=== PATIENT | male | born 1945 | race Caucasian/White ===

== ENCOUNTER → 2020-03-29 14:45 | Outpatient (BNVA) | payer OTHER, SELFPAY | PROVIDERS: PCP Internal Medicine; Visit Provider Nurse Practitioner Family | DX: Z13.89 Encounter for screening for other disorder (principal) | CPT/HCPCS: Q3014 ==

== ENCOUNTER → 2020-04-12 14:33 | Outpatient (BNVA) | payer OTHER, SELFPAY | PROVIDERS: PCP Internal Medicine; Visit Provider Nurse Practitioner Family | DX: Z12.11 Encounter for screening for malignant neoplasm of colon (principal) | CPT/HCPCS: 99212 ==

== ENCOUNTER 2020-07-31 18:14 | Emergency (ER) | payer OTHER, SELFPAY ==
--- NOTE | ~2020-07-31 | XR_ITS ---
EXAMINATION: XR CERVICAL SPINE CLINICAL INFORMATION: Pain with paresthesias. COMPARISON: None TECHNIQUE: 3 views of the cervical spine were obtained. FINDINGS: There is straightening of the normal cervical lordosis which may be positional. No acute fracture appreciated. Multilevel spondylosis throughout the cervical spine greatest at C5-C6 and C6-C7. Prevertebral soft tissues are unremarkable. The dens appears intact. XR/XR cervical spine 3V IMPRESSION: Moderate spondylosis in the lower cervical spine at C5-C6 and C6-C7.
[2020-07-31 18:28] VITALS: BP 141/67; PULSE 90; RESP 18; TEMP 36.7; O2SAT 99; BMI 81.3
--- NOTE | 2020-07-31 19:18 | ED.NECK ---
HPI - Neck Pain/Injury General Chief Complaint: Neck Pain/Injury Stated Complaint: ARM AND HAND PAIN Time Seen by Provider: 07/31/20 19:18 Source: patient Mode of arrival: ambulatory Limitations: no limitations History of Present Illness HPI Narrative: Patient woke up with pain in the right side of the neck radiating to the right arm no history of injury no weakness no motor weakness no headache no sore throat no fever no nausea or vomiting Related Data Home Medications Medication Instructions Recorded Confirmed atorvastatin 40 mg tablet 40 mg PO BEDTIME 03/29/20 04/12/20 clonidine HCl 0.2 mg tablet 0.2 mg PO BID 03/29/20 04/12/20 clopidogrel 75 mg tablet 75 mg PO DAILY 03/29/20 04/12/20 cholecalciferol (vitamin D3) 50 50 mcg PO DAILY 04/12/20 04/12/20 mcg (2,000 unit) capsule divalproex 250 mg tablet,extended 250 mg PO QAM 04/12/20 04/12/20 release 24 hr docusate sodium 100 mg capsule 100 mg PO DAILY 04/12/20 04/12/20 ferrous sulfate 325 mg (65 mg mg PO 04/12/20 04/12/20 iron) tablet lisinopril 5 mg tablet 5 mg PO QAM 04/12/20 04/12/20 metoprolol tartrate 25 mg tablet 25 mg PO BID 04/12/20 04/12/20 quetiapine 25 mg tablet mg PO 04/12/20 04/12/20 Previous Rx's Medication Instructions Recorded tramadol 50 mg PO Q6H PRN #20 tab 07/31/20 Allergies Allergy/AdvReac Type Severity Reaction Status Date / Time No Known Allergies Allergy Unknown NONE Verified 03/29/20 14:46 Review of Systems Review of Systems: Yes all other systems are reviewed and are negative [facility] Past Medical History Surgical History History of colonoscopy Family History Family History Father Hx of type 1 diabetes mellitus Mother History of heart attack Social History Social History Alcohol intake: never Cigarette Packs Per Day: 1 Physical Exam Vital Signs: Vital Signs: Last Vital Signs Temp 98.0 F 05/10/21 18:28 Pulse 90 07/31/20 18:28 Resp 18 07/31/20 18:28 BP 141/67 H 07/31/20 18:28 Pulse Ox 99 07/31/20 18:28 Body Mass Index 81.3 Const: General: comfortable and no acute distress Orientation/consciousness: patient oriented x3 HENMT: Head: Yes normocephalic Ears: hearing grossly normal bilaterally General nose exam: Normal external nose present Eyes: General: appearance normal, both eyes and all related structures Neck: Neck: Yes full ROM, Yes no lymphadenopathy and Yes no meningeal signs Neck images: 1. Tender right trapezius and sternocleidomastoid muscles Chest: Chest palpation & inspection: normal palpation of entire chest wall Resp: Effort & Inspection: normal respiratory effort Auscultation: clear to auscultation bilaterally Cardio: Palpation: normal PMI Rate: regular rate Rhythm: regular rhythm Heart sounds: S1 normal heart sound present and S2 normal heart sound present Neuro: General: patient oriented x3, no meningeal signs and no focal motor deficits Discharge Plan Discharge Clinical Impression: Strain of neck muscle Patient Disposition: Home, Self-Care Instructions: Cervical Strain (ED) Additional Instructions: apply ice rest pain meds as adv report to ed if pain gets worse aplicar hielo descansar analg?sicos wendy adv informar a ed si el dolor empeora Prescriptions: New tramadol 50 mg tablet 50 mg PO Q6H PRN (Reason: pain) Qty: 20 RF: 0 No Action divalproex 250 mg tablet extended release 24 hr 250 mg PO QAM RF: 0 ferrous sulfate 325 mg (65 mg iron) tablet PO RF: 0 lisinopril 5 mg tablet 5 mg PO QAM RF: 0 metoprolol tartrate 25 mg tablet 25 mg PO BID RF: 0 quetiapine 25 mg tablet PO RF: 0 cholecalciferol (vitamin D3) 50 mcg (2,000 unit) capsule 50 mcg PO DAILY RF: 0 docusate sodium 100 mg capsule 100 mg PO DAILY RF: 0 atorvastatin 40 mg tablet 40 mg PO BEDTIME RF: 0 clonidine HCl 0.2 mg tablet 0.2 mg PO BID RF: 0 clopidogrel [Plavix] 75 mg tablet 75 mg PO DAILY RF: 0 Interventions: ED Discharge Assessment Last Done: 07/31/20 21:57 Discharge Date/Time: 07/31/20 22:18 Print Language: German
[2020-07-31] MEDS: traMADoL HCL 50 MG TABLET PO (20:11)
== END 2020-07-31 22:18 | disposition home or self-care (01) ==
PROVIDERS: Emergency Provider Internal Medicine; PCP Internal Medicine
DX: M54.2 Cervicalgia (principal); M79.602 Pain in left arm; M79.601 Pain in right arm; M79.642 Pain in left hand; M79.641 Pain in right hand
CPT/HCPCS: 72040; 99283; 99284

== ENCOUNTER 2020-08-03 16:25 | Inpatient (IN) | payer MEDICARE, SELFPAY ==
--- NOTE | ~2020-08-03 | XR_ITS ---
EXAMINATION: XR CHEST CLINICAL INFORMATION: Weakness. Concern for pneumonia. COMPARISON: None TECHNIQUE: Frontal portable view of the chest was obtained. 5:17 PM FINDINGS: No significant abnormality is noted involving the heart, lungs, mediastinum, bony thorax or soft tissues. XR/XR chest 1V IMPRESSION: Unremarkable examination.
--- NOTE | ~2020-08-03 | CT_ITS ---
EXAMINATION: CTA OF THE HEAD/NECK CLINICAL INFORMATION: CVA. Gaze palsy. Rule out carotid pathology. COMPARISON: Head CT from today. TECHNIQUE: A routine non contrast head CT was performed earlier in the day. This was followed by a 70 mL bolus of Omnipaque 350. Subsequent multidetector helical imaging was performed of the head and neck. Delayed post contrast imaging was also performed through the head. Multiplanar reformats and MIP were also obtained. Internal carotid artery stenoses are assessed in accordance with NASCET criteria unless otherwise indicated. This CT examination was performed using dose optimization techniques as appropriate, variously including the following: *Automated exposure control *Adjustment of mA and/or kV according to patient size (this includes techniques or standardized protocols for targeted exams where dose is matched to indication/reason for exam; i.e. extremities or head) *Use of iterative reconstruction technique DLP: 1666 mGy-cm. FINDINGS: CT HEAD: There is no evidence of acute intracranial hemorrhage or territorial infarction. No abnormal mass effect or midline shift is seen. Salazar to white matter differentiation is well preserved. No extra-axial fluid collections are identified. No suspicious leptomeningeal or parenchymal enhancement on the post-contrast images. No hydrocephalus. Proportional prominence of the ventricles and sulcal spaces is consistent with mild volume loss. Patchy periventricular and deep white matter hypoattenuation is consistent with mild small vessel ischemic changes. Bilateral basal ganglia chronic lacunar infarcts. The osseous structures and soft tissues are normal. The mastoid air cells are well aerated. Moderate mucosal thickening of the right maxillary sinus. CTA NECK: The aortic arch is of normal caliber and the origins of the great vessels are patent without evidence of significant stenosis. The cervical portion of the vertebral arteries are patent bilaterally. No luminal irregularities in the common carotid arteries and the carotid bifurcations are patent bilaterally. The cervical portion of the internal carotid arteries are of normal caliber. The laryngeal structures and pharyngeal mucosal spaces are unremarkable. The oral cavity appears normal. The parotid and submandibular glands are normal. No pathologically enlarged lymph nodes. The thyroid gland is unremarkable. The lung apices are clear without evidence of pneumothorax. Secretions are seen in the trachea extending into the right mainstem bronchus. Mild emphysema. Spinal alignment is maintained. Mild cervical spondylosis is noted. CTA HEAD: The intradural portion of the vertebral arteries are of normal caliber. The basilar, superior cerebellar, and posterior communicating arteries are patent. The posterior, middle, and anterior cerebral arteries are of normal caliber without evidence of significant luminal irregularity. No definite intracranial aneurysms. CT/CT angio head neck IMPRESSION: 1. No acute intracranial finding. Volume loss with small vessel ischemic change. 2. No acute vascular abnormality. No large vessel occlusion.
--- NOTE | ~2020-08-03 | CT_ITS ---
EXAMINATION: CT HEAD WITHOUT CONTRAST (STROKE PROTOCOL) CLINICAL INFORMATION: Stroke protocol. Left-sided weakness COMPARISON: None TECHNIQUE: Contiguous axial imaging was performed from the skull base to vertex without intravenous administration of contrast. This CT examination was performed using dose optimization techniques as appropriate, variously including the following: *Automated exposure control *Adjustment of mA and/or kV according to patient size (this includes techniques or standardized protocols for targeted exams where dose is matched to indication/reason for exam; i.e. extremities or head) *Use of iterative reconstruction technique DLP: 731 mGy-cm FINDINGS: There is no acute intra-axial, extra-axial hemorrhage, masses or midline shift. There are small bibasilar and internal capsule hypodensities, lacunar infarct. These could be acute or old however there is no mass effect. There are no previous exam available for comparison.. The ventricles are normal in size. There is no hydrocephalus, edema, or mass effect. The lee-white matter differentiation appears symmetric. The calvarium appears intact. There is no pneumocephalus or orbital emphysema. The visualized sinuses and middle ears and mastoid air cells show no significant mucosal thickening. There are no air-fluid levels. CT/CT head for stroke IMPRESSION: Bibasilar and internal capsule lacunar infarcts. The right basilar infarcts are slightly larger. These could be acute versus old. There is no mass effect. There is no previous CT available for comparison. Age-related cerebral volume loss. This critical result was discussed by phone with Jef Borrego at 4:47 PM. It was ascertained that the content and urgency of the report was understood at the time of direct communication.
[2020-08-03 16:29] VITALS: RESP 18; BMI 31.2
--- NOTE | 2020-08-03 16:29 | ECG_ITS ---
Test Reason : STROKE Blood Pressure : / mmHG Vent. Rate : 084 BPM Atrial Rate : 084 BPM P-R Int : 196 ms QRS Dur : 120 ms QT Int : 382 ms P-R-T Axes : 069 060 063 degrees QTc Int : 451 ms Normal sinus rhythm Right bundle branch block Abnormal ECG No previous ECGs available Referred By: Enrique Borrego Electronically Signed By:ALEXEY RODAS MD
--- NOTE | 2020-08-03 16:43 | PC.NURSE ---
Last known well to CVA baseline per daughter was two weeks ago. Noticed slurred speech/confusion/facial droop 2 days ago. Now reports vision changes describe as blurry 2 began 2hrs ago.
[2020-08-03 16:53] LABS: MANUAL DIFF FLAG NO
[2020-08-03 16:56] LABS: Basophils Percent Auto 0.4 % (0-2); Eosinophils Absolute Auto 0.2 X10*3/uL (0.0-0.4); Eosinophils Percent Auto 2.3 % (0-4); Hematocrit 37.5 % (42-52); Hemoglobin 12.2 g/dl (14.0-18.0); Imm Gran Abs Auto 0.01 X10*3/uL (0.00-0.03); Imm Gran Pct Auto 0.1 % (0.0-0.4); Lymphocytes Absolute Auto 1.7 X10*3/uL (1.2-4.9); Lymphocytes Percent Auto 24.3 % (20-40); Mean Corpuscular HGB Conc 32.5 g/dl (31.0-36.0); Mean Corpuscular Hemoglobin 27.5 pg (27.0-33.0); Mean Corpuscular Volume 84.7 fL (80-98); Mean Platelet Volume 9.3 fL (9.4-12.4); Monocytes Absolute Auto 0.5 X10*3/uL (0.1-1.2); Monocytes Percent Auto 7.5 % (2-11); Neutrophils Absolute Auto 4.5 X10*3/uL (2.0-8.3); Neutrophils Percent Auto 65.4 % (45-73); Platelet Count 214 X10*3/uL (160-400); Red Blood Count 4.43 X10*6/uL (4.60-5.80); Red Cell Distribution Width 15.9 % (11.0-16.0); White Blood Count 6.9 X10*3/uL (4.8-10.8)
[2020-08-03 16:57] LABS: Prothrombin Time Whole Bld POC 10.4 sec (11.1-13.5); ~PT, ~INR - Anti Coag Clinic 0.9 (0.9-1.1)
[2020-08-03 16:57] LABS: Glucose, Whole Blood 136 mg/dL (60-115)
[2020-08-03 16:58] VITALS: PULSE 84; RESP 20; TEMP 37; O2SAT 94
[2020-08-03 17:00] LABS: INTERNATIONAL NORM RATIO 1.1 (0.9-1.1); Prothrombin Time 12.9 SEC (10.8-13.0)
[2020-08-03 17:01] VITALS: BMI 28.7
[2020-08-03 17:06] LABS: Partial Thromboplastin Time 63.1 SEC (24.1-38.0); Stroke Lab Use COMPLETE
[2020-08-03 17:22] LABS: COVID-19 Test Negative (Negative)
[2020-08-03 17:25] LABS: Alanine Aminotransferase 28 U/L (0-40); Albumin Level 3.8 g/dL (3.5-5.0); Alkaline Phosphatase 88 U/L (39-117); Anion Gap 14 (12-20); Aspartate Amino Transferase 22 U/L (5-37); Bilirubin Direct < 0.2 mg/dL (0.0-0.5); Bilirubin Total 0.3 mg/dL (0.0-1.0); Blood Urea Nitrogen 23 mg/dL (9-16); Calcium 9.1 mg/dL (8.4-10.2); Carbon Dioxide 28 mmol/L (22-29); Chloride 103 mmol/L (96-108); Creatinine Clr Calc Pharmacy 54.1; Estimated Glomerular Filt Rate > 60; Glucose Random 139 mg/dL (60-115); Magnesium 1.7 mg/dL (1.6-2.6); Potassium 3.4 mmol/L (3.3-5.1); Sodium 142 mmol/L (135-145); Total Protein 6.5 g/dL (6.5-8.0)
[2020-08-03 17:31] LABS: Troponin-I High Sensitivity 8.3 ng/L (<3.5-35.0)
--- NOTE | 2020-08-03 18:00 | ED_ITS ---
HPI - General Adult General Chief complaint: General Medical Stated complaint: stroke Time Seen by Provider: 08/03/20 16:29 Source: patient, family (Daughter, Belinda Win, ) and EMS Mode of arrival: EMS Limitations: language barrier (Patient is [place]-speaking, daughter speaks Micronesian and [place], liquor gallery operator was used to obtain information) History of Present Illness HPI narrative: 84-year-old male brought to the emergency department for evaluation of possible stroke. Information was obtained from EMS, the patient's daughter Antoinette and the patient. According to the patient's daughter, the patient was seen yesterday at this hospital for right arm and right neck pain (I do not see this record). The patient had a laboratory evaluation and was sent home with a prescription for tramadol for his pain. According to the daughter, they did not give him any tramadol since they were concerned that this medication would have bad side effects. The daughter states that the patient bennett s not been feeling well for 3 days and told the daughter that he felt like he was going to . Last night at around 9:00 p.m., the patient called his daughter and the daughter's and children went to check on the patient. He was stepped between the wheelchair next bed and they had field administrative assistant into bed. Apparently he was confused and not acting himself. Today, at noon, the patient's MOLD MOVER went to check on him in the patient appeared to be confused and disoriented. 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 He was unable to hold a spoon and was having difficulty moving his arm. The patient's symptoms and di sorientation got worse therefore the family called an ambulance and had the patient transported to the emergency department. In the emergency department, the patient apparently has dysarthric speech but the speech is comprehensible. He does answer questions appropriately but does appear to be confused at times. He does follow commands appropriately. Related Data Home Medications Medication Instructions Recorded Confirmed atorvastatin 1 tab PO BEDTIME 08/03/20 08/03/20 blood sugar diagnostic [OneTouch 08/03/20 08/03/20 Ultra Blue Test Strip] chlorhexidine gluconate 15 ml PO BID 08/03/20 08/03/20 cholecalciferol (vitamin D3) 1 cap PO QAM 08/03/20 08/03/20 clonidine HCl 1 tab PO BID 08/03/20 08/03/20 clopidogrel 1 tab PO QAM 08/03/20 08/03/20 divalproex 1 tab PO QAM 08/03/20 08/03/20 docusate sodium 1 cap PO BID 08/03/20 08/03/20 ferrous sulfate [FeroSul] 1 tab PO TID 08/03/20 08/03/20 fluticasone furoate-vilanterol 1 puff INHALATION DAILY 08/03/20 08/03/20 [Breo Ellipta] insulin glargine [Lantus Solostar 55 unit SUBCUT DAILY 08/03/20 08/03/20 U-100 Insulin] lancets [OneTouch Delica Plus 08/03/20 08/03/20 Lancet] lisinopril 1 tab PO QAM 08/03/20 08/03/20 metformin 0.5 tab PO BID 08/03/20 08/03/20 metoprolol tartrate 1 tab PO BID 08/03/20 08/03/20 multivitamin [One Daily 1 tab PO DAILY 08/03/20 08/03/20 Multivitamin] pen needle, diabetic [UltiCare Pen 08/03/20 08/03/20 Needle] quetiapine 1 tab PO TID 08/03/20 08/03/20 tramadol 1 tab PO Q6H PRN 08/03/20 08/03/20 Allergies Allergy/AdvReac Type Severity Reaction Status Date / Time No Known Allergies Allergy Verified 08/03/20 17:06 Review of Systems Review of Systems: Yes Unobtainable due to mental status (Disorientation and confusion) Neurologic: Reports Abnormal speech present (Dysarthric) [facility] Past Medical History [facility] Narrative: The patient lives at home with MOLD MOVER assistance and family assistance. He does smoke cigarettes. He denies tobacco and alcohol use. Medical History CVA (cerebral vascular accident) Diabetes HTN (hypertension) Social History Social History Alcohol intake: current Smoking Status: Current every day smoker Use of substances other than those prescribed or required for medical reasons: No Advance Directives: No Advance Directives Information Provided: No Physical Exam Vital Signs: Vital Signs: Last Vital Signs Temp 98.8 F 08/03/20 19:09 Pulse 71 08/03/20 19:09 Resp 21 H 08/03/20 19:09 BP 106/56 L 08/03/20 19:09 Pulse Ox 93 08/03/20 19:09 Body Mass Index 28.7 Const: General: cooperative Orientation/consciousness: oriented to person and oriented to place HENMT: Head: Yes normal to inspection, Yes normocephalic and Yes atraumatic Ears: external ears normal General nose exam: Normal external nose present Face and sinus: Yes normal facial exam Mouth: Normal oral and palatal mucosa present Throat: Yes posterior oropharynx normal Eyes: Periorbital: periorbital findings normal Eyelids: Yes eyelids normal Conjunctivae: conjunctivae normal Sclerae: sclerae normal Corneas: corneas normal Pupils: Equal, round and reactive pupils present EOM: EOM abnormal (Right gaze paralysis) Direct Ophthalmoscopy: normal light reflex Neck: Neck: Yes full ROM, Yes no lymphadenopathy, Yes no meningeal signs, Yes trachea midline and Yes supple Chest: Chest palpation & inspection: normal inspection of the chest and normal palpation of entire chest wall Resp: Effort & Inspection: normal respiratory effort and able to speak in complete sentences Auscultation: clear to auscultation bilaterally Cardio: Rate: regular rate Rhythm: regular rhythm Heart sounds: S1 brandi l heart sound present, S2 normal heart sound present and no murmurs GI: Inspection: Yes normal to inspection Palpation (GI): Soft to palpation, nontender, no guarding, not rigid and No hepatosplenomegaly present : General: Yes no CVA tenderness Back/Spine/Pelvis: Back: no CVA tenderness Cervical Spine: normal cervical lordosis Thoracic/Lumbar Spine: thoracic and lumbar spine normal to inspection Skin: Lesions: no lesions Rashes: no rashes Wounds: no wounds Neuro: Other: Bilateral above the knee amputations. The patient has left sided upper extremity weakness compared to the right, he is able to hold the right up against gravity but the daughter states that his right arm appears incoordinated compared to his baseline. He has minimal stopboard assembler strength in the left arm is able to hold the left arm minimally against gravity General: oriented to person, oriented to place and no meningeal signs Cranial nerves: Yes CN's II-XII intact bilaterally and Yes Equal, round and reactive pupils present Cognition (Neuro): normal cognition Speech: Abnormal speech present (Dysarthric) Extrem: Other: Bilateral above the knee amputations. General: Yes full ROM Psych: Appearance: well kempt Mental Status: mental status grossly normal Affect: normal affect Attitude: cooperative NIH Stroke Scale Internal: Initial- Upon Arrival Level of Consciousness: Alert Level of Consciousness Questions: Answers both questions correctly Level of Consciousness Commands: Performs both tasks correctly Best Gaze: Forced deviation (Right gaze paralysis) Visual: No visual loss Facial Palsy: Normal Motor Arm (Right): Drift Motor Arm (Left): Some effort against gravity Motor Leg (Right): Amputation or joint fusion Motor Leg (Left): Amputation or joint fusion Limb Ataxia: Present in one limb Sensory: Normal Best Language: No aphasia Dysarthia: Mild to moderate dysarthria Extinction and Inattention: No abnormality Score: 7 Course Course Course Narrative: 84-year-old male who presents emergency department for evaluation of disorientation, dysarthric speech, weakness his right upper extremity which may be new and weakness of his left upper extremity which may be chronic. The patient's last well-known time was last night at 9:00 p.m.. Physical examination is concerning for an acute stroke with dysarthric speech and right gaze paralysis and slight weakness and discoordination of the right upper extremity compared to his baseline. The patient's NIH stroke scale was 7. Given the delay in the patient's presentation, he does not qualify for tPA thrombolytics therapy. I will discuss the patient's presentation with the covering neurologist. 1813: In the patient's PT INR were normal. PTT was elevated at 63.1. Point of care glucose 136. Patient's CK was elevated at 591. initial troponin was detectable at a 0.3 but not elevated. Labs are otherwise unremarkable. CT scan of the brain was reported to me by the radiologist at 4:47 p.m. as bibasilar and internal capsule lacunar infarcts, the right basilar infarcts are slightly larger. This could be acute versus old. The for there is no mass effect. There is no previous CT for comparison. Given the patient's right gaze paralysis, I am concerned that he may now have a new right bibasilar/internal capsular infarct. 2020: I did discuss the patient's presentation with the covering neurologist who recommended that the patient be admitted for further workup of possible stroke. I did discuss the patient's presentation with the covering hospitalist, Dr. Antony. The patient will be admitted to the hospital service for further treatment. We discussed giving rectal aspirin since the patient was having difficulty swallowing. He was ordered to get aspirin 300 mg per rectum. Medical Decision Making Lab Data Result diagrams: 08/03/20 16:44 08/03/20 16:44 Labs: Lab Results 08/03/20 08/03/20 08/03/20 Range/Units 16:44 16:44 16:44 WBC 6.9 (4.8-10.8) X10*3/uL RBC 4.43 L (4.60-5.80) X10*6/uL Hgb 12.2 L (14.0-18.0) g/dl Hct 37.5 L (42-52) % MCV 84.7 (80-98) fL MCH 27.5 (27.0-33.0) pg MCHC 32.5 (31.0-36.0) g/dl RDW 15.9 (11.0-16.0) % Plt Count 214 (160-400) X10*3/uL MPV 9.3 L (9.4-12.4) fL Immature Gran % (Auto) 0.1 (0.0-0.4) % Neut % (Auto) 65.4 (45-73) % Lymph % (Auto) 24.3 (20-40) % [place] % (Auto) 7.5 (2-11) % Eos % (Auto) 2.3 (0-4) % Baso % (Auto) 0.4 (0-2) % Lymph # (Auto) 1.7 (1.2-4.9) X10*3/uL [place] # (Auto) 0.5 (0.1-1.2) X10*3/uL Eos # (Auto) 0.2 (0.0-0.4) X10*3/uL Baso # (Auto) 0.0 (0.0-0.2) X10*3/uL Abs Immat Gran (auto) 0.01 (0.00-0.03) X10*3/uL Absolute Neuts (auto) 4.5 (2.0-8.3) X10*3/uL Absolute Nucleated RBC 0.000 (0.0-0.012) X10*3/uL Nucleated RBC % (auto) 0.0 (0.0-0.2) /100WBC PT 12.9 (10.8-13.0) SEC Whole Blood PT (11.1-13.5) sec INR 1.1 (0.9-1.1) Whole Blood INR (0.9-1.1) APTT 63.1 H* (24.1-38.0) SEC Sodium 142 (135-145) mmol/L Potassium 3.4 (3.3-5.1) mmol/L Chloride 103 (96-108) mmol/L Carbon Dioxide 28 (22-29) mmol/L Anion Gap 14 (12-20) BUN 23 H (9-16) mg/dL Creatinine 0.80 (0.5-1.4) mg/dL Estim Creat Clear Calc 54.1 Estimated GFR > 60 POC Glucose (60-115) mg/dL Random Glucose 139 H (60-115) mg/dL Calcium 9.1 (8.4-10.2) mg/dL Magnesium 1.7 (1.6-2.6) mg/dL Total Bilirubin 0.3 (0.0-1.0) mg/dL Direct Bilirubin < 0.2 (0.0-0.5) mg/dL AST 22 (5-37) U/L ALT 28 (0-40) U/L Alkaline Phosphatase 88 (39-117) U/L Total Creatine Kinase 591 H (38-174) U/L Troponin I High Sens (<3.5-35.0) ng/L Total Protein 6.5 (6.5-8.0) g/dL Albumin 3.8 (3.5-5.0) g/dL COVID-19 (LIDIA) (Negative) COVID-19 Clin Com 08/03/20 08/03/20 08/03/20 Range/Units 16:44 16:46 16:48 WBC (4.8-10.8) X10*3/uL RBC (4.60-5.80) X10*6/uL Hgb (14.0-18.0) g/dl Hct (42-52) % MCV (80-98) fL MCH (27.0-33.0) pg MCHC (31.0-36.0) g/dl RDW (11.0-16.0) % Plt Count (160-400) X10*3/uL MPV (9.4-12.4) fL Immature Gran % (Auto) (0.0-0.4) % Neut % (Auto) (45-73) % Lymph % (Auto) (20-40) % [place] % (Auto) (2-11) % Eos % (Auto) (0-4) % Baso % (Auto) (0-2) % Lymph # (Auto) (1.2-4.9) X10*3/uL [place] # (Auto) (0.1-1.2) X10*3/uL Eos # (Auto) (0.0-0.4) X10*3/uL Baso # (Auto) (0.0-0.2) X10*3/uL Abs Immat Gran (auto) (0.00-0.03) X10*3/uL Absolute Neuts (auto) (2.0-8.3) X10*3/uL Absolute Nucleated RBC (0.0-0.012) X10*3/uL Nucleated RBC % (auto) (0.0-0.2) /100WBC PT (10.8-13.0) SEC Whole Blood PT 10.4 L (11.1-13.5) sec INR (0.9-1.1) Whole Blood INR 0.9 (0.9-1.1) APTT (24.1-38.0) SEC Sodium (135-145) mmol/L Potassium (3.3-5.1) mmol/L Chloride (96-108) mmol/L Carbon Dioxide (22-29) mmol/L Anion Gap (12-20) BUN (9-16) mg/dL Creatinine (0.5-1.4) mg/dL Estim Creat Clear Calc Estimated GFR POC Glucose 136 H (60-115) mg/dL Random Glucose (60-115) mg/dL Calcium (8.4-10.2) mg/dL Magnesium (1.6-2.6) mg/dL Total Bilirubin (0.0-1.0) mg/dL Direct Bilirubin (0.0-0.5) mg/dL AST (5-37) U/L ALT (0-40) U/L Alkaline Phosphatase (39-117) U/L Total Creatine Kinase (38-174) U/L Troponin I High Sens 8.3 (<3.5-35.0) ng/L Total Protein (6.5-8.0) g/dL Albumin (3.5-5.0) g/dL COVID-19 (LIDIA) (Negative) COVID-19 Clin Com 08/03/20 Range/Units 16:56 WBC (4.8-10.8) X10*3/uL RBC (4.60-5.80) X10*6/uL Hgb (14.0-18.0) g/dl Hct (42-52) % MCV (80-98) fL MCH (27.0-33.0) pg MCHC (31.0-36.0) g/dl RDW (11.0-16.0) % Plt Count (160-400) X10*3/uL MPV (9.4-12.4) fL Immature Gran % (Auto) (0.0-0.4) % Neut % (Auto) (45-73) % Lymph % (Auto) (20-40) % [place] % (Auto) (2-11) % Eos % (Auto) (0-4) % Baso % (Auto) (0-2) % Lymph # (Auto) (1.2-4.9) X10*3/uL [place] # (Auto) (0.1-1.2) X10*3/uL Eos # (Auto) (0.0-0.4) X10*3/uL Baso # (Auto) (0.0-0.2) X10*3/uL Abs Immat Gran (auto) (0.00-0.03) X10*3/uL Absolute Neuts (auto) (2.0-8.3) X10*3/uL Absolute Nucleated RBC (0.0-0.012) X10*3/uL Nucleated RBC % (auto) (0.0-0.2) /100WBC PT (10.8-13.0) SEC Whole Blood PT (11.1-13.5) sec INR (0.9-1.1) Whole Blood INR (0.9-1.1) APTT (24.1-38.0) SEC Sodium (135-145) mmol/L Potassium (3.3-5.1) mmol/L Chloride (96-108) mmol/L Carbon Dioxide (22-29) mmol/L Anion Gap (12-20) BUN (9-16) mg/dL Creatinine (0.5-1.4) mg/dL Estim Creat Clear Calc Estimated GFR POC Glucose (60-115) mg/dL Random Glucose (60-115) mg/dL Calcium (8.4-10.2) mg/dL Magnesium (1.6-2.6) mg/dL Total Bilirubin (0.0-1.0) mg/dL Direct Bilirubin (0.0-0.5) mg/dL AST (5-37) U/L ALT (0-40) U/L Alkaline Phosphatase (39-117) U/L Total Creatine Kinase (38-174) U/L Troponin I High Sens (<3.5-35.0) ng/L Total Protein (6.5-8.0) g/dL Albumin (3.5-5.0) g/dL COVID-19 (LIDIA) Negative (Negative) COVID-19 Clin Com See Note ECG Data Attestation: I personally reviewed and interpreted this ECG as follows: Interpretation: 1701: Normal sinus rhythm with a rate of 84, normal CO, prolonged QRS of 120 milliseconds, Brandi QTC. No ST segment elevation or depression. Critical Care Time Critical Care Time Total Critical Care Time: 35 Attestation: Critical Care: The patient was critically ill with a high probability of imminent or life threatening deterioration. I spent greater than 30 minutes of discontinuous time evaluating the patient,delivering critical care at the bedside, discussing and evaluating pertinent data with consultants. Critical care time does not include time spent performing separately billable procedures or teaching. Total time spent performing critical care was 35 minutes. Discharge Plan Discharge Clinical Impression: Stroke Qualifiers: CVA mechanism: unspecified Qualified Code(s): I63.9 - Cerebral infarction, unspecified Patient Disposition: Admitted As Inpatient
[2020-08-03 19:09] VITALS: BP 106/56; PULSE 71; RESP 21; TEMP 37.1; O2SAT 93
[2020-08-03 20:48] VITALS: BP 114/48; PULSE 85
--- NOTE | 2020-08-03 20:54 | PM.IMHP ---
History of Present Illness Date of Service: 08/03/20 Chief Complaint: Right-sided weakness 84-year-old male with a past medical history of hypertension, hyperlipidemia, diabetes, history of CVA with residual left arm weakness, bilateral lower extremity amputation, wheelchair-bound; presented to the hospital today with a chief complaint of right-sided weakness/confusion. Most of the history obtained from the ER staff, patient's family. Reportedly over the past few days patient has been not doing well; brought to the ER on Friday for complaints of neck pain and arm pain; subsequently given tramadol and sent home. At home patient noted to be more confused; and noted right upper extremity weakness as well as slurring his words. Also mentioned the patient was on not able to swallow food. Patient's daughter mentioned that on Friday the noticed that his eyes are not moving appropriately and patient was complaining of blurry vision. Patient denies any chest pain palpitations lightheadedness or dizziness. Denies any fever chills cough. Review of all other systems is negative except mentioned above ER course: Per ER team patient noted to have left arm weakness which is old, noted right arm slightly weaker; patient last well known was 9:00 p.m. the day before mentioned that on exam patient noted to have dysarthric speech and a right gaze paralysis and slight discoordination of the right upper extremity with NIH stroke scale of 7. Patient does not qualify for tPA. Spoke to Dr. Smith from Neurology who recommended admission for further stroke workup. EKG was nonischemic. Troponin negative. Urinalysis pending. [facility] Medical History (Updated 08/15/20 @ 00:01 by Christine Walton) CVA (cerebral vascular accident) Diabetes Dysphagia as late effect of cerebrovascular accident (CVA) HTN (hypertension) Stroke Social History Household Members: None Housing: Apartment Do you presently have visiting nurse or other home services: No Alcohol intake: current Smoking Status: Current every day smoker Packs Per Day: 1 Cigarettes Per Day: 20.0 Smoked in Last 30 Days: Yes Patient Interested in Nicotine Replacement: No Patient Given Instructions on How to Stop Smoking: No Second Hand Smoke Exposure: Yes Use of substances other than those prescribed or required for medical reasons: No Currently Displaying Signs/Symptoms of Drug Intoxication Withdrawal: No Have you been hit, kicked, punched, or otherwise hurt by someone within the past year? If so, by whom?: No Do you feel safe in your current relationship?: No Current Relationship Is there a partner from a previous relationship who is making you feel unsafe now?: No Are you made to feel afraid or neglected: No Advance Directives: No Advance Directives Information Provided: No Do you have thoughts of harming others: None Do you have a plan to hurt others: No Plan Recently lost weight without trying: No How much weight loss: Not applicable Eating poorly because of decreased appetite: No Nutrition screen score: 0 Nutrition Risks: No Nutritional Risk Poor oral hygiene: No service: No Current occupational status: unemployed and disabled Meds Allergies Allergy/AdvReac Type Severity Reaction Status Date / Time No Known Allergies Allergy Verified 08/03/20 17:06 Active Medications: Current Medications Generic Name Dose Route Start Last Admin Trade Name Freq PRN Reason Stop Dose Admin Atorvastatin Calcium 40 mg 08/03/20 21:00 Atorvastatin Calcium 40 Mg Tablet PO BEDTIME [facility] Chlorhexidine Gluconate 15 ml 08/03/20 21:00 Chlorhexidine Gluc Oral Rinse 15 Ml Mouthwash BUCCAL BID [facility] Clonidine HCl 0.2 mg 08/03/20 21:00 Clonidine Hcl 0.2 Mg Tablet PO BID [facility] Protocol Clopidogrel Bisulfate 75 mg 08/03/20 21:00 Clopidogrel Bisulfate 75 Mg Tablet PO QAM [facility] Divalproex Sodium 250 mg 08/03/20 21:00 Divalproex Sodium Er 250 Mg Tab.Er.24h PO QAM [facility] Docusate Sodium 100 mg 08/03/20 21:00 Docusate Sodium 100 Mg Capsule PO BID [facility] Fluticasone/Vilanterol 1 puff 08/04/20 09:00 Fluticasone/Vilanterol 100/25 Blst.W.Dev INHALE DAILY [facility] Heparin Sodium (Porcine) 5,000 unit 08/03/20 21:00 Heparin Sodium,Porcine 5,000 Unit/Ml Vial SUBCUT Q8H [facility] Dextrose/Sodium Chloride 1,000 mls @ 50 mls/hr 08/03/20 21:00 D51/2ns IVCONT .Q20H [facility] Insulin Human Lispro 0 unit 08/03/20 21:00 Insulin Lispro 100 Unit/Ml 3 Ml Vial SUBCUT QIDACHS [facility] Protocol Lisinopril 5 mg 08/03/20 21:00 Lisinopril 5 Mg Tablet PO QAM [facility] Protocol Metoprolol Tartrate 25 mg 08/03/20 21:00 Metoprolol Tartrate 25 Mg Tablet PO BID [facility] Protocol Quetiapine Fumarate 25 mg 08/03/20 21:00 Quetiapine Fumarate 25 Mg Tablet PO TID [facility] Sodium Chloride 3 ml 08/04/20 00:00 0.9 % Sodium Chloride Flush 3 Ml [facility] Vitamin D 50 mcg 08/03/20 21:00 Cholecalciferol (Vitamin D3) 25 Mcg [facility] Medication Instructions Recorded Confirmed Last Taken Type Breo Ellipta 1 puff INHALATION DAILY 08/03/20 08/03/20 Unknown History Lantus Solostar U-100 Insulin 55 unit SUBCUT DAILY 08/03/20 08/03/20 Unknown History OneTouch Ultra Blue Test Strip 08/03/20 08/03/20 Unknown History atorvastatin 1 tab PO BEDTIME 08/03/20 08/03/20 Unknown History chlorhexidine gluconate 15 ml PO BID 08/03/20 08/03/20 Unknown History cholecalciferol (vitamin D3) 1 cap PO QAM 08/03/20 08/03/20 Unknown History clonidine HCl 1 tab PO BID 08/03/20 08/03/20 Unknown History clopidogrel 1 tab PO QAM 08/03/20 08/03/20 Unknown History divalproex 1 tab PO QAM 08/03/20 08/03/20 Unknown History docusate sodium 1 cap PO BID 08/03/20 08/03/20 Unknown History ferrous sulfate [FeroSul] 1 tab PO TID 08/03/20 08/03/20 Unknown History lancets [OneTouch Delica Plus 08/03/20 08/03/20 Unknown History Lancet] lisinopril 1 tab PO QAM 08/03/20 08/03/20 Unknown History metformin 0.5 tab PO BID 08/03/20 08/03/20 Unknown History metoprolol tartrate 1 tab PO BID 08/03/20 08/03/20 Unknown History multivitamin [One Daily 1 tab PO DAILY 08/03/20 08/03/20 Unknown History Multivitamin] pen needle, diabetic [UltiCare Pen 08/03/20 08/03/20 Unknown History Needle] quetiapine 1 tab PO TID 08/03/20 08/03/20 Unknown History Physical Exam Vital Signs and Narrative: Vital Signs: Last Vital Signs Temp 98.8 F 08/03/20 19:09 Pulse 71 08/03/20 19:09 Resp 21 H 08/03/20 19:09 BP 106/56 L 08/03/20 19:09 Pulse Ox 93 08/03/20 19:09 Body Mass Index 28.7 Gen: Appears be in no acute distress HEENT: NCAT, Moist mucosa. Pulmonary: Vesicular breath sounds, fair air entry CVS: Normal S1-S2 Abdomen: BS+, Soft, Nontender Extremities: Warm well perfused; bilateral a bony amputation Neuro: Alert and awake. Results Labs CBC and Chem 7: 08/04/20 05:48 08/04/20 05:48 Labs: Laboratory Results - last 24 hr 08/03/20 08/03/20 08/03/20 16:44 16:44 16:44 MCV 84.7 MCH 27.5 MCHC 32.5 RDW 15.9 Plt Count 214 MPV 9.3 L Immature Gran % (Auto) 0.1 Neut % (Auto) 65.4 Lymph % (Auto) 24.3 [place] % (Auto) 7.5 Eos % (Auto) 2.3 Baso % (Auto) 0.4 Lymph # (Auto) 1.7 [place] # (Auto) 0.5 Eos # (Auto) 0.2 Baso # (Auto) 0.0 Abs Immat Gran (auto) 0.01 Absolute Neuts (auto) 4.5 Absolute Nucleated RBC 0.000 Nucleated RBC % (auto) 0.0 PT 12.9 Whole Blood PT INR 1.1 Whole Blood INR APTT 63.1 H* Anion Gap 14 Estim Creat Clear Calc 54.1 Estimated GFR > 60 POC Glucose Random Glucose 139 H Calcium 9.1 Magnesium 1.7 Total Bilirubin 0.3 Direct Bilirubin < 0.2 AST 22 ALT 28 Alkaline Phosphatase 88 Total Creatine Kinase 591 H Troponin I High Sens Total Protein 6.5 Albumin 3.8 COVID-19 ([facility]) COVID-19 Clin Com 08/03/20 08/03/20 08/03/20 16:44 16:46 16:48 MCV MCH MCHC RDW Plt Count MPV Immature Gran % (Auto) Neut % (Auto) Lymph % (Auto) [place] % (Auto) Eos % (Auto) Baso % (Auto) Lymph # (Auto) [place] # (Auto) Eos # (Auto) Baso # (Auto) Abs Immat Gran (auto) Absolute Neuts (auto) Absolute Nucleated RBC Nucleated RBC % (auto) PT Whole Blood PT 10.4 L INR Whole Blood INR 0.9 APTT Anion Gap Estim Creat Clear Calc Estimated GFR POC Glucose 136 H Random Glucose Calcium Magnesium Total Bilirubin Direct Bilirubin AST ALT Alkaline Phosphatase Total Creatine Kinase Troponin I High Sens 8.3 Total Protein Albumin COVID-19 ([facility]) COVID-19 Clin Com 08/03/20 16:56 MCV MCH MCHC RDW Plt Count MPV Immature Gran % (Auto) Neut % (Auto) Lymph % (Auto) [place] % (Auto) Eos % (Auto) Baso % (Auto) Lymph # (Auto) [place] # (Auto) Eos # (Auto) Baso # (Auto) Abs Immat Gran (auto) Absolute Neuts (auto) Absolute Nucleated RBC Nucleated RBC % (auto) PT Whole Blood PT INR Whole Blood INR APTT Anion Gap Estim Creat Clear Calc Estimated GFR POC Glucose Random Glucose Calcium Magnesium Total Bilirubin Direct Bilirubin AST ALT Alkaline Phosphatase Total Creatine Kinase Troponin I High Sens Total Protein Albumin COVID-19 ([facility]IA) Negative COVID-19 Clin Com See Note Imaging Radiologist's Impressions: Impressions Chest X-Ray 08/03/20 16:29 IMPRESSION: Unremarkable examination. Head CT 08/03/20 16:29 IMPRESSION: Bibasilar and internal capsule lacunar infarcts. The right basilar infarcts are slightly larger. These could be acute versus old. There is no mass effect. There is no previous CT available for comparison. Age-related cerebral volume loss. This critical result was discussed by phone with Jef Borrego at 4:47 PM. It was ascertained that the content and urgency of the report was understood at the time of direct communication. Assessment and Plan (1) Stroke: Qualifiers: CVA mechanism: unspecified Qualified Code(s): I63.9 - Cerebral infarction, unspecified 84-year-old male with a past medical history of hypertension, hyperlipidemia, diabetes, bilateral above knee amputation, CVA with left upper extremity weakness residual,; presented to the hospital with a chief complaint of right upper extremity weakness, dysarthria, blurry vision; CVA: CT scan showed bibasilar and internal capsule lacunar infarcts; the right basilar infarcts are slightly larger. Could be acute versus old. No mass effect. Neuro checks Neurology consult notified Given rectal aspirin in the ER. Will obtain a stat CT angio head and neck to rule out any carotid pathology. Strict NPO until cleared by Speech and swallow consult; PT/OT eventually Echocardiogram with bubble study Patient failed bedside swallow screen. Will hold home oral medications for now. Hypertension: Patient's blood pressure currently on the soft side. Will hold home medications for now Diabetes: Insulin sliding scale DVT prophylaxis: SCD boots Code status: Full code Spoke to the patient's healthcare proxy, discussed the plan of care, and treatment options, agreed for hospital stay at [facility]. And
[2020-08-03] MEDS: Aspirin 300 MG SUPP.RECT PR (21:03)
--- NOTE | 2020-08-03 21:08 | PC.NURSE ---
confirmed with md: pt is strict NPO pending swallow eval by speech.
--- NOTE | 2020-08-03 21:24 | PC.NURSE ---
ATTEMPTED TO GIVE REPORT TO JONATHAN MCGREGOR. PER LIZABETH MCGREGOR UNAVAILABLE. WILL CALL BACK IN 10 MINUTES.
[2020-08-03 21:55] LABS: Glucose, Whole Blood 119 mg/dL (60-115)
[2020-08-03] MEDS: iohexoL 350 MG/ML 100 ML INFUS..BTL IV (22:00)
[2020-08-03 22:10] VITALS: BP 141/65; PULSE 86; RESP 16; TEMP 36.4; O2SAT 94
[2020-08-03] MEDS: Dextrose 5 % and 0.45 % NaCl 1,000 ML 50 ML IVCONT (22:12)
[2020-08-03] MEDS: 0.9 % Sodium Chloride Flush 3 ML SYRINGE IVFLUSH (22:12)
[2020-08-03 22:38] LABS: Amphetamine Screen Urine Not Detected (Not Detect); Barbiturates, Urine Not Detected (Not Detect); Benzodiazepines Screen Urine Not Detected (Not Detect); Cannabinoid Screen Urine Not Detected (Not Detect); Cocaine Screen Urine Not Detected (Not Detect); Opiate Screen Urine Not Detected (Not Detect); Phencyclidine Screen Urine Not Detected (Not Detect)
[2020-08-03 23:53] LABS: Glucose Urine UA NEG (NEG); Leukocyte Esterase Urine NEG (NEG); Nitrite Urine NEG (NEG); PH 6.5 (5.0-8.0); Urine Blood NEG (NEG); Urine Ketones 15 MG/DL (NEG); Urine Protein NEG (NEG-TRACE)
[2020-08-03 23:54] LABS: Appearance Urine HAZY; Color Urine DARK YELLOW
[2020-08-04] VITALS (8 sets, daily range): BP systolic 117–164; BP diastolic 54–81; PULSE 74–97; RESP 14–19; TEMP 36.1–36.5; O2SAT 91–97
[2020-08-04 00:40] LABS: Troponin-I High Sensitivity 8.4 ng/L (<3.5-35.0)
[2020-08-04 06:25] LABS: MANUAL DIFF FLAG NO
[2020-08-04 06:40] LABS: Basophils Percent Auto 0.3 % (0-2); Eosinophils Absolute Auto 0.1 X10*3/uL (0.0-0.4); Eosinophils Percent Auto 1.5 % (0-4); Hematocrit 37.4 % (42-52); Hemoglobin 12.2 g/dl (14.0-18.0); Imm Gran Abs Auto 0.02 X10*3/uL (0.00-0.03); Imm Gran Pct Auto 0.3 % (0.0-0.4); Lymphocytes Absolute Auto 1.3 X10*3/uL (1.2-4.9); Lymphocytes Percent Auto 18.2 % (20-40); Mean Corpuscular HGB Conc 32.6 g/dl (31.0-36.0); Mean Corpuscular Hemoglobin 27.4 pg (27.0-33.0); Monocytes Absolute Auto 0.5 X10*3/uL (0.1-1.2); Monocytes Percent Auto 6.8 % (2-11); Neutrophils Absolute Auto 5.4 X10*3/uL (2.0-8.3); Neutrophils Percent Auto 72.9 % (45-73); Platelet Count 208 X10*3/uL (160-400); Red Blood Count 4.45 X10*6/uL (4.60-5.80); Red Cell Distribution Width 15.9 % (11.0-16.0); White Blood Count 7.4 X10*3/uL (4.8-10.8)
[2020-08-04 07:12] LABS: Cholesterol 156 mg/dL; HDL Cholesterol 25 mg/dL; LDL Cholesterol Calculated 108 mg/dl; Triglycerides 116 mg/dL
[2020-08-04 07:31] LABS: Anion Gap 12 (12-20); Blood Urea Nitrogen 23 mg/dL (9-16); Calcium 8.6 mg/dL (8.4-10.2); Carbon Dioxide 28 mmol/L (22-29); Chloride 101 mmol/L (96-108); Creatinine Clr Calc Pharmacy 64.6; Estimated Glomerular Filt Rate > 60; Glucose Random 230 mg/dL (60-115); Potassium 3.7 mmol/L (3.3-5.1); Sodium 137 mmol/L (135-145)
[2020-08-04 07:36] LABS: Glucose, Whole Blood 206 mg/dL (60-115)
[2020-08-04] MEDS: Fluticasone/Vilanterol 100/25 BLST.W.DEV 1 PUFF INHALE (08:36)
--- NOTE | 2020-08-04 10:53 | MHC.SL.SWA ---
Speech Pathologist Impression: Oralpharyngeal Dysphagia Dysphasia Diet Status: Upgrade Liquid Consistency and Strategies for Safe Swallow: Liquid Intake Recommendation: Honey Thick Liquid Intake Strategies: Small Sips Double Swallow Liquids by Teaspoon Only Solid Food Consistency: Dietary Recommendations: Pureed (NDD1) Additional Modifications to Solid Foods: Liquids by teaspoon or SMALL CONTROLLED cup sip Oral Medication Intake: Crushed with Puree Compensatory Strategies and Precautions to be Taken for Safe Swallow: Sitting Upright (90 deg) No Straw Liquids from Spoon Small Bites and Sips Rate of Ingestion Change Oral Check Supervision While Eating and Drinking for Safe Swallow: Total Supervision (1:1) Swallowing Recommended Treatments: Compens. Strategy Educat. Recommendation for Speech: Inpatient Speech Therapy Comment: Will continue to follow patient to monitor tolerance and re-assess potential for upgrade. Professional Benefits Sales Consultant Clinican/Clinical Fellow: No Supervisory Statement: I have reviewed and agree with the student/clinical fellow's documentation: N/A Speech Language Pathologist: Mary Mendez M.A., CCC-MEDICAL COLLECTOR
--- NOTE | 2020-08-04 12:02 | P.CNNE_ITS ---
History of Present Illness Data of Consult Service Date: 08/04/20 Primary Care Provider: [facility] 74 years old man with underlying history of diabetes bilateral lower extremity amputation resident of a shelter who came to hospital with new onset of left-sided weakness and confusion. He was unable to provide any meaningful history and apparently symptoms normal resolved. Review of Systems Review of Systems: No recent cold or flu-like illness PMFSH Past Medical History Medical History CVA (cerebral vascular accident) Diabetes HTN (hypertension) Social History Social History Household Members: None Housing: Apartment Do you presently have visiting nurse or other home services: No Alcohol intake: current Smoking Status: Current every day smoker Packs Per Day: 1 Cigarettes Per Day: 20.0 Smoked in Last 30 Days: Yes Patient Interested in Nicotine Replacement: No Patient Given Instructions on How to Stop Smoking: No Second Hand Smoke Exposure: Yes Use of substances other than those prescribed or required for medical reasons: No Currently Displaying Signs/Symptoms of Drug Intoxication Withdrawal: No Have you been hit, kicked, punched, or otherwise hurt by someone within the past year? If so, by whom?: No Do you feel safe in your current relationship?: No Current Relationship Is there a partner from a previous relationship who is making you feel unsafe now?: No Are you made to feel afraid or neglected: No Advance Directives: No Advance Directives Information Provided: No Do you have thoughts of harming others: None Do you have a plan to hurt others: No Plan Recently lost weight without trying: No How much weight loss: Not applicable Eating poorly because of decreased appetite: No Nutrition screen score: 0 Nutrition Risks: No Nutritional Risk Poor oral hygiene: No Meds Allergies Allergy/AdvReac Type Severity Reaction Status Date / Time No Known Allergies Allergy Verified 08/03/20 17:06 Active Medications: Current Medications Generic Name Dose Route Start Last Admin Trade Name Freq PRN Reason Stop Dose Admin Atorvastatin Calcium 40 mg 08/03/20 21:00 08/03/20 22:00 Atorvastatin Calcium 40 Mg Tablet PO Not Given BEDTIME [facility] Chlorhexidine Gluconate 15 ml 08/03/20 21:00 08/03/20 22:00 Chlorhexidine Gluc Oral Rinse 15 Ml Mouthwash BUCCAL Not Given BID [facility] Clonidine HCl 0.2 mg 08/03/20 21:00 08/03/20 22:00 Clonidine Hcl 0.2 Mg Tablet PO Not Given BID [facility] Protocol Clopidogrel Bisulfate 75 mg 08/03/20 21:00 08/03/20 22:00 Clopidogrel Bisulfate 75 Mg Tablet PO Not Given DAILY [facility] Divalproex Sodium 250 mg 08/03/20 21:00 08/03/20 22:01 Divalproex Sodium Er 250 Mg Tab.Er.24h PO Not Given DAILY [facility] Docusate Sodium 100 mg 08/03/20 21:00 08/03/20 22:01 Docusate Sodium 100 Mg Capsule PO Not Given BID [facility] Fluticasone/Vilanterol 1 puff 08/04/20 08:00 08/04/20 08:36 Fluticasone/Vilanterol 100/25 Blst.W.Dev INHALE 1 puff RDAILY [facility] Administration Dextrose/Sodium Chloride 1,000 mls @ 50 mls/hr 08/03/20 21:00 08/03/20 22:12 D51/2ns IVCONT 50 mls/hr .Q20H [facility] Administration Insulin Human Lispro 0 unit 08/03/20 21:00 08/04/20 07:45 Insulin Lispro 100 Unit/Ml 3 Ml Vial SUBCUT Not Given QIDACHS [facility] Protocol Lisinopril 5 mg 08/03/20 21:00 08/03/20 22:01 Lisinopril 5 Mg Tablet PO Not Given DAILY [facility] Protocol Metoprolol Tartrate 25 mg 08/03/20 21:00 08/03/20 22:03 Metoprolol Tartrate 25 Mg Tablet PO Not Given BID [facility] Protocol Quetiapine Fumarate 25 mg 08/03/20 21:00 08/03/20 22:03 Quetiapine Fumarate 25 Mg Tablet PO Not Given TID [facility] Sodium Chloride 3 ml 08/04/20 00:00 08/04/20 07:45 0.9 % Sodium Chloride Flush 3 Ml Syringe IVFLUSH Not Given QSHIFT [facility] Vitamin D 50 mcg 08/03/20 21:00 08/03/20 22:00 Cholecalciferol (Vitamin D3) 25 Mcg Tablet PO Not Given DAILY [facility] Home Medications Medication Instructions Recorded Confirmed Last Taken Type atorvastatin 1 tab PO BEDTIME 08/03/20 08/03/20 Unknown History blood sugar diagnostic [OneTouch 08/03/20 08/03/20 Unknown History Ultra Blue Test Strip] chlorhexidine gluconate 15 ml PO BID 08/03/20 08/03/20 Unknown History cholecalciferol (vitamin D3) 1 cap PO QAM 08/03/20 08/03/20 Unknown History clonidine HCl 1 tab PO BID 08/03/20 08/03/20 Unknown History clopidogrel 1 tab PO QAM 08/03/20 08/03/20 Unknown History divalproex 1 tab PO QAM 08/03/20 08/03/20 Unknown History docusate sodium 1 cap PO BID 08/03/20 08/03/20 Unknown History ferrous sulfate [FeroSul] 1 tab PO TID 08/03/20 08/03/20 Unknown History fluticasone furoate-vilanterol 1 puff INHALATION DAILY 08/03/20 08/03/20 Unknown History [Bregt Ellipta] insulin glargine [Lantus Solostar 55 unit SUBCUT DAILY 08/03/20 08/03/20 Unknown History U-100 Insulin] lancets [OneTouch Delica Plus 08/03/20 08/03/20 Unknown History Lancet] lisinopril 1 tab PO QAM 08/03/20 08/03/20 Unknown History metformin 0.5 tab PO BID 08/03/20 08/03/20 Unknown History metoprolol tartrate 1 tab PO BID 08/03/20 08/03/20 Unknown History multivitamin [One Daily 1 tab PO DAILY 08/03/20 08/03/20 Unknown History Multivitamin] pen needle, diabetic [UltiCare Pen 08/03/20 08/03/20 Unknown History Needle] quetiapine 1 tab PO TID 08/03/20 08/03/20 Unknown History tramadol 1 tab PO Q6H PRN 08/03/20 08/03/20 Unknown History Physical Exam Vital Signs: Vital Signs: Last Vital Signs Temp 97.7 F 08/04/20 11:25 Pulse 97 08/04/20 11:25 Resp 19 08/04/20 11:25 BP 164/76 H 08/04/20 11:25 Pulse Ox 93 08/04/20 11:25 Body Mass Index 28.7 Alert and awake with normal spontaneity of speech fluency comprehension and affect. He was following commands. Face was symmetrical. Pupils were equal and reactive to light. There was mild left arm weakness. There was bilateral lower extremity amputation around knee level. Exam was limited. Results Labs CBC & Chem 7: 08/04/20 05:48 08/04/20 05:48 Labs: Short CBC 08/03/20 08/04/20 Range/Units 16:44 05:48 WBC 6.9 7.4 (4.8-10.8) X10*3/uL Hgb 12.2 L 12.2 L (14.0-18.0) g/dl Hct 37.5 L 37.4 L (42-52) % Plt Count 214 208 (160-400) X10*3/uL BMP 08/03/20 08/04/20 16:44 05:48 Sodium 142 137 Potassium 3.4 3.7 Chloride 103 101 Carbon Dioxide 28 28 BUN 23 H 23 H Creatinine 0.80 0.67 Calcium 9.1 8.6 Cardiac Enzymes 08/03/20 Range/Units 16:44 Total Creatine Kinase 591 H (38-174) U/L Liver Function 08/03/20 Range/Units 16:44 Total Bilirubin 0.3 (0.0-1.0) mg/dL Direct Bilirubin < 0.2 (0.0-0.5) mg/dL AST 22 (5-37) U/L ALT 28 (0-40) U/L Alkaline Phosphatase 88 (39-117) U/L Albumin 3.8 (3.5-5.0) g/dL Urine 08/03/20 Range/Units 21:52 Urine Color DARK YELLOW Urine Appearance HAZY Urine pH 6.5 (5.0-8.0) Ur Specific [place] 1.020 (1.005-1.025) Urine Protein NEG (NEG-TRACE) MG/DL Urine Glucose (UA) NEG (NEG) MG/DL His noncontrast head CT revealed chronic right basal ganglia area multiple infarctions. No obvious acute lesion was noted. CTA did not reveal any large vessel disease. Assessment and Plan (1) Stroke: Qualifiers: CVA mechanism: unspecified Qualified Code(s): I63.9 - Cerebral infar ction, unspecified Status: Acute 74 years old man with underlying history of diabetes and its complications including bilateral lower extremity around knee amputation and probably left hemiparesis related to right basal ganglia infarct. He came to hospital with complaint of new left-sided weakness and slurred speech. He was unable to provide any meaningful history. At this time it was difficult to say if he had any new event. He was at risk for both seizures and strokes. As far as stroke is concerned, my recommendation is to continue anti-platelet agent statin and blood pressure control. An outpatient EEG can be arranged to rule out any possibility of seizure disorder.
[2020-08-04] MEDS: Insulin Lispro 100 UNIT/ML 3 ML VIAL SUBCUT ×3 (12:30→21:45)
[2020-08-04 12:41] LABS: Glucose, Whole Blood 231 mg/dL (60-115)
--- NOTE | 2020-08-04 13:07 | MHC.CM.PN ---
CM MET WITH PT AND SON WHO WAS AT BEDSIDE. PTS SON REPORTS THE PT HAS A SUPERVISOR SMALL APPLIANCE [employer]SEMBLY THAT COMES IN DAILY BUT NO ONE THAT IS THERE 14/10. HE DOES NOT KNOW WHAT AGENCY MANAGES THE PTS SUPERVISOR SMALL AP[employer]IANCE [employer]SEM[employer] HOURS OR IF PT IS CONNECTED WITH A CM AT [facility]. HE REPORTS THE PTS SUPERVISOR [employer] APPLIANCE [employer]SEM[employer] USUALLY TAKES HIM TO DOCTORS APPOINTMENTS BUT IF SAYS IF THE PT IS DISCHARGED HE FEELS THE PT WILL NEED A DOCTOR TO GO TO HIS HOME TO SEE HIM. HE ALSO REPORTS HE FEELS THE PT WILL NEED STR. ERNESTO EXPLAINED THE PTS INSURANCE COMPANY WOULD HAVE TO AUTHORIZE THAT PRIOR TO PT GOING TO DC AND BASED ON PTS TEST RESULTS, PT EVAL AND PRIOR LEVEL OF FUNCTIONING, THEY LIKELY WOULD NOT. PTS SON REPORTS HE DOES NOT THINK THE PT CAN GO HOME AND REPORTS HE IS NOT HIMSELF . HE REPORTS THE PT IS COMPLAINING OF PAIN BEHIND HIS EYE, AND MOVING HIS EYES DIFFERENT HE ALSO REPORTS THE PT IS USUALLY CONTINENT OF URINE. ERNESTO MESSAGED MD TO SPEAK TO PTS SON. IMM WAS DELIVERED DC PLAN STILL TBD HOME WITH RESUMPTION OF SUPERVISOR [employer]PLIANCE [employer]SEMBLY VS STR? TRANSPORT VIA SUPERVISOR SMALL APPLIANCE ASSEMBLY IF PT GOES HOME
--- NOTE | 2020-08-04 14:32 | MHC.CM.PN ---
CM MET WITH PT AND SON WHO WAS AT BEDSIDE. PTS SON REPORTS THE PT HAS A CLAY MILLER THAT COMES IN DAILY BUT NO ONE THAT IS THERE 14/10. HE DOES NOT KNOW WHAT AGENCY MANAGES THE PTS CLAY MILLER HOURS OR IF PT IS CONNECTED WITH A CM AT [facility]. HE REPORTS THE PTS CLAY MILLER USUALLY TAKES HIM TO DOCTORS APPOINTMENTS BUT IF SAYS IF THE PT IS DISCHARGED HE FEELS THE PT WILL NEED A DOCTOR TO GO TO HIS HOME TO SEE HIM. HE ALSO REPORTS HE FEELS THE PT WILL NEED STR. ERNESTO EXPLAINED THE PTS INSURANCE COMPANY WOULD HAVE TO AUTHORIZE THAT PRIOR TO PT GOING TO STR. PTS SON REPORTS HE DOES NOT THINK THE PT CAN GO HOME AND REPORTS HE IS NOT HIMSELF . HE REPORTS THE PT IS COMPLAINING OF PAIN BEHIND HIS EYE, AND MOVING HIS EYES DIFFERENT HE ALSO REPORTS THE PT IS USUALLY CONTINENT OF URINE. ERNESTO MESSAGED MD TO SPEAK TO PTS SON. OF NOTE, PT HAD DECLINED REFERRAL TO REHAB EARLIER IN THE DAY. ERNESTO MET WIOTH PT WITH THE ASSISTANCE OF [facility]. PT N OW REPORTS HE IS WILLING TO GO TO STR. HE WANTS TO STAY IN THE [place] AREA. PER DISCUSSION, REFERRALS MADE TO STR'S IN [place] CONTRACTED WITH PTS INSURANCE. IMM WAS DELIVERED DC PLAN STILL TBD HOME WITH RESUMPTION OF CLAY MILLER VS STR? TRANSPORT VIA CLAY MILLER IF PT GOES HOME
--- NOTE | 2020-08-04 14:52 | P.PNIM_ITS ---
Subjective Subjective Date of Service: 08/04/20 Interval History: History obtained via band saw filer, patient awake alert answering questions appropriately speech is clear patient complaining of right- sided neck pain left-sided back pain has intermittent blurred vision otherwise denies any upper extremity weakness other than his chronic left-sided upper extremity weakness from prior stroke. ROS General no headache, no dizziness, no fever CVS no chest pain, no palpitation. Respiratory no cough no sob he chronically spit saliva. Gastrointestinal no nausea,no vomiting, no abdominal pain Physical Exam Vital Signs: Vital Signs: Last Vital Signs Temp 97.7 F 08/04/20 11:25 Pulse 97 08/04/20 11:25 Resp 19 08/04/20 11:25 BP 164/76 H 08/04/20 11:25 Pulse Ox 93 08/04/20 11:25 Body Mass Index 28.7 General no acute distress. Neck no JVD,tenderness rt trapezius,muscle tightness. CVS regular rate rhythm, Respiratory lungs clear to auscultation, no respiratory distress, no wheeze, no rhonchi. Gastrointestinal abdomen soft, nontender, bowel sounds audible, no guarding , no rigidity. Extremities b/l AKA. Neuro speech clear,ch left upper extremity weakness residual from prior CVA, normal strength right upper extremity. Skin no rash Objective Data Current Medications Generic Name Dose Route Start Last Admin Trade Name Freq PRN Reason Stop Dose Admin Atorvastatin Calcium 40 mg 08/03/20 21:00 08/03/20 22:00 Atorvastatin Calcium 40 Mg Tablet PO Not Given BEDTIME [facility] Chlorhexidine Gluconate 15 ml 08/03/20 21:00 08/03/20 22:00 Chlorhexidine Gluc Oral Rinse 15 Ml Mouthwash BUCCAL Not Given BID [facility] Clonidine HCl 0.2 mg 08/03/20 21:00 08/03/20 22:00 Clonidine Hcl 0.2 Mg Tablet PO Not Given BID [facility] Protocol Clopidogrel Bisulfate 75 mg 08/03/20 21:00 08/03/20 22:00 Clopidogrel Bisulfate 75 Mg Tablet PO Not Given DAILY [facility] Divalproex Sodium 250 mg 08/03/20 21:00 08/03/20 22:01 Divalproex Sodium Er 250 Mg Tab.Er.24h PO Not Given DAILY [facility] Docusate Sodium 100 mg 08/03/20 21:00 08/03/20 22:01 Docusate Sodium 100 Mg Capsule PO Not Given BID [facility] Fluticasone/Vilanterol 1 puff 08/04/20 08:00 08/04/20 08:36 Fluticasone/Vilanterol 100/25 Blst.W.Dev INHALE 1 puff RDAILY [facility] Administration Dextrose/Sodium Chloride 1,000 mls @ 50 mls/hr 08/03/20 21:00 08/03/20 22:12 D51/2ns IVCONT 50 mls/hr .Q20H [facility] Administration Insulin Human Lispro 0 unit 08/03/20 21:00 08/04/20 12:30 Insulin Lispro 100 Unit/Ml 3 Ml Vial SUBCUT 4 unit QIDACHS [facility] Administration Protocol Lisinopril 5 mg 08/03/20 21:00 08/03/20 22:01 Lisinopril 5 Mg Tablet PO Not Given DAILY [facility] Protocol Metoprolol Tartrate 25 mg 08/03/20 21:00 08/03/20 22:03 Metoprolol Tartrate 25 Mg Tablet PO Not Given BID [facility] Protocol Quetiapine Fumarate 25 mg 08/03/20 21:00 08/03/20 22:03 Quetiapine Fumarate 25 Mg Tablet PO Not Given TID [facility] Sodium Chloride 3 ml 08/04/20 00:00 08/04/20 07:45 0.9 % Sodium Chloride Flush 3 Ml Syringe IVFLUSH Not Given QSHIFT [facility] Vitamin D 50 mcg 08/03/20 21:00 08/03/20 22:00 Cholecalciferol (Vitamin D3) 25 Mcg Tablet PO Not Given DAILY [facility] Labs CBC & Chem 7: 08/04/20 05:48 08/04/20 05:48 Assessment and Plan (1) Transient neurologic deficit: Status: Acute Assessment and Plan: 84-year-old male with a past medical history of hypertension, hyperlipidemia, diabetes, bilateral above knee amputation, CVA with left upper extremity weakness residual,; presented to the hospital with a chief complaint of right upper extremity weakness, dysarthria, blurry vision; Transient neurological deficit Patient was brought into [facility] due to symptoms of right upper extremity weakness slurring of speech, and visual symptoms Patient has prior history of CVA with residual left upper extremity weakness and dysphagia, intermittent blurred vision is likely related to hyperglycemia, no evidence of UTI CT head and CT angiogram head and neck showed no acute abnormality Patient seen by Dr. Booth he recommend outpatient EEG to rule out seizure Likely symptoms related to use of Ultram with other sedatives including seroquel Spoke with daughter Belinda iWn/son and informed them about normal workup and recommended them to avoid narcotic medication Patient has CAMPUS SECURITY OFFICER services at home son feels he is not safe at home and requesting for rehab Spoke with rn social services the arranging for rehab bed Patient seen by speech therapy and recommending pureed diet and honey thick liquid with spoon and medicines crushed in applesauce, outpatient speech therapy and occupational therapy Patient chronically takes pureed diet at home Will continue Plavix, outpatient EEG Cancel echocardiogram Bilateral AKA is wheelchair-bound at home with CAMPUS SECURITY OFFICER services Hypertension: Continue home meds Diabetes: Elevated blood sugar continue Insulin sliding scale and home medication DVT prophylaxis: SCD boots Code status: Full code
--- NOTE | 2020-08-04 15:27 | MHC.STROKE ---
SPOKE WITH DR PARIKH THIS MORNING AND SHE SAID THAT THIS IS NOT A NEW STROKE, TRANSIENT SYMPTOMS. SEE DR ARREAGA'S NOTE. I DISCUSSED VTE PROPHYLAXIS WITH MD AND HE IS LOW RISK, COMPRESSION BOOTS WERE MENTIONED IN H&P AND PROGRESS NOTE BUT NOT ORDERED. EXCLUDED FROM THIS MEASURE. CASE MANAGEMENT IS FOLLOWING FOR POSSIBLE SNF PLACEMENT.
[2020-08-04] MEDS: 0.9 % Sodium Chloride Flush 3 ML SYRINGE IVFLUSH (15:48)
[2020-08-04 16:55] LABS: Glucose, Whole Blood 234 mg/dL (60-115)
[2020-08-04 20:36] LABS: Glucose, Whole Blood 193 mg/dL (60-115)
[2020-08-05] VITALS (8 sets, daily range): BP systolic 142–178; BP diastolic 68–95; PULSE 82–109; RESP 16–20; TEMP 35.9–36.7; O2SAT 93–98
[2020-08-05] MEDS: 0.9 % Sodium Chloride Flush 3 ML SYRINGE IVFLUSH ×4 (00:08→21:14)
[2020-08-05 05:20] LABS: Glucose, Whole Blood 223 mg/dL (60-115)
--- NOTE | 2020-08-05 07:05 | PC.NURSE ---
jaclyn goldman rn watching monitors
[2020-08-05 07:41] LABS: Glucose, Whole Blood 222 mg/dL (60-115)
[2020-08-05] MEDS: Insulin Lispro 100 UNIT/ML 3 ML VIAL SUBCUT ×4 (07:55→21:13)
[2020-08-05] MEDS: Fluticasone/Vilanterol 100/25 BLST.W.DEV 1 PUFF INHALE (08:08)
--- NOTE | 2020-08-05 10:17 | P.PNIM_ITS ---
Subjective Subjective Date of Service: 08/05/20 Interval History: no complaints Cardiovascular Cardiovascular: Reports no additional cardiovascular complaints Gastrointestinal Gastrointestinal: Reports no additional gastrointestinal complaints Physical Exam Vital Signs: Vital Signs: Last Vital Signs Temp 97.7 F 08/05/20 08:00 Pulse 82 08/05/20 08:09 Resp 18 08/05/20 08:00 BP 178/83 H 08/05/20 08:00 Pulse Ox 93 08/05/20 08:00 Body Mass Index 28.7 General no acute distress. Neck no JVD,tenderness rt trapezius,muscle tightness. CVS regular rate rhythm, Respiratory lungs clear to auscultation, no respiratory distress, no wheeze, no rhonchi. Gastrointestinal abdomen soft, nontender, bowel sounds audible, no guarding , no rigidity. Extremities b/l AKA. Neuro speech clear,ch left upper extremity weakness residual from prior CVA, normal strength right upper extremity. Skin no rash Objective Data Current Medications Generic Name Dose Route Start Last Admin Trade Name Freq PRN Reason Stop Dose Admin Atorvastatin Calcium 40 mg 08/03/20 21:00 08/03/20 22:00 Atorvastatin Calcium 40 Mg Tablet PO Not Given BEDTIME [facility] Chlorhexidine Gluconate 15 ml 08/03/20 21:00 08/03/20 22:00 Chlorhexidine Gluc Oral Rinse 15 Ml Mouthwash BUCCAL Not Given BID [facility] Clonidine HCl 0.2 mg 08/03/20 21:00 08/03/20 22:00 Clonidine Hcl 0.2 Mg Tablet PO Not Given BID [facility] Protocol Clopidogrel Bisulfate 75 mg 08/03/20 21:00 08/03/20 22:00 Clopidogrel Bisulfate 75 Mg Tablet PO Not Given DAILY [facility] Divalproex Sodium 250 mg 08/03/20 21:00 08/03/20 22:01 Divalproex Sodium Er 250 Mg Tab.Er.24h PO Not Given DAILY [facility] Docusate Sodium 100 mg 08/03/20 21:00 08/03/20 22:01 Docusate Sodium 100 Mg Capsule PO Not Given BID [facility] Fluticasone/Vilanterol 1 puff 08/04/20 08:00 08/05/20 08:08 Fluticasone/Vilanterol 100/25 Blst.W.Dev INHALE 1 puff RDAILY [facility] Administration Insulin Human Lispro 0 unit 08/03/20 21:00 08/05/20 07:55 Insulin Lispro 100 Unit/Ml 3 Ml Vial SUBCUT 4 unit QIDACHS [facility] Administration Protocol Lisinopril 5 mg 08/03/20 21:00 08/03/20 22:01 Lisinopril 5 Mg Tablet PO Not Given DAILY [facility] Protocol Metoprolol Tartrate 25 mg 08/03/20 21:00 08/03/20 22:03 Metoprolol Tartrate 25 Mg Tablet PO Not Given BID [facility] Protocol Quetiapine Fumarate 25 mg 08/03/20 21:00 08/03/20 22:03 Quetiapine Fumarate 25 Mg Tablet PO Not Given TID [facility] Sodium Chloride 3 ml 08/04/20 00:00 08/05/20 07:55 0.9 % Sodium Chloride Flush 3 Ml Syringe IVFLUSH 3 ml QSHIFT [facility] Administration Vitamin D 50 mcg 08/03/20 21:00 08/03/20 22:00 Cholecalciferol (Vitamin D3) 25 Mcg Tablet PO Not Given DAILY [facility] Labs CBC & Chem 7: 08/04/20 05:48 08/04/20 05:48 Assessment and Plan (1) Transient neurologic deficit: Status: Acute Assessment and Plan: 84-year-old male with a past medical history of hypertension, hyperlipidemia, diabetes, bilateral above knee amputation, CVA with left upper extremity weakness residual,; presented to the hospital with a chief complaint of right upper extremity weakness, dysarthria, blurry vision; Transient neurological deficit Patient was brought into [facility] due to symptoms of right upper extremity weakness slurring of speech, and visual symptoms Patient has prior history of CVA with residual left upper extremity weakness and dysphagia, intermittent blurred vision is likely related to hyperglycemia, no evidence of UTI CT head and CT angiogram head and neck showed no acute abnormality Patient seen by Dr. Booth he recommend outpatient EEG to rule out seizure Likely symptoms related to use of Ultram with other sedatives including seroquel avoid narcotic medication Patient has CHEST PAINTING LEADER services at home son feels he is not safe at home and requesting for rehab awaiting auth Patient seen by speech therapy and recommending pureed diet and honey thick liquid with spoon and medicines crushed in applesauce, outpatient speech therapy and occupational therapy Patient chronically takes pureed diet at home continue Plavix, outpatient EEG no need for echocardiogram Bilateral AKA is wheelchair-bound at home with CHEST PAINTING LEADER services Hypertension: Continue home meds Diabetes: Elevated blood sugar continue Insulin sliding scale and home medication DVT prophylaxis: SCD boots Code status: Full code
[2020-08-05 11:23] LABS: Glucose, Whole Blood 228 mg/dL (60-115)
[2020-08-05] MEDS: Nicotine 21 MG PATCH.TD24 TRANSDERMA (13:04)
[2020-08-05 16:13] LABS: Glucose, Whole Blood 271 mg/dL (60-115)
[2020-08-05 21:03] LABS: Glucose, Whole Blood 263 mg/dL (60-115)
[2020-08-06] VITALS (8 sets, daily range): BP systolic 133–166; BP diastolic 69–87; PULSE 96–111; RESP 18–20; TEMP 36–36.4; O2SAT 91–98
[2020-08-06 07:38] LABS: Glucose, Whole Blood 294 mg/dL (60-115)
[2020-08-06] MEDS: Fluticasone/Vilanterol 100/25 BLST.W.DEV 1 PUFF INHALE (08:14)
[2020-08-06] MEDS: Insulin Lispro 100 UNIT/ML 3 ML VIAL SUBCUT ×4 (08:49→21:47)
[2020-08-06] MEDS: Nicotine 21 MG PATCH.TD24 TRANSDERMA (08:59)
[2020-08-06] MEDS: 0.9 % Sodium Chloride Flush 3 ML SYRINGE IVFLUSH ×3 (09:02→23:44)
--- NOTE | 2020-08-06 09:27 | P.PNIM_ITS ---
Subjective Subjective Date of Service: 08/06/20 Interval History: no complaints Cardiovascular Cardiovascular: Reports no additional cardiovascular complaints Respiratory Respiratory: Reports no additional respiratory complaints Physical Exam Vital Signs: Vital Signs: Last Vital Signs Temp 96.8 F 08/06/20 07:34 Pulse 111 H 08/06/20 08:15 Resp 18 08/06/20 07:34 BP 158/82 H 08/06/20 07:34 Pulse Ox 92 08/06/20 07:34 Body Mass Index 28.7 General no acute distress. Neck no JVD,tenderness rt trapezius,muscle tightness. CVS regular rate rhythm, Respiratory lungs clear to auscultation, no respiratory distress, no wheeze, no rhonchi. Gastrointestinal abdomen soft, nontender, bowel sounds audible, no guarding , no rigidity. Extremities b/l AKA. Neuro speech clear,ch left upper extremity weakness residual from prior CVA, normal strength right upper extremity. Skin no rash Objective Data Current Medications Generic Name Dose Route Start Last Admin Trade Name Freq PRN Reason Stop Dose Admin Atorvastatin Calcium 40 mg 08/03/20 21:00 08/03/20 22:00 Atorvastatin Calcium 40 Mg Tablet PO Not Given BEDTIME [facility] Chlorhexidine Gluconate 15 ml 08/03/20 21:00 08/03/20 22:00 Chlorhexidine Gluc Oral Rinse 15 Ml Mouthwash BUCCAL Not Given BID [facility] Clonidine HCl 0.2 mg 08/03/20 21:00 08/03/20 22:00 Clonidine Hcl 0.2 Mg Tablet PO Not Given BID [facility] Protocol Clopidogrel Bisulfate 75 mg 08/03/20 21:00 08/03/20 22:00 Clopidogrel Bisulfate 75 Mg Tablet PO Not Given DAILY [facility] Divalproex Sodium 250 mg 08/03/20 21:00 08/03/20 22:01 Divalproex Sodium Er 250 Mg Tab.Er.24h PO Not Given DAILY [facility] Docusate Sodium 100 mg 08/03/20 21:00 08/03/20 22:01 Docusate Sodium 100 Mg Capsule PO Not Given BID [facility] Fluticasone/Vilanterol 1 puff 08/04/20 08:00 08/06/20 08:14 Fluticasone/Vilanterol 100/25 Blst.W.Dev INHALE 1 puff RDAILY [facility] Administration Insulin Human Lispro 0 unit 08/03/20 21:00 08/06/20 08:49 Insulin Lispro 100 Unit/Ml 3 Ml Vial SUBCUT 6 unit QIDACHS [facility] Administration Protocol Lisinopril 5 mg 08/03/20 21:00 08/03/20 22:01 Lisinopril 5 Mg Tablet PO Not Given DAILY [facility] Protocol Metoprolol Tartrate 25 mg 08/03/20 21:00 08/03/20 22:03 Metoprolol Tartrate 25 Mg Tablet PO Not Given BID [facility] Protocol Nicotine 21 mg 08/05/20 13:00 08/06/20 08:59 Nicotine 21 Mg Patch.Td24 TRANSDERMA 21 mg DAILY [facility] Administration Quetiapine Fumarate 25 mg 08/03/20 21:00 08/03/20 22:03 Quetiapine Fumarate 25 Mg Tablet PO Not Given TID [facility] Sodium Chloride 3 ml 08/04/20 00:00 08/06/20 09:02 0.9 % Sodium Chloride Flush 3 Ml Syringe IVFLUSH 3 ml QSHIFT [facility] Administration Vitamin D 50 mcg 08/03/20 21:00 08/03/20 22:00 Cholecalciferol (Vitamin D3) 25 Mcg Tablet PO Not Given DAILY [facility] Labs CBC & Chem 7: 08/04/20 05:48 08/04/20 05:48 Assessment and Plan (1) Transient neurologic deficit: Status: Acute Assessment and Plan: 84-year-old male with a past medical history of hypertension, hyperlipidemia, diabetes, bilateral above knee amputation, 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 Booth he recommend outpatient EEG to rule out seizure Likely symptoms related to use of Ultram with other sedatives including seroquel avoid narcotic medication Patient has [employer] services at home son feels he is not safe at home and requesting for rehab awaiting auth Patient seen by speech therapy and recommending pureed diet and honey thick liquid with spoon and medicines crushed in applesauce, outpatient speech therapy and occupational therapy Patient chronically takes pureed diet at home continue Plavix, outpatient EEG no need for echocardiogram nicotine dependence nicoderm Bilateral AKA is wheelchair-bound at home with [employer] services Hypertension: Continue home meds Diabetes: Elevated blood sugar continue Insulin sliding scale and home medication DVT prophylaxis: SCD boots Code status: Full code
[2020-08-06 11:53] LABS: Glucose, Whole Blood 251 mg/dL (60-115)
[2020-08-06 16:02] LABS: Glucose, Whole Blood 284 mg/dL (60-115)
[2020-08-06 21:32] LABS: Glucose, Whole Blood 293 mg/dL (60-115)
[2020-08-07 03:06] VITALS: BP 158/68; PULSE 107; RESP 18; TEMP 36.4; O2SAT 92
[2020-08-07] MEDS: 0.9 % Sodium Chloride Flush 3 ML SYRINGE IVFLUSH (07:17)
[2020-08-07] MEDS: Insulin Lispro 100 UNIT/ML 3 ML VIAL SUBCUT ×2 (07:17→11:14)
[2020-08-07] MEDS: Nicotine 21 MG PATCH.TD24 TRANSDERMA (07:17)
[2020-08-07 07:21] LABS: Glucose, Whole Blood 339 mg/dL (60-115)
[2020-08-07 07:42] VITALS: BP 166/78; PULSE 108; RESP 20; TEMP 36.3; O2SAT 92
[2020-08-07] MEDS: Fluticasone/Vilanterol 100/25 BLST.W.DEV 1 PUFF INHALE (09:20)
[2020-08-07 09:22] VITALS: PULSE 117; O2SAT 91
--- NOTE | 2020-08-07 10:38 | MHC.SL.SWA ---
Speech Pathologist Impression: Oralpharyngeal Dysphagia Dysphasia Diet Status: Upgrade Liquid Consistency and Strategies for Safe Swallow: Liquid Intake Recommendation: [place] Thick Liquid Intake Strategies: Small Sips No Straws Solid Food Consistency: Dietary Recommendations: Pureed (NDD1) Additional Modifications to Solid Foods: Water or ice chips ok by teaspoon only when requested- Patient to be supervised Oral Medication Intake: Crushed with Puree Compensatory Strategies and Precautions to be Taken for Safe Swallow: Sitting Upright (90 deg) No Straw Small Bites and Sips Rate of Ingestion Change Supervision While Eating and Drinking for Safe Swallow: Total Supervision (1:1) Swallowing Recommended Treatments: Compens. Strategy Educat. Recommendation for Speech: Speech Therapy through [facility] Comment: Patient is able to feed himself. Water or ice chips ok by teaspoon only- Patient to be supervised. Will continue to follow patient to monitor tolerance and re-assess potential for upgrade. Building Admin Clinican/Clinical Fellow: No Supervisory Statement: I have reviewed and agree with the student/clinical fellow's documentation: N/A Speech Language Pathologist: Mary Mendez M.A., CCC-PROCUREMENT FORESTER
[2020-08-07 11:10] LABS: Glucose, Whole Blood 388 mg/dL (60-115)
[2020-08-07] MEDS: Insulin Glargine,Hum.rec.anlog 100 UNIT/ML 10 ML VIAL 20 UNIT SUBCUT (11:13)
[2020-08-07 11:35] VITALS: BP 162/83; PULSE 112; RESP 20; TEMP 36.3; O2SAT 93
--- NOTE | 2020-08-07 12:45 | PM.DS ---
DS: Providers Provider Date of Service: 08/07/20 Date of admission: 08/03/20 20:47 Primary care physician: Corina Wyman Consults: 08/03/20 16:29 Consult to Neurology Stat Consulting Provider: [facility] Reason for consultation: New left-sided weakness, previous stroke evaluate for new stroke 08/03/20 20:48 Consult to Neurology Routine Consulting Provider: Gerri Booth Reason for consultation: CVA DS: Diagnosis Discharge Diagnosis (1) Transient neurologic deficit: Status: Acute (2) Dysphagia as late effect of cerebrovascular accident (CVA): Status: Acute DS: Medications Discharge Medications Home Medications: Home Medications Medication Instructions Recorded Confirmed Breo Ellipta 1 puff INHALATION DAILY 08/03/20 08/03/20 Lantus Solostar U-100 Insulin 55 unit SUBCUT DAILY 08/03/20 08/03/20 OneTouch Ultra Blue Test Strip 08/03/20 08/03/20 atorvastatin 1 tab PO BEDTIME 08/03/20 08/03/20 chlorhexidine gluconate 15 ml PO BID 08/03/20 08/03/20 cholecalciferol (vitamin D3) 1 cap PO QAM 08/03/20 08/03/20 clonidine HCl 1 tab PO BID 08/03/20 08/03/20 clopidogrel 1 tab PO QAM 08/03/20 08/03/20 divalproex 1 tab PO QAM 08/03/20 08/03/20 docusate sodium 1 cap PO BID 08/03/20 08/03/20 ferrous sulfate [FeroSul] 1 tab PO TID 08/03/20 08/03/20 lancets [OneTouch Delica Plus 08/03/20 08/03/20 Lancet] lisinopril 1 tab PO QAM 08/03/20 08/03/20 metformin 0.5 tab PO BID 08/03/20 08/03/20 metoprolol tartrate 1 tab PO BID 08/03/20 08/03/20 multivitamin [One Daily 1 tab PO DAILY 08/03/20 08/03/20 Multivitamin] pen needle, diabetic [UltiCare Pen 08/03/20 08/03/20 Needle] quetiapine 1 tab PO TID 08/03/20 08/03/20 DS: Summary Hospital Course Hospital Course: from admission History and Physical by hospitalist Denny Antony, 08/03/20: 84-year-old male with a past medical history of hypertension, hyperlipidemia, diabetes, history of CVA with residual left arm weakness, bilateral lower extremity amputation, wheelchair-bound; presented to the hospital today with a chief complaint of right-sided weakness/confusion. Most of the history obtained from the ER staff, patient's family. Reportedly over the past few days patient has been not doing well; brought to the ER on Friday for complaints of neck pain and arm pain; subsequently given tramadol and sent home. At home patient noted to be more confused; and noted right upper extremity weakness as well as slurring his words. Also mentioned the patient was on not able to swallow food. Patient's daughter mentioned that on Friday the noticed that his eyes are not moving appropriately and patient was complaining of blurry vision. Patient denies any chest pain palpitations lightheadedness or dizziness. Denies any fever chills cough... ... Per ER team patient noted to have left arm weakness which is old, noted right arm slightly weaker; patient last well known was 9:00 p.m. the day before mentioned that on exam patient noted to have dysarthric speech and a right gaze paralysis and slight discoordination of the right upper extremity with NIH stroke scale of 7. Patient does not qualify for tPA. Spoke to Dr. Smith from Neurology who recommended admission for further stroke workup. EKG was nonischemic. Troponin negative. Urinalysis pending. The patient was admitted to the [facility] for concern of CVA with symptoms of right upper extremity weakness slurring of speech, and visual symptoms. He has a history of prior CVA with residual left upper extremity weakness and dysphagia. Neurology was consulted. CT head and CT angiogram of the head and neck showed no acute abnormality. Intermittent blurred vision was likely related to hyperglycemia. Ultimately, his RUE weakness and confusion, which resolved during hospitalization, were attributed to adverse effect of tramadol in combination with other sedating medications including quetiapine; tramadol was discontinued. Statin and clopidogrel were continued. Outpatient EEG to rule out seizure was recommended by Neurology. He was seen by speech therapy and pureed diet and nectar-thick with medicines crushed in applesauce are recommended. Tobacco cessation was counseled and he was prescribed NRT. He was discharged to short-term rehabilitation at [facility]. Time Spent with Patient Time attestation: Total time spent providing and/or coordinating discharge services: 35 Discharge coordination time: Greater than 30 minutes Quality: Stroke Does the patient have a stroke diagnosis?: No Physical Exam Vital Signs: Vital Signs: Last Vital Signs Temp 97.4 F 08/07/20 11:35 Pulse 112 H 08/07/20 11:35 Resp 20 08/07/20 11:35 BP 162/83 H 08/07/20 11:35 Pulse Ox 93 08/07/20 11:35 Body Mass Index 28.7 Gen: in no acute distress HEENT: sclera anicteric, moist mucus membranes Neck: supple Lungs: clear to auscultation bilaterally Heart: regular rate and rhythm, no murmurs Abd: soft, non-tender, non-distended Ext: bilateral AKA Skin: warm/well-perfused Neuro: LUE weakness [chronic] Psych: appropriate affect DS: Data Data Completed and Pending Completed studies during hospitalization [Text1]: Laboratory Results WBC 7.4 X10*3/uL (4.8-10.8) 08/04/20 05:48 RBC 4.45 X10*6/uL (4.60-5.80) L 08/04/20 05:48 Hgb 12.2 g/dl (14.0-18.0) L 08/04/20 05:48 Hct 37.4 % (42-52) L 08/04/20 05:48 MCV 84.0 fL (80-98) 08/04/20 05:48 MCH 27.4 pg (27.0-33.0) 08/04/20 05:48 MCHC 32.6 g/dl (31.0-36.0) 08/04/20 05:48 RDW 15.9 % (11.0-16.0) 08/04/20 05:48 Plt Count 208 X10*3/uL (160-400) 08/04/20 05:48 MPV 10.0 fL (9.4-12.4) 08/04/20 05:48 Immature Gran % (Auto) 0.3 % (0.0-0.4) 08/04/20 05:48 Neut % (Auto) 72.9 % (45-73) 08/04/20 05:48 Lymph % (Auto) 18.2 % (20-40) L 08/04/20 05:48 [place] % (Auto) 6.8 % (2-11) 08/04/20 05:48 Eos % (Auto) 1.5 % (0-4) 08/04/20 05:48 Baso % (Auto) 0.3 % (0-2) 08/04/20 05:48 Lymph # (Auto) 1.3 X10*3/uL (1.2-4.9) 08/04/20 05:48 [place] # (Auto) 0.5 X10*3/uL (0.1-1.2) 08/04/20 05:48 Eos # (Auto) 0.1 X10*3/uL (0.0-0.4) 08/04/20 05:48 Baso # (Auto) 0.0 X10*3/uL (0.0-0.2) 08/04/20 05:48 Abs Immat Gran (auto) 0.02 X10*3/uL (0.00-0.03) 08/04/20 05:48 Absolute Neuts (auto) 5.4 X10*3/uL (2.0-8.3) 08/04/20 05:48 Absolute Nucleated RBC 0.000 X10*3/uL (0.0-0.012) 08/04/20 05:48 Nucleated RBC % (auto) 0.0 /100WBC (0.0-0.2) 08/04/20 05:48 PT 12.9 SEC (10.8-13.0) 08/03/20 16:44 Whole Blood PT 10.4 sec (11.1-13.5) L 08/03/20 16:48 INR 1.1 (0.9-1.1) 08/03/20 16:44 Whole Blood INR 0.9 (0.9-1.1) 08/03/20 16:48 APTT 63.1 SEC (24.1-38.0) H* 08/03/20 16:44 Sodium 137 mmol/L (135-145) 08/04/20 05:48 Potassium 3.7 mmol/L (3.3-5.1) 08/04/20 05:48 Chloride 101 mmol/L (96-108) 08/04/20 05:48 Carbon Dioxide 28 mmol/L (22-29) 08/04/20 05:48 Anion Gap 12 (12-20) 08/04/20 05:48 BUN 23 mg/dL (9-16) H 08/04/20 05:48 Creatinine 0.67 mg/dL (0.5-1.4) 08/04/20 05:48 Estim Creat Clear Calc 64.6 08/04/20 05:48 Estimated GFR > 60 08/04/20 05:48 POC Glucose 388 mg/dL (60-115) H* 08/07/20 11:06 Random Glucose 230 mg/dL (60-115) H D 08/04/20 05:48 Calcium 8.6 mg/dL (8.4-10.2) 08/04/20 05:48 Magnesium 1.7 mg/dL (1.6-2.6) 08/03/20 16:44 Total Bilirubin 0.3 mg/dL (0.0-1.0) 08/03/20 16:44 Direct Bilirubin < 0.2 mg/dL (0.0-0.5) 08/03/20 16:44 AST 22 U/L (5-37) 08/03/20 16:44 ALT 28 U/L (0-40) 08/03/20 16:44 Alkaline Phosphatase 88 U/L (39-117) 08/03/20 16:44 Total Creatine Kinase 591 U/L (38-174) H 08/03/20 16:44 Troponin I High Sens 8.4 ng/L (<3.5-35.0) 08/03/20 23:59 Total Protein 6.5 g/dL (6.5-8.0) 08/03/20 16:44 Albumin 3.8 g/dL (3.5-5.0) 08/03/20 16:44 Triglycerides 116 mg/dL 08/04/20 05:48 Triglycerides Cancelled 08/04/20 05:48 Cholesterol 156 mg/dL 08/04/20 05:48 Cholesterol Cancelled 08/04/20 05:48 LDL Cholesterol, Calc 108 mg/dl 08/04/20 05:48 LDL Cholesterol, Calc Cancelled 08/04/20 05:48 HDL Cholesterol 25 mg/dL 08/04/20 05:48 HDL Cholesterol Cancelled 08/04/20 05:48 Urine Color DARK YELLOW 08/03/20 21:52 Urine Appearance HAZY 08/03/20 21:52 Urine pH 6.5 (5.0-8.0) 08/03/20 21:52 Ur Specific [place] 1.020 (1.005-1.025) 08/03/20 21:52 Urine Protein NEG MG/DL (NEG-TRACE) 08/03/20 21:52 Urine Glucose (UA) NEG MG/DL (NEG) 08/03/20 21:52 Urine Ketones 15 MG/DL (NEG) 08/03/20 21:52 Urine Blood NEG (NEG) 08/03/20 21:52 Urine Nitrite NEG (NEG) 08/03/20 21:52 Ur Leukocyte Esterase NEG (NEG) 08/03/20 21:52 Urine Opiates Screen Not Detected (Not Detect) 08/03/20 21:52 Ur Barbiturates Screen Not Detected (Not Detect) 08/03/20 21:52 Ur Phencyclidine Scrn Not Detected (Not Detect) 08/03/20 21:52 Ur Amphetamines Screen Not Detected (Not Detect) 08/03/20 21:52 U Benzodiazepines Scrn Not Detected (Not Detect) 08/03/20 21:52 Urine Cocaine Screen Not Detected (Not Detect) 08/03/20 21:52 U Marijuana (THC) Screen Not Detected (Not Detect) 08/03/20 21:52 COVID-19 (LIDIA) Negative (Negative) 08/03/20 16:56 COVID-19 Clin Com See Note 08/03/20 16:56 Impressions Chest X-Ray 08/03/20 16:29 IMPRESSION: Unremarkable examination. Head CT 08/03/20 16:29 IMPRESSION: Bibasilar and internal capsule lacunar infarcts. The right basilar infarcts are slightly larger. These could be acute versus old. There is no mass effect. There is no previous CT available for comparison. Age-related cerebral volume loss. This critical result was discussed by phone with Jef Borrego at 4:47 PM. It was ascertained that the content and urgency of the report was understood at the time of direct communication. Head/Neck CTA 08/03/20 22:00 IMPRESSION: 1. No acute intracranial finding. Volume loss with small vessel ischemic change. 2. No acute vascular abnormality. No large vessel occlusion. Discharge Plan Discharge Patient Disposition: [facility] Discharge Diagnosis: transient neurologic deficit, likely due to hyperglycemia and medication effect [tramadol], dysphagia due to prior stroke, tobacco abuse [facility] [Primary Care Provider] - 1 Week Gerri Booth MD [Physician] - 1 Week Discharge Medications: New nicotine 21 mg/24 hr Patch 24 Hour 21 mg transdermal DAILY Qty: 30 RF: 0 Continued multivitamin [One Daily Multivitamin] Tablet 1 tab PO DAILY RF: 0 quetiapine 25 mg tablet 1 tab PO TID RF: 0 atorvastatin 40 mg tablet 1 tab PO BEDTIME RF: 0 metformin 500 mg tablet 0.5 tab PO BID RF: 0 clopidogrel 75 mg tablet 1 tab PO QAM RF: 0 (DME) OneTouch Ultra Blue Test Strip Strip MISCELLANEOUS TID RF: 0 clonidine HCl 0.2 mg tablet 1 tab PO BID RF: 0 ferrous sulfate [FeroSul] 325 mg (65 mg iron) tablet 1 tab PO TID RF: 0 docusate sodium 100 mg capsule 1 cap PO BID RF: 0 lisinopril 5 mg tablet 1 tab PO QAM RF: 0 divalproex 250 mg tablet extended release 24 hr 1 tab PO QAM RF: 0 metoprolol tartrate 25 mg tablet 1 tab PO BID RF: 0 chlorhexidine gluconate 0.12 % mouthwash 15 ml PO BID RF: 0 Lantus Solostar U-100 Insulin 100 unit/mL (3 mL) insulin pen 55 unit subcut DAILY RF: 0 cholecalciferol (vitamin D3) 50 mcg (2,000 unit) capsule 1 cap PO QAM RF: 0 (DME) pen needle, diabetic [UltiCare Pen Needle] 32 gauge x 5/32 needle MISCELLANEOUS TID RF: 0 (DME) lancets [OneTouch Delica Plus Lancet] 33 gauge misc MISCELLANEOUS TID RF: 0 Breo Ellipta 100-25 mcg/dose blister with device 1 puff inhalation DAILY RF: 0 Discontinued tramadol 50 mg tablet 1 tab PO Q6H PRN (Reason: pain) RF: 0 Discharge Orders: Discharge Order (Routine); Ordered 08/07/20 Ordered By: Roderick Blackwood Diet: diabetic diet Activity on Discharge: As tolerated Stand Alone Forms: Patient Portal Discharge page Other Ambulatory Orders: EEG ambulatory (Routine) Timeframe: 1 Week Facility: [facility] - Location: Radiology Ordered By: Roderick Blackwood Care Plan Goals: prevent future strokes safe swallowing smoking cessation Health Concerns: transient neurologic deficit, likely due to hyperglycemia and medication effect [tramadol], dysphagia due to prior stroke, tobacco abuse Plan of Treatment: avoid tramadol achieve better control of blood sugar outpatient EEG in 1 week then follow up with neurology diet: NDD1 [pureed] solids and nectar-thick liquids, outpatient [employer] nicotine patch Assessment: see discharge plan Patient Instructions: Cigarette Smoking and Your Health (GEN), Electroencephalogram (DC)
--- NOTE | 2020-08-07 13:03 | MHC.CM.PN ---
ERNESTO ENAMORADO HAS AUTHED PT FOR LONG-TERM CARE AT [facility] REPORTS THE PT WILL NEED TO ARRIVE THERE DURING FIRST SHIFT AND ASKS THAT HE BE DC'D AT 1330 HOURS. PT WILL BE TRANSPORTED VIA [facility]
--- NOTE | 2020-08-07 13:20 | MHC.CM.PN ---
CM MET WITH PT WITH THE ASSISTANCE OF [facility] NURSE. PT INFORMED [facility] HAS RECEIVED AUTH AND WOULD LIKE HIM TO TRANSFER AT 1330 HOURS. PT IS AGREEABLE TO DC. PT SIGNED A HCP NAMING HIS DAUGHTER, MENA HIS AGENT. ([phone]) PT WILL DC TO [facility] TODAY AT 1330 HOURS VIA S
== END 2020-08-07 13:48 | disposition skilled nursing facility (03) | DRG 638 ==
LOC: HO.ED 20:22 → HO.EDOVER 21:13 → HO.S3 21:13 → HO.IMC 08-06 13:33
PROVIDERS: Hospitalist; Internal Medicine; Admitting Provider Hospitalist; Emergency Provider Emergency Medicine Emergency Medical Services; Visit Provider Family Medicine
DX: E11.65 Type 2 diabetes mellitus with hyperglycemia (principal); G45.9 Transient cerebral ischemic attack, unspecified; R47.1 Dysarthria and anarthria; F17.210 Nicotine dependence, cigarettes, uncomplicated; I10 Essential (primary) hypertension; E78.5 Hyperlipidemia, unspecified; I69.334 Monoplegia of upper limb following cerebral infarction affecting left non-dominant side; Z71.6 Tobacco abuse counseling; Z89.612 Acquired absence of left leg above knee; Z89.611 Acquired absence of right leg above knee; Z99.3 Dependence on wheelchair; Z20.822 Contact with and (suspected) exposure to COVID-19; Z79.4 Long term (current) use of insulin; Z79.02 Long term (current) use of antithrombotics/antiplatelets; Z79.899 Other long term (current) drug therapy; T40.425A Adverse effect of tramadol, initial encounter; Y92.9 Unspecified place or not applicable
CPT/HCPCS: 36415; 70450; 70496; 70498; 71045; 80048; 80061; 80076; 80307; 81003; 82550; 82947; 83735; 84484; 85025; 85610; 85730; 87635; 92523; 92610; 93005; 94640; 97112; 97162; 97166; 99285; 99291; Q9967

== ENCOUNTER 2020-08-08 08:31 | Outpatient (REF) | payer OTHER, SELFPAY ==
[2020-08-08 08:39] LABS: MANUAL DIFF FLAG NO
[2020-08-08 08:44] LABS: Basophils Percent Auto 0.3 % (0-2); Eosinophils Absolute Auto 0.1 X10*3/uL (0.0-0.4); Eosinophils Percent Auto 1.4 % (0-4); Hematocrit 43.4 % (42-52); Hemoglobin 14.3 g/dl (14.0-18.0); Imm Gran Abs Auto 0.05 X10*3/uL (0.00-0.03); Imm Gran Pct Auto 0.5 % (0.0-0.4); Lymphocytes Absolute Auto 1.6 X10*3/uL (1.2-4.9); Lymphocytes Percent Auto 16.3 % (20-40); Mean Corpuscular HGB Conc 32.9 g/dl (31.0-36.0); Mean Corpuscular Hemoglobin 27.8 pg (27.0-33.0); Mean Corpuscular Volume 84.3 fL (80-98); Mean Platelet Volume 10.2 fL (9.4-12.4); Monocytes Absolute Auto 0.6 X10*3/uL (0.1-1.2); Monocytes Percent Auto 6.3 % (2-11); Neutrophils Absolute Auto 7.6 X10*3/uL (2.0-8.3); Neutrophils Percent Auto 75.2 % (45-73); Platelet Count 274 X10*3/uL (160-400); Red Blood Count 5.15 X10*6/uL (4.60-5.80); Red Cell Distribution Width 15.7 % (11.0-16.0); White Blood Count 10.1 X10*3/uL (4.8-10.8)
[2020-08-08 09:11] LABS: Alanine Aminotransferase 35 U/L (0-40); Albumin Level 4.1 g/dL (3.5-5.0); Alkaline Phosphatase 108 U/L (39-117); Anion Gap 16 (12-20); Aspartate Amino Transferase 18 U/L (5-37); Bilirubin Direct 0.3 mg/dL (0.0-0.5); Bilirubin Total 0.7 mg/dL (0.0-1.0); Blood Urea Nitrogen 30 mg/dL (9-16); Calcium 9.2 mg/dL (8.4-10.2); Carbon Dioxide 26 mmol/L (22-29); Chloride 102 mmol/L (96-108); Estimated Glomerular Filt Rate > 60; Glucose Random 312 mg/dL (60-115); Potassium 4.5 mmol/L (3.3-5.1); Sodium 139 mmol/L (135-145); Total Protein 7.3 g/dL (6.5-8.0)
== END 2020-08-08 08:32 | disposition home or self-care (01) ==
LOC: HO.MMNH2L 08:31
PROVIDERS: Visit Provider Family Medicine
DX: I10 Essential (primary) hypertension (principal); E78.5 Hyperlipidemia, unspecified; E11.9 Type 2 diabetes mellitus without complications
CPT/HCPCS: 36415; 80048; 80076; 85025

== ENCOUNTER 2020-08-14 01:07 | Outpatient (REF) | payer OTHER, SELFPAY ==
[2020-08-14 06:29] LABS: MANUAL DIFF FLAG NO
[2020-08-14 06:55] LABS: Basophils Percent Auto 0.5 % (0-2); Eosinophils Absolute Auto 0.2 X10*3/uL (0.0-0.4); Eosinophils Percent Auto 2.3 % (0-4); Hematocrit 40.1 % (42-52); Imm Gran Abs Auto 0.03 X10*3/uL (0.00-0.03); Imm Gran Pct Auto 0.5 % (0.0-0.4); Lymphocytes Absolute Auto 1.7 X10*3/uL (1.2-4.9); Lymphocytes Percent Auto 25.5 % (20-40); Mean Corpuscular HGB Conc 32.4 g/dl (31.0-36.0); Mean Corpuscular Hemoglobin 27.4 pg (27.0-33.0); Mean Corpuscular Volume 84.4 fL (80-98); Mean Platelet Volume 10.3 fL (9.4-12.4); Monocytes Absolute Auto 0.4 X10*3/uL (0.1-1.2); Monocytes Percent Auto 6.1 % (2-11); Neutrophils Absolute Auto 4.3 X10*3/uL (2.0-8.3); Neutrophils Percent Auto 65.1 % (45-73); Platelet Count 255 X10*3/uL (160-400); Red Blood Count 4.75 X10*6/uL (4.60-5.80); Red Cell Distribution Width 15.2 % (11.0-16.0); White Blood Count 6.6 X10*3/uL (4.8-10.8)
[2020-08-14 07:36] LABS: Anion Gap 14 (12-20); Blood Urea Nitrogen 23 mg/dL (9-16); Calcium 9.1 mg/dL (8.4-10.2); Carbon Dioxide 27 mmol/L (22-29); Chloride 102 mmol/L (96-108); Estimated Glomerular Filt Rate > 60; Glucose Random 215 mg/dL (60-115); Sodium 139 mmol/L (135-145)
== END 2020-08-14 01:08 | disposition home or self-care (01) ==
LOC: HO.MMNH2L 01:07
PROVIDERS: Visit Provider Family Medicine
DX: E11.9 Type 2 diabetes mellitus without complications (principal); E78.5 Hyperlipidemia, unspecified
CPT/HCPCS: 36415; 80048; 85025

== ENCOUNTER 2020-08-22 00:29 | Outpatient (REF) | payer OTHER, SELFPAY ==
[2020-08-22 07:02] LABS: MANUAL DIFF FLAG NO
[2020-08-22 07:23] LABS: Basophils Percent Auto 0.5 % (0-2); Eosinophils Absolute Auto 0.1 X10*3/uL (0.0-0.4); Eosinophils Percent Auto 2.2 % (0-4); Hematocrit 39.7 % (42-52); Hemoglobin 12.9 g/dl (14.0-18.0); Imm Gran Abs Auto 0.03 X10*3/uL (0.00-0.03); Imm Gran Pct Auto 0.5 % (0.0-0.4); Lymphocytes Absolute Auto 1.7 X10*3/uL (1.2-4.9); Lymphocytes Percent Auto 25.9 % (20-40); Mean Corpuscular HGB Conc 32.5 g/dl (31.0-36.0); Mean Corpuscular Hemoglobin 27.3 pg (27.0-33.0); Mean Corpuscular Volume 84.1 fL (80-98); Mean Platelet Volume 10.1 fL (9.4-12.4); Monocytes Absolute Auto 0.3 X10*3/uL (0.1-1.2); Monocytes Percent Auto 5.3 % (2-11); Neutrophils Absolute Auto 4.3 X10*3/uL (2.0-8.3); Neutrophils Percent Auto 65.6 % (45-73); Platelet Count 250 X10*3/uL (160-400); Red Blood Count 4.72 X10*6/uL (4.60-5.80); Red Cell Distribution Width 14.8 % (11.0-16.0); White Blood Count 6.5 X10*3/uL (4.8-10.8)
[2020-08-22 07:39] LABS: Anion Gap 12 (12-20); Blood Urea Nitrogen 16 mg/dL (9-16); Calcium 9.3 mg/dL (8.4-10.2); Carbon Dioxide 27 mmol/L (22-29); Chloride 102 mmol/L (96-108); Estimated Glomerular Filt Rate > 60; Glucose Random 294 mg/dL (60-115); Potassium 4.4 mmol/L (3.3-5.1); Sodium 137 mmol/L (135-145)
== END 2020-08-22 00:30 | disposition home or self-care (01) ==
LOC: HO.MMNH2L 00:29
PROVIDERS: Visit Provider Family Medicine
DX: E78.5 Hyperlipidemia, unspecified (principal); E11.9 Type 2 diabetes mellitus without complications
CPT/HCPCS: 36415; 80048; 85025

== ENCOUNTER 2020-08-28 00:53 | Outpatient (REF) | payer OTHER, SELFPAY ==
[2020-08-28 07:21] LABS: MANUAL DIFF FLAG NO
[2020-08-28 07:39] LABS: Basophils Percent Auto 0.3 % (0-2); Eosinophils Absolute Auto 0.1 X10*3/uL (0.0-0.4); Eosinophils Percent Auto 2.1 % (0-4); Hematocrit 36.9 % (42-52); Imm Gran Abs Auto 0.02 X10*3/uL (0.00-0.03); Imm Gran Pct Auto 0.3 % (0.0-0.4); Lymphocytes Absolute Auto 1.4 X10*3/uL (1.2-4.9); Lymphocytes Percent Auto 22.4 % (20-40); Mean Corpuscular HGB Conc 32.5 g/dl (31.0-36.0); Mean Corpuscular Hemoglobin 27.6 pg (27.0-33.0); Mean Corpuscular Volume 84.8 fL (80-98); Mean Platelet Volume 10.2 fL (9.4-12.4); Monocytes Absolute Auto 0.4 X10*3/uL (0.1-1.2); Monocytes Percent Auto 6.3 % (2-11); Neutrophils Absolute Auto 4.2 X10*3/uL (2.0-8.3); Neutrophils Percent Auto 68.6 % (45-73); Platelet Count 228 X10*3/uL (160-400); Red Blood Count 4.35 X10*6/uL (4.60-5.80); Red Cell Distribution Width 14.8 % (11.0-16.0); White Blood Count 6.2 X10*3/uL (4.8-10.8)
[2020-08-28 08:29] LABS: Anion Gap 11 (12-20); Blood Urea Nitrogen 12 mg/dL (9-16); Calcium 8.4 mg/dL (8.4-10.2); Carbon Dioxide 27 mmol/L (22-29); Chloride 104 mmol/L (96-108); Estimated Glomerular Filt Rate > 60; Glucose Random 297 mg/dL (60-115); Sodium 138 mmol/L (135-145)
== END 2020-08-28 00:54 | disposition home or self-care (01) ==
LOC: HO.MMNH2L 00:53
PROVIDERS: Visit Provider Family Medicine
DX: E78.5 Hyperlipidemia, unspecified (principal); E11.9 Type 2 diabetes mellitus without complications
CPT/HCPCS: 36415; 80048; 85025

== ENCOUNTER 2020-09-04 00:31 | Outpatient (REF) | payer OTHER, SELFPAY ==
[2020-09-04 06:35] LABS: MANUAL DIFF FLAG NO
[2020-09-04 07:10] LABS: Basophils Percent Auto 0.3 % (0-2); Eosinophils Absolute Auto 0.2 X10*3/uL (0.0-0.4); Eosinophils Percent Auto 2.8 % (0-4); Hematocrit 36.3 % (42-52); Hemoglobin 11.9 g/dl (14.0-18.0); Imm Gran Abs Auto 0.02 X10*3/uL (0.00-0.03); Imm Gran Pct Auto 0.3 % (0.0-0.4); Lymphocytes Absolute Auto 1.4 X10*3/uL (1.2-4.9); Lymphocytes Percent Auto 23.4 % (20-40); Mean Corpuscular HGB Conc 32.8 g/dl (31.0-36.0); Mean Corpuscular Hemoglobin 27.6 pg (27.0-33.0); Mean Corpuscular Volume 84.2 fL (80-98); Monocytes Absolute Auto 0.4 X10*3/uL (0.1-1.2); Monocytes Percent Auto 6.6 % (2-11); Neutrophils Absolute Auto 4.1 X10*3/uL (2.0-8.3); Neutrophils Percent Auto 66.6 % (45-73); Platelet Count 189 X10*3/uL (160-400); Red Blood Count 4.31 X10*6/uL (4.60-5.80); Red Cell Distribution Width 14.9 % (11.0-16.0); White Blood Count 6.1 X10*3/uL (4.8-10.8)
[2020-09-04 07:15] LABS: Anion Gap 12 (12-20); Blood Urea Nitrogen 18 mg/dL (9-16); Calcium 8.4 mg/dL (8.4-10.2); Carbon Dioxide 29 mmol/L (22-29); Chloride 104 mmol/L (96-108); Estimated Glomerular Filt Rate > 60; Glucose Random 251 mg/dL (60-115); Potassium 4.3 mmol/L (3.3-5.1); Sodium 141 mmol/L (135-145)
== END 2020-09-04 00:32 | disposition home or self-care (01) ==
LOC: HO.MMNH2L 00:31
PROVIDERS: Visit Provider Family Medicine
DX: E78.5 Hyperlipidemia, unspecified (principal); E11.9 Type 2 diabetes mellitus without complications
CPT/HCPCS: 36415; 80048; 85025

== ENCOUNTER 2020-09-11 07:06 | Outpatient (REF) | payer OTHER, SELFPAY ==
[2020-09-11 06:54] LABS: MANUAL DIFF FLAG NO
[2020-09-11 07:17] LABS: Basophils Percent Auto 0.5 % (0-2); Eosinophils Absolute Auto 0.2 X10*3/uL (0.0-0.4); Eosinophils Percent Auto 3.6 % (0-4); Hematocrit 37.5 % (42-52); Hemoglobin 12.3 g/dl (14.0-18.0); Imm Gran Abs Auto 0.03 X10*3/uL (0.00-0.03); Imm Gran Pct Auto 0.5 % (0.0-0.4); Lymphocytes Absolute Auto 1.3 X10*3/uL (1.2-4.9); Lymphocytes Percent Auto 22.4 % (20-40); Mean Corpuscular HGB Conc 32.8 g/dl (31.0-36.0); Mean Corpuscular Hemoglobin 27.5 pg (27.0-33.0); Mean Corpuscular Volume 83.7 fL (80-98); Mean Platelet Volume 10.6 fL (9.4-12.4); Monocytes Absolute Auto 0.3 X10*3/uL (0.1-1.2); Monocytes Percent Auto 5.5 % (2-11); Neutrophils Absolute Auto 3.9 X10*3/uL (2.0-8.3); Neutrophils Percent Auto 67.5 % (45-73); Platelet Count 197 X10*3/uL (160-400); Red Blood Count 4.48 X10*6/uL (4.60-5.80); Red Cell Distribution Width 14.7 % (11.0-16.0); White Blood Count 5.8 X10*3/uL (4.8-10.8)
[2020-09-11 07:34] LABS: Anion Gap 11 (12-20); Blood Urea Nitrogen 17 mg/dL (9-16); Calcium 8.6 mg/dL (8.4-10.2); Carbon Dioxide 28 mmol/L (22-29); Chloride 106 mmol/L (96-108); Estimated Glomerular Filt Rate > 60; Glucose Random 288 mg/dL (60-115); Potassium 3.9 mmol/L (3.3-5.1); Sodium 141 mmol/L (135-145)
== END 2020-09-11 07:07 | disposition home or self-care (01) ==
LOC: HO.MMNH2L 07:06
PROVIDERS: Visit Provider Family Medicine
DX: E78.5 Hyperlipidemia, unspecified (principal); E11.9 Type 2 diabetes mellitus without complications
CPT/HCPCS: 36415; 80048; 85025

== ENCOUNTER 2020-09-18 00:33 | Outpatient (REF) | payer OTHER, SELFPAY ==
[2020-09-18 05:59] LABS: MANUAL DIFF FLAG NO
[2020-09-18 06:13] LABS: Basophils Percent Auto 0.5 % (0-2); Eosinophils Absolute Auto 0.2 X10*3/uL (0.0-0.4); Eosinophils Percent Auto 3.2 % (0-4); Hematocrit 36.3 % (42-52); Imm Gran Abs Auto 0.04 X10*3/uL (0.00-0.03); Imm Gran Pct Auto 0.7 % (0.0-0.4); Lymphocytes Absolute Auto 1.4 X10*3/uL (1.2-4.9); Lymphocytes Percent Auto 24.4 % (20-40); Mean Corpuscular HGB Conc 33.1 g/dl (31.0-36.0); Mean Corpuscular Hemoglobin 27.6 pg (27.0-33.0); Mean Corpuscular Volume 83.6 fL (80-98); Mean Platelet Volume 9.9 fL (9.4-12.4); Monocytes Absolute Auto 0.4 X10*3/uL (0.1-1.2); Monocytes Percent Auto 6.3 % (2-11); Neutrophils Absolute Auto 3.8 X10*3/uL (2.0-8.3); Neutrophils Percent Auto 64.9 % (45-73); Platelet Count 189 X10*3/uL (160-400); Red Blood Count 4.34 X10*6/uL (4.60-5.80); Red Cell Distribution Width 14.6 % (11.0-16.0); White Blood Count 5.9 X10*3/uL (4.8-10.8)
[2020-09-18 06:28] LABS: Anion Gap 11 (12-20); Blood Urea Nitrogen 14 mg/dL (9-16); Calcium 8.9 mg/dL (8.4-10.2); Carbon Dioxide 31 mmol/L (22-29); Chloride 104 mmol/L (96-108); Estimated Glomerular Filt Rate > 60; Glucose Random 305 mg/dL (60-115); Potassium 3.7 mmol/L (3.3-5.1); Sodium 142 mmol/L (135-145)
== END 2020-09-18 00:34 | disposition home or self-care (01) ==
LOC: HO.MMNH2L 00:33
PROVIDERS: Visit Provider Family Medicine
DX: E11.9 Type 2 diabetes mellitus without complications (principal); E78.5 Hyperlipidemia, unspecified
CPT/HCPCS: 36415; 80048; 85025

== ENCOUNTER 2020-09-25 00:13 | Outpatient (REF) | payer OTHER, SELFPAY ==
[2020-09-25 06:20] LABS: MANUAL DIFF FLAG NO
[2020-09-25 07:00] LABS: Basophils Percent Auto 0.3 % (0-2); Eosinophils Absolute Auto 0.2 X10*3/uL (0.0-0.4); Eosinophils Percent Auto 2.6 % (0-4); Hematocrit 36.1 % (42-52); Imm Gran Abs Auto 0.03 X10*3/uL (0.00-0.03); Imm Gran Pct Auto 0.5 % (0.0-0.4); Lymphocytes Absolute Auto 1.5 X10*3/uL (1.2-4.9); Lymphocytes Percent Auto 25.5 % (20-40); Mean Corpuscular HGB Conc 33.2 g/dl (31.0-36.0); Mean Corpuscular Hemoglobin 28.1 pg (27.0-33.0); Mean Corpuscular Volume 84.5 fL (80-98); Mean Platelet Volume 9.8 fL (9.4-12.4); Monocytes Absolute Auto 0.4 X10*3/uL (0.1-1.2); Monocytes Percent Auto 6.1 % (2-11); Neutrophils Absolute Auto 3.7 X10*3/uL (2.0-8.3); Platelet Count 202 X10*3/uL (160-400); Red Blood Count 4.27 X10*6/uL (4.60-5.80); Red Cell Distribution Width 15.3 % (11.0-16.0); White Blood Count 5.7 X10*3/uL (4.8-10.8)
[2020-09-25 07:18] LABS: Anion Gap 14 (12-20); Blood Urea Nitrogen 16 mg/dL (9-16); Calcium 8.7 mg/dL (8.4-10.2); Carbon Dioxide 27 mmol/L (22-29); Chloride 105 mmol/L (96-108); Estimated Glomerular Filt Rate > 60; Glucose Random 255 mg/dL (60-115); Potassium 3.6 mmol/L (3.3-5.1); Sodium 142 mmol/L (135-145)
== END 2020-09-25 00:14 | disposition home or self-care (01) ==
LOC: HO.MMNH2L 00:13
PROVIDERS: Visit Provider Family Medicine
DX: E78.5 Hyperlipidemia, unspecified (principal); E11.9 Type 2 diabetes mellitus without complications
CPT/HCPCS: 36415; 80048; 85025

== ENCOUNTER 2020-10-02 | Outpatient (REF) | payer OTHER, SELFPAY ==
[2020-10-02 07:19] LABS: MANUAL DIFF FLAG NO
[2020-10-02 07:28] LABS: Basophils Percent Auto 0.4 % (0-2); Eosinophils Absolute Auto 0.1 X10*3/uL (0.0-0.4); Eosinophils Percent Auto 2.3 % (0-4); Hematocrit 35.8 % (42-52); Hemoglobin 11.8 g/dl (14.0-18.0); Imm Gran Abs Auto 0.03 X10*3/uL (0.00-0.03); Imm Gran Pct Auto 0.5 % (0.0-0.4); Lymphocytes Absolute Auto 1.6 X10*3/uL (1.2-4.9); Lymphocytes Percent Auto 27.8 % (20-40); Mean Corpuscular Hemoglobin 27.7 pg (27.0-33.0); Monocytes Absolute Auto 0.4 X10*3/uL (0.1-1.2); Monocytes Percent Auto 7.4 % (2-11); Neutrophils Absolute Auto 3.5 X10*3/uL (2.0-8.3); Neutrophils Percent Auto 61.6 % (45-73); Platelet Count 193 X10*3/uL (160-400); Red Blood Count 4.26 X10*6/uL (4.60-5.80); Red Cell Distribution Width 15.2 % (11.0-16.0); White Blood Count 5.7 X10*3/uL (4.8-10.8)
[2020-10-02 08:09] LABS: Anion Gap 16 (12-20); Blood Urea Nitrogen 16 mg/dL (9-16); Calcium 8.2 mg/dL (8.4-10.2); Carbon Dioxide 25 mmol/L (22-29); Chloride 105 mmol/L (96-108); Estimated Glomerular Filt Rate > 60; Glucose Random 264 mg/dL (60-115); Potassium 3.7 mmol/L (3.3-5.1); Sodium 142 mmol/L (135-145)
== END 2020-10-02 00:01 | disposition home or self-care (01) ==
LOC: HO.MMNH2L
PROVIDERS: Visit Provider Family Medicine
DX: E78.5 Hyperlipidemia, unspecified (principal); E11.9 Type 2 diabetes mellitus without complications
CPT/HCPCS: 36415; 80048; 85025

== ENCOUNTER 2020-10-09 00:48 | Outpatient (REF) | payer OTHER, SELFPAY ==
[2020-10-09 06:00] LABS: MANUAL DIFF FLAG NO
[2020-10-09 06:12] LABS: Basophils Percent Auto 0.4 % (0-2); Eosinophils Absolute Auto 0.1 X10*3/uL (0.0-0.4); Eosinophils Percent Auto 2.5 % (0-4); Hemoglobin 11.7 g/dl (14.0-18.0); Imm Gran Abs Auto 0.02 X10*3/uL (0.00-0.03); Imm Gran Pct Auto 0.4 % (0.0-0.4); Lymphocytes Absolute Auto 1.6 X10*3/uL (1.2-4.9); Lymphocytes Percent Auto 27.9 % (20-40); Mean Corpuscular HGB Conc 33.4 g/dl (31.0-36.0); Mean Corpuscular Volume 83.7 fL (80-98); Mean Platelet Volume 9.9 fL (9.4-12.4); Monocytes Absolute Auto 0.4 X10*3/uL (0.1-1.2); Monocytes Percent Auto 6.5 % (2-11); Neutrophils Absolute Auto 3.5 X10*3/uL (2.0-8.3); Neutrophils Percent Auto 62.3 % (45-73); Platelet Count 179 X10*3/uL (160-400); Red Blood Count 4.18 X10*6/uL (4.60-5.80); Red Cell Distribution Width 14.9 % (11.0-16.0); White Blood Count 5.6 X10*3/uL (4.8-10.8)
[2020-10-09 06:35] LABS: Anion Gap 11 (12-20); Blood Urea Nitrogen 13 mg/dL (9-16); Calcium 8.3 mg/dL (8.4-10.2); Carbon Dioxide 30 mmol/L (22-29); Chloride 104 mmol/L (96-108); Estimated Glomerular Filt Rate > 60; Glucose Random 199 mg/dL (60-115); Potassium 3.4 mmol/L (3.3-5.1); Sodium 142 mmol/L (135-145)
== END 2020-10-09 00:49 | disposition home or self-care (01) ==
LOC: HO.MMNH3L 00:48
PROVIDERS: Visit Provider Family Medicine
DX: E78.5 Hyperlipidemia, unspecified (principal); E11.9 Type 2 diabetes mellitus without complications
CPT/HCPCS: 36415; 80048; 85025

== ENCOUNTER 2020-10-16 08:05 | Outpatient (REF) | payer OTHER, SELFPAY ==
[2020-10-16 06:23] LABS: MANUAL DIFF FLAG NO
[2020-10-16 06:36] LABS: Basophils Percent Auto 0.5 % (0-2); Eosinophils Absolute Auto 0.2 X10*3/uL (0.0-0.4); Eosinophils Percent Auto 2.8 % (0-4); Hematocrit 35.9 % (42-52); Hemoglobin 11.8 g/dl (14.0-18.0); Imm Gran Abs Auto 0.02 X10*3/uL (0.00-0.03); Imm Gran Pct Auto 0.3 % (0.0-0.4); Lymphocytes Absolute Auto 1.5 X10*3/uL (1.2-4.9); Lymphocytes Percent Auto 22.6 % (20-40); Mean Corpuscular HGB Conc 32.9 g/dl (31.0-36.0); Mean Corpuscular Hemoglobin 27.7 pg (27.0-33.0); Mean Corpuscular Volume 84.3 fL (80-98); Mean Platelet Volume 9.7 fL (9.4-12.4); Monocytes Absolute Auto 0.4 X10*3/uL (0.1-1.2); Monocytes Percent Auto 6.3 % (2-11); Neutrophils Absolute Auto 4.4 X10*3/uL (2.0-8.3); Neutrophils Percent Auto 67.5 % (45-73); Platelet Count 196 X10*3/uL (160-400); Red Blood Count 4.26 X10*6/uL (4.60-5.80); White Blood Count 6.5 X10*3/uL (4.8-10.8)
[2020-10-16 07:11] LABS: Anion Gap 13 (12-20); Blood Urea Nitrogen 14 mg/dL (9-16); Calcium 8.4 mg/dL (8.4-10.2); Carbon Dioxide 27 mmol/L (22-29); Chloride 106 mmol/L (96-108); Estimated Glomerular Filt Rate > 60; Glucose Random 191 mg/dL (60-115); Potassium 3.8 mmol/L (3.3-5.1); Sodium 142 mmol/L (135-145)
== END 2020-10-16 08:06 | disposition home or self-care (01) ==
LOC: HO.MMNH3L 08:05
PROVIDERS: Visit Provider Family Medicine
DX: E78.5 Hyperlipidemia, unspecified (principal); E11.9 Type 2 diabetes mellitus without complications
CPT/HCPCS: 36415; 80048; 85025

== ENCOUNTER 2020-10-23 21:18 | Outpatient (REF) | payer OTHER, SELFPAY ==
[2020-10-23 06:26] LABS: MANUAL DIFF FLAG NO
[2020-10-23 06:44] LABS: Basophils Percent Auto 0.5 % (0-2); Eosinophils Absolute Auto 0.2 X10*3/uL (0.0-0.4); Hematocrit 33.7 % (42-52); Hemoglobin 11.2 g/dl (14.0-18.0); Imm Gran Abs Auto 0.03 X10*3/uL (0.00-0.03); Imm Gran Pct Auto 0.5 % (0.0-0.4); Lymphocytes Absolute Auto 1.8 X10*3/uL (1.2-4.9); Lymphocytes Percent Auto 29.5 % (20-40); Mean Corpuscular HGB Conc 33.2 g/dl (31.0-36.0); Mean Corpuscular Hemoglobin 27.7 pg (27.0-33.0); Mean Corpuscular Volume 83.4 fL (80-98); Mean Platelet Volume 9.4 fL (9.4-12.4); Monocytes Absolute Auto 0.4 X10*3/uL (0.1-1.2); Monocytes Percent Auto 6.1 % (2-11); Neutrophils Absolute Auto 3.7 X10*3/uL (2.0-8.3); Neutrophils Percent Auto 60.4 % (45-73); Platelet Count 211 X10*3/uL (160-400); Red Blood Count 4.04 X10*6/uL (4.60-5.80); Red Cell Distribution Width 15.1 % (11.0-16.0)
[2020-10-23 07:01] LABS: Anion Gap 11 (12-20); Blood Urea Nitrogen 14 mg/dL (9-16); Calcium 8.6 mg/dL (8.4-10.2); Carbon Dioxide 30 mmol/L (22-29); Chloride 107 mmol/L (96-108); Estimated Glomerular Filt Rate > 60; Glucose Random 119 mg/dL (60-115); Potassium 3.5 mmol/L (3.3-5.1); Sodium 144 mmol/L (135-145)
== END 2020-10-23 21:19 | disposition home or self-care (01) ==
LOC: HO.MMNH3L 21:18
PROVIDERS: Visit Provider Family Medicine
DX: E78.5 Hyperlipidemia, unspecified (principal); E11.9 Type 2 diabetes mellitus without complications
CPT/HCPCS: 36415; 80048; 85025

== ENCOUNTER 2020-10-30 00:17 | Outpatient (REF) | payer OTHER, SELFPAY ==
[2020-10-30 06:33] LABS: MANUAL DIFF FLAG NO
[2020-10-30 07:18] LABS: Basophils Percent Auto 0.6 % (0-2); Eosinophils Absolute Auto 0.2 X10*3/uL (0.0-0.4); Hematocrit 35.8 % (42-52); Hemoglobin 11.8 g/dl (14.0-18.0); Imm Gran Abs Auto 0.02 X10*3/uL (0.00-0.03); Imm Gran Pct Auto 0.4 % (0.0-0.4); Lymphocytes Absolute Auto 1.3 X10*3/uL (1.2-4.9); Lymphocytes Percent Auto 25.7 % (20-40); Mean Corpuscular Volume 84.8 fL (80-98); Mean Platelet Volume 9.7 fL (9.4-12.4); Monocytes Absolute Auto 0.4 X10*3/uL (0.1-1.2); Monocytes Percent Auto 7.8 % (2-11); Neutrophils Absolute Auto 3.1 X10*3/uL (2.0-8.3); Neutrophils Percent Auto 61.5 % (45-73); Platelet Count 201 X10*3/uL (160-400); Red Blood Count 4.22 X10*6/uL (4.60-5.80); Red Cell Distribution Width 14.9 % (11.0-16.0)
[2020-10-30 07:36] LABS: Anion Gap 14 (12-20); Blood Urea Nitrogen 9 mg/dL (9-16); Calcium 8.7 mg/dL (8.4-10.2); Carbon Dioxide 28 mmol/L (22-29); Chloride 104 mmol/L (96-108); Estimated Glomerular Filt Rate > 60; Glucose Random 194 mg/dL (60-115); Potassium 3.4 mmol/L (3.3-5.1); Sodium 143 mmol/L (135-145)
== END 2020-10-30 00:18 | disposition home or self-care (01) ==
LOC: HO.MMNH3L 00:17
PROVIDERS: Visit Provider Family Medicine
DX: E78.5 Hyperlipidemia, unspecified (principal); E11.9 Type 2 diabetes mellitus without complications
CPT/HCPCS: 36415; 80048; 85025

== ENCOUNTER 2020-11-06 00:30 | Outpatient (REF) | payer OTHER, SELFPAY ==
[2020-11-06 06:31] LABS: MANUAL DIFF FLAG NO
[2020-11-06 06:50] LABS: Basophils Percent Auto 0.6 % (0-2); Eosinophils Absolute Auto 0.1 X10*3/uL (0.0-0.4); Eosinophils Percent Auto 2.6 % (0-4); Hematocrit 34.6 % (42-52); Hemoglobin 11.4 g/dl (14.0-18.0); Imm Gran Abs Auto 0.03 X10*3/uL (0.00-0.03); Imm Gran Pct Auto 0.6 % (0.0-0.4); Lymphocytes Absolute Auto 1.6 X10*3/uL (1.2-4.9); Lymphocytes Percent Auto 29.8 % (20-40); Mean Corpuscular HGB Conc 32.9 g/dl (31.0-36.0); Mean Corpuscular Hemoglobin 27.5 pg (27.0-33.0); Mean Corpuscular Volume 83.4 fL (80-98); Mean Platelet Volume 9.4 fL (9.4-12.4); Monocytes Absolute Auto 0.3 X10*3/uL (0.1-1.2); Monocytes Percent Auto 5.9 % (2-11); Neutrophils Absolute Auto 3.3 X10*3/uL (2.0-8.3); Neutrophils Percent Auto 60.5 % (45-73); Platelet Count 209 X10*3/uL (160-400); Red Blood Count 4.15 X10*6/uL (4.60-5.80); Red Cell Distribution Width 15.1 % (11.0-16.0); White Blood Count 5.4 X10*3/uL (4.8-10.8)
[2020-11-06 07:15] LABS: Anion Gap 11 (12-20); Blood Urea Nitrogen 13 mg/dL (9-16); Calcium 8.9 mg/dL (8.4-10.2); Carbon Dioxide 31 mmol/L (22-29); Chloride 106 mmol/L (96-108); Estimated Glomerular Filt Rate > 60; Glucose Random 107 mg/dL (60-115); Potassium 3.9 mmol/L (3.3-5.1); Sodium 144 mmol/L (135-145)
== END 2020-11-06 00:31 | disposition home or self-care (01) ==
LOC: HO.MMNH3L 00:30
PROVIDERS: Visit Provider Family Medicine
DX: E78.89 Other lipoprotein metabolism disorders (principal); E11.9 Type 2 diabetes mellitus without complications
CPT/HCPCS: 36415; 80048; 85025

== ENCOUNTER 2020-11-13 05:00 | Outpatient (REF) | payer OTHER, SELFPAY ==
[2020-11-13 06:30] LABS: MANUAL DIFF FLAG NO
[2020-11-13 07:07] LABS: Basophils Percent Auto 0.7 % (0-2); Eosinophils Absolute Auto 0.1 X10*3/uL (0.0-0.4); Eosinophils Percent Auto 2.5 % (0-4); Hematocrit 34.8 % (42-52); Hemoglobin 11.4 g/dl (14.0-18.0); Imm Gran Abs Auto 0.02 X10*3/uL (0.00-0.03); Imm Gran Pct Auto 0.4 % (0.0-0.4); Lymphocytes Absolute Auto 1.6 X10*3/uL (1.2-4.9); Lymphocytes Percent Auto 27.5 % (20-40); Mean Corpuscular HGB Conc 32.8 g/dl (31.0-36.0); Mean Corpuscular Hemoglobin 27.3 pg (27.0-33.0); Mean Corpuscular Volume 83.3 fL (80-98); Mean Platelet Volume 9.6 fL (9.4-12.4); Monocytes Absolute Auto 0.4 X10*3/uL (0.1-1.2); Monocytes Percent Auto 6.3 % (2-11); Neutrophils Absolute Auto 3.6 X10*3/uL (2.0-8.3); Neutrophils Percent Auto 62.6 % (45-73); Platelet Count 200 X10*3/uL (160-400); Red Blood Count 4.18 X10*6/uL (4.60-5.80); Red Cell Distribution Width 15.3 % (11.0-16.0); White Blood Count 5.7 X10*3/uL (4.8-10.8)
[2020-11-13 07:38] LABS: Anion Gap 12 (12-20); Blood Urea Nitrogen 14 mg/dL (9-16); Calcium 8.4 mg/dL (8.4-10.2); Carbon Dioxide 28 mmol/L (22-29); Chloride 103 mmol/L (96-108); Estimated Glomerular Filt Rate > 60; Glucose Random 309 mg/dL (60-115); Potassium 3.6 mmol/L (3.3-5.1); Sodium 139 mmol/L (135-145)
== END 2020-11-13 05:01 | disposition home or self-care (01) ==
LOC: HO.MMNH3L 05:00
PROVIDERS: Visit Provider Family Medicine
DX: E78.5 Hyperlipidemia, unspecified (principal); E11.9 Type 2 diabetes mellitus without complications
CPT/HCPCS: 36415; 80048; 85025

== ENCOUNTER 2020-11-20 01:04 | Outpatient (REF) | payer OTHER, SELFPAY ==
[2020-11-20 06:25] LABS: MANUAL DIFF FLAG NO
[2020-11-20 06:58] LABS: Basophils Percent Auto 0.4 % (0-2); Eosinophils Absolute Auto 0.2 X10*3/uL (0.0-0.4); Hematocrit 33.9 % (42-52); Hemoglobin 11.4 g/dl (14.0-18.0); Imm Gran Abs Auto 0.02 X10*3/uL (0.00-0.03); Imm Gran Pct Auto 0.4 % (0.0-0.4); Lymphocytes Absolute Auto 1.4 X10*3/uL (1.2-4.9); Lymphocytes Percent Auto 28.2 % (20-40); Mean Corpuscular HGB Conc 33.6 g/dl (31.0-36.0); Mean Corpuscular Hemoglobin 27.5 pg (27.0-33.0); Mean Corpuscular Volume 81.9 fL (80-98); Mean Platelet Volume 9.6 fL (9.4-12.4); Monocytes Absolute Auto 0.4 X10*3/uL (0.1-1.2); Monocytes Percent Auto 8.8 % (2-11); Neutrophils Absolute Auto 2.8 X10*3/uL (2.0-8.3); Neutrophils Percent Auto 58.2 % (45-73); Platelet Count 180 X10*3/uL (160-400); Red Blood Count 4.14 X10*6/uL (4.60-5.80); Red Cell Distribution Width 15.5 % (11.0-16.0); White Blood Count 4.8 X10*3/uL (4.8-10.8)
[2020-11-20 07:20] LABS: Anion Gap 13 (12-20); Blood Urea Nitrogen 11 mg/dL (9-16); Calcium 8.6 mg/dL (8.4-10.2); Carbon Dioxide 27 mmol/L (22-29); Chloride 105 mmol/L (96-108); Estimated Glomerular Filt Rate > 60; Glucose Random 174 mg/dL (60-115); Potassium 3.5 mmol/L (3.3-5.1); Sodium 141 mmol/L (135-145)
== END 2020-11-20 01:05 | disposition home or self-care (01) ==
LOC: HO.MMNH3L 01:04
PROVIDERS: Visit Provider Family Medicine
DX: E78.5 Hyperlipidemia, unspecified (principal); E11.9 Type 2 diabetes mellitus without complications
CPT/HCPCS: 36415; 80048; 85025

== ENCOUNTER 2020-11-28 21:15 | Outpatient (REF) | payer OTHER, SELFPAY ==
[2020-11-28 07:08] LABS: MANUAL DIFF FLAG NO
[2020-11-28 07:22] LABS: Basophils Percent Auto 0.2 % (0-2); Eosinophils Absolute Auto 0.1 X10*3/uL (0.0-0.4); Eosinophils Percent Auto 2.3 % (0-4); Hematocrit 34.2 % (42-52); Hemoglobin 11.3 g/dl (14.0-18.0); Imm Gran Abs Auto 0.02 X10*3/uL (0.00-0.03); Imm Gran Pct Auto 0.4 % (0.0-0.4); Lymphocytes Absolute Auto 1.3 X10*3/uL (1.2-4.9); Lymphocytes Percent Auto 27.1 % (20-40); Mean Corpuscular Hemoglobin 27.5 pg (27.0-33.0); Mean Corpuscular Volume 83.2 fL (80-98); Mean Platelet Volume 9.6 fL (9.4-12.4); Monocytes Absolute Auto 0.3 X10*3/uL (0.1-1.2); Monocytes Percent Auto 6.6 % (2-11); Neutrophils Absolute Auto 3.1 X10*3/uL (2.0-8.3); Neutrophils Percent Auto 63.4 % (45-73); Platelet Count 212 X10*3/uL (160-400); Red Blood Count 4.11 X10*6/uL (4.60-5.80); Red Cell Distribution Width 15.5 % (11.0-16.0); White Blood Count 4.8 X10*3/uL (4.8-10.8)
[2020-11-28 08:11] LABS: Anion Gap 12 (12-20); Blood Urea Nitrogen 12 mg/dL (9-16); Carbon Dioxide 27 mmol/L (22-29); Chloride 106 mmol/L (96-108); Estimated Glomerular Filt Rate > 60; Glucose Random 333 mg/dL (60-115); Sodium 141 mmol/L (135-145)
== END 2020-11-28 21:16 | disposition home or self-care (01) ==
LOC: HO.MMNH3L 21:15
PROVIDERS: Visit Provider Family Medicine
DX: E78.5 Hyperlipidemia, unspecified (principal); E11.9 Type 2 diabetes mellitus without complications
CPT/HCPCS: 36415; 80048; 85025

== ENCOUNTER 2020-12-04 | Outpatient (REF) | payer OTHER, SELFPAY ==
[2020-12-04 06:19] LABS: MANUAL DIFF FLAG NO
[2020-12-04 06:23] LABS: Basophils Percent Auto 0.4 % (0-2); Eosinophils Absolute Auto 0.1 X10*3/uL (0.0-0.4); Eosinophils Percent Auto 2.1 % (0-4); Hematocrit 32.5 % (42-52); Hemoglobin 10.9 g/dl (14.0-18.0); Imm Gran Abs Auto 0.02 X10*3/uL (0.00-0.03); Imm Gran Pct Auto 0.3 % (0.0-0.4); Lymphocytes Absolute Auto 1.7 X10*3/uL (1.2-4.9); Lymphocytes Percent Auto 25.2 % (20-40); Mean Corpuscular HGB Conc 33.5 g/dl (31.0-36.0); Mean Corpuscular Hemoglobin 27.7 pg (27.0-33.0); Mean Corpuscular Volume 82.5 fL (80-98); Mean Platelet Volume 9.6 fL (9.4-12.4); Monocytes Absolute Auto 0.5 X10*3/uL (0.1-1.2); Monocytes Percent Auto 6.7 % (2-11); NRBC Pct Auto 0.6 /100WBC (0.0-0.2); Neutrophils Absolute Auto 4.4 X10*3/uL (2.0-8.3); Neutrophils Percent Auto 65.3 % (45-73); Platelet Count 211 X10*3/uL (160-400); Red Blood Count 3.94 X10*6/uL (4.60-5.80); Red Cell Distribution Width 15.4 % (11.0-16.0); White Blood Count 6.7 X10*3/uL (4.8-10.8)
[2020-12-04 06:55] LABS: Anion Gap 12 (12-20); Blood Urea Nitrogen 16 mg/dL (9-16); Calcium 8.6 mg/dL (8.4-10.2); Carbon Dioxide 27 mmol/L (22-29); Chloride 104 mmol/L (96-108); Estimated Glomerular Filt Rate > 60; Glucose Random 312 mg/dL (60-115); Potassium 3.4 mmol/L (3.3-5.1); Sodium 140 mmol/L (135-145)
== END 2020-12-04 00:01 | disposition home or self-care (01) ==
LOC: HO.MMNH3L
PROVIDERS: Visit Provider Family Medicine
DX: E78.5 Hyperlipidemia, unspecified (principal); E11.9 Type 2 diabetes mellitus without complications
CPT/HCPCS: 36415; 80048; 85025

== ENCOUNTER 2020-12-11 00:33 | Outpatient (REF) | payer OTHER, SELFPAY ==
[2020-12-11 06:36] LABS: MANUAL DIFF FLAG NO
[2020-12-11 06:49] LABS: Basophils Percent Auto 0.6 % (0-2); Eosinophils Absolute Auto 0.2 X10*3/uL (0.0-0.4); Eosinophils Percent Auto 2.9 % (0-4); Hematocrit 32.7 % (42-52); Hemoglobin 10.7 g/dl (14.0-18.0); Imm Gran Abs Auto 0.03 X10*3/uL (0.00-0.03); Imm Gran Pct Auto 0.6 % (0.0-0.4); Lymphocytes Absolute Auto 1.5 X10*3/uL (1.2-4.9); Lymphocytes Percent Auto 28.2 % (20-40); Mean Corpuscular HGB Conc 32.7 g/dl (31.0-36.0); Mean Corpuscular Hemoglobin 27.4 pg (27.0-33.0); Mean Corpuscular Volume 83.6 fL (80-98); Mean Platelet Volume 9.3 fL (9.4-12.4); Monocytes Absolute Auto 0.4 X10*3/uL (0.1-1.2); Monocytes Percent Auto 7.4 % (2-11); Neutrophils Absolute Auto 3.1 X10*3/uL (2.0-8.3); Neutrophils Percent Auto 60.3 % (45-73); Platelet Count 239 X10*3/uL (160-400); Red Blood Count 3.91 X10*6/uL (4.60-5.80); Red Cell Distribution Width 15.5 % (11.0-16.0); White Blood Count 5.2 X10*3/uL (4.8-10.8)
[2020-12-11 07:24] LABS: Anion Gap 13 (12-20); Blood Urea Nitrogen 9 mg/dL (9-16); Calcium 8.3 mg/dL (8.4-10.2); Carbon Dioxide 28 mmol/L (22-29); Chloride 107 mmol/L (96-108); Estimated Glomerular Filt Rate > 60; Glucose Random 72 mg/dL (60-115); Potassium 3.1 mmol/L (3.3-5.1); Sodium 145 mmol/L (135-145)
== END 2020-12-11 00:34 | disposition home or self-care (01) ==
LOC: HO.MMNH3L 00:33
PROVIDERS: Visit Provider Family Medicine
DX: E78.5 Hyperlipidemia, unspecified (principal); E11.9 Type 2 diabetes mellitus without complications
CPT/HCPCS: 36415; 80048; 85025

== ENCOUNTER 2020-12-18 00:19 | Outpatient (REF) | payer OTHER, SELFPAY ==
[2020-12-18 06:51] LABS: MANUAL DIFF FLAG NO
[2020-12-18 07:07] LABS: Basophils Percent Auto 0.5 % (0-2); Eosinophils Absolute Auto 0.1 X10*3/uL (0.0-0.4); Eosinophils Percent Auto 2.4 % (0-4); Hematocrit 35.5 % (42-52); Hemoglobin 11.7 g/dl (14.0-18.0); Imm Gran Abs Auto 0.03 X10*3/uL (0.00-0.03); Imm Gran Pct Auto 0.5 % (0.0-0.4); Lymphocytes Absolute Auto 1.8 X10*3/uL (1.2-4.9); Lymphocytes Percent Auto 30.8 % (20-40); Mean Corpuscular Hemoglobin 27.5 pg (27.0-33.0); Mean Corpuscular Volume 83.5 fL (80-98); Mean Platelet Volume 9.3 fL (9.4-12.4); Monocytes Absolute Auto 0.4 X10*3/uL (0.1-1.2); Monocytes Percent Auto 6.2 % (2-11); Neutrophils Absolute Auto 3.5 X10*3/uL (2.0-8.3); Neutrophils Percent Auto 59.6 % (45-73); Platelet Count 232 X10*3/uL (160-400); Red Blood Count 4.25 X10*6/uL (4.60-5.80); Red Cell Distribution Width 15.8 % (11.0-16.0); White Blood Count 5.8 X10*3/uL (4.8-10.8)
[2020-12-18 07:39] LABS: Anion Gap 14 (12-20); Blood Urea Nitrogen 12 mg/dL (9-16); Calcium 8.5 mg/dL (8.4-10.2); Carbon Dioxide 25 mmol/L (22-29); Chloride 105 mmol/L (96-108); Estimated Glomerular Filt Rate > 60; Glucose Random 185 mg/dL (60-115); Potassium 3.5 mmol/L (3.3-5.1); Sodium 140 mmol/L (135-145)
== END 2020-12-18 00:20 | disposition home or self-care (01) ==
LOC: HO.MMNH3L 00:19
PROVIDERS: Visit Provider Family Medicine
DX: E11.9 Type 2 diabetes mellitus without complications (principal)
CPT/HCPCS: 36415; 80048; 85025

== ENCOUNTER 2020-12-25 01:13 | Outpatient (REF) | payer OTHER, SELFPAY ==
[2020-12-25 06:51] LABS: MANUAL DIFF FLAG NO
[2020-12-25 07:06] LABS: Basophils Percent Auto 0.8 % (0-2); Eosinophils Absolute Auto 0.1 X10*3/uL (0.0-0.4); Eosinophils Percent Auto 2.7 % (0-4); Hematocrit 34.6 % (42-52); Hemoglobin 11.4 g/dl (14.0-18.0); Imm Gran Abs Auto 0.02 X10*3/uL (0.00-0.03); Imm Gran Pct Auto 0.4 % (0.0-0.4); Lymphocytes Absolute Auto 1.7 X10*3/uL (1.2-4.9); Lymphocytes Percent Auto 34.8 % (20-40); Mean Corpuscular HGB Conc 32.9 g/dl (31.0-36.0); Mean Corpuscular Hemoglobin 27.3 pg (27.0-33.0); Mean Corpuscular Volume 82.8 fL (80-98); Mean Platelet Volume 9.6 fL (9.4-12.4); Monocytes Absolute Auto 0.3 X10*3/uL (0.1-1.2); Monocytes Percent Auto 6.1 % (2-11); Neutrophils Absolute Auto 2.7 X10*3/uL (2.0-8.3); Neutrophils Percent Auto 55.2 % (45-73); Platelet Count 199 X10*3/uL (160-400); Red Blood Count 4.18 X10*6/uL (4.60-5.80); Red Cell Distribution Width 15.2 % (11.0-16.0); White Blood Count 4.9 X10*3/uL (4.8-10.8)
[2020-12-25 07:41] LABS: Anion Gap 11 (12-20); Blood Urea Nitrogen 9 mg/dL (9-16); Calcium 8.4 mg/dL (8.4-10.2); Carbon Dioxide 27 mmol/L (22-29); Chloride 105 mmol/L (96-108); Estimated Glomerular Filt Rate > 60; Glucose Random 251 mg/dL (60-115); Potassium 3.4 mmol/L (3.3-5.1); Sodium 140 mmol/L (135-145)
== END 2020-12-25 01:14 | disposition home or self-care (01) ==
LOC: HO.MMNH3L 01:13
PROVIDERS: Visit Provider Family Medicine
DX: E78.5 Hyperlipidemia, unspecified (principal); E11.9 Type 2 diabetes mellitus without complications
CPT/HCPCS: 36415; 80048; 85025

== ENCOUNTER 2021-01-02 | Outpatient (REF) | payer OTHER, SELFPAY ==
[2021-01-02 06:12] LABS: MANUAL DIFF FLAG NO
[2021-01-02 06:31] LABS: Basophils Percent Auto 0.4 % (0-2); Eosinophils Absolute Auto 0.1 X10*3/uL (0.0-0.4); Eosinophils Percent Auto 2.2 % (0-4); Hematocrit 35.6 % (42-52); Hemoglobin 11.7 g/dl (14.0-18.0); Imm Gran Abs Auto 0.02 X10*3/uL (0.00-0.03); Imm Gran Pct Auto 0.4 % (0.0-0.4); Lymphocytes Absolute Auto 1.7 X10*3/uL (1.2-4.9); Lymphocytes Percent Auto 32.1 % (20-40); Mean Corpuscular HGB Conc 32.9 g/dl (31.0-36.0); Mean Corpuscular Hemoglobin 27.3 pg (27.0-33.0); Mean Platelet Volume 9.4 fL (9.4-12.4); Monocytes Absolute Auto 0.4 X10*3/uL (0.1-1.2); Monocytes Percent Auto 7.3 % (2-11); Neutrophils Absolute Auto 3.1 X10*3/uL (2.0-8.3); Neutrophils Percent Auto 57.6 % (45-73); Platelet Count 169 X10*3/uL (160-400); Red Blood Count 4.29 X10*6/uL (4.60-5.80); Red Cell Distribution Width 15.8 % (11.0-16.0); White Blood Count 5.4 X10*3/uL (4.8-10.8)
[2021-01-02 06:58] LABS: Anion Gap 10 (12-20); Blood Urea Nitrogen 9 mg/dL (9-16); Calcium 8.2 mg/dL (8.4-10.2); Carbon Dioxide 28 mmol/L (22-29); Chloride 106 mmol/L (96-108); Estimated Glomerular Filt Rate > 60; Glucose Random 264 mg/dL (60-115); Potassium 3.6 mmol/L (3.3-5.1); Sodium 140 mmol/L (135-145)
== END 2021-01-02 00:01 | disposition home or self-care (01) ==
LOC: HO.MMNH3L
PROVIDERS: Visit Provider Family Medicine
DX: E78.5 Hyperlipidemia, unspecified (principal); E11.9 Type 2 diabetes mellitus without complications
CPT/HCPCS: 36415; 80048; 85025

== ENCOUNTER 2021-01-08 00:19 | Outpatient (REF) | payer OTHER, SELFPAY ==
[2021-01-08 06:29] LABS: MANUAL DIFF FLAG NO
[2021-01-08 06:53] LABS: Basophils Percent Auto 0.4 % (0-2); Eosinophils Absolute Auto 0.2 X10*3/uL (0.0-0.4); Eosinophils Percent Auto 2.2 % (0-4); Hematocrit 34.1 % (42-52); Hemoglobin 11.1 g/dl (14.0-18.0); Imm Gran Abs Auto 0.02 X10*3/uL (0.00-0.03); Imm Gran Pct Auto 0.3 % (0.0-0.4); Lymphocytes Absolute Auto 1.3 X10*3/uL (1.2-4.9); Lymphocytes Percent Auto 19.1 % (20-40); Mean Corpuscular HGB Conc 32.6 g/dl (31.0-36.0); Mean Corpuscular Hemoglobin 26.7 pg (27.0-33.0); Mean Corpuscular Volume 82.2 fL (80-98); Mean Platelet Volume 10.1 fL (9.4-12.4); Monocytes Absolute Auto 0.5 X10*3/uL (0.1-1.2); Monocytes Percent Auto 6.6 % (2-11); Neutrophils Absolute Auto 4.9 X10*3/uL (2.0-8.3); Neutrophils Percent Auto 71.4 % (45-73); Platelet Count 200 X10*3/uL (160-400); Red Blood Count 4.15 X10*6/uL (4.60-5.80); Red Cell Distribution Width 15.6 % (11.0-16.0); White Blood Count 6.9 X10*3/uL (4.8-10.8)
[2021-01-08 07:06] LABS: Anion Gap 13 (12-20); Blood Urea Nitrogen 16 mg/dL (9-16); Calcium 8.2 mg/dL (8.4-10.2); Carbon Dioxide 27 mmol/L (22-29); Chloride 103 mmol/L (96-108); Estimated Glomerular Filt Rate > 60; Glucose Random 303 mg/dL (60-115); Potassium 3.6 mmol/L (3.3-5.1); Sodium 139 mmol/L (135-145)
== END 2021-01-08 00:20 | disposition home or self-care (01) ==
LOC: HO.MMNH3L 00:19
PROVIDERS: Visit Provider Family Medicine
DX: E78.5 Hyperlipidemia, unspecified (principal); E11.9 Type 2 diabetes mellitus without complications
CPT/HCPCS: 36415; 80048; 85025

== ENCOUNTER 2021-01-15 00:21 | Outpatient (REF) | payer OTHER, SELFPAY ==
[2021-01-15 06:44] LABS: MANUAL DIFF FLAG NO
[2021-01-15 07:01] LABS: Basophils Percent Auto 0.5 % (0-2); Eosinophils Absolute Auto 0.1 X10*3/uL (0.0-0.4); Eosinophils Percent Auto 2.1 % (0-4); Hematocrit 35.1 % (42-52); Hemoglobin 11.6 g/dl (14.0-18.0); Imm Gran Abs Auto 0.03 X10*3/uL (0.00-0.03); Imm Gran Pct Auto 0.5 % (0.0-0.4); Lymphocytes Absolute Auto 1.7 X10*3/uL (1.2-4.9); Lymphocytes Percent Auto 27.7 % (20-40); Mean Corpuscular Hemoglobin 27.2 pg (27.0-33.0); Mean Corpuscular Volume 82.2 fL (80-98); Mean Platelet Volume 9.6 fL (9.4-12.4); Monocytes Absolute Auto 0.4 X10*3/uL (0.1-1.2); Monocytes Percent Auto 6.2 % (2-11); Neutrophils Absolute Auto 3.9 X10*3/uL (2.0-8.3); Platelet Count 248 X10*3/uL (160-400); Red Blood Count 4.27 X10*6/uL (4.60-5.80); Red Cell Distribution Width 15.5 % (11.0-16.0); White Blood Count 6.1 X10*3/uL (4.8-10.8)
[2021-01-15 07:30] LABS: Anion Gap 12 (12-20); Blood Urea Nitrogen 9 mg/dL (9-16); Calcium 8.6 mg/dL (8.4-10.2); Carbon Dioxide 29 mmol/L (22-29); Chloride 106 mmol/L (96-108); Estimated Glomerular Filt Rate > 60; Glucose Random 111 mg/dL (60-115); Potassium 3.5 mmol/L (3.3-5.1); Sodium 143 mmol/L (135-145)
== END 2021-01-15 00:22 | disposition home or self-care (01) ==
LOC: HO.MMNH3L 00:21
PROVIDERS: Visit Provider Family Medicine
DX: E78.5 Hyperlipidemia, unspecified (principal); E11.9 Type 2 diabetes mellitus without complications
CPT/HCPCS: 36415; 80048; 85025

== ENCOUNTER 2021-01-22 08:09 | Outpatient (REF) | payer OTHER, SELFPAY ==
[2021-01-22 06:53] LABS: MANUAL DIFF FLAG NO
[2021-01-22 07:13] LABS: Basophils Percent Auto 0.5 % (0-2); Eosinophils Absolute Auto 0.1 X10*3/uL (0.0-0.4); Eosinophils Percent Auto 1.8 % (0-4); Hematocrit 34.8 % (42.0-52.0); Hemoglobin 11.5 g/dl (14.0-18.0); Imm Gran Abs Auto 0.02 X10*3/uL (0.00-0.03); Imm Gran Pct Auto 0.4 % (0.0-0.4); Lymphocytes Absolute Auto 1.6 X10*3/uL (1.2-4.9); Lymphocytes Percent Auto 27.8 % (20-40); Mean Corpuscular Hemoglobin 27.3 pg (27.0-33.0); Mean Corpuscular Volume 82.7 fL (80.0-98.0); Monocytes Absolute Auto 0.3 X10*3/uL (0.1-1.2); Monocytes Percent Auto 5.7 % (2-11); Neutrophils Percent Auto 63.8 % (45-73); Platelet Count 211 X10*3/uL (160-400); Red Blood Count 4.21 X10*6/uL (4.60-5.80); Red Cell Distribution Width 15.7 % (11.0-16.0); White Blood Count 5.6 X10*3/uL (4.8-10.8)
[2021-01-22 07:37] LABS: Anion Gap 15 (12-20); Blood Urea Nitrogen 15 mg/dL (9-16); Calcium 8.4 mg/dL (8.4-10.2); Carbon Dioxide 25 mmol/L (22-29); Chloride 104 mmol/L (96-108); Estimated Glomerular Filt Rate > 60; Glucose Random 329 mg/dL (60-115); Potassium 3.9 mmol/L (3.3-5.1); Sodium 140 mmol/L (135-145)
== END 2021-01-22 08:10 | disposition home or self-care (01) ==
LOC: HO.MMNH3L 08:09
PROVIDERS: Visit Provider Family Medicine
DX: E11.9 Type 2 diabetes mellitus without complications (principal); E78.5 Hyperlipidemia, unspecified
CPT/HCPCS: 36415; 80048; 85025

== ENCOUNTER 2021-01-29 00:56 | Outpatient (REF) | payer OTHER, SELFPAY ==
[2021-01-29 06:25] LABS: MANUAL DIFF FLAG NO
[2021-01-29 06:46] LABS: Basophils Percent Auto 0.5 % (0-2); Eosinophils Absolute Auto 0.1 X10*3/uL (0.0-0.4); Eosinophils Percent Auto 2.3 % (0-4); Hematocrit 35.5 % (42.0-52.0); Hemoglobin 11.9 g/dl (14.0-18.0); Imm Gran Abs Auto 0.02 X10*3/uL (0.00-0.03); Imm Gran Pct Auto 0.3 % (0.0-0.4); Lymphocytes Percent Auto 32.9 % (20-40); Mean Corpuscular HGB Conc 33.5 g/dl (31.0-36.0); Mean Corpuscular Hemoglobin 27.2 pg (27.0-33.0); Mean Corpuscular Volume 81.2 fL (80.0-98.0); Mean Platelet Volume 9.6 fL (9.4-12.4); Monocytes Absolute Auto 0.4 X10*3/uL (0.1-1.2); Monocytes Percent Auto 6.5 % (2-11); Neutrophils Absolute Auto 3.4 x10*3/uL (2.0-8.3); Neutrophils Percent Auto 57.5 % (45-73); Platelet Count 196 X10*3/uL (160-400); Red Blood Count 4.37 X10*6/uL (4.60-5.80); Red Cell Distribution Width 15.3 % (11.0-16.0)
[2021-01-29 07:28] LABS: Anion Gap 12 (12-20); Blood Urea Nitrogen 8 mg/dL (9-16); Calcium 8.5 mg/dL (8.4-10.2); Carbon Dioxide 28 mmol/L (22-29); Chloride 106 mmol/L (96-108); Estimated Glomerular Filt Rate > 60; Glucose Random 102 mg/dL (60-115); Potassium 3.1 mmol/L (3.3-5.1); Sodium 143 mmol/L (135-145)
== END 2021-01-29 00:57 | disposition home or self-care (01) ==
LOC: HO.MMNH3L 00:56
PROVIDERS: Visit Provider Family Medicine
DX: E11.9 Type 2 diabetes mellitus without complications (principal)
CPT/HCPCS: 36415; 80048; 85025

== ENCOUNTER 2021-02-05 00:39 | Outpatient (REF) | payer OTHER, SELFPAY ==
[2021-02-05 07:34] LABS: Hematocrit 33.6 % (42.0-52.0); Hemoglobin 11.3 g/dl (14.0-18.0); Mean Corpuscular HGB Conc 33.6 g/dl (31.0-36.0); Mean Corpuscular Hemoglobin 27.8 pg (27.0-33.0); Mean Corpuscular Volume 82.6 fL (80.0-98.0); Platelet Count 174 X10*3/uL (160-400); Red Blood Count 4.07 X10*6/uL (4.60-5.80); Red Cell Distribution Width 15.6 % (11.0-16.0); White Blood Count 4.9 X10*3/uL (4.8-10.8)
[2021-02-05 07:59] LABS: Anion Gap 15 (12-20); Blood Urea Nitrogen 9 mg/dL (9-16); Calcium 8.1 mg/dL (8.4-10.2); Carbon Dioxide 26 mmol/L (22-29); Chloride 105 mmol/L (96-108); Estimated Glomerular Filt Rate > 60; Glucose Random 243 mg/dL (60-115); Potassium 3.5 mmol/L (3.3-5.1); Sodium 142 mmol/L (135-145)
== END 2021-02-05 00:40 | disposition home or self-care (01) ==
LOC: HO.MMNH3L 00:39
PROVIDERS: Visit Provider Family Medicine
DX: E78.5 Hyperlipidemia, unspecified (principal); E11.9 Type 2 diabetes mellitus without complications
CPT/HCPCS: 36415; 80048; 85027

== ENCOUNTER 2021-02-12 22:10 | Outpatient (REF) | payer OTHER, SELFPAY ==
[2021-02-12 06:55] LABS: MANUAL DIFF FLAG NO
[2021-02-12 07:04] LABS: Basophils Percent Auto 0.3 % (0-2); Eosinophils Absolute Auto 0.1 X10*3/uL (0.0-0.4); Eosinophils Percent Auto 2.2 % (0-4); Hemoglobin 11.4 g/dl (14.0-18.0); Imm Gran Abs Auto 0.02 X10*3/uL (0.00-0.03); Imm Gran Pct Auto 0.3 % (0.0-0.4); Lymphocytes Absolute Auto 1.5 X10*3/uL (1.2-4.9); Lymphocytes Percent Auto 23.8 % (20-40); Mean Corpuscular HGB Conc 32.6 g/dl (31.0-36.0); Mean Corpuscular Hemoglobin 26.9 pg (27.0-33.0); Mean Corpuscular Volume 82.5 fL (80.0-98.0); Mean Platelet Volume 9.6 fL (9.4-12.4); Monocytes Absolute Auto 0.4 X10*3/uL (0.1-1.2); Monocytes Percent Auto 5.9 % (2-11); Neutrophils Absolute Auto 4.3 x10*3/uL (2.0-8.3); Neutrophils Percent Auto 67.5 % (45-73); Platelet Count 216 X10*3/uL (160-400); Red Blood Count 4.24 X10*6/uL (4.60-5.80); Red Cell Distribution Width 15.8 % (11.0-16.0); White Blood Count 6.4 X10*3/uL (4.8-10.8)
[2021-02-12 07:22] LABS: Anion Gap 13 (12-20); Blood Urea Nitrogen 10 mg/dL (9-16); Carbon Dioxide 28 mmol/L (22-29); Chloride 106 mmol/L (96-108); Estimated Glomerular Filt Rate > 60; Glucose Random 81 mg/dL (60-115); Sodium 144 mmol/L (135-145)
== END 2021-02-12 22:11 | disposition home or self-care (01) ==
LOC: HO.MMNH3L 22:10
PROVIDERS: Visit Provider Family Medicine
DX: E78.5 Hyperlipidemia, unspecified (principal); E11.9 Type 2 diabetes mellitus without complications
CPT/HCPCS: 36415; 80048; 85025

== ENCOUNTER 2021-02-19 01:00 | Outpatient (REF) | payer OTHER, SELFPAY ==
[2021-02-19 07:06] LABS: MANUAL DIFF FLAG NO
[2021-02-19 07:09] LABS: Basophils Percent Auto 0.5 % (0-2); Eosinophils Absolute Auto 0.1 X10*3/uL (0.0-0.4); Eosinophils Percent Auto 1.9 % (0-4); Hemoglobin 11.8 g/dl (14.0-18.0); Imm Gran Abs Auto 0.02 X10*3/uL (0.00-0.03); Imm Gran Pct Auto 0.4 % (0.0-0.4); Lymphocytes Absolute Auto 1.5 X10*3/uL (1.2-4.9); Lymphocytes Percent Auto 26.8 % (20-40); Mean Corpuscular HGB Conc 32.8 g/dl (31.0-36.0); Mean Corpuscular Hemoglobin 27.2 pg (27.0-33.0); Mean Corpuscular Volume 82.9 fL (80.0-98.0); Mean Platelet Volume 9.4 fL (9.4-12.4); Monocytes Absolute Auto 0.4 X10*3/uL (0.1-1.2); Monocytes Percent Auto 6.1 % (2-11); Neutrophils Absolute Auto 3.7 x10*3/uL (2.0-8.3); Neutrophils Percent Auto 64.3 % (45-73); Platelet Count 203 X10*3/uL (160-400); Red Blood Count 4.34 X10*6/uL (4.60-5.80); Red Cell Distribution Width 15.8 % (11.0-16.0); White Blood Count 5.7 X10*3/uL (4.8-10.8)
[2021-02-19 07:26] LABS: Anion Gap 14 (12-20); Blood Urea Nitrogen 12 mg/dL (9-16); Calcium 8.8 mg/dL (8.4-10.2); Carbon Dioxide 27 mmol/L (22-29); Chloride 102 mmol/L (96-108); Estimated Glomerular Filt Rate > 60; Glucose Random 339 mg/dL (60-115); Potassium 3.5 mmol/L (3.3-5.1); Sodium 139 mmol/L (135-145)
== END 2021-02-19 01:01 | disposition home or self-care (01) ==
LOC: HO.MMNH3L 01:00
PROVIDERS: Visit Provider Family Medicine
DX: E78.5 Hyperlipidemia, unspecified (principal); E11.9 Type 2 diabetes mellitus without complications
CPT/HCPCS: 36415; 80048; 85025

== ENCOUNTER 2021-02-26 00:26 | Outpatient (REF) | payer OTHER, SELFPAY ==
[2021-02-26 07:34] LABS: MANUAL DIFF FLAG NO
[2021-02-26 07:59] LABS: Hematocrit 37.2 % (42.0-52.0); Hemoglobin 12.4 g/dl (14.0-18.0); Mean Corpuscular HGB Conc 33.3 g/dl (31.0-36.0); Mean Corpuscular Hemoglobin 27.6 pg (27.0-33.0); Mean Corpuscular Volume 82.7 fL (80.0-98.0); Mean Platelet Volume 9.4 fL (9.4-12.4); Neutrophils Percent Auto 63.8 % (45-73); Platelet Count 238 X10*3/uL (160-400); Red Cell Distribution Width 15.6 % (11.0-16.0); White Blood Count 6.5 X10*3/uL (4.8-10.8)
[2021-02-26 08:00] LABS: Basophils Percent Auto 0.5 % (0-2); Eosinophils Absolute Auto 0.1 X10*3/uL (0.0-0.4); Eosinophils Percent Auto 1.7 % (0-4); Imm Gran Abs Auto 0.03 X10*3/uL (0.00-0.03); Imm Gran Pct Auto 0.5 % (0.0-0.4); Lymphocytes Absolute Auto 1.8 X10*3/uL (1.2-4.9); Lymphocytes Percent Auto 27.7 % (20-40); Monocytes Absolute Auto 0.4 X10*3/uL (0.1-1.2); Monocytes Percent Auto 5.8 % (2-11); Neutrophils Absolute Auto 4.2 x10*3/uL (2.0-8.3)
[2021-02-26 08:24] LABS: Anion Gap 13 (12-20); Blood Urea Nitrogen 9 mg/dL (9-16); Calcium 8.8 mg/dL (8.4-10.2); Carbon Dioxide 29 mmol/L (22-29); Chloride 106 mmol/L (96-108); Estimated Glomerular Filt Rate > 60; Glucose Random 77 mg/dL (60-115); Potassium 3.1 mmol/L (3.3-5.1); Sodium 145 mmol/L (135-145)
== END 2021-02-26 00:27 | disposition home or self-care (01) ==
LOC: HO.MMNH3L 00:26
PROVIDERS: Visit Provider Family Medicine
DX: E78.5 Hyperlipidemia, unspecified (principal); E11.9 Type 2 diabetes mellitus without complications
CPT/HCPCS: 36415; 80048; 85025

== ENCOUNTER 2021-03-05 00:21 | Outpatient (REF) | payer OTHER, SELFPAY ==
[2021-03-05 06:28] LABS: MANUAL DIFF FLAG NO
[2021-03-05 07:03] LABS: Basophils Percent Auto 0.6 % (0-2); Eosinophils Absolute Auto 0.1 X10*3/uL (0.0-0.4); Eosinophils Percent Auto 2.1 % (0-4); Hematocrit 35.2 % (42.0-52.0); Hemoglobin 11.4 g/dl (14.0-18.0); Imm Gran Abs Auto 0.01 X10*3/uL (0.00-0.03); Imm Gran Pct Auto 0.2 % (0.0-0.4); Lymphocytes Absolute Auto 1.6 X10*3/uL (1.2-4.9); Lymphocytes Percent Auto 32.4 % (20-40); Mean Corpuscular HGB Conc 32.4 g/dl (31.0-36.0); Mean Corpuscular Volume 83.2 fL (80.0-98.0); Monocytes Absolute Auto 0.3 X10*3/uL (0.1-1.2); Monocytes Percent Auto 6.8 % (2-11); Neutrophils Absolute Auto 2.8 x10*3/uL (2.0-8.3); Neutrophils Percent Auto 57.9 % (45-73); Platelet Count 193 X10*3/uL (160-400); Red Blood Count 4.23 X10*6/uL (4.60-5.80); Red Cell Distribution Width 15.9 % (11.0-16.0); White Blood Count 4.8 X10*3/uL (4.8-10.8)
[2021-03-05 07:20] LABS: Anion Gap 10 (12-20); Blood Urea Nitrogen 10 mg/dL (9-16); Calcium 8.5 mg/dL (8.4-10.2); Carbon Dioxide 30 mmol/L (22-29); Chloride 104 mmol/L (96-108); Estimated Glomerular Filt Rate > 60; Glucose Random 342 mg/dL (60-115); Potassium 3.6 mmol/L (3.3-5.1); Sodium 140 mmol/L (135-145)
== END 2021-03-05 00:22 | disposition home or self-care (01) ==
LOC: HO.MMNH3L 00:21
PROVIDERS: Visit Provider Family Medicine
DX: E78.5 Hyperlipidemia, unspecified (principal); E11.9 Type 2 diabetes mellitus without complications
CPT/HCPCS: 36415; 80048; 85025

== ENCOUNTER 2021-03-12 01:31 | Outpatient (REF) | payer OTHER, SELFPAY ==
[2021-03-12 06:50] LABS: MANUAL DIFF FLAG NO
[2021-03-12 07:59] LABS: Anion Gap 9 (12-20); Blood Urea Nitrogen 10 mg/dL (9-16); Calcium 8.6 mg/dL (8.4-10.2); Carbon Dioxide 29 mmol/L (22-29); Chloride 105 mmol/L (96-108); Estimated Glomerular Filt Rate > 60; Glucose Random 172 mg/dL (60-115); Potassium 3.4 mmol/L (3.3-5.1); Sodium 140 mmol/L (135-145)
[2021-03-12 08:59] LABS: Basophils Percent Auto 0.5 % (0-2); Eosinophils Absolute Auto 0.1 X10*3/uL (0.0-0.4); Eosinophils Percent Auto 1.6 % (0-4); Hematocrit 36.2 % (42.0-52.0); Hemoglobin 11.9 g/dl (14.0-18.0); Imm Gran Abs Auto 0.02 X10*3/uL (0.00-0.03); Imm Gran Pct Auto 0.3 % (0.0-0.4); Lymphocytes Absolute Auto 2.1 X10*3/uL (1.2-4.9); Lymphocytes Percent Auto 33.6 % (20-40); Mean Corpuscular HGB Conc 32.9 g/dl (31.0-36.0); Mean Corpuscular Hemoglobin 26.9 pg (27.0-33.0); Mean Corpuscular Volume 81.9 fL (80.0-98.0); Mean Platelet Volume 10.1 fL (9.4-12.4); Monocytes Absolute Auto 0.4 X10*3/uL (0.1-1.2); Monocytes Percent Auto 6.9 % (2-11); Neutrophils Absolute Auto 3.5 x10*3/uL (2.0-8.3); Neutrophils Percent Auto 57.1 % (45-73); Platelet Count 216 X10*3/uL (160-400); Red Blood Count 4.42 X10*6/uL (4.60-5.80); Red Cell Distribution Width 15.6 % (11.0-16.0); White Blood Count 6.1 X10*3/uL (4.8-10.8)
== END 2021-03-12 01:32 | disposition home or self-care (01) ==
LOC: HO.MMNH3L 01:31
PROVIDERS: Visit Provider Family Medicine
DX: E78.5 Hyperlipidemia, unspecified (principal); E11.9 Type 2 diabetes mellitus without complications
CPT/HCPCS: 36415; 80048; 85025

== ENCOUNTER 2021-03-19 00:54 | Outpatient (REF) | payer OTHER, SELFPAY ==
[2021-03-19 06:50] LABS: MANUAL DIFF FLAG NO
[2021-03-19 07:08] LABS: Basophils Percent Auto 0.5 % (0-2); Eosinophils Absolute Auto 0.1 X10*3/uL (0.0-0.4); Eosinophils Percent Auto 2.3 % (0-4); Hematocrit 36.3 % (42.0-52.0); Hemoglobin 11.8 g/dl (14.0-18.0); Imm Gran Abs Auto 0.02 X10*3/uL (0.00-0.03); Imm Gran Pct Auto 0.3 % (0.0-0.4); Lymphocytes Absolute Auto 1.9 X10*3/uL (1.2-4.9); Lymphocytes Percent Auto 32.9 % (20-40); Mean Corpuscular HGB Conc 32.5 g/dl (31.0-36.0); Mean Corpuscular Hemoglobin 26.9 pg (27.0-33.0); Mean Corpuscular Volume 82.7 fL (80.0-98.0); Mean Platelet Volume 9.7 fL (9.4-12.4); Monocytes Absolute Auto 0.4 X10*3/uL (0.1-1.2); Monocytes Percent Auto 6.4 % (2-11); Neutrophils Absolute Auto 3.3 x10*3/uL (2.0-8.3); Neutrophils Percent Auto 57.6 % (45-73); Platelet Count 214 X10*3/uL (160-400); Red Blood Count 4.39 X10*6/uL (4.60-5.80); Red Cell Distribution Width 15.7 % (11.0-16.0); White Blood Count 5.7 X10*3/uL (4.8-10.8)
[2021-03-19 07:34] LABS: Anion Gap 10 (12-20); Blood Urea Nitrogen 19 mg/dL (9-16); Calcium 8.8 mg/dL (8.4-10.2); Carbon Dioxide 29 mmol/L (22-29); Chloride 106 mmol/L (96-108); Estimated Glomerular Filt Rate > 60; Glucose Random 150 mg/dL (60-115); Potassium 3.3 mmol/L (3.3-5.1); Sodium 142 mmol/L (135-145)
== END 2021-03-19 00:55 | disposition home or self-care (01) ==
LOC: HO.MMNH3L 00:54
PROVIDERS: Visit Provider Family Medicine
DX: E78.5 Hyperlipidemia, unspecified (principal); E11.9 Type 2 diabetes mellitus without complications
CPT/HCPCS: 36415; 80048; 85025

== ENCOUNTER 2021-03-26 00:29 | Outpatient (REF) | payer OTHER, SELFPAY ==
[2021-03-26 06:43] LABS: MANUAL DIFF FLAG NO
[2021-03-26 07:16] LABS: Basophils Percent Auto 0.5 % (0-2); Eosinophils Absolute Auto 0.1 X10*3/uL (0.0-0.4); Eosinophils Percent Auto 1.6 % (0-4); Hematocrit 33.5 % (42.0-52.0); Hemoglobin 10.9 g/dl (14.0-18.0); Imm Gran Abs Auto 0.02 X10*3/uL (0.00-0.03); Imm Gran Pct Auto 0.3 % (0.0-0.4); Lymphocytes Absolute Auto 1.7 X10*3/uL (1.2-4.9); Lymphocytes Percent Auto 29.9 % (20-40); Mean Corpuscular HGB Conc 32.5 g/dl (31.0-36.0); Mean Corpuscular Hemoglobin 26.8 pg (27.0-33.0); Mean Corpuscular Volume 82.5 fL (80.0-98.0); Mean Platelet Volume 9.9 fL (9.4-12.4); Monocytes Absolute Auto 0.3 X10*3/uL (0.1-1.2); Monocytes Percent Auto 5.9 % (2-11); Neutrophils Absolute Auto 3.6 x10*3/uL (2.0-8.3); Neutrophils Percent Auto 61.8 % (45-73); Platelet Count 205 X10*3/uL (160-400); Red Blood Count 4.06 X10*6/uL (4.60-5.80); Red Cell Distribution Width 15.8 % (11.0-16.0); White Blood Count 5.8 X10*3/uL (4.8-10.8)
[2021-03-26 07:44] LABS: Anion Gap 9 (12-20); Blood Urea Nitrogen 8 mg/dL (9-16); Calcium 8.7 mg/dL (8.4-10.2); Carbon Dioxide 29 mmol/L (22-29); Chloride 106 mmol/L (96-108); Estimated Glomerular Filt Rate > 60; Glucose Random 283 mg/dL (60-115); Potassium 3.6 mmol/L (3.3-5.1); Sodium 140 mmol/L (135-145)
== END 2021-03-26 00:30 | disposition home or self-care (01) ==
LOC: HO.MMNH3L 00:29
PROVIDERS: Visit Provider Family Medicine
DX: E78.5 Hyperlipidemia, unspecified (principal); E11.9 Type 2 diabetes mellitus without complications
CPT/HCPCS: 36415; 80048; 85025

== ENCOUNTER 2021-04-02 00:54 | Outpatient (REF) | payer OTHER, SELFPAY ==
[2021-04-02 06:51] LABS: MANUAL DIFF FLAG NO
[2021-04-02 07:20] LABS: Basophils Percent Auto 0.6 % (0-2); Eosinophils Absolute Auto 0.1 X10*3/uL (0.0-0.4); Eosinophils Percent Auto 1.7 % (0-4); Hematocrit 34.1 % (42.0-52.0); Hemoglobin 11.2 g/dl (14.0-18.0); Imm Gran Abs Auto 0.02 X10*3/uL (0.00-0.03); Imm Gran Pct Auto 0.4 % (0.0-0.4); Lymphocytes Absolute Auto 1.6 X10*3/uL (1.2-4.9); Lymphocytes Percent Auto 30.8 % (20-40); Mean Corpuscular HGB Conc 32.8 g/dl (31.0-36.0); Mean Corpuscular Hemoglobin 27.2 pg (27.0-33.0); Mean Corpuscular Volume 82.8 fL (80.0-98.0); Mean Platelet Volume 9.8 fL (9.4-12.4); Monocytes Absolute Auto 0.3 X10*3/uL (0.1-1.2); Monocytes Percent Auto 5.3 % (2-11); Neutrophils Absolute Auto 3.3 x10*3/uL (2.0-8.3); Neutrophils Percent Auto 61.2 % (45-73); Platelet Count 189 X10*3/uL (160-400); Red Blood Count 4.12 X10*6/uL (4.60-5.80); Red Cell Distribution Width 15.6 % (11.0-16.0); White Blood Count 5.3 X10*3/uL (4.8-10.8)
[2021-04-02 07:33] LABS: Anion Gap 12 (12-20); Blood Urea Nitrogen 14 mg/dL (9-16); Calcium 8.5 mg/dL (8.4-10.2); Carbon Dioxide 28 mmol/L (22-29); Chloride 105 mmol/L (96-108); Estimated Glomerular Filt Rate > 60; Glucose Random 304 mg/dL (60-115); Potassium 3.6 mmol/L (3.3-5.1); Sodium 141 mmol/L (135-145)
== END 2021-04-02 00:55 | disposition home or self-care (01) ==
LOC: HO.MMNH3L 00:54
PROVIDERS: Visit Provider Family Medicine
DX: E78.5 Hyperlipidemia, unspecified (principal); E11.9 Type 2 diabetes mellitus without complications
CPT/HCPCS: 36415; 80048; 85025

== ENCOUNTER 2021-04-09 | Outpatient (REF) | payer OTHER, SELFPAY ==
[2021-04-09 07:44] LABS: MANUAL DIFF FLAG NO
[2021-04-09 07:58] LABS: Basophils Percent Auto 0.4 % (0-2); Eosinophils Absolute Auto 0.1 X10*3/uL (0.0-0.4); Eosinophils Percent Auto 1.8 % (0-4); Hematocrit 36.3 % (42.0-52.0); Hemoglobin 11.8 g/dl (14.0-18.0); Imm Gran Abs Auto 0.02 X10*3/uL (0.00-0.03); Imm Gran Pct Auto 0.4 % (0.0-0.4); Lymphocytes Absolute Auto 1.4 X10*3/uL (1.2-4.9); Lymphocytes Percent Auto 27.9 % (20-40); Mean Corpuscular HGB Conc 32.5 g/dl (31.0-36.0); Mean Corpuscular Hemoglobin 26.9 pg (27.0-33.0); Mean Corpuscular Volume 82.9 fL (80.0-98.0); Mean Platelet Volume 9.9 fL (9.4-12.4); Monocytes Absolute Auto 0.3 X10*3/uL (0.1-1.2); Monocytes Percent Auto 5.7 % (2-11); Neutrophils Absolute Auto 3.2 x10*3/uL (2.0-8.3); Neutrophils Percent Auto 63.8 % (45-73); Platelet Count 187 X10*3/uL (160-400); Red Blood Count 4.38 X10*6/uL (4.60-5.80); Red Cell Distribution Width 15.6 % (11.0-16.0); White Blood Count 5.1 X10*3/uL (4.8-10.8)
[2021-04-09 08:29] LABS: Anion Gap 13 (12-20); Blood Urea Nitrogen 13 mg/dL (9-16); Calcium 8.6 mg/dL (8.4-10.2); Carbon Dioxide 27 mmol/L (22-29); Chloride 102 mmol/L (96-108); Estimated Glomerular Filt Rate > 60; Glucose Random 303 mg/dL (60-115); Potassium 3.5 mmol/L (3.3-5.1); Sodium 138 mmol/L (135-145)
== END 2021-04-09 00:01 ==
LOC: HO.MMNH3L
PROVIDERS: Visit Provider Family Medicine
DX: E78.5 Hyperlipidemia, unspecified (principal); E11.9 Type 2 diabetes mellitus without complications
CPT/HCPCS: 36415; 80048; 85025

== ENCOUNTER 2021-04-16 01:09 | Outpatient (REF) | payer OTHER, SELFPAY ==
[2021-04-16 06:45] LABS: MANUAL DIFF FLAG NO
[2021-04-16 06:59] LABS: Basophils Percent Auto 0.4 % (0-2); Eosinophils Absolute Auto 0.1 X10*3/uL (0.0-0.4); Eosinophils Percent Auto 1.8 % (0-4); Hematocrit 34.6 % (42.0-52.0); Hemoglobin 11.2 g/dl (14.0-18.0); Imm Gran Abs Auto 0.02 X10*3/uL (0.00-0.03); Imm Gran Pct Auto 0.4 % (0.0-0.4); Lymphocytes Absolute Auto 1.8 X10*3/uL (1.2-4.9); Lymphocytes Percent Auto 36.2 % (20-40); Mean Corpuscular HGB Conc 32.4 g/dl (31.0-36.0); Mean Corpuscular Hemoglobin 26.8 pg (27.0-33.0); Mean Corpuscular Volume 82.8 fL (80.0-98.0); Mean Platelet Volume 9.9 fL (9.4-12.4); Monocytes Absolute Auto 0.3 X10*3/uL (0.1-1.2); Neutrophils Absolute Auto 2.8 x10*3/uL (2.0-8.3); Neutrophils Percent Auto 55.2 % (45-73); Platelet Count 189 X10*3/uL (160-400); Red Blood Count 4.18 X10*6/uL (4.60-5.80); Red Cell Distribution Width 15.8 % (11.0-16.0)
[2021-04-16 07:20] LABS: Anion Gap 14 (12-20); Blood Urea Nitrogen 12 mg/dL (9-16); Calcium 8.6 mg/dL (8.4-10.2); Carbon Dioxide 28 mmol/L (22-29); Chloride 100 mmol/L (96-108); Estimated Glomerular Filt Rate > 60; Glucose Random 294 mg/dL (60-115); Potassium 3.7 mmol/L (3.3-5.1); Sodium 138 mmol/L (135-145)
== END 2021-04-16 01:10 | disposition home or self-care (01) ==
LOC: HO.MMNH3L 01:09
PROVIDERS: Visit Provider Family Medicine
DX: E78.5 Hyperlipidemia, unspecified (principal); E11.9 Type 2 diabetes mellitus without complications
CPT/HCPCS: 36415; 80048; 85025

== ENCOUNTER 2021-04-23 00:45 | Outpatient (REF) | payer OTHER, SELFPAY ==
[2021-04-23 07:07] LABS: MANUAL DIFF FLAG NO
[2021-04-23 08:11] LABS: Basophils Percent Auto 0.5 % (0-2); Eosinophils Absolute Auto 0.1 X10*3/uL (0.0-0.4); Eosinophils Percent Auto 2.2 % (0-4); Hematocrit 35.4 % (42.0-52.0); Hemoglobin 11.5 g/dl (14.0-18.0); Imm Gran Abs Auto 0.02 X10*3/uL (0.00-0.03); Imm Gran Pct Auto 0.3 % (0.0-0.4); Lymphocytes Absolute Auto 1.7 X10*3/uL (1.2-4.9); Mean Corpuscular HGB Conc 32.5 g/dl (31.0-36.0); Mean Corpuscular Hemoglobin 26.9 pg (27.0-33.0); Mean Corpuscular Volume 82.7 fL (80.0-98.0); Mean Platelet Volume 9.9 fL (9.4-12.4); Monocytes Absolute Auto 0.4 X10*3/uL (0.1-1.2); Monocytes Percent Auto 5.9 % (2-11); Neutrophils Absolute Auto 3.7 x10*3/uL (2.0-8.3); Neutrophils Percent Auto 63.1 % (45-73); Platelet Count 227 X10*3/uL (160-400); Red Blood Count 4.28 X10*6/uL (4.60-5.80); Red Cell Distribution Width 15.8 % (11.0-16.0); White Blood Count 5.9 X10*3/uL (4.8-10.8)
[2021-04-23 08:26] LABS: Blood Urea Nitrogen 14 mg/dL (9-16); Calcium 9.1 mg/dL (8.4-10.2); Estimated Glomerular Filt Rate > 60; Glucose Random 115 mg/dL (60-115)
[2021-04-23 08:38] LABS: Anion Gap 12 (12-20); Carbon Dioxide 29 mmol/L (22-29); Chloride 106 mmol/L (96-108); Potassium 2.6 mmol/L (3.3-5.1); Sodium 144 mmol/L (135-145)
== END 2021-04-23 00:46 | disposition home or self-care (01) ==
LOC: HO.MMNH3L 00:45
PROVIDERS: Visit Provider Family Medicine
DX: E78.5 Hyperlipidemia, unspecified (principal); E11.9 Type 2 diabetes mellitus without complications
CPT/HCPCS: 36415; 80048; 85025

== ENCOUNTER 2021-04-30 | Outpatient (REF) | payer OTHER, SELFPAY ==
[2021-04-30 07:25] LABS: MANUAL DIFF FLAG NO
[2021-04-30 07:43] LABS: Basophils Percent Auto 0.5 % (0-2); Eosinophils Absolute Auto 0.1 X10*3/uL (0.0-0.4); Eosinophils Percent Auto 2.4 % (0-4); Hematocrit 34.6 % (42.0-52.0); Hemoglobin 11.2 g/dl (14.0-18.0); Imm Gran Abs Auto 0.02 X10*3/uL (0.00-0.03); Imm Gran Pct Auto 0.5 % (0.0-0.4); Lymphocytes Absolute Auto 0.8 X10*3/uL (1.2-4.9); Lymphocytes Percent Auto 19.4 % (20-40); Mean Corpuscular HGB Conc 32.4 g/dl (31.0-36.0); Mean Corpuscular Hemoglobin 27.2 pg (27.0-33.0); Mean Platelet Volume 9.9 fL (9.4-12.4); Monocytes Absolute Auto 0.3 X10*3/uL (0.1-1.2); Monocytes Percent Auto 6.6 % (2-11); Neutrophils Percent Auto 70.6 % (45-73); Platelet Count 201 X10*3/uL (160-400); Red Blood Count 4.12 X10*6/uL (4.60-5.80); Red Cell Distribution Width 16.2 % (11.0-16.0); White Blood Count 4.2 X10*3/uL (4.8-10.8)
[2021-04-30 09:06] LABS: Anion Gap 11 (12-20); Blood Urea Nitrogen 17 mg/dL (9-16); Calcium 8.6 mg/dL (8.4-10.2); Carbon Dioxide 31 mmol/L (22-29); Chloride 102 mmol/L (96-108); Estimated Glomerular Filt Rate > 60; Glucose Random 388 mg/dL (60-115); Potassium 3.7 mmol/L (3.3-5.1); Sodium 140 mmol/L (135-145)
== END 2021-04-30 00:01 | disposition home or self-care (01) ==
LOC: HO.MMNH3L
PROVIDERS: Visit Provider Family Medicine
DX: E78.5 Hyperlipidemia, unspecified (principal); E11.9 Type 2 diabetes mellitus without complications
CPT/HCPCS: 36415; 80048; 85025

== ENCOUNTER 2021-05-03 | Outpatient (REF) | payer OTHER, SELFPAY ==
[2021-05-03 09:32] LABS: Estimated Average Glucose 237 mg/dL; Hemoglobin A1c % 9.9 %
[2021-05-03 09:54] LABS: Alanine Aminotransferase 16 U/L (0-40); Albumin Level 3.2 g/dL (3.5-5.0); Alkaline Phosphatase 96 U/L (39-117); Anion Gap 11 (12-20); Aspartate Amino Transferase 12 U/L (5-37); Bilirubin Total 0.3 mg/dL (0.0-1.0); Blood Urea Nitrogen 13 mg/dL (9-16); Calcium 8.3 mg/dL (8.4-10.2); Carbon Dioxide 30 mmol/L (22-29); Chloride 103 mmol/L (96-108); Estimated Glomerular Filt Rate > 60; Glucose Random 266 mg/dL (60-115); Potassium 2.9 mmol/L (3.3-5.1); Sodium 141 mmol/L (135-145); Total Protein 5.8 g/dL (6.5-8.0)
[2021-05-03 10:03] LABS: Thyroid Stimulating Hormone 1.17 uIU/mL (0.32-4.0)
== END 2021-05-03 00:01 | disposition home or self-care (01) ==
LOC: HO.MMNH3L
PROVIDERS: Visit Provider Family Medicine
DX: E11.9 Type 2 diabetes mellitus without complications (principal); I10 Essential (primary) hypertension; I69.354 Hemiplegia and hemiparesis following cerebral infarction affecting left non-dominant side
CPT/HCPCS: 36415; 80053; 83036; 84443

== ENCOUNTER 2021-05-04 06:59 | Outpatient (REF) | payer OTHER, SELFPAY ==
[2021-05-04 07:34] LABS: Estimated Average Glucose 240 mg/dL
[2021-05-04 07:39] LABS: Alanine Aminotransferase 14 U/L (0-40); Albumin Level 3.3 g/dL (3.5-5.0); Alkaline Phosphatase 99 U/L (39-117); Anion Gap 9 (12-20); Aspartate Amino Transferase 12 U/L (5-37); Bilirubin Total 0.4 mg/dL (0.0-1.0); Blood Urea Nitrogen 13 mg/dL (9-16); Calcium 8.6 mg/dL (8.4-10.2); Carbon Dioxide 32 mmol/L (22-29); Chloride 106 mmol/L (96-108); Estimated Glomerular Filt Rate > 60; Glucose Random 296 mg/dL (60-115); Sodium 144 mmol/L (135-145); Total Protein 5.8 g/dL (6.5-8.0)
[2021-05-04 07:57] LABS: Thyroid Stimulating Hormone 0.72 uIU/mL (0.32-4.0)
== END 2021-05-04 07:00 | disposition home or self-care (01) ==
LOC: HO.MMNH3L 06:59
PROVIDERS: Visit Provider Family Medicine
DX: I69.354 Hemiplegia and hemiparesis following cerebral infarction affecting left non-dominant side (principal); E11.9 Type 2 diabetes mellitus without complications; I10 Essential (primary) hypertension
CPT/HCPCS: 36415; 80053; 83036; 84443

== ENCOUNTER 2021-05-07 | Outpatient (REF) | payer OTHER, SELFPAY ==
[2021-05-07 07:46] LABS: Hematocrit 32.7 % (42.0-52.0); Hemoglobin 10.7 g/dl (14.0-18.0); Mean Corpuscular HGB Conc 32.7 g/dl (31.0-36.0); Mean Corpuscular Hemoglobin 27.4 pg (27.0-33.0); Mean Corpuscular Volume 83.6 fL (80.0-98.0); Mean Platelet Volume 9.5 fL (9.4-12.4); Platelet Count 239 X10*3/uL (160-400); Red Blood Count 3.91 X10*6/uL (4.60-5.80); White Blood Count 4.8 X10*3/uL (4.8-10.8)
[2021-05-07 08:07] LABS: Anion Gap 11 (12-20); Blood Urea Nitrogen 8 mg/dL (9-16); Calcium 8.4 mg/dL (8.4-10.2); Carbon Dioxide 30 mmol/L (22-29); Chloride 109 mmol/L (96-108); Estimated Glomerular Filt Rate > 60; Glucose Random 89 mg/dL (60-115); Sodium 147 mmol/L (135-145)
== END 2021-05-07 00:01 | disposition home or self-care (01) ==
LOC: HO.MMNH3L
PROVIDERS: Visit Provider Family Medicine
DX: E78.5 Hyperlipidemia, unspecified (principal); E11.9 Type 2 diabetes mellitus without complications
CPT/HCPCS: 36415; 80048; 85027

== ENCOUNTER 2021-05-14 | Outpatient (REF) | payer OTHER, SELFPAY ==
[2021-05-14 06:43] LABS: MANUAL DIFF FLAG NO
[2021-05-14 07:01] LABS: Basophils Percent Auto 0.4 % (0-2); Eosinophils Absolute Auto 0.1 X10*3/uL (0.0-0.4); Eosinophils Percent Auto 1.7 % (0-4); Hematocrit 32.3 % (42.0-52.0); Hemoglobin 10.2 g/dl (14.0-18.0); Imm Gran Abs Auto 0.02 X10*3/uL (0.00-0.03); Imm Gran Pct Auto 0.4 % (0.0-0.4); Lymphocytes Absolute Auto 1.4 X10*3/uL (1.2-4.9); Lymphocytes Percent Auto 27.9 % (20-40); Mean Corpuscular HGB Conc 31.6 g/dl (31.0-36.0); Mean Corpuscular Hemoglobin 26.7 pg (27.0-33.0); Mean Corpuscular Volume 84.6 fL (80.0-98.0); Mean Platelet Volume 9.6 fL (9.4-12.4); Monocytes Absolute Auto 0.3 X10*3/uL (0.1-1.2); Monocytes Percent Auto 5.6 % (2-11); Neutrophils Absolute Auto 3.3 x10*3/uL (2.0-8.3); Platelet Count 209 X10*3/uL (160-400); Red Blood Count 3.82 X10*6/uL (4.60-5.80); White Blood Count 5.2 X10*3/uL (4.8-10.8)
[2021-05-14 07:19] LABS: Anion Gap 10 (12-20); Blood Urea Nitrogen 15 mg/dL (9-16); Calcium 8.2 mg/dL (8.4-10.2); Carbon Dioxide 32 mmol/L (22-29); Chloride 104 mmol/L (96-108); Estimated Glomerular Filt Rate > 60; Glucose Random 220 mg/dL (60-115); Potassium 3.1 mmol/L (3.3-5.1); Sodium 143 mmol/L (135-145)
== END 2021-05-14 00:01 | disposition home or self-care (01) ==
LOC: HO.MMNH3L
PROVIDERS: Visit Provider Family Medicine
DX: E78.5 Hyperlipidemia, unspecified (principal); E11.9 Type 2 diabetes mellitus without complications
CPT/HCPCS: 36415; 80048; 85025

== ENCOUNTER 2021-05-21 05:47 | Outpatient (REF) | payer OTHER, SELFPAY ==
[2021-05-21 07:03] LABS: MANUAL DIFF FLAG NO
[2021-05-21 07:12] LABS: Basophils Percent Auto 0.3 % (0-2); Eosinophils Absolute Auto 0.1 X10*3/uL (0.0-0.4); Eosinophils Percent Auto 1.7 % (0-4); Hematocrit 37.9 % (42.0-52.0); Imm Gran Abs Auto 0.02 X10*3/uL (0.00-0.03); Imm Gran Pct Auto 0.3 % (0.0-0.4); Lymphocytes Absolute Auto 1.6 X10*3/uL (1.2-4.9); Lymphocytes Percent Auto 27.1 % (20-40); Mean Corpuscular HGB Conc 31.7 g/dl (31.0-36.0); Mean Corpuscular Volume 85.2 fL (80.0-98.0); Mean Platelet Volume 9.6 fL (9.4-12.4); Monocytes Absolute Auto 0.4 X10*3/uL (0.1-1.2); Monocytes Percent Auto 5.9 % (2-11); Neutrophils Absolute Auto 3.9 x10*3/uL (2.0-8.3); Neutrophils Percent Auto 64.7 % (45-73); Platelet Count 238 X10*3/uL (160-400); Red Blood Count 4.45 X10*6/uL (4.60-5.80); Red Cell Distribution Width 15.7 % (11.0-16.0); White Blood Count 6.1 X10*3/uL (4.8-10.8)
[2021-05-21 07:30] LABS: Anion Gap 12 (12-20); Blood Urea Nitrogen 11 mg/dL (9-16); Calcium 9.1 mg/dL (8.4-10.2); Carbon Dioxide 30 mmol/L (22-29); Chloride 104 mmol/L (96-108); Estimated Glomerular Filt Rate > 60; Glucose Random 96 mg/dL (60-115); Potassium 3.3 mmol/L (3.3-5.1); Sodium 143 mmol/L (135-145)
== END 2021-05-21 05:48 | disposition home or self-care (01) ==
LOC: HO.MMNH3L 05:47
PROVIDERS: Visit Provider Family Medicine
DX: E78.5 Hyperlipidemia, unspecified (principal); E11.9 Type 2 diabetes mellitus without complications
CPT/HCPCS: 36415; 80048; 85025

== ENCOUNTER 2021-05-28 21:38 | Outpatient (REF) | payer OTHER, SELFPAY ==
[2021-05-28 06:20] LABS: MANUAL DIFF FLAG NO
[2021-05-28 06:55] LABS: Basophils Percent Auto 0.6 % (0-2); Eosinophils Absolute Auto 0.1 X10*3/uL (0.0-0.4); Eosinophils Percent Auto 1.9 % (0-4); Hematocrit 34.6 % (42.0-52.0); Hemoglobin 11.2 g/dl (14.0-18.0); Imm Gran Abs Auto 0.01 X10*3/uL (0.00-0.03); Imm Gran Pct Auto 0.2 % (0.0-0.4); Lymphocytes Absolute Auto 1.4 X10*3/uL (1.2-4.9); Lymphocytes Percent Auto 26.5 % (20-40); Mean Corpuscular HGB Conc 32.4 g/dl (31.0-36.0); Mean Corpuscular Hemoglobin 27.3 pg (27.0-33.0); Mean Corpuscular Volume 84.4 fL (80.0-98.0); Mean Platelet Volume 9.6 fL (9.4-12.4); Monocytes Absolute Auto 0.3 X10*3/uL (0.1-1.2); Monocytes Percent Auto 5.1 % (2-11); Neutrophils Absolute Auto 3.5 x10*3/uL (2.0-8.3); Neutrophils Percent Auto 65.7 % (45-73); Platelet Count 182 X10*3/uL (160-400); Red Cell Distribution Width 16.2 % (11.0-16.0); White Blood Count 5.3 X10*3/uL (4.8-10.8)
[2021-05-28 07:21] LABS: Anion Gap 15 (12-20); Blood Urea Nitrogen 19 mg/dL (9-16); Calcium 8.3 mg/dL (8.4-10.2); Carbon Dioxide 28 mmol/L (22-29); Chloride 103 mmol/L (96-108); Estimated Glomerular Filt Rate > 60; Glucose Random 250 mg/dL (60-115); Potassium 3.5 mmol/L (3.3-5.1); Sodium 142 mmol/L (135-145)
== END 2021-05-28 21:39 | disposition home or self-care (01) ==
LOC: HO.MMNH3L 21:38
PROVIDERS: Visit Provider Family Medicine
DX: E78.5 Hyperlipidemia, unspecified (principal); E11.9 Type 2 diabetes mellitus without complications
CPT/HCPCS: 36415; 80048; 85025

== ENCOUNTER 2021-06-04 00:49 | Outpatient (REF) | payer OTHER, SELFPAY ==
[2021-06-04 06:46] LABS: MANUAL DIFF FLAG NO
[2021-06-04 06:59] LABS: Basophils Percent Auto 0.5 % (0-2); Eosinophils Absolute Auto 0.1 X10*3/uL (0.0-0.4); Eosinophils Percent Auto 2.1 % (0-4); Hematocrit 34.5 % (42.0-52.0); Hemoglobin 11.2 g/dl (14.0-18.0); Imm Gran Abs Auto 0.02 X10*3/uL (0.00-0.03); Imm Gran Pct Auto 0.4 % (0.0-0.4); Lymphocytes Absolute Auto 1.8 X10*3/uL (1.2-4.9); Lymphocytes Percent Auto 32.6 % (20-40); Mean Corpuscular HGB Conc 32.5 g/dl (31.0-36.0); Mean Corpuscular Hemoglobin 27.3 pg (27.0-33.0); Mean Corpuscular Volume 83.9 fL (80.0-98.0); Mean Platelet Volume 9.7 fL (9.4-12.4); Monocytes Absolute Auto 0.4 X10*3/uL (0.1-1.2); Monocytes Percent Auto 7.1 % (2-11); Neutrophils Absolute Auto 3.2 x10*3/uL (2.0-8.3); Neutrophils Percent Auto 57.3 % (45-73); Platelet Count 196 X10*3/uL (160-400); Red Blood Count 4.11 X10*6/uL (4.60-5.80); Red Cell Distribution Width 15.9 % (11.0-16.0); White Blood Count 5.6 X10*3/uL (4.8-10.8)
[2021-06-04 07:25] LABS: Anion Gap 14 (12-20); Blood Urea Nitrogen 11 mg/dL (9-16); Calcium 8.7 mg/dL (8.4-10.2); Carbon Dioxide 27 mmol/L (22-29); Chloride 106 mmol/L (96-108); Estimated Glomerular Filt Rate > 60; Glucose Random 229 mg/dL (60-115); Potassium 3.6 mmol/L (3.3-5.1); Sodium 143 mmol/L (135-145)
== END 2021-06-04 00:50 | disposition home or self-care (01) ==
LOC: HO.MMNH3L 00:49
PROVIDERS: Visit Provider Family Medicine
DX: E78.5 Hyperlipidemia, unspecified (principal); E11.9 Type 2 diabetes mellitus without complications
CPT/HCPCS: 36415; 80048; 85025

== ENCOUNTER 2021-06-11 00:42 | Outpatient (REF) | payer OTHER, SELFPAY ==
[2021-06-11 07:18] LABS: MANUAL DIFF FLAG NO
[2021-06-11 07:22] LABS: Basophils Percent Auto 0.2 % (0-2); Eosinophils Absolute Auto 0.1 X10*3/uL (0.0-0.4); Eosinophils Percent Auto 1.7 % (0-4); Hematocrit 35.6 % (42.0-52.0); Hemoglobin 11.6 g/dl (14.0-18.0); Imm Gran Abs Auto 0.02 X10*3/uL (0.00-0.03); Imm Gran Pct Auto 0.4 % (0.0-0.4); Lymphocytes Absolute Auto 1.6 X10*3/uL (1.2-4.9); Lymphocytes Percent Auto 30.2 % (20-40); Mean Corpuscular HGB Conc 32.6 g/dl (31.0-36.0); Mean Corpuscular Hemoglobin 27.6 pg (27.0-33.0); Mean Corpuscular Volume 84.6 fL (80.0-98.0); Mean Platelet Volume 9.6 fL (9.4-12.4); Monocytes Absolute Auto 0.3 X10*3/uL (0.1-1.2); Monocytes Percent Auto 6.3 % (2-11); Neutrophils Absolute Auto 3.2 x10*3/uL (2.0-8.3); Neutrophils Percent Auto 61.2 % (45-73); Platelet Count 194 X10*3/uL (160-400); Red Blood Count 4.21 X10*6/uL (4.60-5.80); Red Cell Distribution Width 16.1 % (11.0-16.0); White Blood Count 5.3 X10*3/uL (4.8-10.8)
[2021-06-11 07:46] LABS: Anion Gap 14 (12-20); Blood Urea Nitrogen 11 mg/dL (9-16); Calcium 8.7 mg/dL (8.4-10.2); Carbon Dioxide 28 mmol/L (22-29); Chloride 102 mmol/L (96-108); Estimated Glomerular Filt Rate > 60; Glucose Random 180 mg/dL (60-115); Potassium 3.6 mmol/L (3.3-5.1); Sodium 140 mmol/L (135-145)
== END 2021-06-11 00:43 | disposition home or self-care (01) ==
LOC: HO.MMNH3L 00:42
PROVIDERS: Visit Provider Family Medicine
DX: E78.5 Hyperlipidemia, unspecified (principal); E11.9 Type 2 diabetes mellitus without complications
CPT/HCPCS: 36415; 80048; 85025

== ENCOUNTER 2021-06-18 00:56 | Outpatient (REF) | payer OTHER, SELFPAY ==
[2021-06-18 06:45] LABS: MANUAL DIFF FLAG NO
[2021-06-18 06:59] LABS: Basophils Percent Auto 0.3 % (0-2); Eosinophils Percent Auto 0.4 % (0-4); Hematocrit 38.3 % (42.0-52.0); Hemoglobin 12.4 g/dl (14.0-18.0); Imm Gran Abs Auto 0.02 X10*3/uL (0.00-0.03); Imm Gran Pct Auto 0.3 % (0.0-0.4); Lymphocytes Absolute Auto 0.8 X10*3/uL (1.2-4.9); Lymphocytes Percent Auto 11.2 % (20-40); Mean Corpuscular HGB Conc 32.4 g/dl (31.0-36.0); Mean Corpuscular Volume 83.4 fL (80.0-98.0); Mean Platelet Volume 9.7 fL (9.4-12.4); Monocytes Absolute Auto 0.3 X10*3/uL (0.1-1.2); Monocytes Percent Auto 4.3 % (2-11); Neutrophils Absolute Auto 6.3 x10*3/uL (2.0-8.3); Neutrophils Percent Auto 83.5 % (45-73); Platelet Count 213 X10*3/uL (160-400); Red Blood Count 4.59 X10*6/uL (4.60-5.80); Red Cell Distribution Width 15.6 % (11.0-16.0); White Blood Count 7.5 X10*3/uL (4.8-10.8)
[2021-06-18 07:52] LABS: Anion Gap 15 (12-20); Blood Urea Nitrogen 11 mg/dL (9-16); Calcium 8.8 mg/dL (8.4-10.2); Carbon Dioxide 27 mmol/L (22-29); Chloride 104 mmol/L (96-108); Estimated Glomerular Filt Rate > 60; Glucose Random 353 mg/dL (60-115); Potassium 3.5 mmol/L (3.3-5.1); Sodium 142 mmol/L (135-145)
== END 2021-06-18 00:57 | disposition home or self-care (01) ==
LOC: HO.MMNH3L 00:56
PROVIDERS: Visit Provider Family Medicine
DX: E78.5 Hyperlipidemia, unspecified (principal); E11.9 Type 2 diabetes mellitus without complications
CPT/HCPCS: 36415; 80048; 85025

== ENCOUNTER 2021-06-25 | Outpatient (REF) | payer OTHER, SELFPAY ==
[2021-06-25 06:40] LABS: MANUAL DIFF FLAG NO
[2021-06-25 06:59] LABS: Basophils Percent Auto 0.5 % (0-2); Eosinophils Absolute Auto 0.1 X10*3/uL (0.0-0.4); Eosinophils Percent Auto 2.3 % (0-4); Hematocrit 33.9 % (42.0-52.0); Hemoglobin 11.2 g/dl (14.0-18.0); Imm Gran Abs Auto 0.01 X10*3/uL (0.00-0.03); Imm Gran Pct Auto 0.2 % (0.0-0.4); Lymphocytes Absolute Auto 1.2 X10*3/uL (1.2-4.9); Lymphocytes Percent Auto 28.5 % (20-40); Mean Corpuscular Hemoglobin 28.2 pg (27.0-33.0); Mean Corpuscular Volume 85.4 fL (80.0-98.0); Mean Platelet Volume 9.7 fL (9.4-12.4); Monocytes Absolute Auto 0.2 X10*3/uL (0.1-1.2); Monocytes Percent Auto 5.5 % (2-11); Neutrophils Absolute Auto 2.7 x10*3/uL (2.0-8.3); Platelet Count 173 X10*3/uL (160-400); Red Blood Count 3.97 X10*6/uL (4.60-5.80); White Blood Count 4.4 X10*3/uL (4.8-10.8)
[2021-06-25 07:04] LABS: Anion Gap 11 (12-20); Blood Urea Nitrogen 13 mg/dL (9-16); Calcium 8.4 mg/dL (8.4-10.2); Carbon Dioxide 31 mmol/L (22-29); Chloride 101 mmol/L (96-108); Estimated Glomerular Filt Rate > 60; Glucose Random 286 mg/dL (60-115); Potassium 3.4 mmol/L (3.3-5.1); Sodium 140 mmol/L (135-145)
== END 2021-06-25 00:01 | disposition home or self-care (01) ==
LOC: HO.MMNH3L
PROVIDERS: Visit Provider Family Medicine
DX: E78.5 Hyperlipidemia, unspecified (principal); E11.9 Type 2 diabetes mellitus without complications
CPT/HCPCS: 36415; 80048; 85025

== ENCOUNTER 2021-07-02 | Outpatient (REF) | payer OTHER, SELFPAY ==
[2021-07-02 06:41] LABS: MANUAL DIFF FLAG NO
[2021-07-02 06:48] LABS: Basophils Percent Auto 0.6 % (0-2); Eosinophils Absolute Auto 0.1 X10*3/uL (0.0-0.4); Eosinophils Percent Auto 1.9 % (0-4); Hematocrit 36.4 % (42.0-52.0); Hemoglobin 11.3 g/dl (14.0-18.0); Imm Gran Abs Auto 0.01 X10*3/uL (0.00-0.03); Imm Gran Pct Auto 0.2 % (0.0-0.4); Lymphocytes Absolute Auto 1.4 X10*3/uL (1.2-4.9); Mean Corpuscular Hemoglobin 26.7 pg (27.0-33.0); Mean Corpuscular Volume 85.8 fL (80.0-98.0); Mean Platelet Volume 9.6 fL (9.4-12.4); Monocytes Absolute Auto 0.3 X10*3/uL (0.1-1.2); Monocytes Percent Auto 6.4 % (2-11); Neutrophils Absolute Auto 3.5 x10*3/uL (2.0-8.3); Neutrophils Percent Auto 64.9 % (45-73); Platelet Count 207 X10*3/uL (160-400); Red Blood Count 4.24 X10*6/uL (4.60-5.80); White Blood Count 5.4 X10*3/uL (4.8-10.8)
[2021-07-02 07:20] LABS: Anion Gap 12 (12-20); Blood Urea Nitrogen 13 mg/dL (9-16); Calcium 8.9 mg/dL (8.4-10.2); Carbon Dioxide 28 mmol/L (22-29); Chloride 106 mmol/L (96-108); Estimated Glomerular Filt Rate > 60; Glucose Random 178 mg/dL (60-115); Potassium 3.8 mmol/L (3.3-5.1); Sodium 142 mmol/L (135-145)
== END 2021-07-02 00:01 | disposition home or self-care (01) ==
LOC: HO.MMNH3L
PROVIDERS: Visit Provider Family Medicine
DX: E78.5 Hyperlipidemia, unspecified (principal); E11.9 Type 2 diabetes mellitus without complications
CPT/HCPCS: 36415; 80048; 85025

== ENCOUNTER 2021-07-09 | Outpatient (REF) | payer OTHER, SELFPAY ==
[2021-07-09 06:57] LABS: MANUAL DIFF FLAG NO
[2021-07-09 07:10] LABS: Basophils Percent Auto 0.4 % (0-2); Eosinophils Absolute Auto 0.1 X10*3/uL (0.0-0.4); Eosinophils Percent Auto 1.9 % (0-4); Hematocrit 34.3 % (42.0-52.0); Hemoglobin 11.3 g/dl (14.0-18.0); Imm Gran Abs Auto 0.02 X10*3/uL (0.00-0.03); Imm Gran Pct Auto 0.3 % (0.0-0.4); Lymphocytes Absolute Auto 1.8 X10*3/uL (1.2-4.9); Mean Corpuscular HGB Conc 32.9 g/dl (31.0-36.0); Mean Corpuscular Hemoglobin 27.5 pg (27.0-33.0); Mean Corpuscular Volume 83.5 fL (80.0-98.0); Mean Platelet Volume 9.4 fL (9.4-12.4); Monocytes Absolute Auto 0.4 X10*3/uL (0.1-1.2); Monocytes Percent Auto 5.5 % (2-11); Neutrophils Absolute Auto 4.6 x10*3/uL (2.0-8.3); Neutrophils Percent Auto 65.9 % (45-73); Platelet Count 212 X10*3/uL (160-400); Red Blood Count 4.11 X10*6/uL (4.60-5.80); Red Cell Distribution Width 15.8 % (11.0-16.0)
[2021-07-09 07:22] LABS: Anion Gap 12 (12-20); Blood Urea Nitrogen 12 mg/dL (9-16); Calcium 8.8 mg/dL (8.4-10.2); Carbon Dioxide 30 mmol/L (22-29); Chloride 104 mmol/L (96-108); Estimated Glomerular Filt Rate > 60; Potassium 3.3 mmol/L (3.3-5.1); Sodium 143 mmol/L (135-145)
[2021-07-09 08:38] LABS: Glucose Random 50 mg/dL (60-115)
== END 2021-07-09 00:01 | disposition home or self-care (01) ==
LOC: HO.MMNH3L
PROVIDERS: Visit Provider Family Medicine
DX: E78.5 Hyperlipidemia, unspecified (principal); E11.9 Type 2 diabetes mellitus without complications
CPT/HCPCS: 36415; 80048; 85025

== ENCOUNTER 2021-07-16 | Outpatient (REF) | payer OTHER, SELFPAY ==
[2021-07-16 07:07] LABS: MANUAL DIFF FLAG NO
[2021-07-16 07:29] LABS: Basophils Percent Auto 0.7 % (0-2); Eosinophils Absolute Auto 0.1 X10*3/uL (0.0-0.4); Eosinophils Percent Auto 1.8 % (0-4); Hematocrit 36.3 % (42.0-52.0); Hemoglobin 11.7 g/dl (14.0-18.0); Imm Gran Abs Auto 0.02 X10*3/uL (0.00-0.03); Imm Gran Pct Auto 0.4 % (0.0-0.4); Lymphocytes Absolute Auto 1.5 X10*3/uL (1.2-4.9); Lymphocytes Percent Auto 27.9 % (20-40); Mean Corpuscular HGB Conc 32.2 g/dl (31.0-36.0); Mean Corpuscular Hemoglobin 26.9 pg (27.0-33.0); Mean Corpuscular Volume 83.4 fL (80.0-98.0); Mean Platelet Volume 9.9 fL (9.4-12.4); Monocytes Absolute Auto 0.3 X10*3/uL (0.1-1.2); Monocytes Percent Auto 5.8 % (2-11); Neutrophils Absolute Auto 3.5 x10*3/uL (2.0-8.3); Neutrophils Percent Auto 63.4 % (45-73); Platelet Count 213 X10*3/uL (160-400); Red Blood Count 4.35 X10*6/uL (4.60-5.80); Red Cell Distribution Width 15.6 % (11.0-16.0); White Blood Count 5.5 X10*3/uL (4.8-10.8)
[2021-07-16 07:38] LABS: Anion Gap 11 (12-20); Blood Urea Nitrogen 9 mg/dL (9-16); Calcium 8.5 mg/dL (8.4-10.2); Carbon Dioxide 28 mmol/L (22-29); Chloride 105 mmol/L (96-108); Estimated Glomerular Filt Rate > 60; Glucose Random 142 mg/dL (60-115); Potassium 3.4 mmol/L (3.3-5.1); Sodium 141 mmol/L (135-145)
== END 2021-07-16 00:01 | disposition home or self-care (01) ==
LOC: HO.MMNH3L
PROVIDERS: Visit Provider Family Medicine
DX: E78.5 Hyperlipidemia, unspecified (principal); E11.9 Type 2 diabetes mellitus without complications
CPT/HCPCS: 36415; 80048; 85025

== ENCOUNTER 2021-07-23 | Outpatient (REF) | payer OTHER, SELFPAY ==
[2021-07-23 06:35] LABS: MANUAL DIFF FLAG NO
[2021-07-23 07:05] LABS: Basophils Percent Auto 0.2 % (0-2); Eosinophils Absolute Auto 0.1 X10*3/uL (0.0-0.4); Eosinophils Percent Auto 2.1 % (0-4); Hematocrit 33.8 % (42.0-52.0); Hemoglobin 10.9 g/dl (14.0-18.0); Imm Gran Abs Auto 0.02 X10*3/uL (0.00-0.03); Imm Gran Pct Auto 0.3 % (0.0-0.4); Lymphocytes Absolute Auto 1.8 X10*3/uL (1.2-4.9); Mean Corpuscular HGB Conc 32.2 g/dl (31.0-36.0); Mean Corpuscular Hemoglobin 27.3 pg (27.0-33.0); Mean Corpuscular Volume 84.5 fL (80.0-98.0); Mean Platelet Volume 9.6 fL (9.4-12.4); Monocytes Absolute Auto 0.4 X10*3/uL (0.1-1.2); Monocytes Percent Auto 6.2 % (2-11); Neutrophils Absolute Auto 3.5 x10*3/uL (2.0-8.3); Neutrophils Percent Auto 60.2 % (45-73); Platelet Count 191 X10*3/uL (160-400); Red Cell Distribution Width 15.9 % (11.0-16.0); White Blood Count 5.8 X10*3/uL (4.8-10.8)
[2021-07-23 07:18] LABS: Anion Gap 13 (12-20); Blood Urea Nitrogen 17 mg/dL (9-16); Calcium 8.5 mg/dL (8.4-10.2); Carbon Dioxide 29 mmol/L (22-29); Chloride 103 mmol/L (96-108); Estimated Glomerular Filt Rate > 60; Glucose Random 162 mg/dL (60-115); Potassium 3.4 mmol/L (3.3-5.1); Sodium 142 mmol/L (135-145)
== END 2021-07-23 00:01 ==
LOC: HO.MMNH3L
PROVIDERS: Visit Provider Family Medicine
DX: E78.5 Hyperlipidemia, unspecified (principal); E11.9 Type 2 diabetes mellitus without complications
CPT/HCPCS: 36415; 80048; 85025

== ENCOUNTER 2021-07-30 07:07 | Outpatient (REF) | payer OTHER, SELFPAY | END 2021-07-30 07:08 | disposition home or self-care (01) | LOC: HO.MMNH3L 07:07 | PROVIDERS: Visit Provider Family Medicine | DX: Z13.89 Encounter for screening for other disorder (principal) ==

== ENCOUNTER 2021-07-31 | Outpatient (REF) | payer OTHER, SELFPAY ==
[2021-07-31 06:28] LABS: MANUAL DIFF FLAG NO
[2021-07-31 06:53] LABS: Basophils Percent Auto 0.4 % (0-2); Eosinophils Absolute Auto 0.1 X10*3/uL (0.0-0.4); Eosinophils Percent Auto 1.6 % (0-4); Hematocrit 33.6 % (42.0-52.0); Hemoglobin 10.9 g/dl (14.0-18.0); Imm Gran Abs Auto 0.03 X10*3/uL (0.00-0.03); Imm Gran Pct Auto 0.5 % (0.0-0.4); Lymphocytes Absolute Auto 1.6 X10*3/uL (1.2-4.9); Lymphocytes Percent Auto 29.3 % (20-40); Mean Corpuscular HGB Conc 32.4 g/dl (31.0-36.0); Mean Corpuscular Volume 83.4 fL (80.0-98.0); Mean Platelet Volume 9.6 fL (9.4-12.4); Monocytes Absolute Auto 0.3 X10*3/uL (0.1-1.2); Monocytes Percent Auto 6.1 % (2-11); Neutrophils Absolute Auto 3.5 x10*3/uL (2.0-8.3); Neutrophils Percent Auto 62.1 % (45-73); Platelet Count 199 X10*3/uL (160-400); Red Blood Count 4.03 X10*6/uL (4.60-5.80); Red Cell Distribution Width 15.9 % (11.0-16.0); White Blood Count 5.6 X10*3/uL (4.8-10.8)
[2021-07-31 06:57] LABS: Estimated Average Glucose 186 mg/dL; Hemoglobin A1c % 8.1 %
[2021-07-31 07:02] LABS: Alanine Aminotransferase 13 U/L (0-40); Albumin Level 3.2 g/dL (3.5-5.0); Alkaline Phosphatase 83 U/L (39-117); Anion Gap 11 (12-20); Aspartate Amino Transferase 12 U/L (5-37); Bilirubin Total 0.2 mg/dL (0.0-1.0); Blood Urea Nitrogen 14 mg/dL (9-16); Calcium 8.2 mg/dL (8.4-10.2); Carbon Dioxide 29 mmol/L (22-29); Chloride 104 mmol/L (96-108); Estimated Glomerular Filt Rate > 60; Glucose Random 132 mg/dL (60-115); Potassium 3.4 mmol/L (3.3-5.1); Sodium 141 mmol/L (135-145); Total Protein 5.5 g/dL (6.5-8.0)
[2021-07-31 07:14] LABS: Thyroid Stimulating Hormone 1.06 uIU/mL (0.32-4.0)
== END 2021-07-31 00:01 ==
LOC: HO.MMNH3L
PROVIDERS: Visit Provider Family Medicine
DX: I10 Essential (primary) hypertension (principal); I73.9 Peripheral vascular disease, unspecified; E11.9 Type 2 diabetes mellitus without complications
CPT/HCPCS: 36415; 80053; 83036; 84443; 85025

== ENCOUNTER 2021-08-01 05:51 | Outpatient (REF) | payer OTHER, SELFPAY ==
[2021-08-01 06:17] LABS: Estimated Average Glucose 189 mg/dL; Hemoglobin A1c % 8.2 %
== END 2021-08-01 05:52 | disposition home or self-care (01) ==
LOC: HO.MMNH3L 05:51
PROVIDERS: Visit Provider Family Medicine
DX: I10 Essential (primary) hypertension (principal); E78.5 Hyperlipidemia, unspecified
CPT/HCPCS: 36415; 83036

== ENCOUNTER 2021-08-06 | Outpatient (REF) | payer OTHER, SELFPAY ==
[2021-08-06 07:02] LABS: MANUAL DIFF FLAG NO
[2021-08-06 07:28] LABS: Basophils Percent Auto 0.5 % (0-2); Eosinophils Absolute Auto 0.1 X10*3/uL (0.0-0.4); Eosinophils Percent Auto 1.6 % (0-4); Hematocrit 34.1 % (42.0-52.0); Hemoglobin 11.1 g/dl (14.0-18.0); Imm Gran Abs Auto 0.02 X10*3/uL (0.00-0.03); Imm Gran Pct Auto 0.3 % (0.0-0.4); Lymphocytes Absolute Auto 1.6 X10*3/uL (1.2-4.9); Lymphocytes Percent Auto 25.3 % (20-40); Mean Corpuscular HGB Conc 32.6 g/dl (31.0-36.0); Mean Corpuscular Hemoglobin 27.5 pg (27.0-33.0); Mean Corpuscular Volume 84.6 fL (80.0-98.0); Mean Platelet Volume 9.4 fL (9.4-12.4); Monocytes Absolute Auto 0.4 X10*3/uL (0.1-1.2); Monocytes Percent Auto 6.5 % (2-11); Neutrophils Absolute Auto 4.2 x10*3/uL (2.0-8.3); Neutrophils Percent Auto 65.8 % (45-73); Platelet Count 226 X10*3/uL (160-400); Red Blood Count 4.03 X10*6/uL (4.60-5.80); Red Cell Distribution Width 16.2 % (11.0-16.0); White Blood Count 6.4 X10*3/uL (4.8-10.8)
[2021-08-06 08:10] LABS: Anion Gap 10 (12-20); Blood Urea Nitrogen 15 mg/dL (9-16); Calcium 8.5 mg/dL (8.4-10.2); Carbon Dioxide 29 mmol/L (22-29); Chloride 106 mmol/L (96-108); Estimated Glomerular Filt Rate > 60; Potassium 3.2 mmol/L (3.3-5.1); Sodium 142 mmol/L (135-145)
[2021-08-06 08:30] LABS: Glucose Random 47 mg/dL (60-115)
== END 2021-08-06 00:01 | disposition home or self-care (01) ==
LOC: HO.MMNH3L
PROVIDERS: Visit Provider Family Medicine
DX: I10 Essential (primary) hypertension (principal); E78.5 Hyperlipidemia, unspecified
CPT/HCPCS: 36415; 80048; 85025

== ENCOUNTER 2021-08-23 11:07 | Outpatient (REF) | payer OTHER, SELFPAY ==
[2021-08-21 06:31] LABS: MANUAL DIFF FLAG NO
[2021-08-21 07:22] LABS: Basophils Percent Auto 0.6 % (0-2); Eosinophils Absolute Auto 0.1 X10*3/uL (0.0-0.4); Hematocrit 34.7 % (42.0-52.0); Hemoglobin 11.4 g/dl (14.0-18.0); Imm Gran Abs Auto 0.02 X10*3/uL (0.00-0.03); Imm Gran Pct Auto 0.4 % (0.0-0.4); Lymphocytes Absolute Auto 1.6 X10*3/uL (1.2-4.9); Mean Corpuscular HGB Conc 32.9 g/dl (31.0-36.0); Mean Corpuscular Hemoglobin 27.9 pg (27.0-33.0); Mean Corpuscular Volume 84.8 fL (80.0-98.0); Mean Platelet Volume 9.9 fL (9.4-12.4); Monocytes Absolute Auto 0.4 X10*3/uL (0.1-1.2); Monocytes Percent Auto 6.5 % (2-11); Neutrophils Absolute Auto 3.3 x10*3/uL (2.0-8.3); Neutrophils Percent Auto 61.5 % (45-73); Platelet Count 195 X10*3/uL (160-400); Red Blood Count 4.09 X10*6/uL (4.60-5.80); Red Cell Distribution Width 16.4 % (11.0-16.0); White Blood Count 5.4 X10*3/uL (4.8-10.8)
[2021-08-21 07:28] LABS: Anion Gap 14 (12-20); Blood Urea Nitrogen 12 mg/dL (9-16); Calcium 8.7 mg/dL (8.4-10.2); Carbon Dioxide 27 mmol/L (22-29); Chloride 104 mmol/L (96-108); Estimated Glomerular Filt Rate > 60; Glucose Random 304 mg/dL (60-115); Potassium 3.8 mmol/L (3.3-5.1); Sodium 141 mmol/L (135-145)
== END 2021-08-23 11:08 | disposition home or self-care (01) ==
LOC: HO.MMNH3L 11:07
PROVIDERS: Visit Provider Family Medicine
DX: E11.9 Type 2 diabetes mellitus without complications (principal); E78.5 Hyperlipidemia, unspecified; I10 Essential (primary) hypertension
CPT/HCPCS: 36415; 80048; 85025

== ENCOUNTER 2021-08-23 11:18 | Outpatient (REF) | payer OTHER, SELFPAY ==
[2021-08-13 06:49] LABS: MANUAL DIFF FLAG NO
[2021-08-13 07:05] LABS: Basophils Percent Auto 0.3 % (0-2); Eosinophils Absolute Auto 0.1 X10*3/uL (0.0-0.4); Eosinophils Percent Auto 1.9 % (0-4); Hemoglobin 11.6 g/dl (14.0-18.0); Imm Gran Abs Auto 0.04 X10*3/uL (0.00-0.03); Imm Gran Pct Auto 0.6 % (0.0-0.4); Lymphocytes Absolute Auto 2.3 X10*3/uL (1.2-4.9); Lymphocytes Percent Auto 31.5 % (20-40); Mean Corpuscular HGB Conc 32.2 g/dl (31.0-36.0); Mean Corpuscular Hemoglobin 27.1 pg (27.0-33.0); Mean Corpuscular Volume 84.1 fL (80.0-98.0); Mean Platelet Volume 9.6 fL (9.4-12.4); Monocytes Absolute Auto 0.4 X10*3/uL (0.1-1.2); Monocytes Percent Auto 6.1 % (2-11); Neutrophils Absolute Auto 4.3 x10*3/uL (2.0-8.3); Neutrophils Percent Auto 59.6 % (45-73); Platelet Count 242 X10*3/uL (160-400); Red Blood Count 4.28 X10*6/uL (4.60-5.80); Red Cell Distribution Width 15.9 % (11.0-16.0); White Blood Count 7.2 X10*3/uL (4.8-10.8)
[2021-08-13 07:22] LABS: Anion Gap 12 (12-20); Blood Urea Nitrogen 12 mg/dL (9-16); Calcium 8.6 mg/dL (8.4-10.2); Carbon Dioxide 31 mmol/L (22-29); Chloride 104 mmol/L (96-108); Estimated Glomerular Filt Rate > 60; Potassium 3.6 mmol/L (3.3-5.1); Sodium 143 mmol/L (135-145)
[2021-08-13 08:38] LABS: Glucose Random 52 mg/dL (60-115)
== END 2021-08-23 11:19 | disposition home or self-care (01) ==
LOC: HO.MMNH3L 11:18
PROVIDERS: Visit Provider Family Medicine
DX: I10 Essential (primary) hypertension (principal); I73.9 Peripheral vascular disease, unspecified; E11.9 Type 2 diabetes mellitus without complications
CPT/HCPCS: 36415; 80048; 85025

== ENCOUNTER 2021-08-24 06:06 | Outpatient (REF) | payer OTHER, SELFPAY ==
[2021-08-24 06:56] LABS: Appearance Urine HAZY; Color Urine YELLOW; Glucose Urine UA >=1000 MG/DL (NEG); Leukocyte Esterase Urine NEG (NEG); Nitrite Urine NEG (NEG); Specific Gravity - Urine 1.025 (1.005-1.025); Urine Blood NEG (NEG); Urine Ketones 5 MG/DL (NEG); Urine Protein NEG (NEG-TRACE)
[2021-08-24 07:04] LABS: Mucus Urine 1+ /LPF; RBC Urine 0 /HPF (0); Squamous Epithelial Cell Urine TRACE /LPF; WBC Urine 0 /HPF (0-4)
== END 2021-08-24 06:07 | disposition home or self-care (01) ==
LOC: HO.MMNH3L 06:06
PROVIDERS: Visit Provider Family Medicine
DX: R41.0 Disorientation, unspecified (principal)
CPT/HCPCS: 81001; 87086

== ENCOUNTER 2021-08-27 06:32 | Outpatient (REF) | payer OTHER, SELFPAY ==
[2021-08-27 06:32] LABS: MANUAL DIFF FLAG NO
[2021-08-27 07:27] LABS: Basophils Percent Auto 0.5 % (0-2); Eosinophils Absolute Auto 0.1 X10*3/uL (0.0-0.4); Eosinophils Percent Auto 1.9 % (0-4); Hematocrit 35.7 % (42.0-52.0); Hemoglobin 11.6 g/dl (14.0-18.0); Imm Gran Abs Auto 0.01 X10*3/uL (0.00-0.03); Imm Gran Pct Auto 0.2 % (0.0-0.4); Lymphocytes Absolute Auto 1.4 X10*3/uL (1.2-4.9); Mean Corpuscular HGB Conc 32.5 g/dl (31.0-36.0); Mean Corpuscular Hemoglobin 27.3 pg (27.0-33.0); Mean Platelet Volume 9.6 fL (9.4-12.4); Monocytes Absolute Auto 0.3 X10*3/uL (0.1-1.2); Neutrophils Absolute Auto 3.8 x10*3/uL (2.0-8.3); Neutrophils Percent Auto 66.4 % (45-73); Platelet Count 207 X10*3/uL (160-400); Red Blood Count 4.25 X10*6/uL (4.60-5.80); Red Cell Distribution Width 16.2 % (11.0-16.0); White Blood Count 5.7 X10*3/uL (4.8-10.8)
[2021-08-27 07:53] LABS: Anion Gap 13 (12-20); Blood Urea Nitrogen 9 mg/dL (9-16); Calcium 8.7 mg/dL (8.4-10.2); Carbon Dioxide 29 mmol/L (22-29); Chloride 104 mmol/L (96-108); Estimated Glomerular Filt Rate > 60; Glucose Random 80 mg/dL (60-115); Potassium 3.8 mmol/L (3.3-5.1); Sodium 142 mmol/L (135-145)
== END 2021-08-27 06:33 | disposition home or self-care (01) ==
LOC: HO.MMNH3L 06:32
PROVIDERS: Visit Provider Family Medicine
DX: I10 Essential (primary) hypertension (principal); I78.9 Disease of capillaries, unspecified; E11.9 Type 2 diabetes mellitus without complications
CPT/HCPCS: 36415; 80048; 85025

== ENCOUNTER 2021-08-31 05:33 | Outpatient (REF) | payer OTHER, SELFPAY ==
[2021-08-31 05:45] LABS: Appearance Urine CLEAR; Color Urine YELLOW; Glucose Urine UA NEG (NEG); Leukocyte Esterase Urine NEG (NEG); Nitrite Urine NEG (NEG); PH 6.5 (5.0-8.0); Specific Gravity - Urine <= 1.005 (1.005-1.025); Urine Blood NEG (NEG); Urine Ketones NEG (NEG); Urine Protein NEG (NEG-TRACE)
== END 2021-08-31 05:34 | disposition home or self-care (01) ==
LOC: HO.MMNH3L 05:33
PROVIDERS: Visit Provider Family Medicine
DX: F03.91 Unspecified dementia, unspecified severity, with behavioral disturbance (principal)
CPT/HCPCS: 81003; 87086

== ENCOUNTER 2021-09-03 06:17 | Outpatient (REF) | payer OTHER, SELFPAY ==
[2021-09-03 07:03] LABS: Estimated Average Glucose 183 mg/dL
[2021-09-03 07:28] LABS: Thyroid Stimulating Hormone 0.84 uIU/mL (0.32-4.0)
[2021-09-03 09:18] LABS: Basophils Percent Auto 0.5 % (0-2); Eosinophils Absolute Auto 0.2 X10*3/uL (0.0-0.4); Eosinophils Percent Auto 2.5 % (0-4); Hematocrit 35.8 % (42.0-52.0); Hemoglobin 11.5 g/dl (14.0-18.0); Imm Gran Abs Auto 0.03 X10*3/uL (0.00-0.03); Imm Gran Pct Auto 0.5 % (0.0-0.4); Lymphocytes Absolute Auto 1.8 X10*3/uL (1.2-4.9); Lymphocytes Percent Auto 28.5 % (20-40); MANUAL DIFF FLAG NO; Mean Corpuscular HGB Conc 32.1 g/dl (31.0-36.0); Mean Corpuscular Hemoglobin 27.3 pg (27.0-33.0); Mean Corpuscular Volume 84.8 fL (80.0-98.0); Mean Platelet Volume 9.9 fL (9.4-12.4); Monocytes Absolute Auto 0.4 X10*3/uL (0.1-1.2); Monocytes Percent Auto 6.8 % (2-11); Neutrophils Absolute Auto 3.9 x10*3/uL (2.0-8.3); Neutrophils Percent Auto 61.2 % (45-73); Platelet Count 213 X10*3/uL (160-400); Red Blood Count 4.22 X10*6/uL (4.60-5.80); Red Cell Distribution Width 16.3 % (11.0-16.0); White Blood Count 6.4 X10*3/uL (4.8-10.8)
[2021-09-03 09:35] LABS: Anion Gap 15 (12-20); Blood Urea Nitrogen 16 mg/dL (9-16); Calcium 8.5 mg/dL (8.4-10.2); Carbon Dioxide 28 mmol/L (22-29); Chloride 104 mmol/L (96-108); Estimated Glomerular Filt Rate > 60; Glucose Random 98 mg/dL (60-115); Potassium 3.6 mmol/L (3.3-5.1); Sodium 143 mmol/L (135-145)
== END 2021-09-03 06:18 | disposition home or self-care (01) ==
LOC: HO.MMNH3L 06:17
PROVIDERS: Visit Provider Family Medicine
DX: I10 Essential (primary) hypertension (principal); I78.9 Disease of capillaries, unspecified; E11.9 Type 2 diabetes mellitus without complications
CPT/HCPCS: 36415; 80048; 83036; 84443; 85025

== ENCOUNTER 2021-09-10 09:22 | Outpatient (REF) | payer OTHER, SELFPAY ==
[2021-09-10 06:40] LABS: Basophils Percent Auto 0.5 % (0-2); Eosinophils Absolute Auto 0.1 X10*3/uL (0.0-0.4); Eosinophils Percent Auto 1.8 % (0-4); Hematocrit 35.8 % (42.0-52.0); Hemoglobin 11.8 g/dl (14.0-18.0); Imm Gran Abs Auto 0.02 X10*3/uL (0.00-0.03); Imm Gran Pct Auto 0.3 % (0.0-0.4); Lymphocytes Absolute Auto 1.5 X10*3/uL (1.2-4.9); Lymphocytes Percent Auto 24.7 % (20-40); MANUAL DIFF FLAG NO; Mean Corpuscular Hemoglobin 27.6 pg (27.0-33.0); Mean Corpuscular Volume 83.6 fL (80.0-98.0); Mean Platelet Volume 9.9 fL (9.4-12.4); Monocytes Absolute Auto 0.4 X10*3/uL (0.1-1.2); Neutrophils Absolute Auto 3.9 x10*3/uL (2.0-8.3); Neutrophils Percent Auto 65.7 % (45-73); Platelet Count 198 X10*3/uL (160-400); Red Blood Count 4.28 X10*6/uL (4.60-5.80)
[2021-09-10 07:23] LABS: Anion Gap 13 (12-20); Blood Urea Nitrogen 14 mg/dL (9-16); Calcium 8.8 mg/dL (8.4-10.2); Carbon Dioxide 27 mmol/L (22-29); Chloride 106 mmol/L (96-108); Estimated Glomerular Filt Rate > 60; Glucose Random 173 mg/dL (60-115); Potassium 4.3 mmol/L (3.3-5.1); Sodium 142 mmol/L (135-145)
== END 2021-09-10 09:23 | disposition home or self-care (01) ==
LOC: HO.MMNH3L 09:22
PROVIDERS: Visit Provider Family Medicine
DX: I10 Essential (primary) hypertension (principal); I73.9 Peripheral vascular disease, unspecified; E11.9 Type 2 diabetes mellitus without complications
CPT/HCPCS: 36415; 80048; 85025

== ENCOUNTER 2021-09-17 06:15 | Outpatient (REF) | payer OTHER, SELFPAY ==
[2021-09-17 07:19] LABS: Hematocrit 38.4 % (42.0-52.0); Hemoglobin 12.4 g/dl (14.0-18.0); Mean Corpuscular HGB Conc 32.3 g/dl (31.0-36.0); Mean Corpuscular Hemoglobin 27.3 pg (27.0-33.0); Mean Corpuscular Volume 84.4 fL (80.0-98.0); Mean Platelet Volume 9.7 fL (9.4-12.4); Platelet Count 225 X10*3/uL (160-400); Red Blood Count 4.55 X10*6/uL (4.60-5.80); Red Cell Distribution Width 16.2 % (11.0-16.0)
[2021-09-17 07:58] LABS: Anion Gap 17 (12-20); Blood Urea Nitrogen 11 mg/dL (9-16); Calcium 8.5 mg/dL (8.4-10.2); Carbon Dioxide 22 mmol/L (22-29); Chloride 107 mmol/L (96-108); Estimated Glomerular Filt Rate > 60; Glucose Random 37 mg/dL (60-115); Potassium 3.7 mmol/L (3.3-5.1); Sodium 142 mmol/L (135-145)
== END 2021-09-17 06:16 | disposition home or self-care (01) ==
LOC: HO.MMNH3L 06:15
PROVIDERS: Visit Provider Family Medicine
DX: I73.9 Peripheral vascular disease, unspecified (principal); I10 Essential (primary) hypertension; E11.9 Type 2 diabetes mellitus without complications
CPT/HCPCS: 36415; 80048; 85027

== ENCOUNTER 2021-09-25 07:04 | Outpatient (REF) | payer SELFPAY ==
[2021-09-25 06:55] LABS: Hematocrit 33.6 % (42.0-52.0); Mean Corpuscular HGB Conc 32.7 g/dl (31.0-36.0); Mean Corpuscular Hemoglobin 27.6 pg (27.0-33.0); Mean Corpuscular Volume 84.4 fL (80.0-98.0); Mean Platelet Volume 9.6 fL (9.4-12.4); Platelet Count 208 X10*3/uL (160-400); Red Blood Count 3.98 X10*6/uL (4.60-5.80); Red Cell Distribution Width 15.8 % (11.0-16.0); White Blood Count 4.6 X10*3/uL (4.8-10.8)
[2021-09-25 07:12] LABS: Estimated Average Glucose 186 mg/dL; Hemoglobin A1c % 8.1 %
[2021-09-25 07:20] LABS: Thyroid Stimulating Hormone 1.48 uIU/mL (0.32-4.0)
[2021-09-25 07:41] LABS: Alanine Aminotransferase 11 U/L (0-40); Albumin Level 3.4 g/dL (3.5-5.0); Alkaline Phosphatase 97 U/L (39-117); Anion Gap 15 (12-20); Aspartate Amino Transferase 11 U/L (5-37); Bilirubin Total 0.4 mg/dL (0.0-1.0); Blood Urea Nitrogen 10 mg/dL (9-16); Calcium 8.2 mg/dL (8.4-10.2); Carbon Dioxide 26 mmol/L (22-29); Chloride 103 mmol/L (96-108); Estimated Glomerular Filt Rate > 60; Glucose Random 266 mg/dL (60-115); Sodium 140 mmol/L (135-145); Total Protein 5.9 g/dL (6.5-8.0)
== END 2021-09-25 07:05 | disposition home or self-care (01) ==
LOC: HO.MMNH3L 07:04
PROVIDERS: Visit Provider Family Medicine
DX: I10 Essential (primary) hypertension (principal); I73.9 Peripheral vascular disease, unspecified; E11.9 Type 2 diabetes mellitus without complications
CPT/HCPCS: 36415; 80053; 83036; 84443; 85027

== ENCOUNTER 2021-10-29 06:34 | Outpatient (REF) | payer OTHER, SELFPAY ==
[2021-10-29 06:21] LABS: MANUAL DIFF FLAG NO
[2021-10-29 07:18] LABS: Basophils Percent Auto 0.5 % (0-2); Eosinophils Absolute Auto 0.1 X10*3/uL (0.0-0.4); Eosinophils Percent Auto 2.3 % (0-4); Hemoglobin 11.1 g/dl (14.0-18.0); Imm Gran Abs Auto 0.03 X10*3/uL (0.00-0.03); Imm Gran Pct Auto 0.5 % (0.0-0.4); Lymphocytes Absolute Auto 1.6 X10*3/uL (1.2-4.9); Lymphocytes Percent Auto 27.5 % (20-40); Mean Corpuscular HGB Conc 32.6 g/dl (31.0-36.0); Mean Corpuscular Hemoglobin 27.3 pg (27.0-33.0); Mean Corpuscular Volume 83.7 fL (80.0-98.0); Mean Platelet Volume 9.6 fL (9.4-12.4); Monocytes Absolute Auto 0.4 X10*3/uL (0.1-1.2); Monocytes Percent Auto 6.4 % (2-11); Neutrophils Absolute Auto 3.7 x10*3/uL (2.0-8.3); Neutrophils Percent Auto 62.8 % (45-73); Platelet Count 200 X10*3/uL (160-400); Red Blood Count 4.06 X10*6/uL (4.60-5.80); Red Cell Distribution Width 15.8 % (11.0-16.0)
[2021-10-29 07:31] LABS: Anion Gap 15 (12-20); Blood Urea Nitrogen 7 mg/dL (9-16); Carbon Dioxide 26 mmol/L (22-29); Chloride 102 mmol/L (96-108); Estimated Glomerular Filt Rate > 60; Glucose Random 235 mg/dL (60-115); Potassium 4.1 mmol/L (3.3-5.1); Sodium 139 mmol/L (135-145)
== END 2021-10-29 06:35 | disposition home or self-care (01) ==
LOC: HO.MMNH3L 06:34
PROVIDERS: Visit Provider Family Medicine
DX: E11.9 Type 2 diabetes mellitus without complications (principal); E78.5 Hyperlipidemia, unspecified; I10 Essential (primary) hypertension
CPT/HCPCS: 36415; 80048; 85025

== ENCOUNTER 2021-11-01 05:35 | Outpatient (REF) | payer OTHER, SELFPAY ==
[2021-11-01 05:38] LABS: MANUAL DIFF FLAG NO
[2021-11-01 05:54] LABS: Eosinophils Percent Auto 0.3 % (0-4); Imm Gran Abs Auto 0.05 X10*3/uL (0.00-0.03); Imm Gran Pct Auto 0.6 % (0.0-0.4); Lymphocytes Absolute Auto 1.6 X10*3/uL (1.2-4.9); Lymphocytes Percent Auto 20.4 % (20-40); Mean Corpuscular HGB Conc 32.3 g/dl (31.0-36.0); Mean Corpuscular Hemoglobin 27.2 pg (27.0-33.0); Mean Corpuscular Volume 84.5 fL (80.0-98.0); Mean Platelet Volume 9.7 fL (9.4-12.4); Monocytes Absolute Auto 0.5 X10*3/uL (0.1-1.2); Monocytes Percent Auto 5.8 % (2-11); Neutrophils Absolute Auto 5.6 x10*3/uL (2.0-8.3); Neutrophils Percent Auto 72.9 % (45-73); Platelet Count 200 X10*3/uL (160-400); Red Blood Count 3.67 X10*6/uL (4.60-5.80); Red Cell Distribution Width 15.6 % (11.0-16.0); White Blood Count 7.7 X10*3/uL (4.8-10.8)
[2021-11-01 06:25] LABS: Alanine Aminotransferase 33 U/L (0-40); Albumin Level 3.3 g/dL (3.5-5.0); Alkaline Phosphatase 114 U/L (39-117); Anion Gap 17 (12-20); Aspartate Amino Transferase 22 U/L (5-37); Bilirubin Total 0.2 mg/dL (0.0-1.0); Blood Urea Nitrogen 19 mg/dL (9-16); Calcium 8.1 mg/dL (8.4-10.2); Carbon Dioxide 26 mmol/L (22-29); Chloride 100 mmol/L (96-108); Estimated Glomerular Filt Rate > 60; Glucose Random 393 mg/dL (60-115); Potassium 3.7 mmol/L (3.3-5.1); Sodium 139 mmol/L (135-145); Total Protein 5.7 g/dL (6.5-8.0)
== END 2021-11-01 05:36 | disposition home or self-care (01) ==
LOC: HO.MMNH3L 05:35
PROVIDERS: Visit Provider Family Medicine
DX: I10 Essential (primary) hypertension (principal); I73.9 Peripheral vascular disease, unspecified; E11.9 Type 2 diabetes mellitus without complications
CPT/HCPCS: 36415; 80053; 85025

== ENCOUNTER 2021-11-27 06:32 | Outpatient (REF) | payer OTHER, SELFPAY ==
[2021-11-27 06:26] LABS: MANUAL DIFF FLAG NO
[2021-11-27 06:50] LABS: Basophils Percent Auto 0.4 % (0-2); Eosinophils Absolute Auto 0.1 X10*3/uL (0.0-0.4); Eosinophils Percent Auto 2.1 % (0-4); Hematocrit 34.8 % (42.0-52.0); Hemoglobin 11.3 g/dl (14.0-18.0); Imm Gran Abs Auto 0.03 X10*3/uL (0.00-0.03); Imm Gran Pct Auto 0.6 % (0.0-0.4); Lymphocytes Absolute Auto 1.1 X10*3/uL (1.2-4.9); Lymphocytes Percent Auto 24.1 % (20-40); Mean Corpuscular HGB Conc 32.5 g/dl (31.0-36.0); Mean Corpuscular Hemoglobin 27.4 pg (27.0-33.0); Mean Corpuscular Volume 84.3 fL (80.0-98.0); Mean Platelet Volume 9.8 fL (9.4-12.4); Monocytes Absolute Auto 0.3 X10*3/uL (0.1-1.2); Monocytes Percent Auto 6.1 % (2-11); Neutrophils Absolute Auto 3.2 x10*3/uL (2.0-8.3); Neutrophils Percent Auto 66.7 % (45-73); Platelet Count 175 X10*3/uL (160-400); Red Blood Count 4.13 X10*6/uL (4.60-5.80); Red Cell Distribution Width 15.9 % (11.0-16.0); White Blood Count 4.7 X10*3/uL (4.8-10.8)
[2021-11-27 08:04] LABS: Anion Gap 15 (12-20); Blood Urea Nitrogen 12 mg/dL (9-16); Calcium 8.4 mg/dL (8.4-10.2); Carbon Dioxide 27 mmol/L (22-29); Chloride 102 mmol/L (96-108); Estimated Glomerular Filt Rate > 60; Glucose Random 408 mg/dL (60-115); Potassium 4.1 mmol/L (3.3-5.1); Sodium 140 mmol/L (135-145)
== END 2021-11-27 06:33 | disposition home or self-care (01) ==
LOC: HO.MMNH3L 06:32
PROVIDERS: Visit Provider Family Medicine
DX: E11.9 Type 2 diabetes mellitus without complications (principal); E78.5 Hyperlipidemia, unspecified; I10 Essential (primary) hypertension
CPT/HCPCS: 36415; 80048; 85025

== ENCOUNTER 2021-12-04 06:09 | Outpatient (REF) | payer OTHER, SELFPAY ==
[2021-12-04 06:27] LABS: Prothrombin Time 11.4 SEC (10.0-13.1)
== END 2021-12-04 06:10 | disposition home or self-care (01) ==
LOC: HO.MMNH3L 06:09
PROVIDERS: Visit Provider Family Medicine
DX: I10 Essential (primary) hypertension (principal); I73.9 Peripheral vascular disease, unspecified; E11.9 Type 2 diabetes mellitus without complications
CPT/HCPCS: 36415; 85610

== ENCOUNTER 2021-12-15 17:27 | Emergency (ER) | payer OTHER, SELFPAY ==
--- NOTE | ~2021-12-15 | CT_ITS ---
EXAMINATION: CT HEAD WITHOUT CONTRAST CLINICAL INFORMATION: Blurred vision COMPARISON: Head CT 08/03/2020 TECHNIQUE: Imaging was performed from the skull base to vertex without intravenous administration of contrast. This CT examination was performed using dose optimization techniques as appropriate, variously including the following: *Automated exposure control *Adjustment of mA and/or kV according to patient size (this includes techniques or standardized protocols for targeted exams where dose is matched to indication/reason for exam; i.e. extremities or head) *Use of iterative reconstruction technique Total exam dose length product: 673 mGy-cm FINDINGS: No intra or extra-axial fluid collection, hemorrhage, or mass. No ventriculomegaly. No midline shift or herniation. Basal cisterns are patent. Salazar-white matter differentiation is maintained. No territorial encephalomalacia. Proportional prominence of the ventricles and sulcal spaces is consistent with mild volume loss. Patchy periventricular and deep white matter hypoattenuation is consistent with mild small vessel ischemic changes. Bilateral chronic lacunar infarcts in the thalami and internal capsule and right cerebellar hemisphere noted. Atrophy of the right cerebral peduncle, unchanged. No calvarial fracture or soft tissue abnormality. The mastoid air cells and visualized portions of the paranasal sinuses are well aerated. Status post bilateral lens extractions. CT/CT head/brain wo IV con IMPRESSION: 1. No acute intracranial pathology or change.
[2021-12-15 17:44] VITALS: BP 126/67; BP 161/63; PULSE 85; PULSE 88; TEMP 36.8; O2SAT 98; O2SAT 99; BMI 21.9
--- NOTE | 2021-12-15 17:56 | ED_ITS ---
HPI - General Adult General Chief complaint: General Medical <MILADY Whitley Last Filed: 12/16/21 01:46> Stated complaint: Left eye pain <MILADY Whitley Last Filed: 12/16/21 01:46> Time Seen by Provider: 12/15/21 17:40 <MILADY Whitley Last Filed: 12/16/21 01:46> Source: patient and EMS <MILADY Whitley Last Filed: 12/16/21 01:46> Mode of arrival: EMS <MILADY Whitley Last Filed: 12/16/21 01:46> Limitations: other <MILADY Whitley Last Filed: 12/16/21 01:46> History of Present Illness HPI narrative: 76-year-old male with a PMHx of CVA(07/2020), dementia, depression, dysphagia, diabetes coming from SNF presenting to the ED with complaints of L. eye pain and blurred vision yesterday which has resolved. Patient awake, alert however not answering my questions appropriately, according to nursing staff it was reported to them from half-way facility that this is patient's baseline. When I asked him if his eyes hurt he points at his right eye and tells me water is coming out of his right eye. He has no complaints with his left eye. When I asked him if it hurts he tells me know. Patient poor historian. Patient not complaining of any other medical complaints at this time. Denies eye truama <MILADY Whitley Last Filed: 12/16/21 01:46> Related Data Home medications: Home Medications Medication Instructions Recorded Confirmed atorvastatin 40 mg tablet 40 mg PO BEDTIME 03/29/20 12/15/21 clonidine HCl 0.2 mg tablet 0.2 mg PO BID 03/29/20 12/15/21 clopidogrel 75 mg tablet (Plavix) 75 mg PO DAILY 03/29/20 12/15/21 cholecalciferol (vitamin D3) 50 50 mcg PO DAILY 04/12/20 12/15/21 mcg (2,000 unit) capsule lisinopril 5 mg tablet 5 mg PO DAILY 04/12/20 12/15/21 metoprolol tartrate 25 mg tablet 25 mg PO BID 04/12/20 12/15/21 blood sugar diagnostic ([facility] 08/03/20 08/03/20 Ultra Blue Test Strip) chlorhexidine gluconate 0.12 % 15 ml PO BID 08/03/20 12/15/21 mouthwash ferrous sulfate 325 mg (65 mg 1 tab PO TID 08/03/20 12/15/21 iron) tablet (FeroSul) fluticasone furoate 100 1 puff inhalation DAILY 08/03/20 12/15/21 mcg-vilanterol 25 mcg/dose inhalation powder (Breo Ellipta) insulin glargine 100 unit/mL (3 57 unit subcut BEDTIME 08/03/20 12/15/21 mL) subcutaneous pen (Lantus Solostar U-100 Insulin) lancets 33 gauge ([facility] Delica 08/03/20 08/03/20 Plus Lancet) metformin 500 mg tablet 500 mg PO BID 08/03/20 12/15/21 multivitamin (One Daily 1 tab PO DAILY 08/03/20 12/15/21 Multivitamin tablet) pen needle, diabetic 32 gauge x 08/03/20 08/03/2032 (UltiCare Pen Needle) ascorbic acid (vitamin C) 250 mg 250 mg PO BID 12/15/21 12/15/21 tablet divalproex 125 mg capsule,delayed 2 cap PO DAILY 12/15/21 12/15/21 release sprinkle insulin lispro 100 unit/mL See Rx Instructions .Route .COMPLEX 12/15/21 12/15/21 subcutaneous solution pantoprazole 40 mg tablet,delayed 1 tab PO DAILY 12/15/21 12/15/21 release sennosides 8.6 mg-docusate sodium 2 tab PO BEDTIME 12/15/21 12/15/21 50 mg tablet (Senna with Docusate Sodium) Previous Rx's Medication Instructions Recorded sulfacetamide sodium 10 % eye drops 1 drp ophthalmic (eye) Q4H 5 days 12/15/21 #5 mL <MILADY Whitley - Last Filed: 12/16/21 01:46> Allergies/adverse reactions: Allergies Allergy/AdvReac Type Severity Reaction Status Date / Time No Known Allergies Allergy Unknown NONE Verified 09/06/20 13:17 <MILADY Whitley - Last Filed: 12/16/21 01:46> Review of Systems Review of Systems: Yes Unobtainable due to mental status <MILADY Whitley - Last Filed: 12/16/21 01:46> [facility] Past Medical History Attestation statement: The following information was validated with the patient. <MILADY Whitley - Last Filed: 12/16/21 01:46> Source: old records reviewed and nursing notes reviewed <MILADY Whitley - Last Filed: 12/16/21 01:46> Medical History: Medical History (Updated 12/16/21 @ 01:40 by MILADY Whitley) CVA (cerebral vascular accident) Diabetes Dysphagia as late effect of cerebrovascular accident (CVA) HTN (hypertension) Non-small cell cancer of left lung Stroke <MILADY Whitley - Last Filed: 12/16/21 01:46> Surgical History: Surgical History History of colonoscopy <MILADY Whitley - Last Filed: 12/16/21 01:46> Family History Family History: Family History Father Hx of type 1 diabetes mellitus Mother History of heart attack <MILADY Whitley - Last Filed: 12/16/21 01:46> Social History Social History: Social History Household Members: None Housing: Apartment Do you presently have visiting nurse or other home services: No Alcohol intake: unknown Patient Tobacco Use Status: Never used Tobacco Cigarette Packs Per Day: 1 Cigarettes Per Day: 20.0 Second Hand Smoke Exposure: Yes Use of substances other than those prescribed or required for medical reasons: Unknown Advance Directives: Yes Advance Directives Information Provided: No Advance Directives on File: No service: No Current occupational status: unemployed and disabled <MILADY Whitley - Last Filed: 12/16/21 01:46> Physical Exam ED Vital Signs: Vital Signs - 24 hr 12/15/21 17:44 12/15/21 21:13 12/15/21 21:37 Temperature 98.3 F 98.3 F 98.4 F Pulse Rate 85 73 69 Respiratory Rate 18 18 Blood Pressure 126/67 140/68 H 144/68 H Pulse Oximetry 99 98 97 Oxygen Delivery Method Room Air Room Air Room Air 12/15/21 22:11 12/16/21 03:09 Temperature 97.8 F Pulse Rate 74 61 Respiratory Rate 18 16 Blood Pressure 126/55 L 153/63 H Pulse Oximetry 98 97 Oxygen Delivery Method Room Air Room Air BMI result Body Mass Index 21.9 VSS <MILADY Whitley - Last Filed: 12/16/21 01:46> Vital Signs - 24 hr 12/15/21 17:44 12/15/21 21:13 12/15/21 21:37 Temperature 98.3 F 98.3 F 98.4 F Pulse Rate 85 73 69 Respiratory Rate 18 18 Blood Pressure 126/67 140/68 H 144/68 H Pulse Oximetry 99 98 97 Oxygen Delivery Method Room Air Room Air Room Air 12/15/21 22:11 12/16/21 03:09 Temperature 97.8 F Pulse Rate 74 61 Respiratory Rate 18 16 Blood Pressure 126/55 L 153/63 H Pulse Oximetry 98 97 Oxygen Delivery Method Room Air Room Air BMI result Body Mass Index 21.9 <Mary Beach MD - Last Filed: 12/16/21 07:10> Appearance: Alert.? Awake. Moving all extremities. Appears comfortable. No acute distress.? Head: Normocephalic, atraumatic, no step-offs or deformities Eyes: Pupils equal, round and reactive to light.? Extraocular movements intact Neck: Normal inspection.? Neck supple.? CVS: Normal heart rate and rhythm.? Pulses normal.? Respiratory: No respiratory distress.? Breath sounds normal.? Abdomen: Soft and nontender.? Skin: Skin warm and dry.? Normal skin color.? Normal skin turgor.? Extremities: No lower extremity edema.? No calf ttp. Global weakness. BKA b/l Neuro: Alert.? Awake. Moving all extremities. Appears comfortable. Unable to participate in neuro exam <MILADY Whitley - Last Filed: 12/16/21 01:46> Course Reevaluation(s) Reevaluation #1: A Yossi-Pen was used to obtain pressures of bilateral eyes left eye with a pressure 15, right eye pressure of 12. No signs of acute closed angle glaucoma. Fluoroscein dye and tetracaine used to perform examination under Wood's lamp, no sign of corneal abrasion, no Lesley sign. <MILADY Whitley - Last Filed: 12/16/21 01:46> Time: 20:45 <MILADY Whitley - Last Filed: 12/16/21 01:46> Reevaluation #2: CBC within normal limits. Chemistry with a low magnesium, magnesium given. Ethanol negative. Covid negative. Head CT with no acute findings. <MILADY Whitley - Last Filed: 12/16/21 01:46> Time: 23:26 <MILADY Whitley - Last Filed: 12/16/21 01:46> Reevaluation #3: Patient no longer complaining of eye discomfort, likely allergic conjunct ivitis. I do not suspect bacterial conjunctivitis. Will send home on bleph 10 w/ opthamology consult. <MILADY Whitley - Last Filed: 12/16/21 01:46> Time: 23:42 <MILADY Whitley - Last Filed: 12/16/21 01:46> Additional Reevaluation(s): K low --> 40 of oral K will be given at this time. Sign out to Dr. Beach pending repeat labs. <MILADY Whitley - Last Filed: 12/16/21 01:46> K low --> 40 of oral K will be given at this time. Sign out to Dr. Beach pending repeat labs. Patient's potassium 3.0, patient will be given p.o. potassium. Follow-up po tassium, sign-out given to Dr. Sahu <Mary Beach MD - Last Filed: 12/16/21 07:10> Medical Decision Making MDM Narrative Medical decision making narrative: 18:00 76 y/o M with a PMHx of CVA, dementia, depression, dysphagia, diabetes presenting with reports of L eye pain and blurred vision yestrday which has since resolved. PE- benign Unlikley acute close angle glaucoma, wet macular degeneration, arterial or retinal occlusion[facility] fluorescein stain, bilateral pressures, head CT and basic labs. <MILADY Whitley - Last Filed: 12/16/21 01:46> Medical Records Medical records reviewed: Yes I reviewed the patient's medical records. <MIALDY Whitley - Last Filed: 12/16/21 01:46> Lab Data Lab results reviewed: Yes I reviewed the patient's lab results. <MILADY Whitley - Last Filed: 12/16/21 01:46> Result diagrams: : 12/15/21 17:57 12/16/21 03:08 <MILADY Whitley - Last Filed: 12/16/21 01:46> Labs: Lab Results 12/15/21 12/15/21 12/15/21 Range/Units 17:57 17:57 17:58 WBC 5.7 (4.8-10.8) X10*3/uL RBC 3.93 L (4.60-5.80) X10*6/uL Hgb 11.0 L (14.0-18.0) g/dl Hct 33.5 L (42.0-52.0) % MCV 85.2 (80.0-98.0) fL MCH 28.0 (27.0-33.0) pg MCHC 32.8 (31.0-36.0) g/dl RDW 16.2 H (11.0-16.0) % Plt Count 217 (160-400) X10*3/uL MPV 9.2 L (9.4-12.4) fL Immature Gran % (Auto) 0.2 (0.0-0.4) % Neut % (Auto) 66.0 (45-73) % Lymph % (Auto) 24.2 (20-40) % [place] % (Auto) 7.4 (2-11) % Eos % (Auto) 1.8 (0-4) % Baso % (Auto) 0.4 (0-2) % Lymph # (Auto) 1.4 (1.2-4.9) X10*3/uL [place] # (Auto) 0.4 (0.1-1.2) X10*3/uL Eos # (Auto) 0.1 (0.0-0.4) X10*3/uL Baso # (Auto) 0.0 (0.0-0.2) X10*3/uL Abs Immat Gran (auto) 0.01 (0.00-0.03) X10*3/uL Absolute Neuts (auto) 3.7 (2.0-8.3) x10*3/uL Absolute Nucleated RBC 0.000 (0.0-0.012) X10*3/uL Nucleated RBC % (auto) 0.0 (0.0-0.2) /100WBC Sodium 146 H (135-145) mmol/L Potassium 3.4 (3.3-5.1) mmol/L Chloride 103 (96-108) mmol/L Carbon Dioxide 24 (22-29) mmol/L Anion Gap 22 H (12-20) BUN 12 (9-16) mg/dL Creatinine 0.63 (0.5-1.4) mg/dL Estim Creat Clear Calc 80.5 Estimated GFR > 60 Random Glucose 231 H D (60-115) mg/dL Calcium 8.5 (8.4-10.2) mg/dL Magnesium 1.2 L* (1.6-2.6) mg/dL Total Bilirubin 0.2 (0.0-1.0) mg/dL AST 10 D (5-37) U/L ALT 12 (0-40) U/L Alkaline Phosphatase 105 (39-117) U/L Total Protein 6.0 L (6.5-8.0) g/dL Albumin 3.5 (3.5-5.0) g/dL Urine Color Urine Appearance Urine pH (5.0-9.0) Ur Specific [place] (1.005-1.025) Urine Protein (Neg-Trace) mg/dL Urine Glucose (UA) (Negative) mg/dL Urine Ketones (Negative) mg/dL Urine Blood (Negative) Urine Nitrite (Negative) Ur Leukocyte Esterase (Negative) Urine Opiates Screen (Not Detect) Urine Fentanyl Screen (Not Detect) Ur Barbiturates Screen (Not Detect) Ur Phencyclidine Scrn (Not Detect) Ur Amphetamines Screen (Not Detect) U Benzodiazepines Scrn (Not Detect) Urine Cocaine Screen (Not Detect) U Marijuana (THC) Screen (Not Detect) Ethyl Alcohol < 10 mg/dL COVID-19 (LIDIA) Negative (Negative) COVID-19 Clin Com See Note 12/15/21 12/15/21 12/15/21 Range/Units 19:08 23:40 23:40 WBC (4.8-10.8) X10*3/uL RBC (4.60-5.80) X10*6/uL Hgb (14.0-18.0) g/dl Hct (42.0-52.0) % MCV (80.0-98.0) fL MCH (27.0-33.0) pg MCHC (31.0-36.0) g/dl RDW (11.0-16.0) % Plt Count (160-400) X10*3/uL MPV (9.4-12.4) fL Immature Gran % (Auto) (0.0-0.4) % Neut % (Auto) (45-73) % Lymph % (Auto) (20-40) % [place] % (Auto) (2-11) % Eos % (Auto) (0-4) % Baso % (Auto) (0-2) % Lymph # (Auto) (1.2-4.9) X10*3/uL [place] # (Auto) (0.1-1.2) X10*3/uL Eos # (Auto) (0.0-0.4) X10*3/uL Baso # (Auto) (0.0-0.2) X10*3/uL Abs Immat Gran (auto) (0.00-0.03) X10*3/uL Absolute Neuts (auto) (2.0-8.3) x10*3/uL Absolute Nucleated RBC (0.0-0.012) X10*3/uL Nucleated RBC % (auto) (0.0-0.2) /100WBC Sodium (135-145) mmol/L Potassium (3.3-5.1) mmol/L Chloride (96-108) mmol/L Carbon Dioxide (22-29) mmol/L Anion Gap (12-20) BUN (9-16) mg/dL Creatinine (0.5-1.4) mg/dL Estim Creat Clear Calc Estimated GFR Random Glucose (60-115) mg/dL Calcium (8.4-10.2) mg/dL Magnesium 1.2 L* (1.6-2.6) mg/dL Total Bilirubin (0.0-1.0) mg/dL AST (5-37) U/L ALT (0-40) U/L Alkaline Phosphatase (39-117) U/L Total Protein (6.5-8.0) g/dL Albumin (3.5-5.0) g/dL Urine Color Yellow Urine Appearance Clear Urine pH 6.0 (5.0-9.0) Ur Specific [place] 1.025 (1.005-1.025) Urine Protein Negative (Neg-Trace) mg/dL Urine Glucose (UA) 500 H (Negative) mg/dL Urine Ketones 15 (Negative) mg/dL Urine Blood Negative (Negative) Urine Nitrite Negative (Negative) Ur Leukocyte Esterase Negative (Negative) Urine Opiates Screen Not Detected (Not Detect) Urine Fentanyl Screen Not Detected (Not Detect) Ur Barbiturates Screen Not Detected (Not Detect) Ur Phencyclidine Scrn Not Detected (Not Detect) Ur Amphetamines Screen Not Detected (Not Detect) U Benzodiazepines Scrn Not Detected (Not Detect) Urine Cocaine Screen Not Detected (Not Detect) U Marijuana (THC) Screen Not Detected (Not Detect) Ethyl Alcohol mg/dL COVID-19 (LIDIA) (Negative) COVID-19 Clin Com 12/16/21 12/16/21 Range/Units 00:43 03:08 WBC (4.8-10.8) X10*3/uL RBC (4.60-5.80) X10*6/uL Hgb (14.0-18.0) g/dl Hct (42.0-52.0) % MCV (80.0-98.0) fL MCH (27.0-33.0) pg MCHC (31.0-36.0) g/dl RDW (11.0-16.0) % Plt Count (160-400) X10*3/uL MPV (9.4-12.4) fL Immature Gran % (Auto) (0.0-0.4) % Neut % (Auto) (45-73) % Lymph % (Auto) (20-40) % [place] % (Auto) (2-11) % Eos % (Auto) (0-4) % Baso % (Auto) (0-2) % Lymph # (Auto) (1.2-4.9) X10*3/uL [place] # (Auto) (0.1-1.2) X10*3/uL Eos # (Auto) (0.0-0.4) X10*3/uL Baso # (Auto) (0.0-0.2) X10*3/uL Abs Immat Gran (auto) (0.00-0.03) X10*3/uL Absolute Neuts (auto) (2.0-8.3) x10*3/uL Absolute Nucleated RBC (0.0-0.012) X10*3/uL Nucleated RBC % (auto) (0.0-0.2) /100WBC Sodium 146 H 146 H (135-145) mmol/L Potassium 2.9 L 3.0 L (3.3-5.1) mmol/L Chloride 108 107 (96-108) mmol/L Carbon Dioxide 27 26 (22-29) mmol/L Anion Gap 14 16 (12-20) BUN 12 12 (9-16) mg/dL Creatinine 0.57 0.54 (0.5-1.4) mg/dL Estim Creat Clear Calc 89.0 93.9 Estimated GFR > 60 > 60 Random Glucose 132 H D 129 H (60-115) mg/dL Calcium 8.2 L 8.4 (8.4-10.2) mg/dL Magnesium 1.8 (1.6-2.6) mg/dL Total Bilirubin 0.3 0.4 (0.0-1.0) mg/dL AST 10 10 (5-37) U/L ALT 13 13 (0-40) U/L Alkaline Phosphatase 90 95 (39-117) U/L Total Protein 5.3 L 5.7 L (6.5-8.0) g/dL Albumin 3.2 L 3.4 L (3.5-5.0) g/dL Urine Color Urine Appearance Urine pH (5.0-9.0) Ur Specific [place] (1.005-1.025) Urine Protein (Neg-Trace) mg/dL Urine Glucose (UA) (Negative) mg/dL Urine Ketones (Negative) mg/dL Urine Blood (Negative) Urine Nitrite (Negative) Ur Leukocyte Esterase (Negative) Urine Opiates Screen (Not Detect) Urine Fentanyl Screen (Not Detect) Ur Barbiturates Screen (Not Detect) Ur Phencyclidine Scrn (Not Detect) Ur Amphetamines Screen (Not Detect) U Benzodiazepines Scrn (Not Detect) Urine Cocaine Screen (Not Detect) U Marijuana (THC) Screen (Not Detect) Ethyl Alcohol mg/dL COVID-19 (LIDIA) (Negative) COVID-19 Clin Com <MILADY Whitley - Last Filed: 12/16/21 01:46> Lab Results 12/15/21 12/15/21 12/15/21 Range/Units 17:57 17:57 17:58 WBC 5.7 (4.8-10.8) X10*3/uL RBC 3.93 L (4.60-5.80) X10*6/uL Hgb 11.0 L (14.0-18.0) g/dl Hct 33.5 L (42.0-52.0) % MCV 85.2 (80.0-98.0) fL MCH 28.0 (27.0-33.0) pg MCHC 32.8 (31.0-36.0) g/dl RDW 16.2 H (11.0-16.0) % Plt Count 217 (160-400) X10*3/uL MPV 9.2 L (9.4-12.4) fL Immature Gran % (Auto) 0.2 (0.0-0.4) % Neut % (Auto) 66.0 (45-73) % Lymph % (Auto) 24.2 (20-40) % [place] % (Auto) 7.4 (2-11) % Eos % (Auto) 1.8 (0-4) % Baso % (Auto) 0.4 (0-2) % Lymph # (Auto) 1.4 (1.2-4.9) X10*3/uL [place] # (Auto) 0.4 (0.1-1.2) X10*3/uL Eos # (Auto) 0.1 (0.0-0.4) X10*3/uL Baso # (Auto) 0.0 (0.0-0.2) X10*3/uL Abs Immat Gran (auto) 0.01 (0.00-0.03) X10*3/uL Absolute Neuts (auto) 3.7 (2.0-8.3) x10*3/uL Absolute Nucleated RBC 0.000 (0.0-0.012) X10*3/uL Nucleated RBC % (auto) 0.0 (0.0-0.2) /100WBC Sodium 146 H (135-145) mmol/L Potassium 3.4 (3.3-5.1) mmol/L Chloride 103 (96-108) mmol/L Carbon Dioxide 24 (22-29) mmol/L Anion Gap 22 H (12-20) BUN 12 (9-16) mg/dL Creatinine 0.63 (0.5-1.4) mg/dL Estim Creat Clear Calc 80.5 Estimated GFR > 60 Random Glucose 231 H D (60-115) mg/dL Calcium 8.5 (8.4-10.2) mg/dL Magnesium 1.2 L* (1.6-2.6) mg/dL Total Bilirubin 0.2 (0.0-1.0) mg/dL AST 10 D (5-37) U/L ALT 12 (0-40) U/L Alkaline Phosphatase 105 (39-117) U/L Total Protein 6.0 L (6.5-8.0) g/dL Albumin 3.5 (3.5-5.0) g/dL Urine Color Urine Appearance Urine pH (5.0-9.0) Ur Specific [place] (1.005-1.025) Urine Protein (Neg-Trace) mg/dL Urine Glucose (UA) (Negative) mg/dL Urine Ketones (Negative) mg/dL Urine Blood (Negative) Urine Nitrite (Negative) Ur Leukocyte Esterase (Negative) Urine Opiates Screen (Not Detect) Urine Fentanyl Screen (Not Detect) Ur Barbiturates Screen (Not Detect) Ur Phencyclidine Scrn (Not Detect) Ur Amphetamines Screen (Not Detect) U Benzodiazepines Scrn (Not Detect) Urine Cocaine Screen (Not Detect) U Marijuana (THC) Screen (Not Detect) Ethyl Alcohol < 10 mg/dL COVID-19 (LIDIA) Negative (Negative) COVID-19 Clin Com See Note 12/15/21 12/15/21 12/15/21 Range/Units 19:08 23:40 23:40 WBC (4.8-10.8) X10*3/uL RBC (4.60-5.80) X10*6/uL Hgb (14.0-18.0) g/dl Hct (42.0-52.0) % MCV (80.0-98.0) fL MCH (27.0-33.0) pg MCHC (31.0-36.0) g/dl RDW (11.0-16.0) % Plt Count (160-400) X10*3/uL MPV (9.4-12.4) fL Immature Gran % (Auto) (0.0-0.4) % Neut % (Auto) (45-73) % Lymph % (Auto) (20-40) % [place] % (Auto) (2-11) % Eos % (Auto) (0-4) % Baso % (Auto) (0-2) % Lymph # (Auto) (1.2-4.9) X10*3/uL [place] # (Auto) (0.1-1.2) X10*3/uL Eos # (Auto) (0.0-0.4) X10*3/uL Baso # (Auto) (0.0-0.2) X10*3/uL Abs Immat Gran (auto) (0.00-0.03) X10*3/uL Absolute Neuts (auto) (2.0-8.3) x10*3/uL Absolute Nucleated RBC (0.0-0.012) X10*3/uL Nucleated RBC % (auto) (0.0-0.2) /100WBC Sodium (135-145) mmol/L Potassium (3.3-5.1) mmol/L Chloride (96-108) mmol/L Carbon Dioxide (22-29) mmol/L Anion Gap (12-20) BUN (9-16) mg/dL Creatinine (0.5-1.4) mg/dL Estim Creat Clear Calc Estimated GFR Random Glucose (60-115) mg/dL Calcium (8.4-10.2) mg/dL Magnesium 1.2 L* (1.6-2.6) mg/dL Total Bilirubin (0.0-1.0) mg/dL AST (5-37) U/L ALT (0-40) U/L Alkaline Phosphatase (39-117) U/L Total Protein (6.5-8.0) g/dL Albumin (3.5-5.0) g/dL Urine Color Yellow Urine Appearance Clear Urine pH 6.0 (5.0-9.0) Ur Specific [place] 1.025 (1.005-1.025) Urine Protein Negative (Neg-Trace) mg/dL Urine Glucose (UA) 500 H (Negative) mg/dL Urine Ketones 15 (Negative) mg/dL Urine Blood Negative (Negative) Urine Nitrite Negative (Negative) Ur Leukocyte Esterase Negative (Negative) Urine Opiates Screen Not Detected (Not Detect) Urine Fentanyl Screen Not Detected (Not Detect) Ur Barbiturates Screen Not Detected (Not Detect) Ur Phencyclidine Scrn Not Detected (Not Detect) Ur Amphetamines Screen Not Detected (Not Detect) U Benzodiazepines Scrn Not Detected (Not Detect) Urine Cocaine Screen Not Detected (Not Detect) U Marijuana (THC) Screen Not Detected (Not Detect) Ethyl Alcohol mg/dL COVID-19 (LIDIA) (Negative) COVID-19 Clin Com 12/16/21 12/16/21 Range/Units 00:43 03:08 WBC (4.8-10.8) X10*3/uL RBC (4.60-5.80) X10*6/uL Hgb (14.0-18.0) g/dl Hct (42.0-52.0) % MCV (80.0-98.0) fL MCH (27.0-33.0) pg MCHC (31.0-36.0) g/dl RDW (11.0-16.0) % Plt Count (160-400) X10*3/uL MPV (9.4-12.4) fL Immature Gran % (Auto) (0.0-0.4) % Neut % (Auto) (45-73) % Lymph % (Auto) (20-40) % [place] % (Auto) (2-11) % Eos % (Auto) (0-4) % Baso % (Auto) (0-2) % Lymph # (Auto) (1.2-4.9) X10*3/uL [place] # (Auto) (0.1-1.2) X10*3/uL Eos # (Auto) (0.0-0.4) X10*3/uL Baso # (Auto) (0.0-0.2) X10*3/uL Abs Immat Gran (auto) (0.00-0.03) X10*3/uL Absolute Neuts (auto) (2.0-8.3) x10*3/uL Absolute Nucleated RBC (0.0-0.012) X10*3/uL Nucleated RBC % (auto) (0.0-0.2) /100WBC Sodium 146 H 146 H (135-145) mmol/L Potassium 2.9 L 3.0 L (3.3-5.1) mmol/L Chloride 108 107 (96-108) mmol/L Carbon Dioxide 27 26 (22-29) mmol/L Anion Gap 14 16 (12-20) BUN 12 12 (9-16) mg/dL Creatinine 0.57 0.54 (0.5-1.4) mg/dL Estim Creat Clear Calc 89.0 93.9 Estimated GFR > 60 > 60 Random Glucose 132 H D 129 H (60-115) mg/dL Calcium 8.2 L 8.4 (8.4-10.2) mg/dL Magnesium 1.8 (1.6-2.6) mg/dL Total Bilirubin 0.3 0.4 (0.0-1.0) mg/dL AST 10 10 (5-37) U/L ALT 13 13 (0-40) U/L Alkaline Phosphatase 90 95 (39-117) U/L Total Protein 5.3 L 5.7 L (6.5-8.0) g/dL Albumin 3.2 L 3.4 L (3.5-5.0) g/dL Urine Color Urine Appearance Urine pH (5.0-9.0) Ur Specific [place] (1.005-1.025) Urine Protein (Neg-Trace) mg/dL Urine Glucose (UA) (Negative) mg/dL Urine Ketones (Negative) mg/dL Urine Blood (Negative) Urine Nitrite (Negative) Ur Leukocyte Esterase (Negative) Urine Opiates Screen (Not Detect) Urine Fentanyl Screen (Not Detect) Ur Barbiturates Screen (Not Detect) Ur Phencyclidine Scrn (Not Detect) Ur Amphetamines Screen (Not Detect) U Benzodiazepines Scrn (Not Detect) Urine Cocaine Screen (Not Detect) U Marijuana (THC) Screen (Not Detect) Ethyl Alcohol mg/dL COVID-19 (LIDIA) (Negative) COVID-19 Clin Com <Mary Beach MD - Last Filed: 12/16/21 07:10> Critical Care Time Critical Care Time Critical Care Time: No <MILADY Whitley - Last Filed: 12/16/21 01:46> Discharge Plan Discharge Clinical Impression: Eye discomfort, Hypomagnesemia, Hypokalemia <MILADY Whitley - Last Filed: 12/16/21 01:46> Patient Disposition: Home, Self-Care <MILADY Whitley - Last Filed: 12/16/21 01:46> Additional Instructions: Take your medications as prescribed. If you were prescribed antibiotics today, it is important that you take your medication to their entirety, do not skip any doses, do not finish them early. Follow-up with your primary care provider this week. Return to the emergency department with new or worsening symptoms. Such as fevers, chills, chest pain, shortness of breath, nausea, vomiting, dizziness, headache, vision changes, lethargy In case of emergency call 911 Please go to PCP for repeat laboratory studies, as your magnesium & potassium was noted to be low. <MILADY Whitley - Last Filed: 12/16/21 01:46> Prescriptions: New sulfacetamide sodium 10 % drops 1 drp ophthalmic (eye) Q4H 5 Days Qty: 5 0RF No Action multivitamin [One Daily Multivitamin] Tablet 1 tab PO DAILY metformin 500 mg tablet 500 mg PO BID (DME) OneTouch Ultra Blue Test Strip Strip MISCELLANEOUS TID ferrous sulfate [FeroSul] 325 mg (65 mg iron) tablet 1 tab PO TID chlorhexidine gluconate 0.12 % mouthwash 15 ml PO BID Rx Instructions: SWISH AND SPIT insulin glargine [Lantus Solostar U-100 Insulin] 100 unit/mL (3 mL) insulin pen 57 unit subcut BEDTIME (DME) pen needle, diabetic [UltiCare Pen Needle] 32 gauge x 5/32 needle MISCELLANEOUS TID (DME) lancets [OneTouch Delica Plus Lancet] 33 gauge misc MISCELLANEOUS TID fluticasone furoate-vilanterol [Breo Ellipta] 100-25 mcg/dose blister with device 1 puff inhalation DAILY pantoprazole 40 mg tablet,delayed release (DR/EC) 1 tab PO DAILY insulin lispro 100 unit/mL solution See Rx Instructions .ROUTE .COMPLEX Rx Instructions: 0-199: 0i 200-250: 2u 251-300: 4u 301-350: 6u 351-400: 8 u 401+: 10 u and call divalproex 125 mg capsule, delayed rel sprinkle 2 cap PO DAILY sennosides-docusate sodium [Senna with Docusate Sodium] 8.6-50 mg Tablet 2 tab PO BEDTIME ascorbic acid (vitamin C) 250 mg Tablet 250 mg PO BID lisinopril 5 mg tablet 5 mg PO DAILY metoprolol tartrate 25 mg tablet 25 mg PO BID cholecalciferol (vitamin D3) 50 mcg (2,000 unit) capsule 50 mcg PO DAILY atorvastatin 40 mg tablet 40 mg PO BEDTIME clonidine HCl 0.2 mg tablet 0.2 mg PO BID clopidogrel [Plavix] 75 mg tablet 75 mg PO DAILY <MILADY Whitley - Last Filed: 12/16/21 01:46> Referrals: Tyree Hay [Physician] - 2 days Alex Dobson MD [Primary Care Provider] - 3 days <MILADY Whitley - Last Filed: 12/16/21 01:46>
[2021-12-15 18:03] LABS: MANUAL DIFF FLAG NO
[2021-12-15 18:10] LABS: Basophils Percent Auto 0.4 % (0-2); Eosinophils Absolute Auto 0.1 X10*3/uL (0.0-0.4); Eosinophils Percent Auto 1.8 % (0-4); Hematocrit 33.5 % (42.0-52.0); Imm Gran Abs Auto 0.01 X10*3/uL (0.00-0.03); Imm Gran Pct Auto 0.2 % (0.0-0.4); Lymphocytes Absolute Auto 1.4 X10*3/uL (1.2-4.9); Lymphocytes Percent Auto 24.2 % (20-40); Mean Corpuscular HGB Conc 32.8 g/dl (31.0-36.0); Mean Corpuscular Volume 85.2 fL (80.0-98.0); Mean Platelet Volume 9.2 fL (9.4-12.4); Monocytes Absolute Auto 0.4 X10*3/uL (0.1-1.2); Monocytes Percent Auto 7.4 % (2-11); Neutrophils Absolute Auto 3.7 x10*3/uL (2.0-8.3); Platelet Count 217 X10*3/uL (160-400); Red Blood Count 3.93 X10*6/uL (4.60-5.80); Red Cell Distribution Width 16.2 % (11.0-16.0); White Blood Count 5.7 X10*3/uL (4.8-10.8)
[2021-12-15 18:19] LABS: IDNOW Serial# 55D5AD1C
[2021-12-15 18:20] LABS: COVID-19 Test Negative (Negative)
[2021-12-15 18:43] LABS: Alanine Aminotransferase 12 U/L (0-40); Albumin Level 3.5 g/dL (3.5-5.0); Alkaline Phosphatase 105 U/L (39-117); Anion Gap 22 (12-20); Aspartate Amino Transferase 10 U/L (5-37); Bilirubin Total 0.2 mg/dL (0.0-1.0); Blood Urea Nitrogen 12 mg/dL (9-16); Calcium 8.5 mg/dL (8.4-10.2); Carbon Dioxide 24 mmol/L (22-29); Chloride 103 mmol/L (96-108); Creatinine Clr Calc Pharmacy 80.5; Estimated Glomerular Filt Rate > 60; Ethanol < 10 mg/dL; Glucose Random 231 mg/dL (60-115); Magnesium 1.2 mg/dL (1.6-2.6); Potassium 3.4 mmol/L (3.3-5.1); Sodium 146 mmol/L (135-145)
--- NOTE | 2021-12-15 18:52 | PHA.MEDREC ---
Pharmacy Consult ? Medication Reconciliation Pharmacy has completed the medication reconciliation.
[2021-12-15] MEDS: 0.9 % Sodium Chloride 1,000 ML 999 ML IV (19:06)
--- NOTE | 2021-12-15 19:12 | PC.NURSE ---
iv inserted, labs drawn, ivf started per order
[2021-12-15 19:34] LABS: Magnesium 1.2 mg/dL (1.6-2.6)
--- NOTE | 2021-12-15 19:43 | ECG_ITS ---
Test Reason : HYPOMAG Blood Pressure : / mmHG Vent. Rate : 074 BPM Atrial Rate : 074 BPM P-R Int : 226 ms QRS Dur : 118 ms QT Int : 412 ms P-R-T Axes : 037 026 053 degrees QTc Int : 457 ms Sinus rhythm with 1st degree A-V block Right bundle branch block Inferior infarct , age undetermined Abnormal ECG When compared with ECG of 10-SEP-2014 22:30, No significant change was found Referred By: Hawa Farah Electronically Signed By:TANYA RIVERS
[2021-12-15] MEDS: Magnesium Sulfate/H2O 2 GM/50 ML PIGGYBACK IV (20:35)
[2021-12-15] MEDS: Tetracaine HCl/PF 0.5% Oph Sol 4 ML DROPS 3 DROP EYE-BOTH (20:39)
[2021-12-15] MEDS: Fluorescein Sodium STRIP 1 STRIP EYE-BOTH (20:39)
--- NOTE | 2021-12-15 20:39 | PC.NURSE ---
pt medicated per order, provider at bedside performing eye exam
[2021-12-15 21:13] VITALS: BP 140/68; PULSE 73; RESP 18; TEMP 36.8; O2SAT 98
[2021-12-15 21:37] VITALS: BP 144/68; PULSE 69; RESP 18; TEMP 36.9; O2SAT 97
--- NOTE | 2021-12-15 21:38 | PC.NURSE ---
patient alert to person/place, ivf running per order, vss, no c/o pain or discomfort, will continue to monitor
[2021-12-15 22:11] VITALS: BP 126/55; PULSE 74; RESP 18; TEMP 36.6; O2SAT 98
[2021-12-15 23:47] LABS: Appearance Urine Clear; Color Urine Yellow; Glucose Urine UA 500 mg/dL (Negative); Leukocyte Esterase Urine Negative (Negative); Nitrite Urine Negative (Negative); Specific Gravity - Urine 1.025 (1.005-1.025); Urine Blood Negative (Negative); Urine Ketones 15 mg/dL (Negative); Urine Protein Negative (Neg-Trace)
[2021-12-16 00:29] LABS: Amphetamine Screen Urine Not Detected (Not Detect); Barbiturates, Urine Not Detected (Not Detect); Benzodiazepines Screen Urine Not Detected (Not Detect); Cannabinoid Screen Urine Not Detected (Not Detect); Cocaine Screen Urine Not Detected (Not Detect); Fentanyl, urine Not Detected (Not Detect); Opiate Screen Urine Not Detected (Not Detect); Phencyclidine Screen Urine Not Detected (Not Detect)
[2021-12-16 01:36] LABS: Alanine Aminotransferase 13 U/L (0-40); Albumin Level 3.2 g/dL (3.5-5.0); Alkaline Phosphatase 90 U/L (39-117); Anion Gap 14 (12-20); Aspartate Amino Transferase 10 U/L (5-37); Bilirubin Total 0.3 mg/dL (0.0-1.0); Blood Urea Nitrogen 12 mg/dL (9-16); Calcium 8.2 mg/dL (8.4-10.2); Carbon Dioxide 27 mmol/L (22-29); Chloride 108 mmol/L (96-108); Estimated Glomerular Filt Rate > 60; Glucose Random 132 mg/dL (60-115); Magnesium 1.8 mg/dL (1.6-2.6); Potassium 2.9 mmol/L (3.3-5.1); Sodium 146 mmol/L (135-145); Total Protein 5.3 g/dL (6.5-8.0)
[2021-12-16 03:09] VITALS: BP 153/63; PULSE 61; RESP 16; O2SAT 97
[2021-12-16 03:54] LABS: Alanine Aminotransferase 13 U/L (0-40); Albumin Level 3.4 g/dL (3.5-5.0); Alkaline Phosphatase 95 U/L (39-117); Anion Gap 16 (12-20); Aspartate Amino Transferase 10 U/L (5-37); Bilirubin Total 0.4 mg/dL (0.0-1.0); Blood Urea Nitrogen 12 mg/dL (9-16); Calcium 8.4 mg/dL (8.4-10.2); Carbon Dioxide 26 mmol/L (22-29); Chloride 107 mmol/L (96-108); Creatinine Clr Calc Pharmacy 93.9; Estimated Glomerular Filt Rate > 60; Glucose Random 129 mg/dL (60-115); Sodium 146 mmol/L (135-145); Total Protein 5.7 g/dL (6.5-8.0)
[2021-12-16] MEDS: Potassium Chloride ER 20 MEQ TAB.ER.PRT 40 MEQ PO (04:37)
[2021-12-16] MEDS: Potassium Chloride Packet 20 MEQ PACKET 40 MEQ PO (09:25)
--- NOTE | 2021-12-16 09:28 | PC.NURSE ---
pt sleeping, woken up, pt is confused but hx of dementia, skin pwd, respirations even and unlabored, pt given potassium and dranked all of it, pt is a below the knee bilaterally amputation pt given some oatmeal working on a transport back to [facility]
[2021-12-16 09:37] VITALS: BP 179/76; PULSE 61; RESP 18; O2SAT 96
--- NOTE | 2021-12-16 09:38 | PC.NURSE ---
Patient is resting comfortably. skin warm and color adequate to ethnicity. Alert but disoriented. He knows he is in [place] but not sure where. We gave him Potassium in water and he did ok with thin liquids (diet from facility report states thin liquids). We also gave him oatmeal.
[2021-12-16 10:02] LABS: Potassium 3.9 mmol/L (3.3-5.1)
--- NOTE | 2021-12-16 10:25 | PC.NURSE ---
report given to QUYNH the nurse at [facility]
[2021-12-16 12:13] VITALS: BP 158/70; PULSE 58; RESP 16; O2SAT 95
== END 2021-12-16 14:13 | disposition skilled nursing facility (03) ==
PROVIDERS: Internal Medicine; Physician Assistant; Emergency Provider Emergency Medicine; PCP Family Medicine
DX: H57.12 Ocular pain, left eye (principal); E83.42 Hypomagnesemia; E87.6 Hypokalemia; Z20.822 Contact with and (suspected) exposure to COVID-19; E11.9 Type 2 diabetes mellitus without complications; I10 Essential (primary) hypertension; F03.90 Unspecified dementia, unspecified severity, without behavioral disturbance, psychotic disturbance, mood disturbance, and anxiety; I69.391 Dysphagia following cerebral infarction; R13.10 Dysphagia, unspecified; Z87.891 Personal history of nicotine dependence; Z79.02 Long term (current) use of antithrombotics/antiplatelets; Z79.899 Other long term (current) drug therapy; Z79.4 Long term (current) use of insulin
CPT/HCPCS: 36415; 70450; 80053; 80307; 81003; 82077; 83735; 84132; 85025; 87635; 93005; 96361; 96365; 96366; 99285; J3475

== ENCOUNTER 2021-12-24 07:21 | Outpatient (REF) | payer OTHER, SELFPAY ==
[2021-12-24 07:18] LABS: MANUAL DIFF FLAG NO
[2021-12-24 07:31] LABS: Basophils Percent Auto 0.3 % (0-2); Eosinophils Absolute Auto 0.1 X10*3/uL (0.0-0.4); Eosinophils Percent Auto 1.2 % (0-4); Hematocrit 34.7 % (42.0-52.0); Hemoglobin 11.1 g/dl (14.0-18.0); Imm Gran Abs Auto 0.02 X10*3/uL (0.00-0.03); Imm Gran Pct Auto 0.3 % (0.0-0.4); Lymphocytes Absolute Auto 1.3 X10*3/uL (1.2-4.9); Lymphocytes Percent Auto 21.9 % (20-40); Mean Corpuscular Hemoglobin 27.2 pg (27.0-33.0); Mean Platelet Volume 9.4 fL (9.4-12.4); Monocytes Absolute Auto 0.3 X10*3/uL (0.1-1.2); Monocytes Percent Auto 5.9 % (2-11); Neutrophils Percent Auto 70.4 % (45-73); Platelet Count 192 X10*3/uL (160-400); Red Blood Count 4.08 X10*6/uL (4.60-5.80); White Blood Count 5.7 X10*3/uL (4.8-10.8)
[2021-12-24 08:09] LABS: Anion Gap 19 (12-20); Blood Urea Nitrogen 8 mg/dL (9-16); Calcium 8.4 mg/dL (8.4-10.2); Carbon Dioxide 22 mmol/L (22-29); Chloride 102 mmol/L (96-108); Estimated Glomerular Filt Rate > 60; Glucose Random 294 mg/dL (60-115); Potassium 3.9 mmol/L (3.3-5.1); Sodium 139 mmol/L (135-145)
== END 2021-12-24 07:22 | disposition home or self-care (01) ==
LOC: HO.MMNH3L 07:21
PROVIDERS: Visit Provider Family Medicine
DX: I10 Essential (primary) hypertension (principal); E78.5 Hyperlipidemia, unspecified; E11.9 Type 2 diabetes mellitus without complications
CPT/HCPCS: 36415; 80048; 85025

== ENCOUNTER 2022-01-21 06:22 | Outpatient (REF) | payer OTHER, SELFPAY ==
[2022-01-21 06:52] LABS: Hematocrit 35.6 % (42.0-52.0); Hemoglobin 11.4 g/dl (14.0-18.0); Mean Corpuscular Volume 84.4 fL (80.0-98.0); Mean Platelet Volume 9.7 fL (9.4-12.4); Platelet Count 190 X10*3/uL (160-400); Red Blood Count 4.22 X10*6/uL (4.60-5.80); Red Cell Distribution Width 15.9 % (11.0-16.0); White Blood Count 5.8 X10*3/uL (4.8-10.8)
[2022-01-21 07:24] LABS: Anion Gap 20 (12-20); Blood Urea Nitrogen 10 mg/dL (9-16); Calcium 8.9 mg/dL (8.4-10.2); Carbon Dioxide 21 mmol/L (22-29); Chloride 103 mmol/L (96-108); Estimated Glomerular Filt Rate > 60; Glucose Random 253 mg/dL (60-115); Potassium 4.6 mmol/L (3.3-5.1); Sodium 139 mmol/L (135-145)
== END 2022-01-21 06:23 | disposition home or self-care (01) ==
LOC: HO.MMNH3L 06:22
PROVIDERS: Visit Provider Family Medicine
DX: E11.9 Type 2 diabetes mellitus without complications (principal); I10 Essential (primary) hypertension; E78.5 Hyperlipidemia, unspecified
CPT/HCPCS: 36415; 80048; 85027

== ENCOUNTER 2022-02-25 07:25 | Outpatient (REF) | payer OTHER, SELFPAY ==
[2022-02-25 07:04] LABS: MANUAL DIFF FLAG NO
[2022-02-25 07:40] LABS: Basophils Percent Auto 0.6 % (0-2); Eosinophils Absolute Auto 0.1 X10*3/uL (0.0-0.4); Eosinophils Percent Auto 1.9 % (0-4); Hematocrit 32.5 % (42.0-52.0); Hemoglobin 10.6 g/dl (14.0-18.0); Imm Gran Abs Auto 0.02 X10*3/uL (0.00-0.03); Imm Gran Pct Auto 0.4 % (0.0-0.4); Lymphocytes Percent Auto 21.5 % (20-40); Mean Corpuscular HGB Conc 32.6 g/dl (31.0-36.0); Mean Corpuscular Hemoglobin 27.7 pg (27.0-33.0); Mean Corpuscular Volume 85.1 fL (80.0-98.0); Mean Platelet Volume 9.7 fL (9.4-12.4); Monocytes Absolute Auto 0.4 X10*3/uL (0.1-1.2); Neutrophils Absolute Auto 3.2 x10*3/uL (2.0-8.3); Neutrophils Percent Auto 67.6 % (45-73); Platelet Count 180 X10*3/uL (160-400); Red Blood Count 3.82 X10*6/uL (4.60-5.80); Red Cell Distribution Width 16.4 % (11.0-16.0); White Blood Count 4.8 X10*3/uL (4.8-10.8)
[2022-02-25 08:13] LABS: Anion Gap 12 (12-20); Blood Urea Nitrogen 12 mg/dL (9-16); Calcium 8.2 mg/dL (8.4-10.2); Carbon Dioxide 24 mmol/L (22-29); Chloride 110 mmol/L (96-108); Estimated Glomerular Filt Rate > 60; Glucose Random 96 mg/dL (60-115); Potassium 3.7 mmol/L (3.3-5.1); Sodium 142 mmol/L (135-145)
== END 2022-02-25 07:26 | disposition home or self-care (01) ==
LOC: HO.MMNH3L 07:25
PROVIDERS: Visit Provider Family Medicine
DX: E11.9 Type 2 diabetes mellitus without complications (principal); E78.5 Hyperlipidemia, unspecified; I10 Essential (primary) hypertension
CPT/HCPCS: 36415; 80048; 85025

== ENCOUNTER 2022-03-13 11:45 | Outpatient (REF) | payer OTHER, SELFPAY ==
[2022-03-14 06:26] LABS: Appearance Urine Clear; Color Urine Yellow; Glucose Urine UA 100 mg/dL (Negative); Leukocyte Esterase Urine Negative (Negative); Nitrite Urine Negative (Negative); PH 5.5 (5.0-9.0); Urine Blood Negative (Negative); Urine Ketones Negative (Negative); Urine Protein Negative (Neg-Trace)
== END 2022-03-13 11:46 | disposition home or self-care (01) ==
LOC: HO.MMNH3L 11:45
PROVIDERS: Visit Provider Family Medicine
DX: F01.50 Vascular dementia, unspecified severity, without behavioral disturbance, psychotic disturbance, mood disturbance, and anxiety (principal); E11.9 Type 2 diabetes mellitus without complications
CPT/HCPCS: 81003; 87086

== ENCOUNTER 2022-03-25 06:26 | Outpatient (REF) | payer OTHER, SELFPAY ==
[2022-03-25 06:23] LABS: MANUAL DIFF FLAG NO
[2022-03-25 06:46] LABS: Basophils Percent Auto 0.5 % (0-2); Eosinophils Absolute Auto 0.1 X10*3/uL (0.0-0.4); Eosinophils Percent Auto 1.8 % (0-4); Hematocrit 33.4 % (42.0-52.0); Hemoglobin 10.8 g/dl (14.0-18.0); Imm Gran Abs Auto 0.02 X10*3/uL (0.00-0.03); Imm Gran Pct Auto 0.4 % (0.0-0.4); Lymphocytes Absolute Auto 1.2 X10*3/uL (1.2-4.9); Lymphocytes Percent Auto 21.7 % (20-40); Mean Corpuscular HGB Conc 32.3 g/dl (31.0-36.0); Mean Corpuscular Hemoglobin 27.1 pg (27.0-33.0); Mean Corpuscular Volume 83.9 fL (80.0-98.0); Mean Platelet Volume 9.6 fL (9.4-12.4); Monocytes Absolute Auto 0.5 X10*3/uL (0.1-1.2); Monocytes Percent Auto 8.7 % (2-11); Neutrophils Absolute Auto 3.8 x10*3/uL (2.0-8.3); Neutrophils Percent Auto 66.9 % (45-73); Platelet Count 184 X10*3/uL (160-400); Red Blood Count 3.98 X10*6/uL (4.60-5.80); Red Cell Distribution Width 16.7 % (11.0-16.0); White Blood Count 5.6 X10*3/uL (4.8-10.8)
[2022-03-25 07:20] LABS: Anion Gap 13 (12-20); Blood Urea Nitrogen 14 mg/dL (9-16); Calcium 8.8 mg/dL (8.4-10.2); Carbon Dioxide 25 mmol/L (22-29); Chloride 104 mmol/L (96-108); Estimated Glomerular Filt Rate > 60; Glucose Random 141 mg/dL (60-115); Sodium 138 mmol/L (135-145)
== END 2022-03-25 06:27 | disposition home or self-care (01) ==
LOC: HO.MMNH3L 06:26
PROVIDERS: Visit Provider Family Medicine
DX: E11.9 Type 2 diabetes mellitus without complications (principal); E78.5 Hyperlipidemia, unspecified; I10 Essential (primary) hypertension
CPT/HCPCS: 36415; 80048; 85025

== ENCOUNTER 2022-04-29 06:45 | Outpatient (REF) | payer OTHER, SELFPAY ==
[2022-04-29 06:40] LABS: MANUAL DIFF FLAG NO
[2022-04-29 07:17] LABS: Basophils Absolute Auto 0.1 X10*3/uL (0.0-0.2); Basophils Percent Auto 1.2 % (0-2); Eosinophils Absolute Auto 0.6 X10*3/uL (0.0-0.4); Eosinophils Percent Auto 10.3 % (0-4); Hematocrit 38.9 % (42.0-52.0); Hemoglobin 12.7 g/dl (14.0-18.0); Imm Gran Abs Auto 0.01 X10*3/uL (0.00-0.03); Imm Gran Pct Auto 0.2 % (0.0-0.4); Lymphocytes Absolute Auto 1.4 X10*3/uL (1.2-4.9); Lymphocytes Percent Auto 24.3 % (20-40); Mean Corpuscular HGB Conc 32.6 g/dl (31.0-36.0); Mean Corpuscular Hemoglobin 31.4 pg (27.0-33.0); Mean Corpuscular Volume 96.3 fL (80.0-98.0); Mean Platelet Volume 10.5 fL (9.4-12.4); Monocytes Absolute Auto 0.7 X10*3/uL (0.1-1.2); Monocytes Percent Auto 12.4 % (2-11); Neutrophils Absolute Auto 2.9 x10*3/uL (2.0-8.3); Neutrophils Percent Auto 51.6 % (45-73); Platelet Count 228 X10*3/uL (160-400); Red Blood Count 4.04 X10*6/uL (4.60-5.80); Red Cell Distribution Width 13.1 % (11.0-16.0); White Blood Count 5.6 X10*3/uL (4.8-10.8)
[2022-04-29 07:46] LABS: Anion Gap 14 (12-20); Blood Urea Nitrogen 18 mg/dL (9-16); Calcium 9.2 mg/dL (8.4-10.2); Carbon Dioxide 26 mmol/L (22-29); Chloride 103 mmol/L (96-108); Estimated Glomerular Filt Rate > 60; Glucose Random 74 mg/dL (60-115); Potassium 4.2 mmol/L (3.3-5.1); Sodium 139 mmol/L (135-145)
== END 2022-04-29 06:46 | disposition home or self-care (01) ==
LOC: HO.MMNH3L 06:45
PROVIDERS: Visit Provider Family Medicine
DX: E11.9 Type 2 diabetes mellitus without complications (principal); E78.5 Hyperlipidemia, unspecified; I10 Essential (primary) hypertension
CPT/HCPCS: 36415; 80048; 85025

== ENCOUNTER 2022-05-27 06:51 | Outpatient (REF) | payer OTHER, SELFPAY ==
[2022-05-27 06:31] LABS: MANUAL DIFF FLAG NO
[2022-05-27 07:11] LABS: Anion Gap 14 (12-20); Blood Urea Nitrogen 13 mg/dL (9-16); Calcium 8.7 mg/dL (8.4-10.2); Carbon Dioxide 25 mmol/L (22-29); Chloride 110 mmol/L (96-108); Estimated Glomerular Filt Rate > 60; Glucose Random 200 mg/dL (60-115); Potassium 4.4 mmol/L (3.3-5.1); Sodium 145 mmol/L (135-145)
[2022-05-27 07:28] LABS: Basophils Percent Auto 0.5 % (0-2); Eosinophils Absolute Auto 0.1 X10*3/uL (0.0-0.4); Eosinophils Percent Auto 1.8 % (0-4); Hematocrit 33.5 % (42.0-52.0); Hemoglobin 10.7 g/dl (14.0-18.0); Imm Gran Abs Auto 0.01 X10*3/uL (0.00-0.03); Imm Gran Pct Auto 0.2 % (0.0-0.4); Lymphocytes Absolute Auto 1.2 X10*3/uL (1.2-4.9); Lymphocytes Percent Auto 26.5 % (20-40); Mean Corpuscular HGB Conc 31.9 g/dl (31.0-36.0); Mean Corpuscular Hemoglobin 27.9 pg (27.0-33.0); Mean Corpuscular Volume 87.5 fL (80.0-98.0); Mean Platelet Volume 9.9 fL (9.4-12.4); Monocytes Absolute Auto 0.3 X10*3/uL (0.1-1.2); Monocytes Percent Auto 7.4 % (2-11); Neutrophils Absolute Auto 2.8 x10*3/uL (2.0-8.3); Neutrophils Percent Auto 63.6 % (45-73); Platelet Count 191 X10*3/uL (160-400); Red Blood Count 3.83 X10*6/uL (4.60-5.80); Red Cell Distribution Width 16.8 % (11.0-16.0); White Blood Count 4.3 X10*3/uL (4.8-10.8)
== END 2022-05-27 06:52 | disposition home or self-care (01) ==
LOC: HO.MMNH3L 06:51
PROVIDERS: Visit Provider Family Medicine
DX: E11.9 Type 2 diabetes mellitus without complications (principal); E78.5 Hyperlipidemia, unspecified; I10 Essential (primary) hypertension
CPT/HCPCS: 36415; 80048; 85025

== ENCOUNTER 2022-06-24 06:21 | Outpatient (REF) | payer OTHER, SELFPAY ==
[2022-06-24 06:13] LABS: MANUAL DIFF FLAG NO
[2022-06-24 06:55] LABS: Basophils Percent Auto 0.7 % (0-2); Eosinophils Absolute Auto 0.1 X10*3/uL (0.0-0.4); Eosinophils Percent Auto 2.2 % (0-4); Hematocrit 33.6 % (42.0-52.0); Imm Gran Abs Auto 0.01 X10*3/uL (0.00-0.03); Imm Gran Pct Auto 0.2 % (0.0-0.4); Lymphocytes Absolute Auto 1.1 X10*3/uL (1.2-4.9); Lymphocytes Percent Auto 24.6 % (20-40); Mean Corpuscular HGB Conc 32.7 g/dl (31.0-36.0); Mean Corpuscular Hemoglobin 28.2 pg (27.0-33.0); Mean Corpuscular Volume 86.2 fL (80.0-98.0); Mean Platelet Volume 10.1 fL (9.4-12.4); Monocytes Absolute Auto 0.3 X10*3/uL (0.1-1.2); Monocytes Percent Auto 6.9 % (2-11); Neutrophils Percent Auto 65.4 % (45-73); Platelet Count 184 X10*3/uL (160-400); White Blood Count 4.5 X10*3/uL (4.8-10.8)
[2022-06-24 07:36] LABS: Anion Gap 14 (12-20); Blood Urea Nitrogen 16 mg/dL (9-16); Calcium 8.5 mg/dL (8.4-10.2); Carbon Dioxide 25 mmol/L (22-29); Chloride 107 mmol/L (96-108); Estimated Glomerular Filt Rate > 60; Glucose Random 254 mg/dL (60-115); Potassium 4.1 mmol/L (3.3-5.1); Sodium 142 mmol/L (135-145)
== END 2022-06-24 06:22 | disposition home or self-care (01) ==
LOC: HO.MMNH3L 06:21
PROVIDERS: Visit Provider Family Medicine
DX: E11.9 Type 2 diabetes mellitus without complications (principal); E78.5 Hyperlipidemia, unspecified; I10 Essential (primary) hypertension
CPT/HCPCS: 36415; 80048; 85025

== ENCOUNTER 2022-07-22 06:07 | Outpatient (REF) | payer OTHER, SELFPAY ==
[2022-07-22 06:00] LABS: MANUAL DIFF FLAG NO
[2022-07-22 06:55] LABS: Basophils Percent Auto 0.6 % (0-2); Eosinophils Absolute Auto 0.1 X10*3/uL (0.0-0.4); Eosinophils Percent Auto 1.7 % (0-4); Hematocrit 32.7 % (42.0-52.0); Hemoglobin 10.7 g/dl (14.0-18.0); Imm Gran Abs Auto 0.01 X10*3/uL (0.00-0.03); Imm Gran Pct Auto 0.2 % (0.0-0.4); Lymphocytes Absolute Auto 1.4 X10*3/uL (1.2-4.9); Lymphocytes Percent Auto 26.2 % (20-40); Mean Corpuscular HGB Conc 32.7 g/dl (31.0-36.0); Mean Corpuscular Hemoglobin 28.4 pg (27.0-33.0); Mean Corpuscular Volume 86.7 fL (80.0-98.0); Monocytes Absolute Auto 0.4 X10*3/uL (0.1-1.2); Monocytes Percent Auto 6.8 % (2-11); Neutrophils Absolute Auto 3.3 x10*3/uL (2.0-8.3); Neutrophils Percent Auto 64.5 % (45-73); Platelet Count 171 X10*3/uL (160-400); Red Blood Count 3.77 X10*6/uL (4.60-5.80); Red Cell Distribution Width 15.7 % (11.0-16.0); White Blood Count 5.2 X10*3/uL (4.8-10.8)
[2022-07-22 07:13] LABS: Anion Gap 9 (12-20); Blood Urea Nitrogen 16 mg/dL (9-16); Calcium 8.8 mg/dL (8.4-10.2); Carbon Dioxide 29 mmol/L (22-29); Chloride 109 mmol/L (96-108); Estimated Glomerular Filt Rate > 60; Glucose Random 104 mg/dL (60-115); Potassium 3.9 mmol/L (3.3-5.1); Sodium 143 mmol/L (135-145)
== END 2022-07-22 06:08 | disposition home or self-care (01) ==
LOC: HO.MMNH3L 06:07
PROVIDERS: Visit Provider Family Medicine
DX: E11.9 Type 2 diabetes mellitus without complications (principal); E78.5 Hyperlipidemia, unspecified; I10 Essential (primary) hypertension
CPT/HCPCS: 36415; 80048; 85025

== ENCOUNTER 2023-04-02 15:08 | Emergency (ER) | payer MEDICARE, MEDICAID, SELFPAY ==
[2023-04-02 15:11] VITALS: BP 128/62; PULSE 75; O2SAT 96
[2023-04-02 15:25] VITALS: BP 115/59; PULSE 79; RESP 18; TEMP 36.7; O2SAT 99; BMI 32.1
[2023-04-02 15:59] VITALS: BP 106/62; PULSE 73; RESP 16; O2SAT 96
[2023-04-02 16:04] LABS: MANUAL DIFF FLAG NO
[2023-04-02 16:05] LABS: Basophils Percent Auto 0.2 % (0-2); Eosinophils Absolute Auto 0.1 X10*3/uL (0.0-0.4); Eosinophils Percent Auto 2.6 % (0-4); Hematocrit 34.5 % (42.0-52.0); Hemoglobin 10.9 g/dl (14.0-18.0); Imm Gran Abs Auto 0.02 X10*3/uL (0.00-0.03); Imm Gran Pct Auto 0.4 % (0.0-0.4); Lymphocytes Absolute Auto 1.3 X10*3/uL (1.2-4.9); Lymphocytes Percent Auto 24.5 % (20-40); Mean Corpuscular HGB Conc 31.6 g/dl (31.0-36.0); Mean Corpuscular Hemoglobin 26.7 pg (27.0-33.0); Mean Corpuscular Volume 84.6 fL (80.0-98.0); Mean Platelet Volume 9.3 fL (9.4-12.4); Monocytes Absolute Auto 0.3 X10*3/uL (0.1-1.2); Monocytes Percent Auto 6.4 % (2-11); Neutrophils Absolute Auto 3.5 x10*3/uL (2.0-8.3); Neutrophils Percent Auto 65.9 % (45-73); Platelet Count 224 X10*3/uL (160-400); Red Blood Count 4.08 X10*6/uL (4.60-5.80); Red Cell Distribution Width 16.4 % (11.0-16.0); White Blood Count 5.3 X10*3/uL (4.8-10.8)
[2023-04-02 16:23] LABS: Alanine Aminotransferase 15 U/L (0-40); Albumin Level 3.5 g/dL (3.5-5.0); Alkaline Phosphatase 91 U/L (39-117); Anion Gap 16 (12-20); Aspartate Amino Transferase 13 U/L (5-37); Bilirubin Total 0.3 mg/dL (0.0-1.0); Blood Urea Nitrogen 30 mg/dL (9-16); Calcium 8.9 mg/dL (8.4-10.2); Carbon Dioxide 25 mmol/L (22-29); Chloride 108 mmol/L (96-108); Creatinine Clr Calc Pharmacy 60.1; Estimated Glomerular Filt Rate > 60; Glucose Random 82 mg/dL (60-115); Potassium 3.9 mmol/L (3.3-5.1); Sodium 145 mmol/L (135-145); Total Protein 6.5 g/dL (6.5-8.0)
--- NOTE | 2023-04-02 17:28 | ED.MALEGU ---
HPI - Male Genitourinary General Chief complaint: Urogenital-Male Stated complaint: retaining urine, UTI symptoms from SNF Time Seen by Provider: 04/02/23 15:40 Source: family and licensed physical therapist assistant Mode of arrival: EMS History of Present Illness HPI Narrative: 77-year-old male is brought in from [facility] via EMS for retaining urine for 3 days which surprises the family as they were unaware that patient has been having any problems. They think he is just had a decrease in oral intake. According to the facility they bladder scanned the patient this morning for 800 cc (his bladder scan here was for less than 100) but only got out 15 cc via straight cath. Patient himself denies any abdominal pain/shortness of breath/chest pain Related Data Home Medications Medication Instructions Recorded Confirmed atorvastatin 40 mg tablet 40 mg PO BEDTIME 03/29/20 12/15/21 clonidine HCl 0.2 mg tablet 0.2 mg PO BID 03/29/20 12/15/21 clopidogrel 75 mg tablet (Plavix) 75 mg PO DAILY 03/29/20 12/15/21 cholecalciferol (vitamin D3) 50 50 mcg PO DAILY 04/12/20 12/15/21 mcg (2,000 unit) capsule lisinopril 5 mg tablet 5 mg PO DAILY 04/12/20 12/15/21 metoprolol tartrate 25 mg tablet 25 mg PO BID 04/12/20 12/15/21 blood sugar diagnostic ([facility] 08/03/20 08/03/20 Ultra Blue Test Strip) chlorhexidine gluconate 0.12 % 15 ml PO BID 08/03/20 12/15/21 mouthwash ferrous sulfate 325 mg (65 mg 1 tab PO TID 08/03/20 12/15/21 iron) tablet (FeroSul) fluticasone furoate 100 1 puff inhalation DAILY 08/03/20 12/15/21 mcg-vilanterol 25 mcg/dose inhalation powder (Breo Ellipta) insulin glargine 100 unit/mL (3 57 unit subcut BEDTIME 08/03/20 12/15/21 mL) subcutaneous pen (Lantus Solostar U-100 Insulin) lancets 33 gauge (OneTouch Delica 08/03/20 08/03/20 Plus Lancet) metformin 500 mg tablet 500 mg PO BID 08/03/20 12/15/21 multivitamin (One Daily 1 tab PO DAILY 08/03/20 12/15/21 Multivitamin tablet) pen needle, diabetic 32 gauge x 08/03/20 08/03/20 (UltiCare Pen Needle) ascorbic acid (vitamin C) 250 mg 250 mg PO BID 12/15/21 12/15/21 tablet divalproex 125 mg capsule,delayed 2 cap PO DAILY 12/15/21 12/15/21 release sprinkle insulin lispro 100 unit/mL See Rx Instructions .Route .COMPLEX 12/15/21 12/15/21 subcutaneous solution pantoprazole 40 mg tablet,delayed 1 tab PO DAILY 12/15/21 12/15/21 release sennosides 8.6 mg-docusate sodium 2 tab PO BEDTIME 12/15/21 12/15/21 50 mg tablet (Senna with Docusate Sodium) Previous Rx's Medication Instructions Recorded magnesium oxide 400 mg PO DAILY #30 tabs 12/16/21 potassium chloride 20 mEq 20 meq PO DAILY #30 tabs 12/16/21 tablet,extended release tobramycin 0.3 % eye drops 1 drp ophthalmic (eye) QID #5 mL 12/16/21 cefdinir 300 mg capsule 300 mg PO BID 7 days #14 caps 04/02/23 Allergies Allergy/AdvReac Type Severity Reaction Status Date / Time No Known Allergies Allergy Unknown NONE Verified 09/06/20 13:17 Review of Systems Review of Systems: Pertinent positives and negatives as stated in [facility] Past Medical History Source: nursing notes reviewed Onset Date is defined in the Problem List Problems that require an onset date and time if occurred within 24 hrs of arrival to the ED Aortic Dissection and Rupture; Neurologic impairment; Cardiopulmonary Arrest; Endotracheal Intubation; Insertion or Replacement of Mechanical Circulatory Assist Device Medical History Non-small cell cancer of left lung Dysphagia as late effect of cerebrovascular accident (CVA) Stroke HTN (hypertension) Diabetes CVA (cerebral vascular accident) Surgical History History of colonoscopy Family History Family History Father Hx of type 1 diabetes mellitus Mother History of heart attack Social History Social History Household Members: None Housing: Apartment Do you presently have visiting nurse or other home services: No Alcohol intake: unknown Patient Tobacco Use Status: Never used Tobacco Cigarette Packs Per Day: 1 Cigarettes Per Day: 20.0 Second Hand Smoke Exposure: Yes Advance Directives: Yes Advance Directives on File: Yes Advance Directives Date on File: 08/08/20 service: No Current occupational status: unemployed and disabled Physical Exam Vital Signs: Vital Signs: Last Vital Signs Temp 98.0 F 04/02/23 15:25 Pulse 73 04/02/23 15:59 Resp 16 04/02/23 15:59 BP 106/62 04/02/23 15:59 Pulse Ox 96 04/02/23 15:59 O2 Del Method Room Air 04/02/23 15:59 BMI result Body Mass Index 32.1 VITAL SIGNS: Reviewed. GENERAL: Well developed, well nourished, in no acute distress. HEAD: Normocephalic/atraumatic EYES: PERRLA, EOMI LUNGS: Normal breath sounds. No adventitious sounds or accessory muscle use. SpO2<96> CARDIOVASCULAR: Regular rate and rhythm without noted murmurs ABDOMEN: Soft, non-tender, non-distended with bowel sounds. MUSCULOSKELETAL: No tenderness, deformities, or effusions noted on gross inspection. EXTREMITIES: No cyanosis, clubbing or edema. SKIN: Inspection of the skin reveals no rashes NEUROLOGIC: Alert and oriented x 2. Strength and sensation to light touch were grossly intact x 4. Medical Decision Making Medical Decision Making MDM Narrative: 77-year-old male with history and clinical presentation inconsistent with urinary retention based off of bladder scan in the emergency room in our facility, will evaluate for possible urinary tract infection. Patient appears comfortable and otherwise well, has a history of dementia. I reviewed all investigations and hematologic indices do not demonstrate leukocytosis or left shift and there is a stable normocytic anemia without thrombocytopenia. Chemistry indices grossly within normal limits without evidence of MELANIE or electrolyte/liver enzyme derangements. Patient offered water and has been drinking without difficulty and [place] catheter put in place to obtain urine sample. 174: Urine appears muddy . I reviewed urinalysis which is significant for nitrite positivity as well as RBCs. The RBCs I feel are a combination of facility catheterization event as well as current infection. Patient is noted to be voiding without difficulty here, there are no clots. Received initial antibiotics and discharged with remaining course. Differential Diagnosis Differential Diagnoses: The differential diagnosis associated with the presentation includes Please see the discussion above Admission/Observation Consideration of admission/observation: Escalation of care including admission/observation considered Please see the discussion above Lab Data MDM Lab Attestation statement: I reviewed the patient's lab results. Please see the discussion above 04/02/23 15:58 04/02/23 15:58 Labs: Lab Results 04/02/23 04/02/23 Range/Units 15:58 17:47 WBC 5.3 (4.8-10.8) X10*3/uL RBC 4.08 L (4.60-5.80) X10*6/uL Hgb 10.9 L (14.0-18.0) g/dl Hct 34.5 L (42.0-52.0) % MCV 84.6 (80.0-98.0) fL MCH 26.7 L (27.0-33.0) pg MCHC 31.6 (31.0-36.0) g/dl RDW 16.4 H (11.0-16.0) % Plt Count 224 D (160-400) X10*3/uL MPV 9.3 L (9.4-12.4) fL Immature Gran % (Auto) 0.4 (0.0-0.4) % Neut % (Auto) 65.9 (45-73) % Lymph % (Auto) 24.5 (20-40) % [place] % (Auto) 6.4 (2-11) % Eos % (Auto) 2.6 (0-4) % Baso % (Auto) 0.2 (0-2) % Lymph # (Auto) 1.3 (1.2-4.9) X10*3/uL [place] # (Auto) 0.3 (0.1-1.2) X10*3/uL Eos # (Auto) 0.1 (0.0-0.4) X10*3/uL Baso # (Auto) 0.0 (0.0-0.2) X10*3/uL Abs Immat Gran (auto) 0.02 (0.00-0.03) X10*3/uL Absolute Neuts (auto) 3.5 (2.0-8.3) x10*3/uL Absolute Nucleated RBC 0.000 (0.0-0.012) X10*3/uL Nucleated RBC % (auto) 0.0 (0.0-0.2) /100WBC Sodium 145 (135-145) mmol/L Potassium 3.9 (3.3-5.1) mmol/L Chloride 108 (96-108) mmol/L Carbon Dioxide 25 (22-29) mmol/L Anion Gap 16 (12-20) BUN 30 H (9-16) mg/dL Creatinine 0.56 (0.5-1.4) mg/dL Estim Creat Clear Calc 60.1 Estimated GFR > 60 Random Glucose 82 (60-115) mg/dL Calcium 8.9 (8.4-10.2) mg/dL Total Bilirubin 0.3 (0.0-1.0) mg/dL AST 13 (5-37) U/L ALT 15 (0-40) U/L Alkaline Phosphatase 91 (39-117) U/L Total Protein 6.5 (6.5-8.0) g/dL Albumin 3.5 (3.5-5.0) g/dL Urine Color Red A Urine Appearance Turbid Urine pH 6.0 (5.0-9.0) Ur Specific [place] 1.025 (1.005-1.025) Urine Protein 300 (3+) H (Neg-Trace) mg/dL Urine Glucose (UA) Negative (Negative) mg/dL Urine Ketones 40 (Negative) mg/dL Urine Blood Large (3+) H (Negative) Urine Nitrite Positive H (Negative) Ur Leukocyte Esterase Negative (Negative) Urine RBC >20 H (0-2) /HPF Urine WBC 11-20 (0-5) /HPF Ur Squamous Epith Cells 0-2 (0-2) /HPF Urine Bacteria None Seen (None Seen) Hyaline Casts 0-2 (0-2) /LPF Discharge Plan Discharge Clinical Impression: Acute UTI, Hematuria Patient Disposition: Xfer Other Instructions: Urinary Tract Infection in Men (ED), Hematuria (ED), Urinary Tract Infection in Older Adults (ED) Additional Instructions: 1. Reanudar todos los medicamentos caseros seg?n lo recetado. 2. Complete todo el ciclo de antibi?ticos seg?n lo prescrito. 3. El m?dico supervisor cigarette making department debe revisar el urocultivo para garantizar que el antibi?garett cumpla con los requisitos de infecci?n bacteriana. Regrese a la deniz de emergencias si los s?ntomas empeoran. 1. Resume all home medications as prescribed. 2. Complete the entire course of antibiotics as prescribed. 3. The supervising physician should review the urine culture to ensure antibiotic is meeting bacterial infection requirements. Return to the ER for any worsening symptoms. Prescriptions: New cefdinir 300 mg capsule 300 mg PO BID 7 Days Qty: 14 0RF No Action multivitamin [One Daily Multivitamin] Tablet 1 tab PO DAILY metformin 500 mg tablet 500 mg PO BID (DME) OneTouch Ultra Blue Test Strip Strip MISCELLANEOUS TID ferrous sulfate [FeroSul] 325 mg (65 mg iron) tablet 1 tab PO TID chlorhexidine gluconate 0.12 % mouthwash 15 ml PO BID Rx Instructions: SWISH AND SPIT insulin glargine [Lantus Solostar U-100 Insulin] 100 unit/mL (3 mL) insulin pen 57 unit subcut BEDTIME (DME) pen needle, diabetic [UltiCare Pen Needle] 32 gauge x 5/32 needle MISCELLANEOUS TID (DME) lancets [OneTouch Delica Plus Lancet] 33 gauge misc MISCELLANEOUS TID fluticasone furoate-vilanterol [Breo Ellipta] 100-25 mcg/dose blister with device 1 puff inhalation DAILY pantoprazole 40 mg tablet,delayed release (DR/EC) 1 tab PO DAILY insulin lispro 100 unit/mL solution See Rx Instructions .ROUTE .COMPLEX Rx Instructions: 0-199: 0i 200-250: 2u 251-300: 4u 301-350: 6u 351-400: 8 u 401+: 10 u and call divalproex 125 mg capsule, delayed rel sprinkle 2 cap PO DAILY sennosides-docusate sodium [Senna with Docusate Sodium] 8.6-50 mg Tablet 2 tab PO BEDTIME ascorbic acid (vitamin C) 250 mg Tablet 250 mg PO BID potassium chloride 20 mEq tablet extended release 20 meq PO DAILY Qty: 30 0RF magnesium oxide 400 mg magnesium tablet 400 mg PO DAILY Qty: 30 0RF tobramycin 0.3 % drops 1 drp ophthalmic (eye) QID Qty: 5 0RF lisinopril 5 mg tablet 5 mg PO DAILY metoprolol tartrate 25 mg tablet 25 mg PO BID cholecalciferol (vitamin D3) 50 mcg (2,000 unit) capsule 50 mcg PO DAILY atorvastatin 40 mg tablet 40 mg PO BEDTIME clonidine HCl 0.2 mg tablet 0.2 mg PO BID clopidogrel [Plavix] 75 mg tablet 75 mg PO DAILY Print Language: Maldivian
--- NOTE | 2023-04-02 17:57 | MHC.EDTECH ---
Patient repositioned and changed
[2023-04-02 18:11] LABS: Appearance Urine Turbid; Glucose Urine UA Negative (Negative); Leukocyte Esterase Urine Negative (Negative); Nitrite Urine Positive (Negative); Specific Gravity - Urine 1.025 (1.005-1.025); UMIC TRIGGER UACC YES; Urine Blood Large (3+) (Negative); Urine Ketones 40 mg/dL (Negative); Urine Protein 300 (3+) mg/dL (Neg-Trace)
[2023-04-02 18:14] LABS: Color Urine Red
[2023-04-02 18:26] LABS: Bacteria Urine None Seen (None Seen); Hyaline Casts Urine 0-2 /LPF (0-2); RBC Urine >20 /HPF (0-2); Squamous Epithelial Cell Urine 0-2 /HPF (0-2); UACC Culture Trigger YES
[2023-04-02 18:51] VITALS: BP 114/64; PULSE 79; RESP 16; TEMP 36.7; O2SAT 98
[2023-04-02] MEDS: Amoxicillin/Potassium Clav 875 MG TABLET PO (19:26)
--- NOTE | 2023-04-02 19:51 | PC.NURSE ---
this rn assumed care of pt. pt son at bedside helping pt eat. pt awaiting ems ride back to snf.
--- NOTE | 2023-04-02 19:56 | MHC.EDTECH ---
Patient given dinner tray
--- NOTE | 2023-04-02 20:07 | MHC.EDTECH ---
Patient inc therefore patient changed and repositioned
--- NOTE | 2023-04-02 21:22 | PC.NURSE ---
ems at bedside for pt report to transfer to SNF.
== END 2023-04-02 21:33 | disposition other institution (70) ==
PROVIDERS: Emergency Provider Student in an Organized Health Care Education/Training Program
DX: N39.0 Urinary tract infection, site not specified (principal); R31.9 Hematuria, unspecified; E11.9 Type 2 diabetes mellitus without complications; E78.5 Hyperlipidemia, unspecified; I10 Essential (primary) hypertension; Z86.73 Personal history of transient ischemic attack (TIA), and cerebral infarction without residual deficits
CPT/HCPCS: 36415; 51798; 80053; 81001; 85025; 87086; 99283; 99285

== ENCOUNTER 2023-05-20 12:48 | Inpatient (IN) | payer MEDICARE, MEDICAID, SELFPAY ==
[2023-05-20] VITALS (7 sets, daily range): BP systolic 100–127; BP diastolic 59–75; PULSE 90–106; RESP 15–16; TEMP 36.2–37.1; O2SAT 95–100; BMI 50.5
--- NOTE | 2023-05-20 | ECG_ITS ---
Test Reason : RHYTHM CHANGE Blood Pressure : / mmHG Vent. Rate : 105 BPM Atrial Rate : 105 BPM P-R Int : 170 ms QRS Dur : 114 ms QT Int : 356 ms P-R-T Axes : 049 -45 062 degrees QTc Int : 470 ms Sinus tachycardia Left axis deviation Right bundle branch block Inferior infarct (cited on or before 15-DEC-2021) Abnormal ECG When compared with ECG of 20-MAY-2023 14:29, No significant change was found Referred By: Jorge Mobley Electronically Signed By:LUKE LEE
--- NOTE | ~2023-05-20 | CT_ITS ---
EXAMINATION: CT CHEST WITHOUT CONTRAST CLINICAL INFORMATION: Carcinoma of lung, complains of cough COMPARISON: CT scan of chest on 04/27/2010 TECHNIQUE: Multidetector volumetric CT imaging of the chest was done. Axial MIP volume rendering provided. Sagittal and coronal reformatted images were obtained. This CT examination was performed using dose optimization techniques as appropriate, variously including the following: *Automated exposure control *Adjustment of mA and/or kV according to patient size (this includes techniques or standardized protocols for targeted exams where dose is matched to indication/reason for exam; i.e. extremities or head) *Use of iterative reconstruction technique DLP: 359 mGy-cm FINDINGS: LUNGS: Fan-shaped groundglass opacities surrounding sagittal airspace disease with air bronchograms are seen in anterior medial left upper lobe. Mild dependent vascular congestion, increased alveolar density is seen along posterior border of bilateral lower lobes, more extensive in the right lung. PLEURA: No pleural effusion or pneumothorax is seen. PERICARDIUM: No pericardial effusion is seen. MEDIASTINUM AND [place]: Right precarinal lymph node with central fatty hilum, measuring 0.65 cm in short axis is seen, series 3 image #23. Inadequate evaluation of the mediastinal and hilar lymph nodes due to absence of IV contrast filling the surrounding blood vessels. TRACHEOBRONCHIAL TREE: Trachea and bilateral mainstem bronchi are patent. THORACIC AORTA: The thoracic aorta is normal in size with scattered atherosclerotic calcifications. CORONARY ARTERY CALCIFICATIONS: Marked PULMONARY ARTERIES: The main pulmonary arteries appear to be normal in size. CHEST WALL AND LOWER NECK: The subcutaneous and muscular chest wall are intact with no focal lesion. No abnormal mass lesion could be seen in the visualized lower neck. BONES: Unchanged sclerotic changes and expansile appearance of lateral left clavicle is seen, compatible with chronic healed lateral left clavicular fracture. No focal bone lesion diagnostic of metastatic disease could be seen in the thorax. VISUALIZED UPPER ABDOMEN: Bilateral adrenal glands are not enlarged. High density lesion is partially visualized at anterior medial mid left renal cortex measuring 0.7 cm in diameter in the visualized portion. CT/CT chest wo IV con IMPRESSION: 1. Interval development of Fan-shaped groundglass opacities surrounding sagittal atelectasis are seen in anterior medial left upper lobe. Findings could be compatible with atypical pneumonia or pulmonary fibrosis. 2. Interval appearance of High density lesion, partially visualized at anterior medial mid left renal cortex measuring 0.7 cm in diameter in the visualized portion. Further evaluation with pre and postcontrast MRI of the kidneys is recommended. Fleischner guidelines were followed.
--- NOTE | ~2023-05-20 | XR_ITS ---
EXAMINATION: XR CHEST CLINICAL INFORMATION: Cough, history of lung cancer. COMPARISON: 08/03/2020 TECHNIQUE: 2 views of the chest were obtained. FINDINGS: Lateral view limited by patient's inability to raise arm. Heart and mediastinum within normal limits. Left suprahilar opacity. Degenerative changes. XR/XR chest 2V IMPRESSION: Left suprahilar opacity. Patient with history of lung cancer. If if not recently performed, chest CT recommended.
--- NOTE | ~2023-05-20 | CT_ITS ---
EXAMINATION: CT angio head neck CLINICAL INFORMATION: Left facial droop. Difficulty speaking. COMPARISON: CT angiogram of the head and neck 08/03/2020. CT head 12/15/2021. TECHNIQUE: Rug Cleaning Supervisor images were obtained. A CT angiogram of the head and neck was performed in the arterial phase after the intravenous administration of 70 mL Omnipaque 350. Pre and delayed postcontrast images of the head were also obtained. 3D images were processed on an independent workstation under concurrent supervision. Arterial stenoses are measured in accordance with NASCET criteria or similar method if applicable. This CT examination was performed using dose optimization techniques as appropriate, including one or more of the following: Automated exposure control, iterative reconstruction, and adjustment of technique factors (mA and/or kVp) according to patient size (this includes techniques or standardized protocols for targeted exams where dose is matched to indication/reason for exam). Fleischner Society criteria for the followup of incidental pulmonary nodules was implemented if appropriate. Total exam dose-length product 2280 mGy-cm FINDINGS: Head: There is no acute intracranial hemorrhage. No abnormal extra-axial collection. Lateral and third ventricles are normal. No hydrocephalus. There are numerous chronic lacunar infarcts within the basal ganglia and thalami that have remained grossly stable when compared to prior imaging from 12/15/2021. There is questionable loss of lee-white matter differentiation within the right postcentral gyrus best visualized on axial image 40 of 56 series 5. A small chronic cortical infarct within the right precentral and postcentral gyri along the lateral convexity has remained stable when compared to prior imaging. The calvarium and skull base are intact. Mastoid air cells and middle ear cavities are well aerated. No active paranasal sinus disease. CT angiogram neck: Scattered atheromatous calcification involves the aortic arch apex. Origins of the major aortic branches are patent. Common carotid arteries and carotid bifurcations are normal. No stenosis of the extracranial internal carotid arteries. The cervical segments of the vertebral arteries as well as their origins are patent. CT angiogram head: Atheromatous calcification involves the cavernous segments of both internal carotid arteries. Intracranial internal carotid arteries are otherwise patent. The intradural vertebral artery segments and basilar artery are normal. Anterior, middle, and posterior cerebral artery complexes are normal. No intracranial large vessel occlusion. No identifiable aneurysm or high flow vascular lesion. Other: Soft tissues of the neck including the thyroid gland are normal. No pathologically enlarged cervical lymph nodes. There is a 0.8 cm spiculated nodule within the left upper lobe best visualized on axial image 169 of 120 series 19 with a margin of surrounding groundglass opacification. There is no acute osseous finding. Specifically no worrisome lytic or osseous lesion. Canal patency is not well assessed on this examination due to inherent limitations of CT without intrathecal contrast. CT/CT angio head neck IMPRESSION: There is questionable loss of lee-white matter differentiation within the right postcentral gyrus that may represent a small acute cortical infarct. A dedicated brain MRI can be obtained for better anatomic characterization of this finding. Numerous chronic lacunar infarcts are visualized within the basal ganglia and thalami. A small chronic cortical infarct within the right precentral and postcentral gyri along the lateral convexity has remained stable when compared to prior imaging from 12/15/2021. No acute intracranial hemorrhage. No abnormal intracranial mass or enhancement. The CT angiogram of the head and neck is otherwise unremarkable in that there is no stenosis of the cervical carotid or vertebral arteries. No intracranial large vessel occlusion. Of note there is a part solid pulmonary nodule within the left upper lobe. The solid component of this lesion has not substantially changed when compared to the CT angiogram of the head and neck from 08/03/2020. Correlation with clinical history is recommended. A follow-up CT scan of the chest can be undertaken at 3-6 months to assess stability. Incidentally there is a 0.8 cm spiculated nodule within the left upper lobe with a margin of surrounding groundglass opacification. This finding is new when compared to prior imaging from 08/03/2020.
--- NOTE | ~2023-05-20 | MR_ITS ---
EXAMINATION: MR BRAIN WITHOUT CONTRAST CLINICAL INFORMATION: Altered mental status. Evaluate for acute stroke. COMPARISON: CT dated 05/17/2021 and 05/20/2023. TECHNIQUE: Multiplanar, multisequence imaging of the brain was performed without contrast. Limited study with significant motion artifacts. FINDINGS: No diffusion abnormalities are identified to suggest an acute infarct. No mass effect or midline shift is seen. [id number] chronic white matter microangiopathic changes noted. The gradient refocused acquisition is motion degraded but otherwise grossly unremarkable. Small chronic infarct visible in the globus pallidus of the left basal ganglia. There is a chronic infarct in the right frontal lobe with encephalomalacia in the cortical lee matter laterally and in the right periventricular white matter along the corticospinal tracts. Chronic infarction also affects the ventrolateral right thalamus. Wallerian degeneration noted in the right aspect of the upper brainstem with chronic gliosis and volume loss in the right cerebral peduncle of the midbrain. No extra-axial fluid collections are seen. There is a small, linear chronic infarct in the right cerebellar hemisphere. There is moderate diffuse brain parenchymal volume loss with commensurate ex vacuo dilatation of the ventricles. The craniovertebral junction, marrow signal, and midline structures are normal. The major intracranial flow voids at the level of the [place] are preserved. The dural venous sinus flow voids are maintained. The mastoid air cells are well aerated. There is mild right ethmoid sinus mucosal thickening and a small fluid level in the dependent left sphenoid sinus. MR/MR head/brain wo con IMPRESSION: No acute infarct or acute intracranial process. Chronic infarcts in the right frontal lobe, left basal ganglia, right thalamus, and in the right cerebellar hemisphere. Moderate diffuse brain parenchymal volume loss and [id number] chronic white matter microangiopathy.
--- NOTE | 2023-05-20 13:37 | ECG_ITS ---
Test Reason : WEAKNESS Blood Pressure : / mmHG Vent. Rate : 101 BPM Atrial Rate : 101 BPM P-R Int : 172 ms QRS Dur : 106 ms QT Int : 352 ms P-R-T Axes : 047 002 054 degrees QTc Int : 456 ms Sinus tachycardia Incomplete right bundle branch block Inferior infarct , age undetermined Abnormal ECG No significant changes when compared with the previous EKG of 15 dec 2021 Referred By: Ismael Cole Electronically Signed By:LUKE LEE
--- NOTE | 2023-05-20 13:43 | ED_ITS ---
HPI - General Adult General Chief complaint: Altered Mental Status Stated complaint: WEAKNESS,LETHARGUC @SNF,FAMILY WANTS EVAL PER EMS Time Seen by Provider: 05/20/23 13:33 History of Present Illness HPI narrative: The patient is a 77-year-old male who lives at the [facility]. I believe the patient has a history of dementia. He is minimally communicative. Apparently he had been sent to the hospital by ambulance home at the request of his family. Apparently the staff at the jail felt the patient is at his baseline. There is no report of any fever, sweats, chills. No report of cough or sputum or shortness of breath. No report of chest pain. No report of abdominal pain, nausea, vomiting, or diarrhea. I interviewed the patient with a [place] biological technician. The patient indicated that he felt fine and had no complaints. Specifically the patient denied headache, chest pain, abdominal pain. The patient additionally denied shortness of breath or cough. He also denied abdominal pain, nausea, vomiting. The patient was most recently in the emergency room a month and a half ago on April 02. At that time there was concern the patient might have a UTI. He was placed on cefdinir. His urine culture grew strep viridans. Later the patient's sons arrived. Apparently 1 of the sons went to the jail yesterday to give the patient a haircut and felt the patient was much less communicative than usual. Additionally he felt that the patient had a new left facial droop (the patient has had a stroke leaving him with a chronically weak left arm). The patient's other son arrived later and had the same impression. Both of them felt that the patient was much less communicative than usual. They both felt that a week ago the patient was capable of much more communication. Related Data Home Medications Medication Instructions Recorded Confirmed atorvastatin 40 mg tablet 40 mg PO BEDTIME 03/29/20 05/20/23 clopidogrel 75 mg tablet (Plavix) 75 mg PO DAILY 03/29/20 05/20/23 cholecalciferol (vitamin D3) 50 50 mcg PO DAILY 04/12/20 05/20/23 mcg (2,000 unit) capsule metoprolol tartrate 25 mg tablet 25 mg PO BID 04/12/20 05/20/23 blood sugar diagnostic (OneTouch 08/03/20 08/03/20 Ultra Blue Test Strip) chlorhexidine gluconate 0.12 % 15 ml PO BID 08/03/20 05/20/23 mouthwash ferrous sulfate 325 mg (65 mg 1 tab PO TID 08/03/20 05/20/23 iron) tablet (FeroSul) fluticasone furoate 100 1 puff inhalation DAILY 08/03/20 05/20/23 mcg-vilanterol 25 mcg/dose inhalation powder (Breo Ellipta) insulin glargine 100 unit/mL (3 50 unit subcut BEDTIME 08/03/20 05/20/23 mL) subcutaneous pen (Lantus Solostar U-100 Insulin) lancets 33 gauge (OneTouch Delica 08/03/20 08/03/20 Plus Lancet) metformin 500 mg tablet 500 mg PO BEDTIME 08/03/20 05/20/23 multivitamin (One Daily 1 tab PO DAILY 08/03/20 05/20/23 Multivitamin tablet) pen needle, diabetic 32 gauge x 08/03/20 08/03/20 (UltiCare Pen Needle) ascorbic acid (vitamin C) 250 mg 250 mg PO BID 12/15/21 05/20/23 tablet divalproex 125 mg capsule,delayed 2 cap PO DAILY 12/15/21 05/20/23 release sprinkle insulin lispro 100 unit/mL 0 sliding scale dose subcut TIDAC 12/15/21 05/20/23 subcutaneous solution pantoprazole 40 mg tablet,delayed 1 tab PO DAILY 12/15/21 05/20/23 release sennosides 8.6 mg-docusate sodium 2 tab PO BID constipation 12/15/21 05/20/23 50 mg tablet (Senna with Docusate Sodium) acetaminophen 325 mg tablet 650 mg PO Q4H PRN Pain 05/20/23 05/20/23 albuterol sulfate 90 mcg/actuation 2 puff inhalation Q4H PRN 05/20/23 05/20/23 aerosol inhaler (ProAir HFA) Shortness Of Breath Or Wheezing bisacodyl 10 mg rectal suppository 10 mg MD DAILY PRN Constipation 05/20/23 05/20/23 guaifenesin 100 mg/5 mL oral liquid 200 mg PO Q4H PRN Cough 05/20/23 05/20/23 magnesium hydroxide 2,400 mg/10 mL 30 ml PO DAILY PRN Constipation 05/20/23 05/20/23 oral suspension (Milk Of Magnesia Concentrated) magnesium oxide 400 mg PO BID 05/20/23 05/20/23 metformin 500 mg tablet 1,000 mg PO QAM 05/20/23 05/20/23 sodium phosphates 19 gram-7 118 ml MD DAILY PRN Constipation 05/20/23 05/20/23 gram/118 mL enema (Fleet Enema) Previous Rx's Medication Instructions Recorded potassium chloride 20 mEq 20 meq PO DAILY #30 tabs 12/16/21 tablet,extended release Allergies Allergy/AdvReac Type Severity Reaction Status Date / Time No Known Allergies Allergy Unknown NONE Verified 09/06/20 13:17 Review of Systems 2 Review of Systems: Yes all other systems are reviewed and are negative [facility] Past Medical History Medical History (Updated 05/20/23 @ 19:52 by MILADY Flores) HLD (hyperlipidemia) Vascular dementia Non-small cell cancer of left lung Dysphagia as late effect of cerebrovascular accident (CVA) Stroke HTN (hypertension) Diabetes CVA (cerebral vascular accident) Surgical History (Updated 05/20/23 @ 19:52 by MLIADY Flores) S/P AKA (above knee amputation) bilateral History of colonoscopy Family History Family History Father Hx of type 1 diabetes mellitus Mother History of heart attack Social History Social History Household Members: None Housing: Apartment Do you presently have visiting nurse or other home services: No Alcohol intake: unknown Patient Tobacco Use Status: Never used Tobacco Cigarette Packs Per Day: 1 Cigarettes Per Day: 20.0 Smoked in Last 30 Days: No Second Hand Smoke Exposure: Yes Use of substances other than those prescribed or required for medical reasons: No Advance Directives: Yes Advance Directives on File: Yes Advance Directives Date on File: 08/08/20 service: No Current occupational status: unemployed and disabled Physical Exam ED Vital Signs: Vital Signs - 24 hr 05/20/23 13:10 05/20/23 16:07 05/20/23 17:10 Temperature 98.8 F 97.9 F Pulse Rate 96 106 H 97 Respiratory Rate 16 16 16 Blood Pressure 121/75 116/66 127/59 L Pulse Oximetry 95 98 97 Oxygen Delivery Method Room Air Room Air Room Air 05/20/23 17:22 Temperature 97.2 F Pulse Rate 93 Respiratory Rate 16 Blood Pressure 110/67 Pulse Oximetry 97 Oxygen Delivery Method Room Air BMI result Body Mass Index 50.5 Const Other: The patient is a chronically ill-appearing 77-year-old who was awake and alert did not seem in acute distress. He answered yes/no questions with one-word answers. He would also nod or shake his head. He did not speak in any other way. HENMT Other: Face seemed to symmetrical at rest but with active testing there seemed to be left-sided facial weakness. Mucous membranes unremarkable. Eyes Other: Pupils are round equal, conjunctivae are clear, extraocular movements intact. Lateral gaze seemed intact bilaterally. It was difficult to examine the patient's physical may by confrontation as it was not clear he understood the instructions. However had the impression that he had no visual field deficit. Neck Neck: Yes no JVD Resp Effort & Inspection: normal respiratory effort Auscultation: clear to auscultation bilaterally Cardio Rate: regular rate Rhythm: regular rhythm Heart sounds: S1 normal heart sound present and S2 normal heart sound present GI Other: Abdomen is soft and nontender Other: Abdomen is soft and nontender Skin Other: Skin is dry and unremarkable Neuro Other: The patient is awake. He is not oriented to time. He could not correctly identify his age or the month. He was able to name both of his sons who were at the bedside. He was able to identify them as his sons. Eye movements are intact. Visual may seem intact to confrontation but testing was difficult because of poor understanding. He seemed to have left facial weakness with active testing. His left arm is very weak but this is apparently chronic. Strength in the right arm seemed intact without pronator drift. He has bilateral [id number] amputations. He has very small stumps of thighs. He was able to move them both. NIH stroke scale is at least 5 but this is in part because of left arm weakness which is chronic. Extrem Other: Bilateral very proximal [id number] amputations. Medications Administered Generic Name Dose Route Start Last Admin Trade Name Freq PRN Reason Stop Dose Admin Aspirin 81 mg 05/20/23 19:45 05/20/23 20:21 Aspirin Enteric Coated 81 Mg Tablet. PO 81 mg DAILY BERNADETTE Administration Atorvastatin Calcium 80 mg 05/20/23 21:00 05/20/23 20:21 Atorvastatin Calcium 80 Mg Tablet PO 80 mg BEDTIME BERNADETTE Administration Enoxaparin Sodium 40 mg 05/20/23 20:00 05/20/23 20:21 Enoxaparin Sodium 40 Mg/0.4 Ml Syringe SUBCUT 40 mg Q24H BERNADETTE Administration Discontinued Medications Generic Name Dose Route Start Last Admin Trade Name Opal PRN Reason Stop Dose Admin Iohexol 100 ml 05/20/23 15:46 05/20/23 15:46 Iohexol 350 Mg/Ml 100 Ml Infus..Btl IV 05/20/23 15:47 70 ml ONCE ONE Administration Medical Decision Making Medical Decision Making [facility] Narrative: The patient is a 77-year-old male who is brought to the hospital [facility] at the request of his family. The family feels that his mental status and neurological function has deteriorated. It is not clear when his last known well time was. His family reports that he seemed similarly abnormal yesterday. According to the family he was his usual self a week ago. His last known well time was therefore at least more than 24 hours ago. The patient is primary objective physical finding that might indicate a stroke is left facial weakness which the family says is new. The patient's NIH stroke scale is at least 5. He has a history of dementia and my impression is that his inability to name the month or tell me his age correctly is probably more related to dementia than a stroke. Nevertheless multiple family members confirmed the patient seems to have new disorientation and left facial droop. The patient is not a candidate for thrombolytic therapy as his last known well time was sometime before [address] shows what might be a small right cortical stroke. Conceivably this could be consistent with his left facial weakness. CT angiogram of the head and neck shows no acute findings. Laboratory testing does not suggest any acute metabolic process to account for the patient's changes. I therefore think the patient likely has had a new small stroke and will be hospitalized for further evaluation. He passed a nursing bedside swallow eval. The patient also has a history of lung cancer for which he has received treatment at [facility]. Lab Data 05/20/23 14:46 05/20/23 14:46 Labs: Lab Results 05/20/23 05/20/23 Range/Units 14:46 17:21 WBC 5.9 (4.8-10.8) X10*3/uL RBC 4.50 L (4.60-5.80) X10*6/uL Hgb 12.2 L (14.0-18.0) g/dl Hct 39.0 L (42.0-52.0) % MCV 86.7 (80.0-98.0) fL MCH 27.1 (27.0-33.0) pg MCHC 31.3 (31.0-36.0) g/dl RDW 16.9 H (11.0-16.0) % Plt Count 216 (160-400) X10*3/uL MPV 9.6 (9.4-12.4) fL Immature Gran % (Auto) 0.5 H (0.0-0.4) % Neut % (Auto) 70.8 (45-73) % Lymph % (Auto) 18.9 L (20-40) % [place] % (Auto) 7.3 (2-11) % Eos % (Auto) 2.0 (0-4) % Baso % (Auto) 0.5 (0-2) % Lymph # (Auto) 1.1 L (1.2-4.9) X10*3/uL [place] # (Auto) 0.4 (0.1-1.2) X10*3/uL Eos # (Auto) 0.1 (0.0-0.4) X10*3/uL Baso # (Auto) 0.0 (0.0-0.2) X10*3/uL Abs Immat Gran (auto) 0.03 (0.00-0.03) X10*3/uL Absolute Neuts (auto) 4.2 (2.0-8.3) x10*3/uL Absolute Nucleated RBC 0.000 (0.0-0.012) X10*3/uL Nucleated RBC % (auto) 0.0 (0.0-0.2) /100WBC Sodium 140 (135-145) mmol/L Potassium 4.1 (3.3-5.1) mmol/L Chloride 104 (96-108) mmol/L Carbon Dioxide 26 (22-29) mmol/L Anion Gap 14 (12-20) BUN 14 (9-16) mg/dL Creatinine 0.62 (0.5-1.4) mg/dL Estim Creat Clear Calc 60.3 Estimated GFR > 60 Random Glucose 232 H (60-115) mg/dL Calcium 9.2 (8.4-10.2) mg/dL Magnesium 1.6 (1.6-2.6) mg/dL Total Bilirubin 0.3 (0.0-1.0) mg/dL Direct Bilirubin 0.1 (0.0-0.5) mg/dL AST 19 (5-37) U/L ALT 24 (0-40) U/L Alkaline Phosphatase 157 H (39-117) U/L Troponin I High Sens < 2.7 (<3.5-35.0) ng/L C-Reactive Protein 0.99 H (< or = 0.50) mg/dL B-Natriuretic Peptide < 10 (<100) pg/mL Total Protein 6.6 (6.5-8.0) g/dL Albumin 3.6 (3.5-5.0) g/dL Triglycerides 217 H (<150) mg/dL Cholesterol 80 (<200) mg/dL LDL Cholesterol, Calc 16 (<100) mg/dL HDL Cholesterol 21 L (>40) mg/dL Urine Color Yellow Urine Appearance Clear Urine pH 5.5 (5.0-9.0) Ur Specific [place] >= 1.030 H (1.005-1.025) Urine Protein Trace (Neg-Trace) mg/dL Urine Glucose (UA) Negative (Negative) mg/dL Urine Ketones 15 (Negative) mg/dL Urine Blood Negative (Negative) Urine Nitrite Negative (Negative) Ur Leukocyte Esterase Negative (Negative) Urine Opiates Screen Not Detected (Not Detect) Urine Fentanyl Screen Not Detected (Not Detect) Ur Barbiturates Screen Not Detected (Not Detect) Valproic Acid 17.7 L (50.0-100.0) mcg/mL Ur Phencyclidine Scrn Not Detected (Not Detect) Ur Amphetamines Screen Not Detected (Not Detect) U Benzodiazepines Scrn Not Detected (Not Detect) Urine Cocaine Screen Not Detected (Not Detect) U Marijuana (THC) Screen Not Detected (Not Detect) Ethyl Alcohol < 10 mg/dL Influenza Type A (PCR) NEGATIVE (Negative) Influenza Type B (PCR) NEGATIVE (Negative) RSV RNA Qual (PCR) NEGATIVE (Negative) SARS-CoV-2 RNA (RT-PCR) NEGATIVE (Negative) Independent Interpretation I performed an independent interpretation of an: EKG Interpretation: EKG at 14:29 shows sinus tachycardia at 101 beats per minute. There is an incomplete right bundle branch block. No definite acute ischemic changes. No significant change from previous EKG. Critical Care Time Critical Care Time Critical Care Time: Yes Total Critical Care Time: 45 Attestation: The patient was critically ill with a high probability of imminent or life- threatening deterioration. ?I spent greater than 30 minutes of discontinuous time evaluating the patient, delivering critical care at the bedside, discussing evaluating data with consultants. ?Critical care time does not include time spent performing separately billable procedures or teaching. ?Time spent performing critical care with 45 minutes. Discharge Plan Discharge Clinical Impression: Stroke Patient Disposition: Admitted As Inpatient
[2023-05-20 14:50] LABS: MANUAL DIFF FLAG NO
[2023-05-20 14:56] LABS: Basophils Percent Auto 0.5 % (0-2); Eosinophils Absolute Auto 0.1 X10*3/uL (0.0-0.4); Hemoglobin 12.2 g/dl (14.0-18.0); Imm Gran Abs Auto 0.03 X10*3/uL (0.00-0.03); Imm Gran Pct Auto 0.5 % (0.0-0.4); Lymphocytes Absolute Auto 1.1 X10*3/uL (1.2-4.9); Lymphocytes Percent Auto 18.9 % (20-40); Mean Corpuscular HGB Conc 31.3 g/dl (31.0-36.0); Mean Corpuscular Hemoglobin 27.1 pg (27.0-33.0); Mean Corpuscular Volume 86.7 fL (80.0-98.0); Mean Platelet Volume 9.6 fL (9.4-12.4); Monocytes Absolute Auto 0.4 X10*3/uL (0.1-1.2); Monocytes Percent Auto 7.3 % (2-11); Neutrophils Absolute Auto 4.2 x10*3/uL (2.0-8.3); Neutrophils Percent Auto 70.8 % (45-73); Platelet Count 216 X10*3/uL (160-400); Red Cell Distribution Width 16.9 % (11.0-16.0); White Blood Count 5.9 X10*3/uL (4.8-10.8)
[2023-05-20 15:08] LABS: Valproate 17.7 mcg/mL (50.0-100.0)
[2023-05-20 15:10] LABS: Alanine Aminotransferase 24 U/L (0-40); Albumin Level 3.6 g/dL (3.5-5.0); Alkaline Phosphatase 157 U/L (39-117); Anion Gap 14 (12-20); Aspartate Amino Transferase 19 U/L (5-37); Bilirubin Direct 0.1 mg/dL (0.0-0.5); Bilirubin Total 0.3 mg/dL (0.0-1.0); Blood Urea Nitrogen 14 mg/dL (9-16); C Reactive Protein 0.99 mg/dL (< or = 0.50); Calcium 9.2 mg/dL (8.4-10.2); Carbon Dioxide 26 mmol/L (22-29); Chloride 104 mmol/L (96-108); Creatinine Clr Calc Pharmacy 60.3; Estimated Glomerular Filt Rate > 60; Ethanol < 10 mg/dL; Glucose Random 232 mg/dL (60-115); Magnesium 1.6 mg/dL (1.6-2.6); Potassium 4.1 mmol/L (3.3-5.1); Sodium 140 mmol/L (135-145); Total Protein 6.6 g/dL (6.5-8.0)
[2023-05-20 15:12] LABS: B Type Natriuretic Peptide < 10 pg/mL (<100)
[2023-05-20 15:31] LABS: Influenza A PCR NEGATIVE (Negative); Influenza B PCR NEGATIVE (Negative); Resp Syncy Virus RNA Qual PCR NEGATIVE (Negative); SARS COV2 PCR INHOUSE NEGATIVE (Negative)
[2023-05-20] MEDS: iohexoL 350 MG/ML 100 ML INFUS..BTL IV (15:46)
[2023-05-20 16:49] LABS: Troponin-I High Sensitivity < 2.7 ng/L (<3.5-35.0)
--- NOTE | 2023-05-20 17:23 | MHC.EDTECH ---
PATIENT URINE SAMPLE COLLECTED AND SENT TO LAB ,VITALS TAKEN .
[2023-05-20 17:26] LABS: Appearance Urine Clear; Color Urine Yellow; Glucose Urine UA Negative (Negative); Leukocyte Esterase Urine Negative (Negative); Nitrite Urine Negative (Negative); PH 5.5 (5.0-9.0); Specific Gravity - Urine >= 1.030 (1.005-1.025); Urine Blood Negative (Negative); Urine Ketones 15 mg/dL (Negative); Urine Protein Trace mg/dL (Neg-Trace)
[2023-05-20 17:34] LABS: Amphetamine Screen Urine Not Detected (Not Detect); Barbiturates, Urine Not Detected (Not Detect); Benzodiazepines Screen Urine Not Detected (Not Detect); Cannabinoid Screen Urine Not Detected (Not Detect); Cocaine Screen Urine Not Detected (Not Detect); Fentanyl, urine Not Detected (Not Detect); Opiate Screen Urine Not Detected (Not Detect); Phencyclidine Screen Urine Not Detected (Not Detect)
--- NOTE | 2023-05-20 19:23 | PC.NURSE ---
this rn assumed care of pt. pt resting in stretcher at this time, no acute distress. pt denies pain at this time. vss. pt family at bedside.
--- NOTE | 2023-05-20 19:32 | P.HPHOSP_ITS ---
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 His sons who are at bedside states they noted his ams from baseline yesterday, but state the facility never reported this so onset is unknown. The patient is a limited historian but knows his name and that he is in the hospital. His sons also report worsening cough and congestion. No fevers, chills, abd pain, n/v/d, sob, lightheadedness, palpitations, new focal weakness/paresthesias, chest pain. On arrival, VSS, no hypertension. No leukocytosis, stable normocytic anemia. Renal fx baseline, lytes normal, glucose 232. Trop below detectable limits, bnp below detectable limits. UA unremarkable. U tox negative. Negative for covid, flu, rsv. cxr shows left supra hilar opacity but no other acute focal consolidation CTA head/neck shows questionable loss of lee/white matter differentiation within the right postcentral gyrus that may represent a small acute cortical infarct and there were also numerous chronic lacunar infarcts within the basal ganglia and thalami. There has also a chronic cortical infarct within the right precentral and postcentral gyri. There is no large vessel occlusion or hemodynamically significant stenosis. There is a TORRI nodule unchanged from prior imaging as well as a new 0.8cm spiculated nodule w/in the TORRI with a margin or surrounding groundglass opacification. <MILADY Flores - Last Filed: 05/20/23 20:09> Review of Systems 2 Review of Systems: General: No fevers, malaise, unintentional weight loss HEENT: No blurred vision, diplopia. No sore throat, nasal congestion, rhinorrhea, sinus pain, ear pain Cardiovascular: No chest pain, palpitations, or leg edema Respiratory: +cough. No shortness of breath, wheezing GI: No abdominal pain, nausea, vomiting, diarrhea, constipation, melena, hematochezia : No dysuria, hematuria, increased urinary frequency, decreased urinary output MSK: No myalgia, back pain Neuro: No headaches. +confusion, +left facial droop, +chronic Left sided weakness LUE and LLE Skin: No rashes or lesions <MILADY Flores - Last Filed: 05/20/23 20:09> [facility] Medical History: Medical History (Updated 05/20/23 @ 19:52 by MILADY Flores) HLD (hyperlipidemia) Vascular dementia Non-small cell cancer of left lung Dysphagia as late effect of cerebrovascular accident (CVA) Stroke HTN (hypertension) Diabetes CVA (cerebral vascular accident) <MILADY Flores - Last Filed: 05/20/23 20:09> Family History: Family History Father Hx of type 1 diabetes mellitus Mother History of heart attack <MILADY Flores - Last Filed: 05/20/23 20:09> Surgical History: Surgical History (Updated 05/20/23 @ 19:52 by MILADY Flores) S/P AKA (above knee amputation) bilateral History of colonoscopy <MILADY Flores - Last Filed: 05/20/23 20:09> Social History: Social History Household Members: None Housing: Apartment Do you presently have visiting nurse or other home services: No Alcohol intake: unknown Patient Tobacco Use Status: Never used Tobacco Cigarette Packs Per Day: 1 Cigarettes Per Day: 20.0 Smoked in Last 30 Days: No Second Hand Smoke Exposure: Yes Use of substances other than those prescribed or required for medical reasons: No Advance Directives: Yes Advance Directives on File: Yes Advance Directives Date on File: 08/08/20 service: No Current occupational status: unemployed and disabled <MILADY Flores - Last Filed: 05/20/23 20:09> Meds Allergies/Adverse reactions: Allergies Allergy/AdvReac Type Severity Reaction Status Date / Time No Known Allergies Allergy Unknown NONE Verified 09/06/20 13:17 <MILADY Flores - Last Filed: 05/20/23 20:09> Home medications: Home Medications Medication Instructions Recorded Confirmed Last Taken Type atorvastatin 40 mg tablet 40 mg PO BEDTIME 03/29/20 05/20/23 12/14/21 History clopidogrel 75 mg tablet (Plavix) 75 mg PO DAILY 03/29/20 05/20/23 12/15/21 History cholecalciferol (vitamin D3) 50 50 mcg PO DAILY 04/12/20 05/20/23 12/15/21 History mcg (2,000 unit) capsule metoprolol tartrate 25 mg tablet 25 mg PO BID 04/12/20 05/20/23 12/15/21 [facility] 08/03/20 Unknown History Ultra Blue Test Strip) chlorhexidine gluconate 0.12 % 15 ml PO BID 08/03/20 05/20/23 12/15/21 History mouthwash ferrous sulfate 325 mg (65 mg 1 tab PO TID 08/03/20 05/20/23 12/15/21 History iron) tablet (FeroSul) fluticasone furoate 100 1 puff inhalation DAILY 08/03/20 05/20/23 12/15/21 History mcg-vilanterol 25 mcg/dose inhalation powder (Breo Ellipta) insulin glargine 100 unit/mL (3 50 unit subcut BEDTIME 08/03/20 05/20/23 12/14/21 History mL) subcutaneous pen (Lantus Solostar U-100 Insulin) lancets 33 gauge (OneTouch Delica 08/03/20 08/03/20 Unknown History Plus Lancet) metformin 500 mg tablet 500 mg PO BEDTIME 08/03/20 05/20/23 12/15/21 History multivitamin (One Daily 1 tab PO DAILY 08/03/20 05/20/23 12/15/21 History Multivitamin tablet) pen needle, diabetic 32 gauge x 08/03/20 08/03/20 Unknown History (UltiCare Pen Needle) ascorbic acid (vitamin C) 250 mg 250 mg PO BID 12/15/21 05/20/23 12/15/21 History tablet divalproex 125 mg capsule,delayed 2 cap PO DAILY 12/15/21 05/20/23 12/15/21 History release sprinkle insulin lispro 100 unit/mL 0 sliding scale dose subcut TIDAC 12/15/21 05/20/23 Unknown History subcutaneous solution pantoprazole 40 mg tablet,delayed 1 tab PO DAILY 12/15/21 05/20/23 12/15/21 History release sennosides 8.6 mg-docusate sodium 2 tab PO BID constipation 12/15/21 05/20/23 12/14/21 History 50 mg tablet (Senna with Docusate Sodium) acetaminophen 325 mg tablet 650 mg PO Q4H PRN Pain 05/20/23 05/20/23 Unknown History albuterol sulfate 90 mcg/actuation 2 puff inhalation Q4H PRN 05/20/23 05/20/23 Unknown History aerosol inhaler (ProAir HFA) Shortness Of Breath Or Wheezing bisacodyl 10 mg rectal suppository 10 mg NC DAILY PRN Constipation 05/20/23 05/20/23 Unknown History guaifenesin 100 mg/5 mL oral liquid 200 mg PO Q4H PRN Cough 05/20/23 05/20/23 Unknown History magnesium hydroxide 2,400 mg/10 mL 30 ml PO DAILY PRN Constipation 05/20/23 05/20/23 Unknown History oral suspension (Milk Of Magnesia Concentrated) magnesium oxide 400 mg PO BID 05/20/23 05/20/23 Unknown History metformin 500 mg tablet 1,000 mg PO QAM 05/20/23 05/20/23 Unknown History sodium phosphates 19 gram-7 118 ml NC DAILY PRN Constipation 05/20/23 05/20/23 Unknown History gram/118 mL enema (Fleet Enema) <MILADY Flores - Last Filed: 05/20/23 20:09> Physical Exam 2 Vital Signs and Narrative: Vital Signs: Last Vital Signs Temp 98.6 F 05/20/23 19:22 Pulse 100 05/20/23 19:22 Resp 15 05/20/23 19:22 BP 100/64 05/20/23 19:22 Pulse Ox 100 05/20/23 19:22 O2 Del Method Room Air 05/20/23 19:22 BMI result Body Mass Index 50.5 <MILADY Flores - Last Filed: 05/20/23 20:09> Constitutional - Awake and Alert, No apparent distress Eyes - PERRLA, EOMI Cardiovascular - S1S2, RRR, No edema Respiratory - Normal lung expansion, Normal respiratory effort, No respiratory distress, CTA bilaterally Gastrointestinal - NT / ND; +BS; No rebound or guarding Extremities - no calf tenderness bilaterally, no swelling Skin - Warm/Dry Neurological - Alert & oriented to self knows he is in hospital, left sided facial droop otherwise CN II-XII in tact, 5/5 strength RUE and BLE, 1/5 strength LUE Psychological - Appropriate affect <MILADY Flores - Last Filed: 05/20/23 20:09> Results Labs CBC and Chem 7: 05/20/23 14:46 05/20/23 14:46 <MILADY Flores - Last Filed: 05/20/23 20:09> Labs: Laboratory Results - last 24 hr 05/20/23 05/20/23 14:46 17:21 MCV 86.7 MCH 27.1 MCHC 31.3 RDW 16.9 H Plt Count 216 MPV 9.6 Immature Gran % (Auto) 0.5 H Neut % (Auto) 70.8 Lymph % (Auto) 18.9 L [place] % (Auto) 7.3 Eos % (Auto) 2.0 Baso % (Auto) 0.5 Lymph # (Auto) 1.1 L [place] # (Auto) 0.4 Eos # (Auto) 0.1 Baso # (Auto) 0.0 Abs Immat Gran (auto) 0.03 Absolute Neuts (auto) 4.2 Absolute Nucleated RBC 0.000 Nucleated RBC % (auto) 0.0 Anion Gap 14 Estim Creat Clear Calc 60.3 Estimated GFR > 60 Random Glucose 232 H Calcium 9.2 Magnesium 1.6 Total Bilirubin 0.3 Direct Bilirubin 0.1 AST 19 ALT 24 Alkaline Phosphatase 157 H Troponin I High Sens < 2.7 C-Reactive Protein 0.99 H B-Natriuretic Peptide < 10 Total Protein 6.6 Albumin 3.6 Urine Color Yellow Urine Appearance Clear Urine pH 5.5 Ur Specific [place] >= 1.030 H Urine Protein Trace Urine Glucose (UA) Negative Urine Ketones 15 Urine Blood Negative Urine Nitrite Negative Ur Leukocyte Esterase Negative Urine Opiates Screen Not Detected Urine Fentanyl Screen Not Detected Ur Barbiturates Screen Not Detected Valproic Acid 17.7 L Ur Phencyclidine Scrn Not Detected Ur Amphetamines Screen Not Detected U Benzodiazepines Scrn Not Detected Urine Cocaine Screen Not Detected U Marijuana (THC) Screen Not Detected Ethyl Alcohol < 10 Influenza Type A (PCR) NEGATIVE Influenza Type B (PCR) NEGATIVE RSV RNA Qual (PCR) NEGATIVE SARS-CoV-2 RNA (RT-PCR) NEGATIVE <MILADY Flores - Last Filed: 05/20/23 20:09> Imaging Radiologist's Impressions: Impressions Chest X-Ray 05/20/23 15:30 IMPRESSION: Left suprahilar opacity. Patient with history of lung cancer. If if not recently performed, chest CT recommended. Head/Neck CTA 05/20/23 16:08 IMPRESSION: There is questionable loss of lee-white matter differentiation within the right postcentral gyrus that may represent a small acute cortical infarct. A dedicated brain MRI can be obtained for better anatomic characterization of this finding. Numerous chronic lacunar infarcts are visualized within the basal ganglia and thalami. A small chronic cortical infarct within the right precentral and postcentral gyri along the lateral convexity has remained stable when compared to prior imaging from 12/15/2021. No acute intracranial hemorrhage. No abnormal intracranial mass or enhancement. The CT angiogram of the head and neck is otherwise unremarkable in that there is no stenosis of the cervical carotid or vertebral arteries. No intracranial large vessel occlusion. Of note there is a part solid pulmonary nodule within the left upper lobe. The solid component of this lesion has not substantially changed when compared to the CT angiogram of the head and neck from 08/03/2020. Correlation with clinical history is recommended. A follow-up CT scan of the chest can be undertaken at 3-6 months to assess stability. Incidentally there is a 0.8 cm spiculated nodule within the left upper lobe with a margin of surrounding groundglass opacification. This finding is new when compared to prior imaging from 08/03/2020. 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 NO LVO or stenosis -MRI brain ordered -give asa 81mg now, continue daily. continue plavix -passed bedside swallow eval, DM diet- chopped/thin liquids due to chronic dysphagia -echo -lipid panel pending, atorvastatin -neurology consult -pt/ot -admit to med/tele #Cough -chronic, but worsening per sons. nonproductive, afebrile, no hypoxia -negative covid/flu, check viral panel -symptomatic management # insulin-dependent type 2 diabetes -hemoglobin A1c pending -dose adjusted basal insulin -diabetic diet, Humalog sliding scale, POC glucose -hold metformin # hypertension -resume lisinopril and metoprolol a.m. # COPD -no acute exacerbation -continue maintenance inhalers, albuterol p.r.n. # HLD -statin # anemia of chronic disease -H/H baseline, above transfusion threshold -continue ferrous sulfate #Vascular dementia with mood disturbance -continue home meds #h/o cva with sequela of dysphagia and left sided hemiparesis (predominanlty LUE) -asa, plavix, statin #H/o lung cancer -per daughter/granddaughter (HCP's), treated with radiation and supposedly in remission -new 0.8cm spiculated nodule with surrounding groundglass -outpt follow up with oncology and repeat CT advised DVT prophylaxis-Lovenox DNR/DNI Patient requires inpatient stay at least 2 midnights for management of acute CVA <MILADY Flores - Last Filed: 02/27/24 20:09> 77 year old male with history of insulin dependent type 2 diabetes, htn, hld, h/o cva with sequela of left sided hemiparesis, s/p b/l aka, copd, vascular dementia, anemia of chronic disease, dysphagia, and history of lung cancer admitted for CVA #Acute CVA -new left sided facial droop and altered mental status- outside window for tPn -cta head/neck shows questionable loss of lee/white matter differentiation within the right postcentral gyrus which may represent a small acute cortical infarct as well as numerous chronic lacunar infarcts and chronic cortical infarct within the right precentral and postcentral gyri. NO LVO or stenosis -MRI brain ordered -give asa 81mg now, continue daily. continue plavix -passed bedside swallow eval, DM diet- chopped/thin liquids due to chronic dysphagia -echo -lipid panel pending, atorvastatin -neurology consult -pt/ot -admit to med/tele #Cough -chronic, but worsening per sons. nonproductive, afebrile, no hypoxia -negative covid/flu, check viral panel -symptomatic management # insulin-dependent type 2 diabetes -hemoglobin A1c pending -dose adjusted basal insulin -diabetic diet, Humalog sliding scale, POC glucose -hold metformin # hypertension -resume lisinopril and metoprolol a.m. # COPD -no acute exacerbation -continue maintenance inhalers, albuterol p.r.n. # HLD -statin # anemia of chronic disease -H/H baseline, above transfusion threshold -continue ferrous sulfate #Vascular dementia with mood disturbance -continue home meds #h/o cva with sequela of dysphagia and left sided hemiparesis (predominanlty LUE) -asa, plavix, statin #H/o lung cancer -per daughter/granddaughter (HCP's), treated with radiation and supposedly in remission -new 0.8cm spiculated nodule with surrounding groundglass -outpt follow up with oncology and repeat CT advised DVT prophylaxis-Lovenox DNR/DNI Patient requires inpatient stay at least 2 midnights for management of acute CVA <Cheyenne Mobley MD - Last Filed: 05/20/23 20:42> Quality Stroke Does the patient have a stroke diagnosis?: Yes <MILADY Flores - Last Filed: 05/20/23 20:09> Reason for No Anti-thrombotic by Day Two: Not indicated <MILADY Flores - Last Filed: 05/20/23 20:09> VTE Prior VTE?: No <MILADY Flores - Last Filed: 05/20/23 20:09> VTE Risk Level:: Medical - moderate - high <MILADY Flores - Last Filed: 05/20/23 20:09> VTE Device Contraindication: Treatment Not Indicated <MILADY Flores - Last Filed: 05/20/23 20:09> VTE Drug Contraindication: Patient Refused <MILADY Flores - Last Filed: 05/20/23 20:09>
[2023-05-20 19:57] LABS: Cholesterol 80 mg/dL (<200); HDL Cholesterol 21 mg/dL (>40); LDL Cholesterol Calculated 16 mg/dL (<100); Triglycerides 217 mg/dL (<150)
[2023-05-20] MEDS: Aspirin Enteric Coated 81 MG TABLET.DR PO (20:21)
[2023-05-20] MEDS: Atorvastatin Calcium 80 MG TABLET PO (20:21)
[2023-05-20] MEDS: Enoxaparin Sodium 40 MG/0.4 ML SYRINGE SUBCUT (20:21)
--- NOTE | 2023-05-20 20:24 | PC.NURSE ---
pt medicated per may, pt tolerated medication well crushed in pudding or small whole pills in pudding.
--- NOTE | 2023-05-20 20:57 | PHA.MEDREC ---
Pharmacy Consult ? Medication Reconciliation Pharmacy has completed the medication reconciliation. Confirmed medication with list from facility ([facility])
--- NOTE | 2023-05-21 00:09 | PC.NURSE ---
pt noted to be sinus tachy 160-200, called to bedside, repeat ekg completed, pt sinus tachy 102-106.
[2023-05-21] MEDS: Magnesium Sulfate/H2O 2 GM/50 ML PIGGYBACK IV (00:23)
[2023-05-21 03:36] VITALS: BP 119/64; PULSE 96; RESP 13; TEMP 36.6; O2SAT 95
[2023-05-21 05:55] LABS: MANUAL DIFF FLAG NO
[2023-05-21 05:59] LABS: Basophils Percent Auto 0.6 % (0-2); Eosinophils Absolute Auto 0.1 X10*3/uL (0.0-0.4); Eosinophils Percent Auto 2.3 % (0-4); Hematocrit 33.4 % (42.0-52.0); Imm Gran Abs Auto 0.03 X10*3/uL (0.00-0.03); Imm Gran Pct Auto 0.6 % (0.0-0.4); Lymphocytes Absolute Auto 1.5 X10*3/uL (1.2-4.9); Lymphocytes Percent Auto 29.8 % (20-40); Mean Corpuscular HGB Conc 32.9 g/dl (31.0-36.0); Mean Corpuscular Hemoglobin 27.2 pg (27.0-33.0); Mean Corpuscular Volume 82.5 fL (80.0-98.0); Mean Platelet Volume 10.3 fL (9.4-12.4); Monocytes Absolute Auto 0.4 X10*3/uL (0.1-1.2); Monocytes Percent Auto 7.6 % (2-11); Neutrophils Absolute Auto 2.9 x10*3/uL (2.0-8.3); Neutrophils Percent Auto 59.1 % (45-73); Platelet Count 196 X10*3/uL (160-400); Red Blood Count 4.05 X10*6/uL (4.60-5.80); Red Cell Distribution Width 16.9 % (11.0-16.0); White Blood Count 4.9 X10*3/uL (4.8-10.8)
[2023-05-21 06:16] LABS: Anion Gap 12 (12-20); Blood Urea Nitrogen 16 mg/dL (9-16); Calcium 8.5 mg/dL (8.4-10.2); Carbon Dioxide 26 mmol/L (22-29); Chloride 101 mmol/L (96-108); Creatinine Clr Calc Pharmacy 51.2; Estimated Glomerular Filt Rate > 60; Glucose Random 327 mg/dL (60-115); Sodium 135 mmol/L (135-145)
--- NOTE | 2023-05-21 07:00 | CA_ITS ---
Transthoracic Echocardiogram Patient (Last, First, Middle): Ridge Lira M Gender: Male Date of : 1945 Age: 77 Procedure Date: 05/21/2023 Procedure Type: Transthoracic Echocardiogram Location: ER Height: 121.92 cm Weight: 74.84 kg BSA: 1.46 m2 Heart Rate: bpm BP: 119 / 64 mmHg Ship Mate: Referring MD: Trish HENNING Symptoms: cva Study Quality: Fair w Contrast ECG Rhythm: Sinus Conclusions: - The left ventricular systolic function is hyperdynamic. The visually estimated ejection fraction is >70%. - No obvious valvular pathology seen on this study. Findings Left Ventricle Normal left ventricular cavity size. There is mildly increased left ventricular wall thickness. The left ventricular systolic function is hyperdynamic. The visually estimated ejection fraction is >70%. There is no evidence of regional wall motion abnormalities. Diastolic function is normal for age. Right Ventricle Normal right ventricular cavity size and systolic function. Atria The left atrium is normal in size. The right atrium was not well visualized. Aortic Valve There is mild calcification of the aortic valve. There is no aortic valve stenosis. There is no aortic valve regurgitation. Mitral Valve The mitral valve appears normal. There is no mitral valve regurgitation. There is no mitral valve stenosis. Pulmonic Valve The pulmonic valve is likely normal. Tricuspid Valve There is trace tricuspid valve regurgitation. There is no evidence of pulmonary hypertension. Great Vessels The asc aorta is normal in size. Venous The inferior vena cava is normal in size and collapses greater than 50% with inspiration. Pericardium/Pleural There is no evidence of pericardial effusion. Prior Study Comparison No prior study available for comparison. Recommendations, Care & Conclusions No obvious valvular pathology seen on this study. Measurements 2D Linear Measurements IVSd: 1.10 0.6-0.9/0.6-1.0 cm LVIDd: 3.13 3.9-5.3/4.2-5.9 cm LVIDd Index: 2.14 2.4-3.2/2.2-3.1 cm/m2 LVIDs: 2.05 2.0-3.6 cm LVPWd: 1.11 0.7-1.1 cm Ao Root: 3.30 2.1-3.5 cm LA Diam: 2.90 2.7-3.8/3.0-4.0 cm LAIDs Index: 1.99 1.5-2.3 cm/m2 LV Mass: 126.47 67-162/88-224 g LV Mass Index: 86.63 43-95/49-115 g/m2 LVOT Diam: 2.00 3.0+(-)1.3 cm Mitral Valve MV Pk E: 0.46 MV PK A: 0.84 MV Decel Time: 139.00 E/A: 0.50 E'Lateral: 3.59 E'Medial: 3.92 E/E' Med: 11.70 E/E' Lat: 12.80 PHT: 41.00 MVA PHT: 5.37 Decel Davie: 3.31 Aortic Valve AoV Pk Edi: 1.81 AoV Mn Edi: 1.15 AoV VTI: 0.30 AoV Pk Grad: 13.00 Aov Mn Grad: 7.00 AELX Cont.VTI: 2.13 LVOT LVOT Pk Edi: 1.38 LVOT Mn Edi: 0.79 LVOT VTI: 0.20 LVOT Pk Grad: 8.00 LVOT Mn Grad: 3.00 LVOT Diam: 2.00 LVOT Area: 3.14 Diastolic Function MV Pk E: 0.46 MV Pk A: 0.84 E/A: 0.50 E'Medial: 3.92 E/E' Med: 11.70 E' Laterial: 3.59 E/E' Lat: 12.80 Right Ventricle TAPSE (mm): 28.00 TVS' Edi: 14.00 Tricuspid Valve TR Pk Edi: 1.97 TR Pk Grad: 16.00 RA Press: 3.00 RVSP: 19.00 Great Vessels Aorta Ao Root-2D: 3.30 2.0-3.7 cm Ao Asc: 3.70 2.1-3.4 cm Pulmonary Valve PV Pk Edi: 1.09 Peak PV Grad: 5.00 Updated in Other Vendor System with Status of Final Dago Avendano MD electronically signed on 05/21/2023 8:35:07 AM with status of Final
--- NOTE | 2023-05-21 07:23 | PC.NURSE ---
assumed care of pt at 0700. pt sleeping with son at bedside. rr even/unlabored. MRI screening form complete and faxed to MRI. call cervantes within reach. plan of care ongoing.
[2023-05-21 07:27] VITALS: BP 119/64; PULSE 96; O2SAT 95
[2023-05-21 07:29] LABS: Estimated Average Glucose 143 mg/dL; Hemoglobin A1c % 6.6 % (<6.0)
[2023-05-21 07:46] LABS: Glucose, Whole Blood 317 mg/dL (60-115)
--- NOTE | 2023-05-21 07:47 | PC.NURSE ---
poc 317. Ton Dela rCuz notified as pt has no insulin or diabetes medication ordered in may.
--- NOTE | 2023-05-21 08:25 | PC.NURSE ---
pt to MRI.
--- NOTE | 2023-05-21 09:10 | PC.NURSE ---
pt back from MRI.
[2023-05-21 09:25] VITALS: BP 114/67; PULSE 92; RESP 16; O2SAT 95
[2023-05-21] MEDS: Aspirin Enteric Coated 81 MG TABLET.DR PO (09:26)
[2023-05-21] MEDS: Metoprolol Tartrate 25 MG TABLET PO ×2 (09:26→20:57)
[2023-05-21] MEDS: Magnesium Oxide 400 MG TABLET PO ×2 (09:27→20:57)
[2023-05-21] MEDS: Ferrous Sulfate 324 MG TABLET.DR PO ×3 (09:29→20:57)
[2023-05-21] MEDS: Omeprazole 20 MG CAPSULE.DR PO (09:32)
[2023-05-21] MEDS: Divalproex Sodium Sprinkles 125 MG CAP.DR.SPR 250 MG PO (09:33)
[2023-05-21] MEDS: Insulin Lispro 100 UNIT/ML 3 ML VIAL SUBCUT ×4 (09:35→20:58)
--- NOTE | 2023-05-21 10:35 | P.PNIM_ITS ---
Subjective Subjective Date of Service: 05/21/23 Interval History: Follow up TIA symptoms hx dementia no pain or discomfort Cardiovascular Cardiovascular: Reports no additional cardiovascular complaints Respiratory Respiratory: Reports no additional respiratory complaints Physical Exam 2 Vital Signs: Vital Signs: Last Vital Signs Temp 97.9 F 05/21/23 03:36 Pulse 92 05/21/23 09:25 Resp 16 05/21/23 09:25 BP 114/67 05/21/23 09:25 Pulse Ox 95 05/21/23 09:25 O2 Del Method Room Air 05/21/23 09:25 BMI result Body Mass Index 50.5 Appearing in no acute distress lung sounds are clear to auscultation heart regular rate rhythm, clear S1, S2 positive bowel sounds, abdomen is soft, nontender neuro patient is alert, confused Bilateral BKA Objective Data Active Medications Acetaminophen (Acetaminophen 325 Mg Tablet) 650 mg PO Q6H PRN PRN Reason: Pain, Mild (Pain Scale 1-3) Albuterol Sulfate (Albuterol Sulfate 90 Mcg 8 Gm Inhaler) 2 puff INHALE Q4H PRN PRN Reason: Shortness Of Breath Or Wheezing Ascorbic Acid (Ascorbic Acid 250 Mg Tablet) 250 mg PO BID [facility] Aspirin (Aspirin Enteric Coated 81 Mg Tablet.) 81 mg PO DAILY [facility] Last Admin: 05/21/23 09:26 Dose: 81 mg Documented By: SHERRY Atorvastatin Calcium (Atorvastatin Calcium 80 Mg Tablet) 80 mg PO BEDTIME [facility] Last Admin: 05/20/23 20:21 Dose: 80 mg Documented By: ROBIN Dextrose (Dextrose 50 % 25 Gm/50 Ml Syringe) 25 gm IVPUSH Q15M PRN; Protocol PRN Reason: per Hypoglycemia Standing Ord. Divalproex Sodium (Divalproex Sodium Sprinkles 125 Mg Cap.) 250 mg PO DAILY [facility] Last Admin: 05/21/23 09:33 Dose: 250 mg Documented By: SHERRY Enoxaparin Sodium (Enoxaparin Sodium 40 Mg/0.4 Ml Syringe) 40 mg SUBCUT Q24H [facility] Last Admin: 05/20/23 20:21 Dose: 40 mg Documented By: ROBIN Ferrous Sulfate (Ferrous Sulfate 324 Mg Tablet.) 324 mg PO TID [facility] Last Admin: 05/21/23 09:29 Dose: 324 mg Documented By: SHERRY Fluticasone/Vilanterol (Fluticasone/Vilanterol 100/25 Blst.W.Dev) 1 puff INHALE DAILY [facility] Last Admin: 05/21/23 09:01 Dose: Not Given Documented By: KEN Non-Admin Reason: Patient Refused Glucose (Glucose Gel 15 Gm Gel..Gram.) 15 gm PO Q15M PRN; Protocol PRN Reason: per Hypoglycemia Standing Ord. Guaifenesin (Guaifenesin 200 Mg/10 Ml 10 Ml Liquid) 10 ml PO Q4H PRN PRN Reason: Cough Insulin Glargine (Insulin Glargine,Hum.Rec.Anlog 100 Unit/Ml 10 Ml Vial) 50 unit SUBCUT BEDTIME [facility] Insulin Human Lispro (Insulin Lispro 100 Unit/Ml 3 Ml Vial) 0 unit SUBCUT QIDACHS [facility]; Protocol Last Admin: 05/21/23 09:35 Dose: 8 unit Documented By: SHERRY Magnesium Oxide (Magnesium Oxide 400 Mg Tablet) 400 mg PO BID [facility] Last Admin: 05/21/23 09:27 Dose: 400 mg Documented By: SHERRY Metoprolol Tartrate (Metoprolol Tartrate 25 Mg Tablet) 25 mg PO BID [facility]; Protocol Last Admin: 05/21/23 09:26 Dose: 25 mg Documented By: SHERRY Omeprazole (Omeprazole 20 Mg Capsule.Dr) 20 mg PO DAILY@0600 [facility] Last Admin: 05/21/23 09:32 Dose: 20 mg Documented By: SHERRY Ondansetron HCl (Ondansetron Hcl 4 Mg/2 Ml Vial) 4 mg IVPUSH Q8H PRN PRN Reason: Nausea and Vomiting Senna (Sennosides 8.6 Mg Tablet) 17.2 mg PO BEDTIME PRN PRN Reason: Constipation Sodium Chloride (0.9 % Sodium Chloride Flush 3 Ml Syringe) 3 ml IVFLUSH QSHIFT [facility] Last Admin: 05/21/23 07:08 Dose: Not Given Documented By: SHERRY Non-Admin Reason: Med Not Available Labs 05/21/23 05:01 05/21/23 05:01 Labs: Laboratory Results - last 24 hr 05/20/23 05/20/23 05/21/23 14:46 17:21 05:01 MCV 86.7 82.5 MCH 27.1 27.2 MCHC 31.3 32.9 RDW 16.9 H 16.9 H Plt Count 216 196 MPV 9.6 10.3 Immature Gran % (Auto) 0.5 H 0.6 H Neut % (Auto) 70.8 59.1 Lymph % (Auto) 18.9 L 29.8 [place] % (Auto) 7.3 7.6 Eos % (Auto) 2.0 2.3 Baso % (Auto) 0.5 0.6 Lymph # (Auto) 1.1 L 1.5 [place] # (Auto) 0.4 0.4 Eos # (Auto) 0.1 0.1 Baso # (Auto) 0.0 0.0 Abs Immat Gran (auto) 0.03 0.03 Absolute Neuts (auto) 4.2 2.9 Absolute Nucleated RBC 0.000 0.000 Nucleated RBC % (auto) 0.0 0.0 Anion Gap 14 12 Estim Creat Clear Calc 60.3 51.2 Estimated GFR > 60 > 60 POC Glucose Random Glucose 232 H 327 H Estimat Average Glucose 143 Hemoglobin A1c % 6.6 H Calcium 9.2 8.5 D Magnesium 1.6 Total Bilirubin 0.3 Direct Bilirubin 0.1 AST 19 ALT 24 Alkaline Phosphatase 157 H Troponin I High Sens < 2.7 C-Reactive Protein 0.99 H B-Natriuretic Peptide < 10 Total Protein 6.6 Albumin 3.6 Triglycerides 217 H Cholesterol 80 LDL Cholesterol, Calc 16 HDL Cholesterol 21 L Urine Color Yellow Urine Appearance Clear Urine pH 5.5 Ur Specific [place] >= 1.030 H Urine Protein Trace Urine Glucose (UA) Negative Urine Ketones 15 Urine Blood Negative Urine Nitrite Negative Ur Leukocyte Esterase Negative Urine Opiates Screen Not Detected Urine Fentanyl Screen Not Detected Ur Barbiturates Screen Not Detected Valproic Acid 17.7 L Ur Phencyclidine Scrn Not Detected Ur Amphetamines Screen Not Detected U Benzodiazepines Scrn Not Detected Urine Cocaine Screen Not Detected U Marijuana (THC) Screen Not Detected Ethyl Alcohol < 10 Influenza Type A (PCR) NEGATIVE Influenza Type B (PCR) NEGATIVE RSV RNA Qual (PCR) NEGATIVE SARS-CoV-2 RNA (RT-PCR) NEGATIVE 05/21/23 07:43 MCV MCH MCHC RDW Plt Count MPV Immature Gran % (Auto) Neut % (Auto) Lymph % (Auto) [place] % (Auto) Eos % (Auto) Baso % (Auto) Lymph # (Auto) [place] # (Auto) Eos # (Auto) Baso # (Auto) Abs Immat Gran (auto) Absolute Neuts (auto) Absolute Nucleated RBC Nucleated RBC % (auto) Anion Gap Estim Creat Clear Calc Estimated GFR POC Glucose 317 H Random Glucose Estimat Average Glucose Hemoglobin A1c % Calcium Magnesium Total Bilirubin Direct Bilirubin AST ALT Alkaline Phosphatase Troponin I High Sens C-Reactive Protein B-Natriuretic Peptide Total Protein Albumin Triglycerides Cholesterol LDL Cholesterol, Calc HDL Cholesterol Urine Color Urine Appearance Urine pH Ur Specific [place] Urine Protein Urine Glucose (UA) Urine Ketones Urine Blood Urine Nitrite Ur Leukocyte Esterase Urine Opiates Screen Urine Fentanyl Screen Ur Barbiturates Screen Valproic Acid Ur Phencyclidine Scrn Ur Amphetamines Screen U Benzodiazepines Scrn Urine Cocaine Screen U Marijuana (THC) Screen Ethyl Alcohol Influenza Type A (PCR) Influenza Type B (PCR) RSV RNA Qual (PCR) SARS-CoV-2 RNA (RT-PCR) Assessment and Plan (1) Stroke: Status: Acute (2) Transient neurologic deficit: Status: Acute Plan 77 year old male with history of insulin dependent type 2 diabetes, htn, hld, 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 HLD statin Normocytic anemia of chronic disease H/H baseline, above transfusion threshold continue ferrous sulfate Vascular dementia with mood disturbance continue home meds h/o cva with sequela of dysphagia and left sided hemiparesis (predominanlty LUE) asa, plavix, statin H/o lung cancer s/p radiation and remission new 0.8cm spiculated nodule with surrounding groundglass outpt follow up with oncology and repeat CT advised DVT prophylaxis-Lovenox Attending Dr. Vargas DNR/DNI continue hospital stay for management of CVA symptoms Quality Stroke Does the patient have a stroke diagnosis?: Yes Reason for No Anti-thrombotic by Day Two: Not indicated VTE Prior VTE?: No VTE Risk Level:: Medical - moderate - high VTE Device Contraindication: Treatment Not Indicated VTE Drug Contraindication: Patient Refused
[2023-05-21] MEDS: Ascorbic Acid 250 MG TABLET PO ×2 (10:43→22:18)
--- NOTE | 2023-05-21 12:09 | MHC.STROKE ---
Met with patient and family to discuss admission process and stroke/tia education. Lanie Camilo SPRAY OPERATOR present for the conversation and assisted with discussion regarding plan of care. Son Mauro at the bedside and all questions answered. Pt resting quietly. Arousable to verbal stimuli. Skin warm and dry. Resp even, easy unlabored. Oriented to name. Denies pain when asked. Awaiting neuro consultation and dispo plan.
[2023-05-21 12:45] LABS: Glucose, Whole Blood 263 mg/dL (60-115)
--- NOTE | 2023-05-21 14:04 | MHC.CM.PN ---
IMM 05/20/23, sent to grand daughter, Baylee per pt.'s son's request. Pt is a LTC resident of [facility] in [place]. HCP on file: Court Lara (Baylee is her daughter and speaks Kyrgy[place] and assists her). DC plan is for pt to return to [facility]. CM to follow and assist with DC plan.
--- NOTE | 2023-05-21 15:08 | P.CNNE_ITS ---
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 The patient is a limited historian but knows his name and that he is in the hospital. His sons also report worsening cough and congestion. No fevers, chills, lightheadedness, palpitations, no new focal weakness/paresthesias, chest pain. CTA head/neck negative for any obstructive lesions or stenosis. MRI shows no acute lesions, only old right frontal and thalamic , left basal ganglia and right cerebellar infarcts. Review of Systems 2 Review of Systems: General: No fevers, malaise, unintentional weight loss HEENT: No blurred vision, diplopia. No sore throat, nasal congestion, rhinorrhea, sinus pain, ear pain Cardiovascular: No chest pain, palpitations, or leg edema Respiratory: +cough. No shortness of breath, wheezing GI: No abdominal pain, nausea, vomiting, diarrhea, constipation, melena, hematochezia : No dysuria, hematuria, increased urinary frequency, decreased urinary output MSK: No myalgia, back pain Neuro: No headaches. +confusion, +left facial droop, +chronic Left sided weakness LUE and LLE Skin: No rashes or lesions Yes all other systems are reviewed and are negative Cardiovascular: Cardiovascular: Reports no additional cardiovascular complaints Respiratory: Respiratory: Reports no additional respiratory complaints [facility] Past Medical History Medical History (Updated 05/21/23 @ 15:15 by Elsa Gandara MD) HLD (hyperlipidemia) Vascular dementia Non-small cell cancer of left lung Dysphagia as late effect of cerebrovascular accident (CVA) Stroke HTN (hypertension) Diabetes CVA (cerebral vascular accident) Family History Family History Father Hx of type 1 diabetes mellitus Mother History of heart attack Surgical History Surgical History S/P AKA (above knee amputation) bilateral History of colonoscopy Social History Social History Household Members: None Housing: Apartment Do you presently have visiting nurse or other home services: No Alcohol intake: unknown Patient Tobacco Use Status: Never used Tobacco Cigarette Packs Per Day: 1 Cigarettes Per Day: 20.0 Smoked in Last 30 Days: No Second Hand Smoke Exposure: Yes Use of substances other than those prescribed or required for medical reasons: No Advance Directives: Yes Advance Directives on File: Yes Advance Directives Date on File: 08/08/20 Nutrition Risks: No Nutritional Risk service: No Current occupational status: unemployed and disabled Meds Allergies Allergy/AdvReac Type Severity Reaction Status Date / Time No Known Allergies Allergy Unknown NONE Verified 09/06/20 13:17 Active Medications: Current Medications Acetaminophen (Acetaminophen 325 Mg Tablet) 650 mg PO Q6H PRN PRN Reason: Pain, Mild (Pain Scale 1-3) Albuterol Sulfate (Albuterol Sulfate 90 Mcg 8 Gm Inhaler) 2 puff INHALE Q4H PRN PRN Reason: Shortness Of Breath Or Wheezing Ascorbic Acid (Ascorbic Acid 250 Mg Tablet) 250 mg PO BID [facility] Last Admin: 05/21/23 10:43 Dose: 250 mg Aspirin (Aspirin Enteric Coated 81 Mg Tablet.) 81 mg PO DAILY [facility] Last Admin: 05/21/23 09:26 Dose: 81 mg Atorvastatin Calcium (Atorvastatin Calcium 80 Mg Tablet) 80 mg PO BEDTIME [facility] Last Admin: 05/20/23 20:21 Dose: 80 mg Atorvastatin Calcium (Atorvastatin Calcium 40 Mg Tablet) 40 mg PO BEDTIME [facility] Clopidogrel Bisulfate (Clopidogrel Bisulfate 75 Mg Tablet) 75 mg PO DAILY [facility] Dextrose (Dextrose 50 % 25 Gm/50 Ml Syringe) 25 gm IVPUSH Q15M PRN; Protocol PRN Reason: per Hypoglycemia Standing Ord. Divalproex Sodium (Divalproex Sodium Sprinkles 125 Mg Cap.) 250 mg PO DAILY [facility] Last Admin: 05/21/23 09:33 Dose: 250 mg Enoxaparin Sodium (Enoxaparin Sodium 40 Mg/0.4 Ml Syringe) 40 mg SUBCUT Q24H [facility] Last Admin: 05/20/23 20:21 Dose: 40 mg Ferrous Sulfate (Ferrous Sulfate 324 Mg Tablet.) 324 mg PO TID [facility] Last Admin: 05/21/23 09:29 Dose: 324 mg Fluticasone/Vilanterol (Fluticasone/Vilanterol 100/25 Blst.W.Dev) 1 puff INHALE DAILY [facility] Last Admin: 05/21/23 09:01 Dose: Not Given Glucose (Glucose Gel 15 Gm Gel..Gram.) 15 gm PO Q15M PRN; Protocol PRN Reason: per Hypoglycemia Standing Ord. Guaifenesin (Guaifenesin 200 Mg/10 Ml 10 Ml Liquid) 10 ml PO Q4H PRN PRN Reason: Cough Insulin Glargine (Insulin Glargine,Hum.Rec.Anlog 100 Unit/Ml 10 Ml Vial) 50 unit SUBCUT BEDTIME [facility] Insulin Human Lispro (Insulin Lispro 100 Unit/Ml 3 Ml Vial) 0 unit SUBCUT QIDACHS [facility]; Protocol Last Admin: 05/21/23 13:37 Dose: 6 unit Magnesium Oxide (Magnesium Oxide 400 Mg Tablet) 400 mg PO BID [facility] Last Admin: 05/21/23 09:27 Dose: 400 mg Metoprolol Tartrate (Metoprolol Tartrate 25 Mg Tablet) 25 mg PO BID [facility]; Protocol Last Admin: 05/21/23 09:26 Dose: 25 mg Omeprazole (Omeprazole 20 Mg Capsule.) 20 mg PO DAILY@0600 [facility] Last Admin: 05/21/23 09:32 Dose: 20 mg Ondansetron HCl (Ondansetron Hcl 4 Mg/2 Ml Vial) 4 mg IVPUSH Q8H PRN PRN Reason: Nausea and Vomiting Senna (Sennosides 8.6 Mg Tablet) 17.2 mg PO BEDTIME PRN PRN Reason: Constipation Sodium Chloride (0.9 % Sodium Chloride Flush 3 Ml Syringe) 3 ml IVFLUSH QSHIFT [facility] Last Admin: 05/21/23 07:08 Dose: Not Given Home Medications Medication Instructions Recorded Confirmed Last Taken Type atorvastatin 40 mg tablet 40 mg PO BEDTIME 03/29/20 05/20/23 12/14/21 History clopidogrel 75 mg tablet (Plavix) 75 mg PO DAILY 03/29/20 05/20/23 12/15/21 History cholecalciferol (vitamin D3) 50 50 mcg PO DAILY 04/12/20 05/20/23 12/15/21 History mcg (2,000 unit) capsule metoprolol tartrate 25 mg tablet 25 mg PO BID 04/12/20 05/20/23 12/15/21 [facility] 08/03/20 Unknown History Ultra Blue Test Strip) chlorhexidine gluconate 0.12 % 15 ml PO BID 08/03/20 05/20/23 12/15/21 History mouthwash ferrous sulfate 325 mg (65 mg 1 tab PO TID 08/03/20 05/20/23 12/15/21 History iron) tablet (FeroSul) fluticasone furoate 100 1 puff inhalation DAILY 08/03/20 05/20/23 12/15/21 History mcg-vilanterol 25 mcg/dose inhalation powder (Breo Ellipta) insulin glargine 100 unit/mL (3 50 unit subcut BEDTIME 08/03/20 05/20/23 12/14/21 History mL) subcutaneous pen (Lantus Solostar U-100 Insulin) lancets 33 gauge ([facility] 08/03/20 08/03/20 Unknown History Plus Lancet) metformin 500 mg tablet 500 mg PO BEDTIME 08/03/20 05/20/23 12/15/21 History multivitamin (One Daily 1 tab PO DAILY 08/03/20 05/20/23 12/15/21 History Multivitamin tablet) pen needle, diabetic 32 gauge x 08/03/20 08/03/20 Unknown History (UltiCare Pen Needle) ascorbic acid (vitamin C) 250 mg 250 mg PO BID 12/15/21 05/20/23 12/15/21 History tablet divalproex 125 mg capsule,delayed 2 cap PO DAILY 12/15/21 05/20/23 12/15/21 History release sprinkle insulin lispro 100 unit/mL 0 sliding scale dose subcut TIDAC 12/15/21 05/20/23 Unknown History subcutaneous solution pantoprazole 40 mg tablet,delayed 1 tab PO DAILY 12/15/21 05/20/23 12/15/21 History release sennosides 8.6 mg-docusate sodium 2 tab PO BID constipation 12/15/21 05/20/23 12/14/21 History 50 mg tablet (Senna with Docusate Sodium) acetaminophen 325 mg tablet 650 mg PO Q4H PRN Pain 05/20/23 05/20/23 Unknown History albuterol sulfate 90 mcg/actuation 2 puff inhalation Q4H PRN 05/20/23 05/20/23 Unknown History aerosol inhaler (ProAir HFA) Shortness Of Breath Or Wheezing bisacodyl 10 mg rectal suppository 10 mg IA DAILY PRN Constipation 05/20/23 05/20/23 Unknown History guaifenesin 100 mg/5 mL oral liquid 200 mg PO Q4H PRN Cough 05/20/23 05/20/23 Unknown History magnesium hydroxide 2,400 mg/10 mL 30 ml PO DAILY PRN Constipation 05/20/23 05/20/23 Unknown History oral suspension (Milk Of Magnesia Concentrated) magnesium oxide 400 mg PO BID 05/20/23 05/20/23 Unknown History metformin 500 mg tablet 1,000 mg PO QAM 05/20/23 05/20/23 Unknown History sodium phosphates 19 gram-7 118 ml IA DAILY PRN Constipation 05/20/23 05/20/23 Unknown History gram/118 mL enema (Fleet Enema) Physical Exam 2 Vital Signs: Vital Signs: Last Vital Signs Temp 97.9 F 05/21/23 03:36 Pulse 92 05/21/23 09:25 Resp 16 05/21/23 09:25 BP 114/67 05/21/23 09:25 Pulse Ox 95 05/21/23 09:25 O2 Del Method Room Air 05/21/23 09:25 BMI result Body Mass Index 50.5 Const: Other: The patient is a chronically ill-appearing 77-year-old who was awake and alert did not seem in acute distress. He answered yes/no questions with one-word answers. He would also nod or shake his head. He did not speak in any other way. HEENT: Other: Face seemed to symmetrical at rest but with active testing there seemed to be left-sided facial weakness. Mucous membranes unremarkable. Eyes: Other: Pupils are round equal, conjunctivae are clear, extraocular movements intact. Lateral gaze seemed intact bilaterally. It was difficult to examine the patient's physical may by confrontation as it was not clear he understood the instructions. However had the impression that he had no visual field deficit. Neck: Neck: Yes no JVD Resp: Effort & Inspection: normal respiratory effort Auscultation: clear to auscultation bilaterally Cardio: Rate: regular rate Rhythm: regular rhythm Heart sounds: S1 normal heart sound present and S2 normal heart sound present GI: Other: Abdomen is soft and nontender : Other: Abdomen is soft and nontender Skin: Other: Skin is dry and unremarkable Neuro: Other: The patient is awake. Oriented to name an dbeing in a hospital, not oriented to time or month and year. He could not correctly identify his age Eye movements are intact. Visual mya seem intact to confrontation but testing was difficult because of poor understanding. He seemed to have left facial weakness and chronic spastic left hemiparesis. Strength in the right arm seemed intact without pronator drift. He has bilateral [id number] amputations. He has very small stumps of thighs. He was able to move them both. NIH stroke scale is at least 5 but this is in part because of left arm weakness which is chronic. Extrem: Other: Bilateral very proximal [id number] amputations. Results Labs 05/21/23 05:01 05/21/23 05:01 Labs: Short CBC 05/21/23 Range/Units 05:01 WBC 4.9 (4.8-10.8) X10*3/uL Hgb 11.0 L (14.0-18.0) g/dl Hct 33.4 L (42.0-52.0) % Plt Count 196 (160-400) X10*3/uL BMP 05/20/23 05/21/23 14:46 05:01 Sodium 140 135 Potassium 4.1 4.0 Chloride 104 101 Carbon Dioxide 26 26 BUN 14 16 Creatinine 0.62 0.73 Calcium 9.2 8.5 D Liver Function 05/20/23 Range/Units 14:46 Total Bilirubin 0.3 (0.0-1.0) mg/dL Direct Bilirubin 0.1 (0.0-0.5) mg/dL AST 19 (5-37) U/L ALT 24 (0-40) U/L Alkaline Phosphatase 157 H (39-117) U/L Albumin 3.6 (3.5-5.0) g/dL Urine 05/20/23 Range/Units 17:21 Urine Color Yellow Urine Appearance Clear Urine pH 5.5 (5.0-9.0) Ur Specific [place] >= 1.030 H (1.005-1.025) Urine Protein Trace (Neg-Trace) mg/dL Urine Glucose (UA) Negative (Negative) mg/dL Assessment and Plan (1) Altered mental state: Status: Acute At baseline he has a vascular dementia. He has multiple strokes on his MRI, all of which are old. There is no evidence of acute stroke. Altered mental status probably related to other factors such as infectious or metabolic causes. CTA of head and neck are negative. No evidence of seizures.I have personallly reviewed MRI and CT images Recommendations: Treat underlying metabolic and infectious abnormalities. 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 HLD statin Normocytic anemia of chronic disease H/H baseline, above transfusion threshold continue ferrous sulfate Vascular dementia with mood disturbance continue home meds h/o cva with sequela of dysphagia and left sided hemiparesis (predominanlty LUE) asa, plavix, statin H/o lung cancer s/p radiation and remission new 0.8cm spiculated nodule with surrounding groundglass outpt follow up with oncology and repeat CT advised DVT prophylaxis-Lovenox Attending Dr. Vargas DNR/DNI continue hospital stay for management of CVA symptoms Procedures Date of Service Date of Service: 05/21/23
--- NOTE | 2023-05-21 16:23 | PC.NURSE ---
pt given full bed change and new brief. pt daughter at bedside. automotive parts counter associate used for communication about plan of care. per pt daughter, pt is at baseline mentation. call cervantes within reach. plan of care ongoing.
[2023-05-21 18:21] LABS: Glucose, Whole Blood 285 mg/dL (60-115)
[2023-05-21 19:51] VITALS: BP 102/68; PULSE 86; RESP 20; TEMP 36.6; O2SAT 95
--- NOTE | 2023-05-21 19:53 | MHC.EDTECH ---
This tech took over care of patient at 1900,hourly rounds and vitals completed,Patient is clean and dry at this time. Belonging list completed and copy placed in chart. Call cervantes in reach and family at bedside
--- NOTE | 2023-05-21 20:38 | PC.NURSE ---
Addendum entered by Niurka Persaud 05/21/23 20:48: Skin intact. Addendum entered by Niurka Persaud 05/21/23 20:47: Bilateral Above the knee amputations. Original Note: This designer/writer assumed care of this Pt at 1900. Pt A&O to self and place, [place], denies any pain. Pt left upper arm contracted, pt able to move Right arm. Pt has BBK amputation. Pt incontinent of urine, incontinent care provided.
--- NOTE | 2023-05-21 20:44 | MHC.EDTECH ---
Patient was incont, of a moderate amount of urine,patient was cleaned and joey-care giving . POC taken and is 264,Brenda RN made aware
[2023-05-21 20:46] LABS: Glucose, Whole Blood 264 mg/dL (60-115)
[2023-05-21] MEDS: Atorvastatin Calcium 80 MG TABLET PO (20:57)
[2023-05-21 20:58] VITALS: BP 113/57; PULSE 77; RESP 19
[2023-05-21] MEDS: Enoxaparin Sodium 40 MG/0.4 ML SYRINGE SUBCUT (20:58)
[2023-05-21] MEDS: Insulin Glargine,Hum.rec.anlog 100 UNIT/ML 10 ML VIAL 50 UNIT SUBCUT (20:59)
[2023-05-21] MEDS: Atorvastatin Calcium 40 MG TABLET PO (21:03)
--- NOTE | 2023-05-21 21:54 | MHC.EDTECH ---
Hourly rounds completed,patient is clean and dry at this time. call cervantes in reach
[2023-05-21] MEDS: 0.9 % Sodium Chloride Flush 3 ML SYRINGE IVFLUSH (23:31)
[2023-05-21 23:33] VITALS: BP 123/63; PULSE 81; RESP 20; TEMP 36.7; O2SAT 97
--- NOTE | 2023-05-21 23:34 | MHC.EDTECH ---
Hourly rounds and vitals completed,patient placed in hospital bed for comfort,patient is clean and dry,call cervantes in reach
--- NOTE | 2023-05-22 00:31 | PC.NURSE ---
Report complete, Pt transported to room 477 by technical applications scientist in hospital bed. Pt made aware of plan.
[2023-05-22 00:43] VITALS: BMI 39.1
[2023-05-22 01:00] VITALS: BP 120/60; PULSE 80; RESP 18; TEMP 36.4; O2SAT 95
[2023-05-22 04:00] VITALS: BP 98/53; PULSE 67; RESP 16; TEMP 36.8; O2SAT 94
[2023-05-22] MEDS: Omeprazole 20 MG CAPSULE.DR PO (05:49)
[2023-05-22 07:06] VITALS: BP 109/56; PULSE 76; RESP 18; TEMP 36.4; O2SAT 95
[2023-05-22 07:50] LABS: Glucose, Whole Blood 119 mg/dL (60-115)
[2023-05-22] MEDS: Fluticasone/Vilanterol 100/25 BLST.W.DEV 1 PUFF INHALE (07:58)
[2023-05-22 08:00] VITALS: PULSE 56; RESP 18; O2SAT 97
[2023-05-22] MEDS: Clopidogrel Bisulfate 75 MG TABLET PO (08:07)
[2023-05-22] MEDS: Divalproex Sodium Sprinkles 125 MG CAP.DR.SPR 250 MG PO (08:07)
[2023-05-22] MEDS: Metoprolol Tartrate 25 MG TABLET PO (08:07)
[2023-05-22] MEDS: Aspirin Enteric Coated 81 MG TABLET.DR PO (08:07)
[2023-05-22] MEDS: Ascorbic Acid 250 MG TABLET PO (08:07)
[2023-05-22] MEDS: Magnesium Oxide 400 MG TABLET PO (08:07)
[2023-05-22] MEDS: 0.9 % Sodium Chloride Flush 3 ML SYRINGE IVFLUSH (08:07)
[2023-05-22] MEDS: Ferrous Sulfate 324 MG TABLET.DR PO (08:07)
--- NOTE | 2023-05-22 09:47 | PM.DS ---
DS: Providers Provider Date of Service: 05/22/23 Date of admission: 05/20/23 19:11 Date of discharge: 05/22/23 Primary care physician: Alex Dobson MD Consults: 05/20/23 19:24 Consult to Neurology Routine Consulting Provider: 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 His sons who are at bedside states they noted his ams from baseline yesterday, but state the facility never reported this so onset is unknown. The patient is a limited historian but knows his name and that he is in the hospital. His sons also report worsening cough and congestion. No fevers, chills, abd pain, n/v/d, sob, lightheadedness, palpitations, new focal weakness/paresthesias, chest pain. On arrival, VSS, no hypertension. No leukocytosis, stable normocytic anemia. Renal fx baseline, lytes normal, glucose 232. Trop below detectable limits, bnp below detectable limits. UA unremarkable. U tox negative. Negative for covid, flu, rsv. cxr shows left supra hilar opacity but no other acute focal consolidation CTA head/neck shows questionable loss of lee/white matter differentiation within the right postcentral gyrus that may represent a small acute cortical infarct and there were also numerous chronic lacunar infarcts within the basal ganglia and thalami. There has also a chronic cortical infarct within the right precentral and postcentral gyri. There is no large vessel occlusion or hemodynamically significant stenosis. There is a TORRI nodule unchanged from prior imaging as well as a new 0.8cm spiculated nodule w/in the TORRI with a margin or surrounding groundglass opacification. Facial droop MRI neg for acute infarct. CTA of head and neck without stenosis or large vessel occlusion. on asa, statin and plavix. echo with normal EF, no evidence of regional wall motion abnormality. Seen by PT/OT no further inpatient therapy recommended as patient is LTC resident, recommend return back to LTC. seen by neurology, no further work up recommended. encephalopathy, toxic metabolic due to underlying pneumonia. seems back to baseline. awake, alert and knows name and location at time of discharge. h/o lung ca/ cough Cough but afebrile, no hypoxia. negative covid/flu, full respiratory pathogen panel negative. new groundglass opacity on chest CT ?atypical pneumonia vs fibrosis. will discharge to complete course of antibiotics for pneumonia. recommend outpt follow up with repeat imaging to ensure resolution of infection. kidney lesion recommend outpatient MRI of kidneys with and without contrast for further characterization Time Attestation Total time managing care of this patient today: 36 mintues. Discharge coordination time: Greater than 30 minutes Quality: Safe Use of Opioids Does Pt have an Active Cancer Diagnosis on the Problem List?: Yes Opioid Measure Date for [facility] Report: 04/22/23 Opioid Measure Time for [facility] Report: 11:54 Quality: Stroke Does the patient have a stroke diagnosis?: No Physical Exam Vital Signs: Vital Signs: Last Vital Signs Temp 97.6 F 05/22/23 07:06 Pulse 56 05/22/23 08:00 Resp 18 05/22/23 08:00 BP 109/56 L 05/22/23 07:06 Pulse Ox 95 05/22/23 07:06 O2 Del Method Room Air 05/22/23 07:06 BMI result Body Mass Index 39.1 Const: General: cooperative, comfortable, no acute distress, alert and awake Nutritional Appearance: thin Orientation/consciousness: oriented to person and oriented to place Resp: Effort & Inspection: normal respiratory effort, able to speak in complete sentences, no respiratory distress and no use of accessory muscles Cardio: Rate: regular rate Neuro: Other: mild left facial droop; left hemiparesis; b/l AKA General: oriented to person and oriented to place DS: Data Data Completed and Pending Labs on day of discharge: Laboratory Results - last 24 hr 05/21/23 05/21/23 05/21/23 12:41 18:13 20:43 POC Glucose 263 H 285 H 264 H 05/22/23 07:09 POC Glucose 119 H Discharge Plan Discharge Patient Disposition: Xfer [facility] Discharge Diagnosis: facial droop Referrals: Alex Dobson MD [Primary Care Provider] - 1 Week Discharge Medications: New doxycycline monohydrate 100 mg tablet 100 mg PO BID 5 Days Qty: 10 0RF Continued multivitamin [One Daily Multivitamin] Tablet 1 tab PO DAILY metformin 500 mg tablet 500 mg PO BEDTIME ferrous sulfate [FeroSul] 325 mg (65 mg iron) tablet 1 tab PO TID chlorhexidine gluconate 0.12 % mouthwash 15 ml PO BID Rx Instructions: SWISH AND SPIT insulin glargine [Lantus Solostar U-100 Insulin] 100 unit/mL (3 mL) insulin pen 50 unit subcut BEDTIME fluticasone furoate-vilanterol [Breo Ellipta] 100-25 mcg/dose blister with device 1 puff inhalation DAILY pantoprazole 40 mg tablet,delayed release (DR/EC) 1 tab PO DAILY insulin lispro 100 unit/mL solution 0 sliding scale dose subcut TIDAC Protocol: Insulin Correction Scale Less than or equal to 110 ---- Give (units): 0 111 to 150 Give (units): 0 151 to 200 Give (units): 0 201 to 250 Give (units): 2 251 to 300 Give (units): 4 301 to 350 Give (units): 6 Greater than 350 Give (units): 8 Call if Blood Glucose > : 350 divalproex 125 mg capsule, delayed rel sprinkle 2 cap PO DAILY sennosides-docusate sodium [Senna with Docusate Sodium] 8.6-50 mg Tablet 2 tab PO BID ascorbic acid (vitamin C) 250 mg Tablet 250 mg PO BID potassium chloride 20 mEq tablet extended release 20 meq PO DAILY Qty: 30 0RF metformin 500 mg Tablet 1,000 mg PO QAM acetaminophen 325 mg Tablet 650 mg PO Q4H PRN (Reason: Pain) guaifenesin 100 mg/5 mL Liquid 200 mg PO Q4H PRN (Reason: Cough) bisacodyl 10 mg Suppository 10 mg HI DAILY PRN (Reason: Constipation) Fleet Enema 19-7 gram/118 mL Enema 118 ml HI DAILY PRN (Reason: Constipation) albuterol sulfate [ProAir HFA] 90 mcg/actuation Hfa Aerosol Inhaler 2 puff INHALATION Q4H PRN (Reason: Shortness Of Breath Or Wheezing) magnesium hydroxide [Milk Of Magnesia Concentrated] 2,400 mg/10 mL Suspension 30 ml PO DAILY PRN (Reason: Constipation) magnesium oxide 400 mg magnesium tablet 400 mg PO BID metoprolol tartrate 25 mg tablet 25 mg PO BID cholecalciferol (vitamin D3) 50 mcg (2,000 unit) capsule 50 mcg PO DAILY atorvastatin 40 mg tablet 40 mg PO BEDTIME clopidogrel [Plavix] 75 mg tablet 75 mg PO DAILY No Action (DME) OneTouch Ultra Blue Test Strip Strip MISCELLANEOUS TID (DME) pen needle, diabetic [UltiCare Pen Needle] 32 gauge x 5/32 needle MISCELLANEOUS TID (DME) lancets [OneTouch Delica Plus Lancet] 33 gauge misc MISCELLANEOUS TID Discharge Orders: Discharge Order (Routine); Ordered 05/22/23 Ordered By: Matilda Jacobson Activity on Discharge: As tolerated Stand Alone Forms: Patient Portal Discharge page Care Plan Goals: see below Health Concerns: left facial droop - stroke ruled out. brain MRI showed no new stroke. multiple old strokes and moderate volume loss atypical pneumonia Plan of Treatment: complete course of antibiotics for pneumonia outpatient follow up for repeat lung imaging to ensure resolution of infection and further characterization of renal lesion with MRI of kidneys with and without contrast call to schedule follow up appointment with PCP Assessment: see discharge summary
[2023-05-22 10:44] LABS: Adenovirus PCR Not Detected (Not Detect.); Bordetella parapertussis PCR Not Detected (Not Detect.); Bordetella pertussis PCR Not Detected (Not Detect.); Chlamydia pneumoniae PCR Not Detected (Not Detect.); Coronavirus 229E PCR Not Detected (Not Detect.); Coronavirus HKU1 PCR Not Detected (Not Detect.); Coronavirus NL63 PCR Not Detected (Not Detect.); Coronavirus OC43 PCR Not Detected (Not Detect.); Human metapneumovirus PCR Not Detected (Not Detect.); Influenza A PCR Not Detected (Not Detect.); Influenza B PCR Not Detected (Not Detect.); Mycoplasma pneumoniae PCR Not Detected (Not Detect.); Parainfluenza 1 PCR Not Detected (Not Detect.); Parainfluenza 2 PCR Not Detected (Not Detect.); Parainfluenza 3 PCR Not Detected (Not Detect.); Parainfluenza 4 PCR Not Detected (Not Detect.); RSV PCR Not Detected (Not Detect.); Rhino/Enterovirus PCR Not Detected (Not Detect.)
[2023-05-22 10:48] LABS: SARS-CoV-2 PCR Not Detected (Not Detect.)
[2023-05-22 11:16] VITALS: BP 112/60; PULSE 75; RESP 20; TEMP 36.8; O2SAT 97
[2023-05-22 11:32] LABS: Glucose, Whole Blood 169 mg/dL (60-115)
--- NOTE | 2023-05-22 12:01 | P.CDIM_ITS ---
PROVIDER RESPONSE TEXT: To clarify, the appropriate diagnosis supported by the clinical indicators: Toxic metabolic QUERY TEXT: PHYSICIAN'S DOCUMENTATION REQUEST Date of Query: 05/22/2023 10:29 AM EST Patient Name: Ridge Lira Admit Date: 05/21/2023 Dear Matilda Jacobson, A review of the medical record indicates additional documentation may be needed. Please review below and update the documentation accordingly. Clinical Indicators: Per Neurology Consult Note 05/21/23: altered mental state, confusion, facial droop with encephalopathy Based on the above, please further specify, in the Progress Notes, the known or suspected type of the documented encephalopathy: Metabolic Septic Toxic Toxic metabolic Hypertensive Anoxic Alcoholic Hepatic (reported as hepatic failure and needs further specificity as to acute, subacute, or chronic) Due to a specified condition (such as UTI, hyponatremia, CVA, etc.) Other (explain) Clinically unable to determine (explain) Thank you, Roma Singh RN Use of terms such as suspected, likely, concern for, or probable (associated with a specific diagnosi s that is being evaluated, monitored, or treated as if it exists) are acceptable and can be coded in the inpatient se tting, when documented at the time of discharge. Please use your independent medical judgment in providing your response. THIS QUERY IS PART OF THE PERMANENT MEDICAL RECORD
--- NOTE | 2023-05-22 12:14 | MHC.CM.PN ---
Pt has been medically cleared for DC, He will return today to [facility] for LTC via ambulance.
== END 2023-05-22 13:00 | disposition home or self-care (01) | DRG 193 ==
LOC: HO.ED 19:37 → HO.EDOVER 19:56 → HO.IMC 05-21 23:23
PROVIDERS: Nurse Practitioner Acute Care; Admitting Provider Physician Assistant; Emergency Provider Emergency Medicine; PCP Family Medicine; Visit Provider Physician Assistant Medical
DX: J18.9 Pneumonia, unspecified organism (principal); G92.8 Other toxic encephalopathy; J44.0 Chronic obstructive pulmonary disease with (acute) lower respiratory infection; F01.53 Vascular dementia, unspecified severity, with mood disturbance; I69.354 Hemiplegia and hemiparesis following cerebral infarction affecting left non-dominant side; R13.10 Dysphagia, unspecified; Z66 Do not resuscitate; E78.5 Hyperlipidemia, unspecified; D63.8 Anemia in other chronic diseases classified elsewhere; I69.391 Dysphagia following cerebral infarction; E11.9 Type 2 diabetes mellitus without complications; N28.9 Disorder of kidney and ureter, unspecified; Z20.822 Contact with and (suspected) exposure to COVID-19; Z89.612 Acquired absence of left leg above knee; Z89.611 Acquired absence of right leg above knee; Z85.118 Personal history of other malignant neoplasm of bronchus and lung; Z87.891 Personal history of nicotine dependence; Z92.3 Personal history of irradiation; Z79.4 Long term (current) use of insulin; Z79.51 Long term (current) use of inhaled steroids; Z79.84 Long term (current) use of oral hypoglycemic drugs; Z79.899 Other long term (current) drug therapy
CPT/HCPCS: 0241U; 36415; 70496; 70498; 70551; 71046; 71250; 80048; 80061; 80076; 80164; 80307; 81003; 82947; 83036; 83735; 83880; 84484; 85025; 86140; 87633; 93005; 93306; 94640; 97162; 99285; J1650; J3475; Q9957; Q9967

== ENCOUNTER → 2023-05-20 13:37 | Outpatient (BNV) | payer MEDICARE, MEDICAID, SELFPAY | PROVIDERS: Emergency Provider Emergency Medicine; PCP Family Medicine; Visit Provider Internal Medicine | DX: R00.0 Tachycardia, unspecified (principal) | CPT/HCPCS: 93010 ==

== ENCOUNTER 2023-05-20 19:11 | Outpatient (BNV) | payer MEDICARE, MEDICAID, SELFPAY | END 2023-05-21 07:00 | PROVIDERS: Admitting Provider Physician Assistant; Emergency Provider Emergency Medicine; PCP Family Medicine; Visit Provider Internal Medicine | DX: I35.8 Other nonrheumatic aortic valve disorders (principal); I63.9 Cerebral infarction, unspecified | CPT/HCPCS: 93306 ==

== ENCOUNTER → 2023-05-20 19:11 | Outpatient (BNV) | payer MEDICARE, MEDICAID, SELFPAY | PROVIDERS: Admitting Provider Physician Assistant; Emergency Provider Emergency Medicine; PCP Family Medicine; Visit Provider Physician Assistant | DX: R41.82 Altered mental status, unspecified (principal); I63.9 Cerebral infarction, unspecified | CPT/HCPCS: 99223; 99232; 99239 ==

== ENCOUNTER → 2023-05-20 19:11 | Outpatient (BNV) | payer MEDICARE, MEDICAID, SELFPAY | PROVIDERS: Admitting Provider Physician Assistant; Emergency Provider Emergency Medicine; PCP Family Medicine; Visit Provider Psychiatry & Neurology Neurology | DX: R41.82 Altered mental status, unspecified (principal) | CPT/HCPCS: 99222 ==

== ENCOUNTER 2023-12-31 13:40 | Outpatient (REF) | payer MEDICARE, MEDICAID, SELFPAY ==
--- NOTE | ~2023-12-31 | FL_ITS ---
EXAMINATION: Modified Barium Swallows CLINICAL INFORMATION: Dysphagia COMPARISON: None TECHNIQUE: Modified barium swallow was performed under lateral fluoroscopy with patient in standing position. Barium mixed with solids and liquids of different consistencies was administered by the speech pathologist. Examination was recorded in the fluoroscopy suite. FINDINGS: Trace subglottic aspiration was observed with thin consistency barium. There is a small anterior bridging osteophyte at C5-C6 that does not appear to be causing any significant extrinsic compression of the esophagus. FLUOROSCOPY TIME: 5 minutes 14 seconds Number of Spot Images: N/A DOSE AREA PRODUCT: 677.8 uGy-m2 (microgray-meter squared) FL/FL Modified Barium Swallow IMPRESSION: 1. Trace subglottic aspiration was observed with thin consistency barium. Refer to the speech therapy report for further clarification This procedure was performed by Kehinde Zavaleta PA-C, and supervised by Dr. Shah Electronically signed by: Alvin Shah MD 01/02/2024 01:17 PM EDT
--- NOTE | 2024-01-09 17:43 | MHC.SL.IMP ---
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 Reason for Today's Visit: 58024 Modified Barium Swallow Study Pre-evaluation Dietary Consistencies: Pureed (NDD1) Pre-evaluation Liquid Consistency: Unknown Pre-evaluation Medication Administration: Unknown Medical History: Modified Barium Swallow Study Fluoroscopic Evaluation of Swallowing Function CPT Code 44741 Evaluation Year: 2023 Reason for Study: Difficulty swallowing Referring Physician: Jessy Cleary Evaluating Clinician: Mary Mendez MA, CCC-AUTOMATIC CASTING MACHINE OPERATOR Patient ID: [id number] Study Number: 1 Patient Name: Ridge Reno Status: Outpatient Age: 78 Gender: Male Medical History Medical History (Updated 05/20/23 @ 19:52 by MILADY Flores) HLD (hyperlipidemia) Vascular dementia Non-small cell cancer of left lung Dysphagia as late effect of cerebrovascular accident (CVA) Stroke HTN (hypertension) Diabetes CVA (cerebral vascular accident) Current (pre-evaluation) Intake/Diet: Route: PO Diet Grade: Puree Pre-Study Functional Oral Intake Scale (FOIS): 5- Total oral intake of multiple consistencies requiring special preparation SUBJECTIVE: Patient is a 78 year old male who is a LTC resident at [facility] with history of vascular dementia, non-small cell cancer of left lung, CVA, and diabetes. He was referred for a modified barium swallow study to further evaluate the extent of his oral pharyngeal dysphagia and to provide feeding recommendations. He was accompanied to this exam by staff from the nursing facility as well as a family member. Per EMR, patient was seen by speech pathologists at [facility] during a prior admission in July 2020. He was recommended pureed solids (NDD1) and nectar thick liquids at the time. Note recent hospitalization in April 2023 for CVA symptoms. Family reports patient is eating a ?bland? diet and soft blended food at the home. Family expresses concern that this diet is too restrictive and reports that they have seen patient eating rice, meat, and fast food without choking. They say patient has a lot of phlegm that seemingly causes him to cough. Food and Liquid Trials: Oral Impairment: Lip Closure: Did not test Oral Impairment: Tongue Control During Bolus Hold: Did not test Oral Impairment: Bolus Preparation/Mastication: 1=Slow prolonged chewing/mashing with complete re-collection Oral Impairment: Bolus Transport/Lingual Motion: 1= Delayed initiation of tongue motion Oral Impairment: Oral Residue: 1=Trace residue lining oral structures Oral Impairment:Initiation of Pharyngeal Swallow: 2=Bolus head at posterior laryngeal surface of epiglottis Pharyngeal Impairment: Soft Palate Elevation: 0=No bolus between soft palate (SP)/pharyngeal wall (PW) Pharyngeal Impairment: Laryngeal Elevation: 1=Partial thyroid cartilage/arytenoids to epiglottic petiole movement Pharyngeal Impairment: Anterior Hyoid Excursion: 2=No anterior movement Pharyngeal Impairment: Epiglottic Movement: 1=Partial inversion Pharyngeal Impairment: Laryngeal Vestibular Closure:: 1=Incomplete: narrow column air/contrast in laryngeal vestibule Pharyngeal Impairment: Pharyngeal Stripping Wave: 1=Present: diminished Pharyngeal Impairment: Pharyngeal Contraction: Did not test Pharyngeal Impairment: Pharyngoesophageal Segment Openin=Partial distention/partial duration: partial obstruction of flow Pharyngeal Impairment: Tongue Base (TB) Retraction: 1=Trace column of contrast/air between TB and posterior PW Pharyngeal Impairment: Pharyngeal Residue: 2=Collection of residue within or on pharyngeal structures Pharyngeal Impairment: Esophageal Clearance Upright Position: Did not test Impressions and Recommendations Clinical Observations: OBJECTIVE: Time-out: performed at 15:00 Evaluation Start: 14:30; Stop: 14:35 Patient Positioning: Seated 70-90 degrees Viewing Planes: LATERAL ONLY Contrast: MBSImP? Standardized Protocol using commercially prepared, standardized Barium viscosities, including: Varibar? THIN LIQUID (40% w/v, <15 cps) , Varibar? NECTAR (40% w/v, <150-450 cps) , Varibar? PUDDING (40% w/v, <9159-4912 cps) , 1/2 Shortbread Cookie (1 x1 x.25 ) MBSImP ID: [id number] MBSImP Results: Lip closure for intraoral bolus containment could not be assessed due to logistical reasons not related to physiologic impairment. Tongue control during bolus hold could not be assessed due to logistical reasons not related to physiologic impairment. Bolus preparation and mastication resulted in slow, prolonged chewing/mashing but with complete re-collection. Bolus transport/lingual motion demonstrated delayed initiation of tongue motion. Oral residue was a trace, lining oral structures. Initiation of the pharyngeal swallow occurred as the bolus head was at the posterior laryngeal surface of the epiglottis. Soft palate elevation resulted in no bolus between the soft palate and the pharyngeal wall. Laryngeal elevation was decreased, with partial superior movement of the thyroid cartilage/partial approximation of the arytenoids to the epiglottic petiole. Anterior hyoid excursion demonstrated no movement. Epiglottic movement resulted in partial inversion. Laryngeal vestibular closure was incomplete, with a narrow column of air/contrast noted within the laryngeal vestibule at the height of the swallow. Pharyngeal stripping wave was present, but diminished. Pharyngeal contraction could not be determined due to logistical reasons not related to physiologic impairment. Pharyngoesophageal segment opening demonstrated partial distension/partial duration, with partial obstruction of bolus flow. Tongue base retraction allowed a trace column of contrast or air between the retracted tongue base and the posterior pharyngeal wall. Pharyngeal residue was a collection of residue within or on pharyngeal structures. Esophageal clearance in the upright position could not be assessed due to logistical reasons not related to physiologic impairment. Oral Impairment Score: 4 (absence of score, component 1component 2) Pharyngeal Impairment Score: 9 (absence of score, component 13) Esophageal Impairment Score: --- (absence of score, component 17) Laryngeal Penetration and Aspiration: Both Penetration and Aspiration were observed in today's study. Pudding-thick, Tollette-thick Contrast entered the airway, remained above the vocal folds, and were ejected from the airway. Thin Contrast entered the airway, passed below the vocal folds, and no effort was made to eject. ASSESSMENT: This exam was conducted by the radiologist and the speech pathologist. Patient was seated upright in a wheelchair for lateral view only. He trialed thin (cup), nectar thick (cup), puree, ground, and regular solid textures. Mastication was mildly prolonged, resulting with adequate oral clearance. Trace lingual residue subsequently cleared. Posterior lingual movement was mildly delayed. Pharyngeal swallow trigger was also delayed, initiated as the bolus head reached the posterior laryngeal surface of the epiglottis. No evidence of nasopharyngeal reflux. Partial laryngeal elevation with no anterior hyoid excursion and partial epiglottic inversion. Incomplete laryngeal vestibular closure. Mild pharyngeal retention with solids and especially with liquids, which collected in the valleculae and pyriform sinuses. Residuals were effectively reduced with dry swallows. There was trace penetration above the vocal folds on trials of nectar thick and puree. Deep penetration on thin liquid with trace subglottic aspiration. No spontaneous cough reflex initiated. Patient was cued to cough, which cleared some contrast from the airway. Partial distention through the pharyngoesophageal segment opening. Per radiologist, ?There is a small anterior bridging osteophyte at C5-C6 that does not appear to be causing any significant extrinsic compression of the esophagus.? Liquid Intake Recommendation: Tollette Thick Liquid Intake Strategies: Small Sips, No Straws, Double Swallow Dietary Recommendations: Chopped/Advanced (NDD3) Medication Administration: Crushed with Puree Please contact the pharmacy regarding appropriate crushable or liquid drug formulations that are available whenever modified delivery is recommended. Compensatory Strategies Recommended: Sitting Upright (90 deg), Double Swallow, No Straw, Small Bites and Sips, Rate of Ingestion Change, Avoid Specific Foods Supervision during eating and or drinking: Total Supervision (1:1) Recommended Treatments: Compens. Strategy Educat. Recommendation for Speech Therapy: Speech Therapy through Rehab Facility Text Comment: Intake Recommendations: Route: PO Diet Grade: Chopped/Advanced (NDD3) solids Liquid Consistencies: Tollette Post-Study Functional Oral Intake Scale (FOIS): 5- Total oral intake of multiple consistencies requiring special preparation Trace subglottic aspiration seen with thin liquid. Intermittent penetration above the vocal folds of trace contrast on trials of nectar thick and puree consistencies. Mild pharyngeal residue reduced with dry swallows. Recommend diet of CHOPPED/ADVANCED (NDD3) solids and NECTAR THICK liquids, pills CRUSHED in PUREE. Patient is recommended direct supervision and close monitoring at meal time with aspiration precautions: -Take small bites -Chew food well -Ensure oral cavity is clear before taking more bites -Avoid overly hard or sticky foods, mixed consistencies -Follow each bite with a dry swallow -Take small individual sips by spoon or by cup -Avoid use of straws -Optimal upright position during PO intake and for at least 30 minutes afterwards -Maintain daily oral care Therapy Recommendations: Recommend AUTOMATIC CASTING MACHINE OPERATOR follow up at [facility] to monitor tolerance of diet upgrade and to provide further education to patient, nursing staff, and family/caregivers. If there are any changes or worsening of symptoms, consult PCP, at which point a repeat-exam may be warranted. The following compensatory strategies and/or therapeutic exercises will be part of the upcoming therapy/management plan: Tollette-thick Liquid Bolus Volume Change Rate of Ingestion Change Additional Swallow(s) per Bolus Prognosis for Improvement: The prognosis for the patient to meet nutritional needs by mouth is fair based on degree of impairment, stimulability for treatment, level of motivation, support system. Intermediate Goals: ? The patient will tolerate the least restrictive diet with a safe/efficient swallow to maintain adequate nutrition and hydration. ? The patient and/or family will participate in further education for swallowing goals. Short Term Goals: ? Diet - The patient will tolerate a modified dysphagia diet (NDD3) with nectar thick liquids without signs or symptoms of penetration/aspiration 100% of the time. - The patient will participate in therapeutic PO trials with the AUTOMATIC CASTING MACHINE OPERATOR. ? Guidelines - The patient will comply with/recall the following guidelines/strategies 100% of the time with minimal cuing: Tollette-thick Liquid, Bolus Volume Change, Rate of Ingestion Change, Additional Swallow(s) per Bolus, No Straws. ? Education - The patient, family, caregiver will verbalize/demonstrate understanding of the results of this evaluation, the above recommendations, and the swallowing guidelines. Frequency/Duration: Date Range for Service Requested: Timeline to reassess: PRN Clinician - Supplemental, Miscellaneous Communication: Clinician - Supplemental, Miscellaneous Communication: It is important to note MBSS objective studies are snapshots in time and Patient function might vary with factors such as time of day or concomitant medical conditions. For this reason, the final treatment plan for this patient should rest with their medical care team. Additional recommendations should be considered with the totality of the Patient in mind. Thank for the opportunity to participate in the care of this patient. If you have any questions about the content of this report, please contact the [facility] at [facility]. Education: Education regarding findings from today's study and plans for therapy were provided to Patient and family/caregiver through Verbal Instruction, Written Instruction. Understanding was expressed by the Patient and family/caregiver. Manager Office Services Clinician/Clinical Fellow: No Supervisory Statement: N/A Speech Language Pathologist: Mary Mendez M.A., [facility]-AUTOMATIC CASTING MACHINE OPERATOR
== END 2023-12-31 13:41 | disposition home or self-care (01) ==
LOC: HO.XRAY 13:40
PROVIDERS: PCP Family Medicine; Visit Provider Nurse Practitioner
DX: R13.12 Dysphagia, oropharyngeal phase (principal)
CPT/HCPCS: 74230; 92611

== ENCOUNTER → 2023-12-31 13:44 | Outpatient (BNV) | payer MEDICARE, MEDICAID, SELFPAY | PROVIDERS: PCP Family Medicine; Visit Provider Radiology Diagnostic Radiology | DX: R13.10 Dysphagia, unspecified (principal) | CPT/HCPCS: 74230 ==

== ENCOUNTER 2024-03-27 08:19 | Inpatient (IN) | payer MEDICARE, MEDICAID, SELFPAY ==
[2024-03-27] VITALS (17 sets, daily range): BP systolic 98–154; BP diastolic 49–81; PULSE 50–167; RESP 16–51; TEMP 36.5–39.7; O2SAT 70–100; BMI 20.3; BMI 18.3
--- NOTE | 2024-03-27 | ECG_ITS ---
Test Reason : ADENOSINE ADMIN Blood Pressure : / mmHG Vent. Rate : 063 BPM Atrial Rate : 063 BPM P-R Int : 256 ms QRS Dur : 104 ms QT Int : 318 ms P-R-T Axes : 057 -56 047 degrees QTc Int : 325 ms Sinus rhythm with 1st degree A-V block Left axis deviation Incomplete right bundle branch block Inferior infarct (cited on or before 15-DEC-2021) Abnormal ECG When compared with ECG of 27-MAR-2024 08:31, VT interval has increased Vent. rate has decreased BY 99 BPM Referred By: Tianna Hawkins Electronically Signed By:ALEXEY RODAS MD
--- NOTE | ~2024-03-27 | CT_ITS ---
CLINICAL HISTORY: hypoxia, tachycardia CT angiography chest with contrast. 3D Postprocessing. Comparison: CT/REG/ID/SR - CT CHEST WO IV CON - 05/21/23 07:59 EST Findings: The heart size is normal. RV/LV ratio is normal. The thoracic aorta is normal caliber. No acute pulmonary embolus. The visualized thyroid and mediastinum are unremarkable. Heart size is normal. Coronary artery calcifications are present. Linear scarring in the anterior left upper lobe with surrounding ground-glass opacity, unchanged from prior. Dense consolidation in the left lower lobe. Consolidation and tree-in-bud nodules in the posterior right lung, more predominant in the right lower lobe. In the right upper lobe there is a oval ground-glass opacity measuring 2.5 cm in diameter, new in comparison to prior. The visualized upper abdomen is unremarkable. No acute fractures. IMPRESSION: 1. No pulmonary embolus. 2. Bilateral basilar predominant consolidation and tree-in-bud nodules consistent with pneumonia. 3. Ovoid 2.5 cm ground-glass opacity in the right upper lobe, attention on short-term follow-up recommended. 4. Linear scarring in the anterior left upper lobe with surrounding ground-glass opacity, unchanged from prior. This document has been electronically signed by: Pa Reilly MD on 03/28/2024 22:13:57
--- NOTE | ~2024-03-27 | XR_ITS ---
CLINICAL HISTORY: SOB 1 view chest x-ray Comparison: CT/MD/SR - CT CHEST WO IV CON - 05/21/23 07:59 EST Findings: Patchy right lower lobe airspace density. Cardiac and mediastinal contours are within normal limits. No acute fracture. IMPRESSION: Right lower lobe pneumonia. Follow-up recommended. This document has been electronically signed by: Kevon Landry MD on 03/27/2024 09:47:22
--- NOTE | 2024-03-27 08:27 | ECG_ITS ---
Test Reason : Tachycardia Blood Pressure : / mmHG Vent. Rate : 162 BPM Atrial Rate : 000 BPM P-R Int : 000 ms QRS Dur : 098 ms QT Int : 302 ms P-R-T Axes : 000 -88 053 degrees QTc Int : 495 ms Supraventricular tachycardia Possible atrial flutter Left axis deviation Incomplete right bundle branch block Inferior infarct (cited on or before 15-DEC-2021) Abnormal ECG When compared with ECG of 20-MAY-2023 23:54, Vent. rate has increased BY 57 BPM Incomplete right bundle branch block has replaced Right bundle branch block Referred By: Tianna Hawkins Electronically Signed By:ALEXEY RODAS MD
--- NOTE | 2024-03-27 08:34 | ED_ITS ---
HPI - SOB/Dyspnea General Chief Complaint: Dyspnea Stated Complaint: HOT TO TOUCH CONFUSION LETHARGIC Time Seen by Provider: 03/27/24 08:27 Source: patient Mode of arrival: ambulatory Limitations: no limitations History of Present Illness ED Provider: DR. Hawkins HPI Narrative: 78-year-old male history of DM 2 insulin-dependent, HTN, HLD, CVA with sequela of left-sided hemiparesis, dementia, anemia of chronic disease, dysphagia, lung cancer from a [facility] correction for evaluation of shortness of breath and more lethargic. Patient found by EMS to be hypoxic 60s to 70s%, tachypneic, and tachycardic, on arrival patient is lethargic, non historian. In acute respiratory distress patient's MOLST form stating DNR/DNI/do not use noninvasive respiratory support. I spoke with family Corina and Baylee over the phone using teacher vocal services discussing the case with the family family will be coming to the emergency department to decide what they will do for the patient whether continue treating or [employer] HELPER. Related Data Home Medications ?Medication ?Instructions ?Recorded ?Confirmed atorvastatin 40 mg tablet 40 mg PO BEDTIME 03/29/20 05/20/23 clopidogrel 75 mg tablet (Plavix) 75 mg PO DAILY 03/29/20 05/20/23 cholecalciferol (vitamin D3) 50 50 mcg PO DAILY 04/12/20 05/20/23 mcg (2,000 unit) capsule metoprolol tartrate 25 mg tablet 25 mg PO BID 04/12/20 05/20/23 blood sugar diagnostic (Former[facility] 08/03/20 08/03/20 Ultra Blue Test Strip) chlorhexidine gluconate 0.12 % 15 ml PO BID 08/03/20 05/20/23 mouthwash ferrous sulfate 325 mg (65 mg 1 tab PO TID 08/03/20 05/20/23 iron) tablet (FeroSul) fluticasone furoate 100 1 puff inhalation DAILY 08/03/20 05/20/23 mcg-vilanterol 25 mcg/dose inhalation powder (Breo Ellipta) insulin glargine 100 unit/mL (3 50 unit subcut BEDTIME 08/03/20 05/20/23 mL) subcutaneous pen (Lantus Solostar U-100 Insulin) lancets 33 gauge (OneTouch Delica 08/03/20 08/03/20 Plus Lancet) metformin 500 mg tablet 500 mg PO BEDTIME 08/03/20 05/20/23 multivitamin (One Daily 1 tab PO DAILY 08/03/20 05/20/23 Multivitamin tablet) pen needle, diabetic 32 gauge x 08/03/20 08/03/20 (UltiCare Pen Needle) ascorbic acid (vitamin C) 250 mg 250 mg PO BID 12/15/21 05/20/23 tablet divalproex 125 mg capsule,delayed 2 cap PO DAILY 12/15/21 05/20/23 release sprinkle insulin lispro 100 unit/mL 0 sliding scale dose subcut TIDAC 12/15/21 05/20/23 subcutaneous solution pantoprazole 40 mg tablet,delayed 1 tab PO DAILY 12/15/21 05/20/23 release sennosides 8.6 mg-docusate sodium 2 tab PO BID constipation 12/15/21 05/20/23 50 mg tablet (Senna with Docusate Sodium) acetaminophen 325 mg tablet 650 mg PO Q4H PRN Pain 05/20/23 05/20/23 albuterol sulfate 90 mcg/actuation 2 puff inhalation Q4H PRN 05/20/23 05/20/23 aerosol inhaler (ProAir HFA) Shortness Of Breath Or Wheezing bisacodyl 10 mg rectal suppository 10 mg AK DAILY PRN Constipation 05/20/23 05/20/23 guaifenesin 100 mg/5 mL oral liquid 200 mg PO Q4H PRN Cough 05/20/23 05/20/23 magnesium hydroxide 2,400 mg/10 mL 30 ml PO DAILY PRN Constipation 05/20/23 05/20/23 oral suspension (Milk Of Magnesia Concentrated) magnesium oxide 400 mg PO BID 05/20/23 05/20/23 metformin 500 mg tablet 1,000 mg PO QAM 05/20/23 05/20/23 sodium phosphates 19 gram-7 118 ml AK DAILY PRN Constipation 05/20/23 05/20/23 gram/118 mL enema (Fleet Enema) Previous Rx's ?Medication ?Instructions ?Recorded potassium chloride 20 mEq 20 meq PO DAILY #30 tabs 12/16/21 tablet,extended release doxycycline monohydrate 100 mg 100 mg PO BID 5 days #10 tabs 05/22/23 tablet Allergies Allergy/AdvReac Type Severity Reaction Status Date / Time No Known Allergies Allergy Unknown NONE Verified 03/27/24 08:33 Review of Systems 2 Review of Systems: Yes Unobtainable due to mental condition and Unobtainable due to mental status [facility] Past Medical History Medical History HLD (hyperlipidemia) Vascular dementia Non-small cell cancer of left lung Dysphagia as late effect of cerebrovascular accident (CVA) Stroke HTN (hypertension) Diabetes CVA (cerebral vascular accident) Surgical History S/P AKA (above knee amputation) bilateral History of colonoscopy Family History Family History Father Hx of type 1 diabetes mellitus Mother History of heart attack Social History Social History Household Members: Other Household Members Other:: [place] [facility] Housing: [place]way Do you presently have visiting nurse or other home services: No Alcohol intake: unknown Patient Tobacco Use Status: Former Tobacco user Cigarette Packs Per Day: 1 Cigarettes Per Day: 20.0 Smoked in Last 30 Days: No Second Hand Smoke Exposure: Yes Use of substances other than those prescribed or required for medical reasons: No Advance Directives: Yes Advance Directives on File: Yes Advance Directives Date on File: 08/08/20 service: No Current occupational status: unemployed and disabled Physical Exam 2 Vital Signs: Vital Signs: Last Vital Signs Temp 102.2 F H 03/27/24 11:02 Pulse 137 H 03/27/24 11:02 Resp 29 H 03/27/24 11:02 BP 114/70 03/27/24 11:02 Pulse Ox 100 03/27/24 11:02 O2 Del Method High Flow Nasal C annula 03/27/24 11:02 BMI result Body Mass Index 20.3 Vital signs have been reviewed and appear to be correct. Blood pressure elevated. Heart rate elevated. Respiratory rate elevated. Temperature normal. Oxygen saturation normal. Appearance: Lethargic in mild acute respiratory distress. Head: Normal external exam. Normocephalic. Atraumatic. No Rincon signs noted. No raccoon eyes noted Eyes: PERRLA. EOMI. Conjunctiva and sclera normal. Eyelids normal. ENT: TM's Normal. Pharynx normal. Uvula midline. Moist mucous membranes. No trismus noted. No drooling noted. No muffled voice noted. Neck: Normal inspection. Neck supple. FROM. No adenopathy. Thyroid Normal. No meningeal signs. No neck mass noted. CVS: Normal heart rate and rhythm. Heart sound normal. No murmurs noted. Pulses normal throughout. Respiratory: Mild acute respiratory distress. Painless inspiration. Breath sounds normal. Bilateral lower lung may rales, diminished air entry in the right lower lung field with crackles. No accessory muscle usage noted or decreased air movement noted. Abdomen: Soft and nontender. Bowel sounds normal in all 4 quadrants. No distention noted. No organomegaly noted. No visible injury noted. Back: No CVA tenderness. Full range of motion noted. Skin: Skin warm and dry. Normal skin color. Normal skin turgor. No rashes/lesions/lacerations noted. Extremities: No lower extremity edema. Extremities exhibit normal range of motion. Extremities nontender. Neuro: Lethargic Course Reevaluation(s) Reevaluation #1: 78-year-old male critically ill presented with septic shock secondary to pneumonia, patient is a DNR/DNI/do not use noninvasive positive pressure respiratory support. Secondary to initial exam is consistent with congestive heart failure patient did not receive a bolus of 30 cc/kg however patient received small boluses of 250 cc x4 along with Lasix to diurese. Lactic acid is above 8 considering septic shock, I discussed the situation with the family at lengthy patient continue to be DNR/DNI, will continue with current management, antibiotic and p.r.n. fluids. Time: 10:30 Reevaluation #2: FOCUSED EXAM; patient is showing mild improvement patient now is responding to the family by shaking his head to answer family's questions which he did not do the initially, lactic acid went from 8.3-4.4 after 1 L of normal saline and receiving antibiotic, blood pressure stay stable. Heart rate is trending down. 2. Elevated troponin likely for increased demand. There is no ICU bed available at this point the case discussed with Dr. May and to be admitted to the floor. Time: 11:54 Medications Administered Generic Name Dose Route Start Last Admin Trade Name Freq PRN Reason Stop Dose Admin Sodium Chloride 1,000 mls @ 250 mls/hr 03/27/24 09:10 03/27/24 09:31 Ns IV 03/27/24 13:09 250 mls/hr .Q4H ONE Administration Sodium Chloride 1,000 mls @ 250 mls/hr 03/27/24 09:30 03/27/24 09:30 Ns IV 03/27/24 13:29 250 mls/hr .Q4H ONE Administration Discontinued Medications Generic Name Dose Route Start Last Admin Trade Name Freq PRN Reason Stop Dose Admin Acetaminophen 650 mg 03/27/24 08:27 03/27/24 08:55 Acetaminophen Supp 650 Mg Supp.Rect AK 03/27/24 08:28 650 mg ONCE ONE Administration Acetaminophen 650 mg 03/27/24 09:28 03/27/24 09:40 Acetaminophen Supp 650 Mg Supp.Rect AK 03/27/24 09:29 650 mg ONCE ONE Administration Adenosine 6 mg 03/27/24 08:33 03/27/24 09:12 Adenosine 6 Mg/2 Ml Vial IVPUSH 03/27/24 08:34 6 mg STAT STA Administration Adenosine 12 mg 03/27/24 09:28 03/27/24 09:31 Adenosine 6 Mg/2 Ml Vial IVPUSH 03/27/24 09:29 12 mg ONCE ONE Administration Ceftriaxone Sodium 1 gm 03/27/24 08:27 03/27/24 08:42 Ceftriaxone Sodium 1 Gm Vial IVPUSH 03/27/24 08:28 1 gm ONCE ONE Administration Furosemide 40 mg 03/27/24 08:27 03/27/24 08:47 Furosemide 40 Mg/4 Ml Vial IVPUSH 03/27/24 08:28 40 mg ONCE ONE Administration Protocol Doxycycline Hyclate 100 mg/ 250 mls @ 166.67 mls/hr 03/27/24 09:30 03/27/24 09:47 Sodium Chloride IV 03/27/24 10:59 166.67 mls/hr ONCE ONE Administration Nitroglycerin 0.5 inch 03/27/24 08:27 03/27/24 08:43 Nitroglycerin 2 % Oint 1 Gm Packet TRANSDERMA 03/27/24 08:28 0.5 inch ONCE ONE Administration Medical Decision Making Differential Diagnosis Differential Diagnoses: The differential diagnosis associated with the presentation includes (Non STEMI, pneumonia, pneumothorax, pleural effusion, septic shock, UTI, electrolyte derangement, severe anemia.) Admission/Observation Consideration of admission/observation: Escalation of care including admission/observation considered Consult Healthcare Provider Management of the patient was discussed with: Hospitalist (Dr. Delcid) Lab Data MDM Lab Attestation statement: I reviewed the patient's lab results. 03/27/24 08:41 03/27/24 08:41 Labs: Lab Results 03/27/24 03/27/24 03/27/24 Range/Units 08:36 08:41 08:50 WBC 9.5 (4.8-10.8) X10*3/uL RBC 4.20 L (4.60-5.80) X10*6/uL Hgb 11.7 L (14.0-18.0) g/dl Hct 37.6 L (42.0-52.0) % MCV 89.5 (80.0-98.0) fL MCH 27.9 (27.0-33.0) pg MCHC 31.1 (31.0-36.0) g/dl RDW 16.3 H (11.0-16.0) % Plt Count 432 H D (160-400) X10*3/uL MPV 9.7 (9.4-12.4) fL Immature Gran % (Auto) 0.3 (0.0-0.4) % Neut % (Auto) 79.0 H (45-73) % Lymph % (Auto) 12.5 L (20-40) % Jack % (Auto) 7.5 (2-11) % Eos % (Auto) 0.1 (0-4) % Baso % (Auto) 0.6 (0-2) % Lymph # (Auto) 1.2 (1.2-4.9) X10*3/uL Jack # (Auto) 0.7 (0.1-1.2) X10*3/uL Eos # (Auto) 0.0 (0.0-0.4) X10*3/uL Baso # (Auto) 0.1 (0.0-0.2) X10*3/uL Abs Immat Gran (auto) 0.03 (0.00-0.03) X10*3/uL Absolute Neuts (auto) 7.5 (2.0-8.3) x10*3/uL Absolute Nucleated RBC 0.000 (0.0-0.012) X10*3/uL Nucleated RBC % (auto) 0.0 (0.0-0.2) /100WBC VBG pH 7.31 L (7.32-7.43) VBG pCO2 36 mmHg VBG pO2 49 mmHg VBG HCO3 18 L (22-26) mmol/L VBG O2 Saturation 69.0 % VBG Base Excess -6.9 mmol/L Sodium 143 (135-145) mmol/L Potassium 4.7 (3.3-5.1) mmol/L Chloride 108 (96-108) mmol/L Carbon Dioxide 18 L (22-29) mmol/L Anion Gap 22 H (12-20) BUN 25 H (9-16) mg/dL Creatinine 0.89 (0.5-1.4) mg/dL Estim Creat Clear Calc 51.0 Estimated GFR > 60 Random Glucose 461 H* (60-115) mg/dL Lactic Acid 8.3 H* (0.5-2.0) mmol/L Lactic Acid F/U @ 2Hr (0.5-2.0) mmol/L Calcium 8.9 (8.4-10.2) mg/dL Total Bilirubin 0.7 (0.0-1.0) mg/dL Direct Bilirubin 0.3 (0.0-0.5) mg/dL AST 31 (5-37) U/L ALT 18 (0-40) U/L Alkaline Phosphatase 124 H (39-117) U/L Troponin I High Sens 116.5 H* D (<3.5-35.0) ng/L B-Natriuretic Peptide 134 H (<100) pg/mL Total Protein 6.8 (6.5-8.0) g/dL Albumin 3.3 L (3.5-5.0) g/dL Lipase 5 L (8-78) U/L Urine Color Urine Appearance Urine pH (5.0-9.0) Ur Specific [place] (1.005-1.025) Urine Protein (Neg-Trace) mg/dL Urine Glucose (UA) (Negative) mg/dL Urine Ketones (Negative) mg/dL Urine Blood (Negative) Urine Nitrite (Negative) Ur Leukocyte Esterase (Negative) Urine RBC (0-2) /HPF Urine WBC (0-5) /HPF Ur Squamous Epith Cells (0-2) /HPF Urine Bacteria (None Seen) Hyaline Casts (0-2) /LPF Influenza Type A (PCR) NEGATIVE (Negative) Influenza Type B (PCR) NEGATIVE (Negative) RSV RNA Qual (PCR) NEGATIVE (Negative) SARS-CoV-2 RNA (RT-PCR) NEGATIVE (Negative) 03/27/24 03/27/24 03/27/24 Range/Units 09:40 11:04 11:05 WBC (4.8-10.8) X10*3/uL RBC (4.60-5.80) X10*6/uL Hgb (14.0-18.0) g/dl Hct (42.0-52.0) % MCV (80.0-98.0) fL MCH (27.0-33.0) pg MCHC (31.0-36.0) g/dl RDW (11.0-16.0) % Plt Count (160-400) X10*3/uL MPV (9.4-12.4) fL Immature Gran % (Auto) (0.0-0.4) % Neut % (Auto) (45-73) % Lymph % (Auto) (20-40) % Jack % (Auto) (2-11) % Eos % (Auto) (0-4) % Baso % (Auto) (0-2) % Lymph # (Auto) (1.2-4.9) X10*3/uL Jack # (Auto) (0.1-1.2) X10*3/uL Eos # (Auto) (0.0-0.4) X10*3/uL Baso # (Auto) (0.0-0.2) X10*3/uL Abs Immat Gran (auto) (0.00-0.03) X10*3/uL Absolute Neuts (auto) (2.0-8.3) x10*3/uL Absolute Nucleated RBC (0.0-0.012) X10*3/uL Nucleated RBC % (auto) (0.0-0.2) /100WBC VBG pH (7.32-7.43) VBG pCO2 mmHg VBG pO2 mmHg VBG HCO3 (22-26) mmol/L VBG O2 Saturation % VBG Base Excess mmol/L Sodium (135-145) mmol/L Potassium (3.3-5.1) mmol/L Chloride (96-108) mmol/L Carbon Dioxide (22-29) mmol/L Anion Gap (12-20) BUN (9-16) mg/dL Creatinine (0.5-1.4) mg/dL Estim Creat Clear Calc Estimated GFR Random Glucose (60-115) mg/dL Lactic Acid (0.5-2.0) mmol/L Lactic Acid F/U @ 2Hr 4.4 H* (0.5-2.0) mmol/L Calcium (8.4-10.2) mg/dL Total Bilirubin (0.0-1.0) mg/dL Direct Bilirubin (0.0-0.5) mg/dL AST (5-37) U/L ALT (0-40) U/L Alkaline Phosphatase (39-117) U/L Troponin I High Sens 162.5 H* (<3.5-35.0) ng/L B-Natriuretic Peptide (<100) pg/mL Total Protein (6.5-8.0) g/dL Albumin (3.5-5.0) g/dL Lipase (8-78) U/L Urine Color Dark Yellow Urine Appearance Turbid Urine pH 5.5 (5.0-9.0) Ur Specific [place] 1.020 (1.005-1.025) Urine Protein 30 (1+) H (Neg-Trace) mg/dL Urine Glucose (UA) >=1000 H (Negative) mg/dL Urine Ketones 40 (Negative) mg/dL Urine Blood Small (1+) H (Negative) Urine Nitrite Negative (Negative) Ur Leukocyte Esterase Small (1+) H (Negative) Urine RBC 3-5 H (0-2) /HPF Urine WBC 11-20 H (0-5) /HPF Ur Squamous Epith Cells 3-5 (0-2) /HPF Urine Bacteria 4+ (None Seen) Hyaline Casts 3-5 (0-2) /LPF Influenza Type A (PCR) (Negative) Influenza Type B (PCR) (Negative) RSV RNA Qual (PCR) (Negative) SARS-CoV-2 RNA (RT-PCR) (Negative) Independent Interpretation I performed an independent interpretation of an: Plain X-Ray (Chest: Right lower lobe pneumonia) Radiology Impression Discussion of test interpretation with radiology: I have reviewed the radiologist's reading. Critical Care Time Critical Care Time Critical Care Time: Yes Total Critical Care Time: 60 Attestation: The patient was critically ill with a high probability of imminent or life- threatening deterioration. I spent greater than 30 minutes of discontinuous time evaluating the patient, delivering critical care at the bedside, discussing evaluating data with consultants. Critical care time does not include time spent performing separately billable procedures or teaching. Time spent performing critical care was 60 minutes. Discharge Plan Discharge Clinical Impression: Pneumonia, Septic shock, Elevated troponin Patient Disposition: Admitted As Inpatient Print Language: Macedonian
[2024-03-27] MEDS: cefTRIAXone sodium 1 GM VIAL IVPUSH (08:42)
[2024-03-27] MEDS: Nitroglycerin 2 % Oint 1 GM Packet 0.5 INCH TRANSDERMA (08:43)
--- NOTE | 2024-03-27 08:43 | PC.RT ---
arrived to ED via EMS from facility. per MOLST form, patient DNR/DNI and no NIV. placed on HFNC per MD request. Coarse breath sounds throughout
[2024-03-27] MEDS: Furosemide 40 MG/4 ML VIAL IVPUSH (08:47)
[2024-03-27 08:49] LABS: MANUAL DIFF FLAG NO
[2024-03-27 08:51] LABS: Basophils Percent Auto 0.6 % (0-2); Eosinophils Percent Auto 0.1 % (0-4); Hematocrit 37.6 % (42.0-52.0); Hemoglobin 11.7 g/dl (14.0-18.0); Imm Gran Abs Auto 0.03 X10*3/uL (0.00-0.03); Imm Gran Pct Auto 0.3 % (0.0-0.4); Lymphocytes Absolute Auto 1.2 X10*3/uL (1.2-4.9); Lymphocytes Percent Auto 12.5 % (20-40); Mean Corpuscular HGB Conc 31.1 g/dl (31.0-36.0); Mean Corpuscular Hemoglobin 27.9 pg (27.0-33.0); Mean Corpuscular Volume 89.5 fL (80.0-98.0); Mean Platelet Volume 9.7 fL (9.4-12.4); Monocytes Absolute Auto 0.7 X10*3/uL (0.1-1.2); Monocytes Percent Auto 7.5 % (2-11); Neutrophils Absolute Auto 7.5 x10*3/uL (2.0-8.3); Platelet Count 432 X10*3/uL (160-400); Red Cell Distribution Width 16.3 % (11.0-16.0); White Blood Count 9.5 X10*3/uL (4.8-10.8)
[2024-03-27 08:53] LABS: Venous Blood Gas Refer to POC result
[2024-03-27 08:54] LABS: VBG Base Excess -6.9 mmol/L; VBG HCO3 18 mmol/L (22-26); VBG pCO2 36 mmHg; VBG pH 7.31 (7.32-7.43); VBG pO2 49 mmHg
[2024-03-27] MEDS: Acetaminophen Supp 650 MG SUPP.RECT PR ×2 (08:55→09:40)
[2024-03-27 09:00] LABS: Basophils Absolute Auto 0.1 X10*3/uL (0.0-0.2)
[2024-03-27 09:09] LABS: Alanine Aminotransferase 18 U/L (0-40); Albumin Level 3.3 g/dL (3.5-5.0); Alkaline Phosphatase 124 U/L (39-117); Anion Gap 22 (12-20); Aspartate Amino Transferase 31 U/L (5-37); Bilirubin Direct 0.3 mg/dL (0.0-0.5); Bilirubin Total 0.7 mg/dL (0.0-1.0); Blood Urea Nitrogen 25 mg/dL (9-16); Calcium 8.9 mg/dL (8.4-10.2); Carbon Dioxide 18 mmol/L (22-29); Chloride 108 mmol/L (96-108); Estimated Glomerular Filt Rate > 60; Lipase 5 U/L (8-78); Potassium 4.7 mmol/L (3.3-5.1); Sodium 143 mmol/L (135-145); Total Protein 6.8 g/dL (6.5-8.0)
[2024-03-27 09:11] LABS: Glucose Random 461 mg/dL (60-115); Lactic Acid 8.3 mmol/L (0.5-2.0)
[2024-03-27] MEDS: Adenosine 6 MG/2 ML VIAL IVPUSH (09:12)
[2024-03-27 09:21] LABS: Troponin-I High Sensitivity 116.5 ng/L (<3.5-35.0)
[2024-03-27 09:23] LABS: B Type Natriuretic Peptide 134 pg/mL (<100)
--- NOTE | 2024-03-27 09:29 | PC.NURSE ---
PATIENT IS INCONTINENT OF LARGE AMOUNT OF STOOL, NON VERBAL BUT DOES GROAN WITH MOVEMENT.
[2024-03-27] MEDS: 0.9 % Sodium Chloride 1,000 ML 250 ML IV ×2 (09:30→09:31)
[2024-03-27 09:31] LABS: Influenza A PCR NEGATIVE (Negative); Influenza B PCR NEGATIVE (Negative); Resp Syncy Virus RNA Qual PCR NEGATIVE (Negative); SARS COV2 PCR INHOUSE NEGATIVE (Negative)
[2024-03-27] MEDS: Adenosine 6 MG/2 ML VIAL 12 MG IVPUSH (09:31)
[2024-03-27 09:46] LABS: Appearance Urine Turbid; Color Urine Dark Yellow; Glucose Urine UA >=1000 mg/dL (Negative); Leukocyte Esterase Urine Small (1+) (Negative); Nitrite Urine Negative (Negative); PH 5.5 (5.0-9.0); UMIC TRIGGER UA YES; Urine Blood Small (1+) (Negative); Urine Ketones 40 mg/dL (Negative); Urine Protein 30 (1+) mg/dL (Neg-Trace)
[2024-03-27] MEDS: Doxycycline Hyclate 100 MG in 0.9 % Sodium Chloride 250 ML 166.67 MG IV ×2 (09:47→21:18)
[2024-03-27 09:59] LABS: Bacteria Urine 4+ (None Seen)
--- NOTE | 2024-03-27 10:43 | PC.NURSE ---
IVF were originally for 250ml only but then attending MD changed to keep this fluid infusing but for the liter to be infused not the 250 but to infuse slowly.
[2024-03-27 10:48] LABS: Reflex Lactate? Lactic Acid Added
--- NOTE | 2024-03-27 11:12 | PC.NURSE ---
many family members at bedside and patient briefly opened his eyes for family.
[2024-03-27 11:40] LABS: ~Lactic Acid-LAB USE ONLY 4.4 mmol/L (0.5-2.0)
[2024-03-27 11:40] LABS: Troponin-I High Sensitivity 162.5 ng/L (<3.5-35.0)
--- NOTE | 2024-03-27 11:49 | PM.IMHP ---
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 EMS found patient in respiratory distress, hypoxic in the 60s as well as tachycardic and tachypneic. Patient was somnolent and nonresponsive to questions. In the ED pt was febrile up to 103.5, tachycardic up to 164, tachypneic up to 51, with variable BP as low as 108/49 now normalized at 114/70, initially satting in the 70s on RA placed high-flow. Labs were significant for reandom glucose 461, initial lactic acid 8.3 with repeat 4.4, alk-phos 124, initial troponin 116.5 with repeat 162.5, BNP mildly elevated at 134. No leukocytosis. Stable H&H at 11.7/37.6. No significant electrolyte abnormalities. VB pH 7.31 with bicarb 18. UA concerning for possible UTI. Tested negative for flu, RSV, and COVID. CXR showed right lower lobe pneumonia. Initial EKG demonstrated supraventricular tachycardia 162 with repeat patient with sinus rhythm first-degree AV block. Pt was treated with nitroglycerin, Lasix, acetaminophen, adenosine, IVF, ceftriaxone, and doxycycline. Goals of care discussed with HCP as well as numerous other family who are at bedside. Plan is to admit the pt to the hospital for treatment of pneumonia with sepsis with IV antibiotics. 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 Review of Systems Review of Systems: Yes Unobtainable due to mental status [facility] Medical History HLD (hyperlipidemia) Vascular dementia Non-small cell cancer of left lung Dysphagia as late effect of cerebrovascular accident (CVA) Stroke HTN (hypertension) Diabetes CVA (cerebral vascular accident) Family History Father Hx of type 1 diabetes mellitus Mother History of heart attack Surgical History S/P AKA (above knee amputation) bilateral History of colonoscopy Social History Household Members: Other Household Members Other:: [facility] Housing: [facility] Do you presently have visiting nurse or other home services: No Alcohol intake: unknown Patient Tobacco Use Status: Former Tobacco user Cigarette Packs Per Day: 1 Cigarettes Per Day: 20.0 Smoked in Last 30 Days: No Second Hand Smoke Exposure: Yes Use of substances other than those prescribed or required for medical reasons: No Currently Displaying Signs/Symptoms of Drug Intoxication Withdrawal: No Have you been hit, kicked, punched, or otherwise hurt by someone within the past year? If so, by whom?: No Do you feel safe in your current relationship?: Yes Is there a partner from a previous relationship who is making you feel unsafe now?: No Are you made to feel afraid or neglected: No Advance Directives: Yes Advance Directives on File: Yes Advance Directives Date on File: 08/08/20 Do you have a plan to hurt others: No Plan Recently lost weight without trying: Unsure How much weight loss: Unsure Nutrition Risks: Difficulty chewing, Difficulty swallowing and On aspiration precautions service: No Current occupational status: unemployed and disabled Meds Allergies Allergy/AdvReac Type Severity Reaction Status Date / Time No Known Allergies Allergy Unknown NONE Verified 03/27/24 08:33 Active Medications: Current Medications Sodium Chloride (Ns) 1,000 mls @ 250 mls/hr IV .Q4H ONE Stop: 03/27/24 13:09 Last Admin: 03/27/24 09:31 Dose: 250 mls/hr Sodium Chloride (Ns) 1,000 mls @ 250 mls/hr IV .Q4H ONE Stop: 03/27/24 13:29 Last Admin: 03/27/24 09:30 Dose: 250 mls/hr Home Medications ?Medication ?Instructions ?Recorded ?Confirmed ?Last Taken ?Type atorvastatin 40 mg tablet 40 mg PO BEDTIME 03/29/20 03/27/24 12/14/21 History clopidogrel 75 mg tablet (Plavix) 75 mg PO DAILY 03/29/20 03/27/2422 History cholecalciferol (vitamin D3) 50 50 mcg PO DAILY 04/12/20 03/27/24 12/15/21 History mcg (2,000 unit) capsule metoprolol tartrate 25 mg tablet 25 mg PO BID 04/12/20 03/27/24 12/15/21 History blood sugar diagnostic (OneTouch 08/03/20 08/03/20 Unknown History Ultra Blue Test Strip) chlorhexidine gluconate 0.12 % 15 ml PO BID 08/03/20 03/27/24 12/15/21 History mouthwash ferrous sulfate 325 mg (65 mg 1 tab PO DAILY 08/03/20 03/27/24 12/15/21 History iron) tablet (FeroSul) fluticasone furoate 100 1 puff inhalation DAILY 08/03/20 03/27/24 12/15/21 History mcg-vilanterol 25 mcg/dose inhalation powder (Breo Ellipta) insulin glargine 100 unit/mL (3 30 unit subcut BEDTIME 08/03/20 03/27/24 12/14/21 History mL) subcutaneous pen (Lantus Solostar U-100 Insulin) lancets 33 gauge (OneTouch Delica 08/03/20 08/03/20 Unknown History Plus Lancet) pen needle, diabetic 32 gauge x 08/03/20 08/03/20 Unknown History (UltiCare Pen Needle) insulin lispro 100 unit/mL 1 sliding scale dose subcut TIDAC 12/15/21 03/27/24 Unknown History subcutaneous solution pantoprazole 40 mg tablet,delayed 1 tab PO DAILY 12/15/21 03/27/24 12/15/21 History release acetaminophen 325 mg tablet 650 mg PO Q4H PRN Pain or fever 05/20/23 03/27/24 Unknown History bisacodyl 10 mg rectal suppository 10 mg NE DAILY PRN Constipation 05/20/23 03/27/24 Unknown History guaifenesin 100 mg/5 mL oral liquid 200 mg PO Q4H PRN Cough 05/20/23 03/27/24 Unknown History magnesium oxide 400 mg PO BID 05/20/23 03/27/24 Unknown History sodium phosphates 19 gram-7 118 ml NE DAILY PRN Constipation 05/20/23 03/27/24 Unknown History gram/118 mL enema (Fleet Enema) ascorbic acid (vitamin C) 500 mg 500 mg PO DAILY 03/27/24 03/27/24 Unknown History tablet divalproex 250 mg tablet,extended 250 mg PO DAILY 03/27/24 03/27/24 Unknown History release 24 hr gabapentin 100 mg capsule 100 mg PO DAILY 03/27/24 03/27/24 Unknown History guaifenesin 100 mg/5 mL oral liquid 200 mg PO BID 03/27/24 03/27/24 Unknown History loperamide 2 mg capsule (Imodium 2 mg PO Q6H PRN Loose Stool 03/27/24 03/27/24 Unknown History A-D) magnesium hydroxide 2,400 mg/10 mL 30 ml PO DAILY PRN Constipation 03/27/24 03/27/24 Unknown History oral suspension (Milk Of Magnesia Concentrated) mirtazapine 15 mg tablet 7.5 mg PO BEDTIME 03/27/24 03/27/24 Unknown History multivitamin with minerals 1 tab PO DAILY 03/27/24 03/27/24 Unknown History potassium chloride 20 mEq 20 meq PO BID 03/27/24 03/27/24 Unknown History tablet,extended release trazodone 50 mg tablet 50 mg PO BEDTIME 03/27/24 03/27/24 Unknown History Physical Exam Vital Signs and Narrative: Vital Signs: Last Vital Signs Temp 102.2 F H 03/27/24 11:02 Pulse 137 H 03/27/24 11:02 Resp 29 H 03/27/24 11:02 BP 114/70 03/27/24 11:02 Pulse Ox 100 03/27/24 11:02 O2 Del Method High Flow Nasal C annula 03/27/24 11:02 BMI result Body Mass Index 20.3 General: Somnolent but arousable, not responding to queries. In moderate respiratory distress. Resp: Right-sided rhonchi, tachypneic, diaphoretic breathing CVS: S1, S2, tachycardic GI: +BS, NT, no distention Skin: Warm, dry Neuro: Motor grossly intact bilaterally Extremities: No edema. Bilateral AKAs Psych: Somnolent Results Labs 03/27/24 08:41 03/28/24 06:54 Labs: Laboratory Results - last 24 hr 03/27/24 03/27/24 03/27/24 08:36 08:41 08:50 MCV 89.5 MCH 27.9 MCHC 31.1 RDW 16.3 H Plt Count 432 H D MPV 9.7 Immature Gran % (Auto) 0.3 Neut % (Auto) 79.0 H Lymph % (Auto) 12.5 L [place] % (Auto) 7.5 Eos % (Auto) 0.1 Baso % (Auto) 0.6 Lymph # (Auto) 1.2 [place] # (Auto) 0.7 Eos # (Auto) 0.0 Baso # (Auto) 0.1 Abs Immat Gran (auto) 0.03 Absolute Neuts (auto) 7.5 Absolute Nucleated RBC 0.000 Nucleated RBC % (auto) 0.0 VBG pH 7.31 L VBG pCO2 36 VBG pO2 49 VBG HCO3 18 L VBG O2 Saturation 69.0 VBG Base Excess -6.9 Anion Gap 22 H Estim Creat Clear Calc 51.0 Estimated GFR > 60 Random Glucose 461 H* Lactic Acid 8.3 H* Lactic Acid F/U @ 2Hr Calcium 8.9 Total Bilirubin 0.7 Direct Bilirubin 0.3 AST 31 ALT 18 Alkaline Phosphatase 124 H Troponin I High Sens 116.5 H* D B-Natriuretic Peptide 134 H Total Protein 6.8 Albumin 3.3 L Lipase 5 L Urine Color Urine Appearance Urine pH Ur Specific Maury Urine Protein Urine Glucose (UA) Urine Ketones Urine Blood Urine Nitrite Ur Leukocyte Esterase Urine RBC Urine WBC Ur Squamous Epith Cells Urine Bacteria Hyaline Casts Influenza Type A (PCR) NEGATIVE Influenza Type B (PCR) NEGATIVE RSV RNA Qual (PCR) NEGATIVE SARS-CoV-2 RNA (RT-PCR) NEGATIVE 03/27/24 03/27/24 03/27/24 09:40 11:04 11:05 MCV MCH MCHC RDW Plt Count MPV Immature Gran % (Auto) Neut % (Auto) Lymph % (Auto) [place] % (Auto) Eos % (Auto) Baso % (Auto) Lymph # (Auto) [place] # (Auto) Eos # (Auto) Baso # (Auto) Abs Immat Gran (auto) Absolute Neuts (auto) Absolute Nucleated RBC Nucleated RBC % (auto) VBG pH VBG pCO2 VBG pO2 VBG HCO3 VBG O2 Saturation VBG Base Excess Anion Gap Estim Creat Clear Calc Estimated GFR Random Glucose Lactic Acid Lactic Acid F/U @ 2Hr 4.4 H* Calcium Total Bilirubin Direct Bilirubin AST ALT Alkaline Phosphatase Troponin I High Sens 162.5 H* B-Natriuretic Peptide Total Protein Albumin Lipase Urine Color Dark Yellow Urine Appearance Turbid Urine pH 5.5 Ur Specific Maury 1.020 Urine Protein 30 (1+) H Urine Glucose (UA) >=1000 H Urine Ketones 40 Urine Blood Small (1+) H Urine Nitrite Negative Ur Leukocyte Esterase Small (1+) H Urine RBC 3-5 H Urine WBC 11-20 H Ur Squamous Epith Cells 3-5 Urine Bacteria 4+ Hyaline Casts 3-5 Influenza Type A (PCR) Influenza Type B (PCR) RSV RNA Qual (PCR) SARS-CoV-2 RNA (RT-PCR) Assessment and Plan (1) Pneumonia: Status: Acute Plan Pt is a 78-year-old Romanian-speaking male with a PMH significant for?CVA with residual left hemiparesis, 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 Plan is to admit the pt to the hospital for treatment of pneumonia with sepsis with IV antibiotics. 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 Acute hypoxic respiratory failure in the setting of pneumonia with severe sepsis Patient with respiratory distress, desatting to 60-70s on RA, CXR showing right-sided pneumonia Meets severe sepsis criteria: Fever, tachycardia, tachypnea, initial lactic acid 8.3 with repeat Received IVF and started on broad-spectrum antibiotics in the ED Will treat with ceftriaxone and doxycycline, started 03/27/2023 Continue high-flow, wean as tolerated Monitor respiratory status Question of UTI Treat with antibiotics as above Follow urine cultures Diet NPO for now given lethargy Hx of dysphagia Re-evaluate tomorrow, consider pureed diet no longer NPO Insulin-dependent type 2 diabetes Hold metformin Sliding-scale insulin Lantus at half dosing while NPO Hx of CVA Continue statin, Plavix once no longer NPO GERD PPI once no longer NPO DNR/DNI Attending:?Dr. Cheema DVT Prophylaxis: Lovenox Pt will require a hospitalization of at least two nights for treatment of?acute respiratory failure and encephalopathy in the setting of acute pneumonia with severe sepsis. Patient will require hospital level care for administration of IV antibiotics, supplemental oxygen currently on high flow, and monitoring of respiratory status. Quality Stroke Does the patient have a stroke diagnosis?: No VTE Prior VTE?: No VTE Risk Level:: Medical - moderate - high VTE Device Contraindication: Treatment Not Indicated VTE Drug Contraindication: N/A - Med Ordered
--- NOTE | 2024-03-27 12:32 | PM.SEPSBOL4 ---
Sepsis Bolus Exclusion Sepsis Bolus Exclusion CHF/Renal Failure Date of Occurrence: 03/27/24 This patient met severe sepsis criteria due to the following condition(s):: Lactate>=4mmol/L In my clinical judgement the administration of 30 ml/kg of crystalloid would be detrimental to this patient due to the patient's following conditions:: NYHA class III or IV Heart Failure(symptoms with low exertion or rest) Replace the 30 mls/kg with (Zero amount not acceptable and all fluids for severe sepsis must be given at GREATER than 125 mls/hr) *Note: One of the may must be documented Crystalloids amount given in mls: (rate must be at least 150cc/hr): 250 At a rate of (must be > 125 cchr):: 250
--- NOTE | 2024-03-27 12:34 | PC.NURSE ---
bereavement cart ordered for family at bedside. needs met of pt and family.
[2024-03-27 12:58] LABS: Cancel Lactic Acid Canceled
--- NOTE | 2024-03-27 13:42 | PHA.MEDREC ---
Addendum entered by Derrick Francis [facility] 03/27/24 14:13: MED REC CHECK BY [facility] Original Note: Pharmacy Consult ? Medication Reconciliation Pharmacy has completed the medication reconciliation. Used list from [facility]io [facility] [place].
[2024-03-27] MEDS: Enoxaparin Sodium 40 MG/0.4 ML SYRINGE SUBCUT (15:09)
[2024-03-27] MEDS: 0.9 % Sodium Chloride Flush 3 ML SYRINGE IVFLUSH ×2 (15:10→21:20)
[2024-03-27 16:37] LABS: Glucose, Whole Blood 417 mg/dL (60-115)
[2024-03-27] MEDS: Insulin Lispro 100 UNIT/ML 3 ML VIAL SUBCUT ×3 (16:56→21:16)
[2024-03-27 20:56] LABS: Glucose, Whole Blood > 600 mg/dL (60-115)
[2024-03-27] MEDS: Insulin Glargine,Hum.rec.anlog 100 UNIT/ML 10 ML VIAL 15 UNIT SUBCUT (21:17)
[2024-03-27 23:35] LABS: Glucose, Whole Blood 296 mg/dL (60-115)
[2024-03-28] VITALS (21 sets, daily range): BP systolic 109–145; BP diastolic 57–72; PULSE 116–140; RESP 16–24; TEMP 36.2–38.9; O2SAT 90–99
[2024-03-28 01:22] LABS: Glucose, Whole Blood 246 mg/dL (60-115)
[2024-03-28] MEDS: Metoprolol Tartrate 5 MG/5 ML VIAL IVPUSH (03:04)
[2024-03-28] MEDS: Acetaminophen Supp 650 MG SUPP.RECT PR (06:15)
[2024-03-28 07:21] LABS: Lactic Acid 1.9 mmol/L (0.5-2.0)
[2024-03-28 07:30] LABS: Blood Urea Nitrogen 39 mg/dL (9-16); Calcium 8.8 mg/dL (8.4-10.2); Creatinine Clr Calc Pharmacy 54.5; Estimated Glomerular Filt Rate > 60; Glucose Random 64 mg/dL (60-115)
[2024-03-28 07:44] LABS: Anion Gap 14 (12-20); Carbon Dioxide 24 mmol/L (22-29); Chloride 115 mmol/L (96-108); Potassium 3.5 mmol/L (3.3-5.1); Sodium 149 mmol/L (135-145)
[2024-03-28] MEDS: Dextrose 10 % 250 ML 750 ML IV (07:54)
[2024-03-28] MEDS: cefTRIAXone sodium 1 GM VIAL IVPUSH (08:22)
[2024-03-28] MEDS: Doxycycline Hyclate 100 MG in 0.9 % Sodium Chloride 250 ML 166.67 MG IV ×2 (10:33→22:33)
[2024-03-28 11:22] LABS: Glucose, Whole Blood 260 mg/dL (60-115)
[2024-03-28 11:22] LABS: Glucose, Whole Blood 61 mg/dL (60-115)
[2024-03-28] MEDS: Dextrose 5 % 500 ML 75 ML IVCONT (12:05)
--- NOTE | 2024-03-28 12:48 | P.PNIM_ITS ---
Subjective Subjective Date of Service: 03/28/24 Interval History: Being followed for acute hypoxic respiratory failure in the setting of pneumonia and severe sepsis History obtain via armor officer Patient awake alert denies shortness of breath, no chest pain, no fevers this morning, noted to have sinus tachycardia on tele monitor. Is NPO on 100% high-flow finger oximetry 97%. Review of Systems All other system reviewed and are negative. Physical Exam 2 Vital Signs: Vital Signs: Last Vital Signs Temp 97.5 F 03/28/24 11:39 Pulse 121 H 03/28/24 11:39 Resp 16 03/28/24 11:39 BP 109/57 L 03/28/24 11:39 Pulse Ox 96 03/28/24 11:39 O2 Del Method High Flow Nasal C annula 03/28/24 11:39 O2 Flow Rate 32.1 03/28/24 11:39 FiO2 80.7 03/28/24 07:43 BMI result Body Mass Index 18.3 Const: Other: General: Awake alert in no acute distress No JVD Resp: Right base rhonchi otherwise clear to auscultation CVS: S1, S2, tachycardic GI: +BS, NT, no distention Skin: Warm, dry Neuro: Motor grossly intact bilaterally Extremities: No edema. Bilateral AKAs Psych: Appropriate affect Objective Data Active Medications Acetaminophen (Acetaminophen Supp 650 Mg Supp.Rect) 650 mg WI Q4H PRN PRN Reason: Fever >/= 100, Pain, mild 1-3 Last Admin: 03/28/24 06:15 Dose: 650 mg Documented By: KAMALA Bisacodyl (Bisacodyl 10 Mg Supp.Rect) 10 mg WI DAILY PRN PRN Reason: Constipation Ceftriaxone Sodium (Ceftriaxone Sodium 1 Gm Vial) 1 gm IVPUSH Q24H [facility] Last Admin: 03/28/24 08:22 Dose: 1 gm Documented By: KUNAL Docusate Sodium (Docusate Sodium 100 Mg Capsule) 100 mg PO BEDTIME [facility] Last Admin: 03/27/24 21:01 Dose: Not Given Documented By: KAMALA Non-Admin Reason: NPO Enoxaparin Sodium (Enoxaparin Sodium 40 Mg/0.4 Ml Syringe) 40 mg SUBCUT Q24H [facility] Last Admin: 03/27/24 15:09 Dose: 40 mg Documented By: KANIKA Glucose (Glucose Gel 15 Gm Gel..Gram.) 15 gm PO Q15M PRN; Protocol PRN Reason: per Hypoglycemia Standing Ord. Doxycycline Hyclate 100 mg/ (Sodium Chloride) 250 mls @ 166.67 mls/hr IV Q12H [facility] Last Infusion: 03/28/24 12:11 Dose: Infused Documented By: KUNAL Dextrose (D10) 250 mls @ 750 mls/hr IV Q15M PRN; Protocol PRN Reason: per Hypoglycemia Standing Ord. Last Infusion: 03/28/24 08:27 Dose: Infused Documented By: KUNAL Dextrose (D5w) 500 mls @ 75 mls/hr IVCONT .Q6H40M [facility] Stop: 03/28/24 17:24 Last Admin: 03/28/24 12:05 Dose: 75 mls/hr Documented By: KUNAL Insulin Glargine (Insulin Glargine,Hum.Rec.Anlog 100 Unit/Ml 10 Ml Vial) 15 unit SUBCUT BEDTIME [facility] Last Admin: 03/27/24 21:17 Dose: 15 unit Documented By: KAMALA Insulin Human Lispro (Insulin Lispro 100 Unit/Ml 3 Ml Vial) 0 unit SUBCUT QIDACHS [facility]; Protocol Last Admin: 03/28/24 12:11 Dose: Not Given Documented By: KUNAL Non-Admin Reason: No Insulin Coverage Metoprolol Tartrate (Metoprolol Tartrate 25 Mg Tablet) 25 mg PO BID [facility]; Protocol Ondansetron HCl (Ondansetron Odt 4 Mg Tab.Rapdis) 4 mg TRANSLINGU Q8H PRN PRN Reason: Nausea and Vomiting Sodium Biphosphate/Sodium Phosphate (Sodium Phosphate,Amite-Dibasic 133 Ml Enema) 118 ml WI DAILY PRN PRN Reason: Constipation Sodium Chloride (0.9 % Sodium Chloride Flush 3 Ml Syringe) 3 ml IVFLUSH QSHIFT [facility] Last Admin: 03/28/24 07:58 Dose: Not Given Documented By: KUNAL Non-Admin Reason: IV Running Labs 03/27/24 08:41 03/28/24 06:54 Labs: Laboratory Results - last 24 hr 03/27/24 03/27/24 03/27/24 16:33 20:52 23:15 Hold Purple Top Anion Gap Estim Creat Clear Calc Estimated GFR POC Glucose 417 H* > 600 H* 296 H Random Glucose Lactic Acid Calcium 03/28/24 03/28/24 03/28/24 01:18 06:54 07:03 Hold Purple Top SEE NOTE Anion Gap 14 Estim Creat Clear Calc 54.5 Estimated GFR > 60 POC Glucose 246 H Random Glucose 64 Lactic Acid 1.9 Calcium 8.8 03/28/24 03/28/24 07:38 08:21 Hold Purple Top Anion Gap Estim Creat Clear Calc Estimated GFR POC Glucose 61 260 H Random Glucose Lactic Acid Calcium Microbiology Microbiology Results: Microbiology 03/27/24 08:41 Blood Culture - Preliminary Blood - Venous No growth after 24 hours. 03/27/24 08:36 Blood Culture - Preliminary Blood - Venous No growth after 24 hours. 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 Plan is to admit the pt to the hospital for treatment of pneumonia with sepsis with IV antibiotics. 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 Acute hypoxic respiratory failure in the setting of pneumonia with severe sepsis Patient awake alert this morning in no respiratory distress, finger oximetry 97% wean high-flow On admission noted to have fever tachycardia tachypnea and lactic acidosis, status post IV fluid CXR showed right-sided pneumonia Continue IV ceftriaxone and doxycycline, started 03/27/2023 on high-flow, wean as tolerated Blood cultures times 2-, urine culture pending Question of UTI Treat with antibiotics as above Follow urine cultures Elevated troponin No chest pain likely due to sepsis, EKG with no ischemic change Acute hypernatremia will replete and follow labs Hypertension/sinus tachycardia resume metoprolol Insulin-dependent type 2 diabetes Start diabetic diet pureed with nectar thick liquids Hold metformin Continue Sliding-scale insulin Lantus at half dosing Hx of CVA Resume statin, and Plavix once stable by mouth GERD PPI DNR/DNI DVT Prophylaxis: Lovenox Pt will require continued inpatient hospitalization for treatment of?acute respiratory failure and encephalopathy in the setting of acute pneumonia with severe sepsis. Quality Stroke Does the patient have a stroke diagnosis?: No VTE Prior VTE?: No VTE Risk Level:: Medical - moderate - high VTE Device Contraindication: Treatment Not Indicated VTE Drug Contraindication: N/A - Med Ordered
[2024-03-28] MEDS: Metoprolol Tartrate 5 MG/5 ML VIAL 2.5 MG IVPUSH (13:36)
--- NOTE | 2024-03-28 13:55 | MHC.CM.PN ---
CM MET [facility] PTS DAUGHTER WHO REPORTS HER SISTER, DEVON, IS THE HCP, BUT THEY HAVE BEEN TALKING AND THEY WOULD LIKE A HOSPICE EVAL SHE SAYS SHE THINKS HE WILL QUALIFY FOR HOSPICE IN THE HOSPITAL CM PROVIDED A BASIC EXPLANATION OF THE DIFFERENT BETWEEN HOSPICE AND GIP PER DISCUSSION, SNF REFERRALS WILL BE MADE THEY DO NOT WANT PT TO GO BACK TO [facility] REFERRAL MADE WELL, ONCE THEY PROVIDE THE INFORMATION, CM CAN FOLLOW UP FOR DC PLANNING
[2024-03-28] MEDS: Albuterol Sulfate 2.5 MG, Albuterol Sulfate (0.083%) 2.5 MG 5 MG INHALE (13:59)
[2024-03-28] MEDS: Acetylcysteine 10 % 400 MG/4 ML VIAL INHALE (14:00)
[2024-03-28] MEDS: Enoxaparin Sodium 40 MG/0.4 ML SYRINGE SUBCUT (16:19)
[2024-03-28] MEDS: Metoprolol Tartrate 25 MG TABLET PO (16:20)
[2024-03-28] MEDS: 0.9 % Sodium Chloride Flush 3 ML SYRINGE IVFLUSH ×2 (16:24→22:34)
[2024-03-28 16:26] LABS: Glucose, Whole Blood 283 mg/dL (60-115)
[2024-03-28 16:26] LABS: Glucose, Whole Blood 129 mg/dL (60-115)
[2024-03-28 16:37] LABS: Glucose, Whole Blood 297 mg/dL (60-115)
[2024-03-28] MEDS: Insulin Lispro 100 UNIT/ML 3 ML VIAL SUBCUT ×2 (16:40→22:34)
--- NOTE | 2024-03-28 17:44 | PM.CNPUL ---
History of Present Illness History of Present Illness Consult date: 03/28/24 Chief complaint: Pneumonia Sepsis Narrative: This is an inpatient pulmonary consultation. 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 EMS found patient in respiratory distress, hypoxic in the 60s as well as tachycardic and tachypneic. Patient was somnolent and nonresponsive to questions. In the ED pt was febrile up to 103.5, tachycardic up to 164, tachypneic up to 51, with variable BP as low as 108/49 now normalized at 114/70, initially satting in the 70s on RA placed high-flow. Labs were significant for reandom glucose 461, initial lactic acid 8.3 with repeat 4.4, alk-phos 124, initial troponin 116.5 with repeat 162.5, BNP mildly elevated at 134. No leukocytosis. Stable H&H at 11.7/37.6. No significant electrolyte abnormalities. VB pH 7.31 with bicarb 18. UA concerning for possible UTI. Tested negative for flu, RSV, and COVID. CXR showed right lower lobe pneumonia. Initial EKG demonstrated supraventricular tachycardia 162 with repeat patient with sinus rhythm first-degree AV block. Pt was treated with nitroglycerin, Lasix, acetaminophen, adenosine, IVF, ceftriaxone, and doxycycline. The patient is still on high-flow requiring 90% with 60 L. denies any chest pains. He is heart rate is still elevated. I did personally review the chest x-ray. He does have decreased vasculature in the right hilum suggesting the possibility [place] sign. Appears to have a hazy opacity in the right lower lobe suggestive of pneumonia. Although not significant. Kidney function is stable. Will have him get a CTA to rule out PE at this time. He would also benefit from an echocardiogram. I did provide him with a flutter valve in order for him to try to clear some secretions. Manual chest PT would also be helpful in view of his we can cough and inability of removing secretions. Review of Systems Constitutional: Constitutional: Denies fever(s) Eyes: Eyes: Reports no additional eye complaints ENT: Reports system reviewed and no additional complaints, except as documented Cardiovascular: Cardiovascular: Denies chest pain and Reports dyspnea Respiratory: Respiratory: Reports chest congestion, Reports cough, Denies pain on inspiration, Denies pain with cough, Reports dyspnea and Denies wheezing Gastrointestinal: Gastrointestinal: Reports no additional gastrointestinal complaints Musculoskeletal: Musculoskeletal: Reports as per HPI, Reports abnormal gait and Reports other (AKA) Neurologic: Reports abnormal gait Allergic/Immunologic: Allergic/Immunologic: Denies wheezing [facility] Past Medical History Medical History HLD (hyperlipidemia) Vascular dementia Non-small cell cancer of left lung Dysphagia as late effect of cerebrovascular accident (CVA) Stroke HTN (hypertension) Diabetes CVA (cerebral vascular accident) Family History Family History Father Hx of type 1 diabetes mellitus Mother History of heart attack Surgical History Surgical History S/P AKA (above knee amputation) bilateral History of colonoscopy Social History Social History Household Members: Other Household Members Other:: [facility] Housing: Longterm Do you presently have visiting nurse or other home services: No Alcohol intake: unknown Patient Tobacco Use Status: Former Tobacco user Cigarette Packs Per Day: 1 Cigarettes Per Day: 20.0 Smoked in Last 30 Days: No Second Hand Smoke Exposure: Yes Use of substances other than those prescribed or required for medical reasons: No Currently Displaying Signs/Symptoms of Drug Intoxication Withdrawal: No Have you been hit, kicked, punched, or otherwise hurt by someone within the past year? If so, by whom?: No Do you feel safe in your current relationship?: Yes Is there a partner from a previous relationship who is making you feel unsafe now?: No Are you made to feel afraid or neglected: No Advance Directives: Yes Advance Directives on File: Yes Advance Directives Date on File: 08/08/20 Do you have a plan to hurt others: No Plan Recently lost weight without trying: Unsure How much weight loss: Unsure Nutrition Risks: Difficulty chewing, Difficulty swallowing and On aspiration precautions service: No Current occupational status: unemployed and disabled Meds Allergies Allergy/AdvReac Type Severity Reaction Status Date / Time No Known Allergies Allergy Unknown NONE Verified 03/27/24 08:33 Active Medications: Current Medications Acetaminophen (Acetaminophen Supp 650 Mg Supp.Rect) 650 mg NH Q4H PRN PRN Reason: Fever >/= 100, Pain, mild 1-3 Last Admin: 03/28/24 06:15 Dose: 650 mg Bisacodyl (Bisacodyl 10 Mg Supp.Rect) 10 mg NH DAILY PRN PRN Reason: Constipation Ceftriaxone Sodium (Ceftriaxone Sodium 1 Gm Vial) 1 gm IVPUSH Q24H [facility] Last Admin: 03/28/24 08:22 Dose: 1 gm Divalproex Sodium (Divalproex Sodium Er 250 Mg Tab.Er.24h) 250 mg PO DAILY [facility] Docusate Sodium (Docusate Sodium 100 Mg Capsule) 100 mg PO BEDTIME [facility] Last Admin: 03/27/24 21:01 Dose: Not Given Enoxaparin Sodium (Enoxaparin Sodium 40 Mg/0.4 Ml Syringe) 40 mg SUBCUT Q24H [facility] Last Admin: 03/28/24 16:19 Dose: 40 mg Gabapentin (Gabapentin 100 Mg Capsule) 100 mg PO DAILY [facility] Glucose (Glucose Gel 15 Gm Gel..Gram.) 15 gm PO Q15M PRN; Protocol PRN Reason: per Hypoglycemia Standing Ord. Doxycycline Hyclate 100 mg/ (Sodium Chloride) 250 mls @ 166.67 mls/hr IV Q12H [facility] Last Infusion: 03/28/24 12:11 Dose: Infused Dextrose (D10) 250 mls @ 750 mls/hr IV Q15M PRN; Protocol PRN Reason: per Hypoglycemia Standing Ord. Last Infusion: 03/28/24 08:27 Dose: Infused Insulin Glargine (Insulin Glargine,Hum.Rec.Anlog 100 Unit/Ml 10 Ml Vial) 15 unit SUBCUT BEDTIME [facility] Last Admin: 03/27/24 21:17 Dose: 15 unit Insulin Human Lispro (Insulin Lispro 100 Unit/Ml 3 Ml Vial) 0 unit SUBCUT QIDACHS [facility]; Protocol Last Admin: 03/28/24 16:40 Dose: 4 unit Metoprolol Tartrate (Metoprolol Tartrate 25 Mg Tablet) 25 mg PO BID [facility]; Protocol Last Admin: 03/28/24 16:20 Dose: 25 mg Mirtazapine (Mirtazapine 7.5 Mg Tablet) 7.5 mg PO BEDTIME [facility] Ondansetron HCl (Ondansetron Odt 4 Mg Tab.Rapdis) 4 mg TRANSLINGU Q8H PRN PRN Reason: Nausea and Vomiting Sodium Biphosphate/Sodium Phosphate (Sodium Phosphate,[place]-Dibasic 133 Ml Enema) 118 ml NH DAILY PRN PRN Reason: Constipation Sodium Chloride (0.9 % Sodium Chloride Flush 3 Ml Syringe) 3 ml IVFLUSH QSHIFT [facility] Last Admin: 03/28/24 16:24 Dose: 3 ml Home Medications ?Medication ?Instructions ?Recorded ?Confirmed ?Last Taken ?Type atorvastatin 40 mg tablet 40 mg PO BEDTIME 03/29/20 03/27/24 12/14/21 History clopidogrel 75 mg tablet (Plavix) 75 mg PO DAILY 03/29/20 03/27/24 12/15/21 History cholecalciferol (vitamin D3) 50 50 mcg PO DAILY 04/12/20 03/27/24 12/15/21 History mcg (2,000 unit) capsule metoprolol tartrate 25 mg tablet 25 mg PO BID 04/12/20 03/27/24 12/15/21 History blood sugar diagnostic ([facility] 08/03/20 08/03/20 Unknown History Ultra Blue Test Strip) chlorhexidine gluconate 0.12 % 15 ml PO BID 08/03/20 03/27/24 12/15/21 History mouthwash ferrous sulfate 325 mg (65 mg 1 tab PO DAILY 08/03/20 03/27/24 12/15/21 History iron) tablet (FeroSul) fluticasone furoate 100 1 puff inhalation DAILY 08/03/20 03/27/24 12/15/21 History mcg-vilanterol 25 mcg/dose inhalation powder (Breo Ellipta) insulin glargine 100 unit/mL (3 30 unit subcut BEDTIME 08/03/20 03/27/24 12/14/21 History mL) subcutaneous pen (Lantus Solostar U-100 Insulin) lancets 33 gauge (OneTouch Delica 08/03/20 08/03/20 Unknown History Plus Lancet) pen needle, diabetic 32 gauge x 08/03/20 08/03/20 Unknown History 5/32 (UltiCare Pen Needle) insulin lispro 100 unit/mL 1 sliding scale dose subcut TIDAC 12/15/21 03/27/24 Unknown History subcutaneous solution pantoprazole 40 mg tablet,delayed 1 tab PO DAILY 12/15/21 03/27/24 12/15/21 History release acetaminophen 325 mg tablet 650 mg PO Q4H PRN Pain or fever 05/20/23 03/27/24 Unknown History bisacodyl 10 mg rectal suppository 10 mg NH DAILY PRN Constipation 05/20/23 03/27/24 Unknown History guaifenesin 100 mg/5 mL oral liquid 200 mg PO Q4H PRN Cough 05/20/23 03/27/24 Unknown History magnesium oxide 400 mg PO BID 05/20/23 03/27/24 Unknown History sodium phosphates 19 gram-7 118 ml NH DAILY PRN Constipation 05/20/23 03/27/24 Unknown History gram/118 mL enema (Fleet Enema) ascorbic acid (vitamin C) 500 mg 500 mg PO DAILY 03/27/24 03/27/24 Unknown History tablet divalproex 250 mg tablet,extended 250 mg PO DAILY 03/27/24 03/27/24 Unknown History release 24 hr gabapentin 100 mg capsule 100 mg PO DAILY 03/27/24 03/27/24 Unknown History guaifenesin 100 mg/5 mL oral liquid 200 mg PO BID 03/27/24 03/27/24 Unknown History loperamide 2 mg capsule (Imodium 2 mg PO Q6H PRN Loose Stool 03/27/24 03/27/24 Unknown History A-D) magnesium hydroxide 2,400 mg/10 mL 30 ml PO DAILY PRN Constipation 03/27/24 03/27/24 Unknown History oral suspension (Milk Of Magnesia Concentrated) mirtazapine 15 mg tablet 7.5 mg PO BEDTIME 03/27/24 03/27/24 Unknown History multivitamin with minerals 1 tab PO DAILY 03/27/24 03/27/24 Unknown History potassium chloride 20 mEq 20 meq PO BID 03/27/24 03/27/24 Unknown History tablet,extended release trazodone 50 mg tablet 50 mg PO BEDTIME 03/27/24 03/27/24 Unknown History Physical Exam Vital Signs: Vital Signs: Last Vital Signs Temp 97.2 F 03/28/24 16:00 Pulse 139 H 03/28/24 16:10 Resp 18 03/28/24 16:00 BP 133/67 03/28/24 16:00 Pulse Ox 95 03/28/24 16:10 O2 Del Method High Flow Nasal C annula 03/28/24 16:00 O2 Flow Rate 55 03/28/24 16:00 FiO2 91.4 03/28/24 16:00 BMI result Body Mass Index 18.3 Const: Other: General: Awake alert in no acute distress No JVD Resp: Dimished BS CVS: S1, S2, tachycardic GI: +BS, NT, no distention Skin: Warm, dry Neuro: Motor grossly intact bilaterally Extremities: No edema. Bilateral AKAs Psych: Appropriate affect Results Laboratory Findings 03/27/24 08:41 03/28/24 06:54 Abnormal lab findings: Abnormal Labs 03/27/24 03/27/24 03/27/24 08:41 08:50 09:40 RBC 4.20 L Hgb 11.7 L Hct 37.6 L RDW 16.3 H Plt Count 432 H D Neut % (Auto) 79.0 H Lymph % (Auto) 12.5 L VBG pH 7.31 L VBG HCO3 18 L Sodium Chloride Carbon Dioxide 18 L Anion Gap 22 H BUN 25 H POC Glucose Random Glucose 461 H* Lactic Acid 8.3 H* Lactic Acid F/U @ 2Hr Alkaline Phosphatase 124 H Troponin I High Sens 116.5 H* D B-Natriuretic Peptide 134 H Albumin 3.3 L Lipase 5 L Urine Protein 30 (1+) H Urine Glucose (UA) >=1000 H Urine Blood Small (1+) H Ur Leukocyte Esterase Small (1+) H Urine RBC 3-5 H Urine WBC 11-20 H 03/27/24 03/27/24 03/27/24 11:04 11:05 16:33 RBC Hgb Hct RDW Plt Count Neut % (Auto) Lymph % (Auto) VBG pH VBG HCO3 Sodium Chloride Carbon Dioxide Anion Gap BUN POC Glucose 417 H* Random Glucose Lactic Acid Lactic Acid F/U @ 2Hr 4.4 H* Alkaline Phosphatase Troponin I High Sens 162.5 H* B-Natriuretic Peptide Albumin Lipase Urine Protein Urine Glucose (UA) Urine Blood Ur Leukocyte Esterase Urine RBC Urine WBC 03/27/24 03/27/24 03/28/24 20:52 23:15 01:18 RBC Hgb Hct RDW Plt Count Neut % (Auto) Lymph % (Auto) VBG pH VBG HCO3 Sodium Chloride Carbon Dioxide Anion Gap BUN POC Glucose > 600 H* 296 H 246 H Random Glucose Lactic Acid Lactic Acid F/U @ 2Hr Alkaline Phosphatase Troponin I High Sens B-Natriuretic Peptide Albumin Lipase Urine Protein Urine Glucose (UA) Urine Blood Ur Leukocyte Esterase Urine RBC Urine WBC 03/28/24 03/28/24 03/28/24 06:54 08:21 11:38 RBC Hgb Hct RDW Plt Count Neut % (Auto) Lymph % (Auto) VBG pH VBG HCO3 Sodium 149 H Chloride 115 H Carbon Dioxide Anion Gap BUN 39 H POC Glucose 260 H 129 H Random Glucose Lactic Acid Lactic Acid F/U @ 2Hr Alkaline Phosphatase Troponin I High Sens B-Natriuretic Peptide Albumin Lipase Urine Protein Urine Glucose (UA) Urine Blood Ur Leukocyte Esterase Urine RBC Urine WBC 03/28/24 03/28/24 13:08 16:34 RBC Hgb Hct RDW Plt Count Neut % (Auto) Lymph % (Auto) VBG pH VBG HCO3 Sodium Chloride Carbon Dioxide Anion Gap BUN POC Glucose 283 H 297 H Random Glucose Lactic Acid Lactic Acid F/U @ 2Hr Alkaline Phosphatase Troponin I High Sens B-Natriuretic Peptide Albumin Lipase Urine Protein Urine Glucose (UA) Urine Blood Ur Leukocyte Esterase Urine RBC Urine WBC Microbiology: Microbiology 03/27/24 09:40 Urine clean catch - Clean Catch Midstream Urine Culture - Preliminary Culture in progress. 03/27/24 08:41 Blood - Venous Blood Culture - Preliminary No growth after 24 hours. 03/27/24 08:36 Blood - Venous Blood Culture - Preliminary No growth after 24 hours. Diagnostic Findings Chest x-ray: image reviewed Additional studies: Assessment and Plan (1) Acute hypoxemic respiratory failure: Status: Acute (2) Septic shock: Status: Acute (3) Dysphagia as late effect of cerebrovascular accident (CVA): Status: Acute (4) Trachyonychia: Status: Acute Plan CTA r/o PE CPT broad spectrum abx coverage, CTX/ZTX. Consider anaerobic coverage with Unasyn titrate O2 to keep pox>90% DNR Guarded Procedures Date of Service Date of Service: 03/28/24
[2024-03-28] MEDS: iohexoL 350 MG/ML 100 ML INFUS..BTL IV (21:21)
[2024-03-28 21:46] LABS: Glucose, Whole Blood 287 mg/dL (60-115)
[2024-03-28] MEDS: Mirtazapine 7.5 MG TABLET PO (22:33)
[2024-03-28] MEDS: Insulin Glargine,Hum.rec.anlog 100 UNIT/ML 10 ML VIAL 15 UNIT SUBCUT (22:34)
[2024-03-28] MEDS: Acetaminophen 1,000 MG/100 ML PIGGYBACK 400 MG IV (22:43)
[2024-03-29] VITALS (15 sets, daily range): BP systolic 123–140; BP diastolic 62–70; PULSE 112–135; RESP 16–22; TEMP 36.8–38.5; O2SAT 86–100; BMI 20.8
[2024-03-29 07:04] LABS: Anion Gap 10 (12-20); Blood Urea Nitrogen 33 mg/dL (9-16); Calcium 8.4 mg/dL (8.4-10.2); Carbon Dioxide 25 mmol/L (22-29); Chloride 113 mmol/L (96-108); Creatinine Clr Calc Pharmacy 63.9; Estimated Glomerular Filt Rate > 60; Glucose Random 143 mg/dL (60-115); Potassium 3.1 mmol/L (3.3-5.1); Sodium 145 mmol/L (135-145)
[2024-03-29] MEDS: Gabapentin 100 MG CAPSULE PO (07:44)
[2024-03-29] MEDS: Divalproex Sodium ER 250 MG TAB.ER.24H PO (07:44)
[2024-03-29] MEDS: Metoprolol Tartrate 25 MG TABLET PO (07:44)
[2024-03-29] MEDS: 0.9 % Sodium Chloride Flush 3 ML SYRINGE IVFLUSH ×2 (07:45→15:28)
[2024-03-29] MEDS: cefTRIAXone sodium 1 GM VIAL IVPUSH (07:45)
[2024-03-29 07:58] LABS: Glucose, Whole Blood 135 mg/dL (60-115)
--- NOTE | 2024-03-29 08:09 | PC.RT ---
RT called to bedside for pt desat. Pt SATs low 80's. HFNC increased to 50L/100%, SATs range 82-88%. NRB 15L placed over HF. MD Hernandez notified and aware.
[2024-03-29] MEDS: Doxycycline Hyclate 100 MG in 0.9 % Sodium Chloride 250 ML 166.67 MG IV ×2 (10:14→20:44)
[2024-03-29 11:27] LABS: Glucose, Whole Blood 124 mg/dL (60-115)
[2024-03-29] MEDS: Acetaminophen Supp 650 MG SUPP.RECT PR ×2 (11:51→17:12)
--- NOTE | 2024-03-29 11:54 | MHC.CM.PN ---
CM was informed that family wishes to make changes to the HCP. CM checked with MD and Patient is presently unable to make an informed decision to change the HCP at this time. [facility] and they are not yet ready for Hospice. If Patient does not improve then their goal is GIP Hospice. CM will follow.
--- NOTE | 2024-03-29 13:00 | MHC.CM.PN ---
HCP/Daughter/Court has agreed to meet with Hospice here, today at 3PM. has been made aware.
--- NOTE | 2024-03-29 14:59 | HO.PM.IMPN ---
Subjective Subjective Date of Service: 03/29/24 Interval History: Increasing O2 requirement; MOLST states no noninvasive assistance. We will respond to family Review of Systems Unable to obtain Physical Exam Vital Signs: Vital Signs: Last Vital Signs Temp 100.5 F H 03/29/24 14:17 Pulse 117 H 03/29/24 11:02 Resp 16 03/29/24 11:13 BP 123/62 03/29/24 11:02 Pulse Ox 95 03/29/24 11:02 O2 Del Method High Flow Nasal C annula 03/29/24 11:02 O2 Flow Rate 50 03/29/24 11:02 FiO2 94 03/29/24 11:02 BMI result Body Mass Index 20.8 Const: Other: Somnolent but arousable Resp: Other: Diminished all may with coarse rhonchi throughout Cardio: Other: No S4; positive S1-S2; no S3 murmurs rubs or gallops GI: Other: Soft nontender nondistended normoactive bowel sounds Extrem: Other: No edema bilaterally Objective Data Active Medications Acetaminophen (Acetaminophen Supp 650 Mg Supp.Rect) 650 mg ME Q4H PRN PRN Reason: Fever >/= 100, Pain, mild 1-3 Last Admin: 03/29/24 11:51 Dose: 650 mg Documented By: LUZMA Bisacodyl (Bisacodyl 10 Mg Supp.Rect) 10 mg ME DAILY PRN PRN Reason: Constipation Ceftriaxone Sodium (Ceftriaxone Sodium 1 Gm Vial) 1 gm IVPUSH Q24H [facility] Last Admin: 03/29/24 07:45 Dose: 1 gm Documented By: LUZMA Divalproex Sodium (Divalproex Sodium Er 250 Mg Tab.Er.24h) 250 mg PO DAILY [facility] Last Admin: 03/29/24 07:44 Dose: 250 mg Documented By: LUZMA Docusate Sodium (Docusate Sodium 100 Mg Capsule) 100 mg PO BEDTIME [facility] Last Admin: 03/28/24 22:18 Dose: Not Given Documented By: LAI Non-Admin Reason: cannot crush Enoxaparin Sodium (Enoxaparin Sodium 40 Mg/0.4 Ml Syringe) 40 mg SUBCUT Q24H [facility] Last Admin: 03/28/24 16:19 Dose: 40 mg Documented By: KUNAL Gabapentin (Gabapentin 100 Mg Capsule) 100 mg PO DAILY [facility] Last Admin: 03/29/24 07:44 Dose: 100 mg Documented By: LUZMA Glucose (Glucose Gel 15 Gm Gel..Gram.) 15 gm PO Q15M PRN; Protocol PRN Reason: per Hypoglycemia Standing Ord. Doxycycline Hyclate 100 mg/ (Sodium Chloride) 250 mls @ 166.67 mls/hr IV Q12H [facility] Last Infusion: 03/29/24 11:45 Dose: Infused Documented By: LUZMA Dextrose (D10) 250 mls @ 750 mls/hr IV Q15M PRN; Protocol PRN Reason: per Hypoglycemia Standing Ord. Last Infusion: 03/28/24 08:27 Dose: Infused Documented By: KUNAL Insulin Glargine (Insulin Glargine,Hum.Rec.Anlog 100 Unit/Ml 10 Ml Vial) 15 unit SUBCUT BEDTIME [facility] Last Admin: 03/28/24 22:34 Dose: 15 unit Documented By: LAI Insulin Human Lispro (Insulin Lispro 100 Unit/Ml 3 Ml Vial) 0 unit SUBCUT QIDACHS [facility]; Protocol Last Admin: 03/29/24 11:41 Dose: Not Given Documented By: LUZMA Non-Admin Reason: No Insulin Coverage Metoprolol Tartrate (Metoprolol Tartrate 25 Mg Tablet) 25 mg PO BID [facility]; Protocol Last Admin: 03/29/24 07:44 Dose: 25 mg Documented By: LUZMA Mirtazapine (Mirtazapine 7.5 Mg Tablet) 7.5 mg PO BEDTIME [facility] Last Admin: 03/28/24 22:33 Dose: 7.5 mg Documented By: LAI Ondansetron HCl (Ondansetron Odt 4 Mg Tab.Rapdis) 4 mg TRANSLINGU Q8H PRN PRN Reason: Nausea and Vomiting Sodium Biphosphate/Sodium Phosphate (Sodium Phosphate,[place]upage-Dibasic 133 Ml Enema) 118 ml ME DAILY PRN PRN Reason: Constipation Sodium Chloride (0.9 % Sodium Chloride Flush 3 Ml Syringe) 3 ml IVFLUSH QSHIFT [facility] Last Admin: 03/29/24 07:45 Dose: 3 ml Documented By: LUZMA Labs 03/27/24 08:41 03/29/24 06:02 Labs: Laboratory Results - last 24 hr 03/28/24 03/28/24 03/28/24 11:38 13:08 16:34 Anion Gap Estim Creat Clear Calc Estimated GFR POC Glucose 129 H 283 H 297 H Random Glucose Calcium 03/28/24 03/29/24 03/29/24 21:42 06:02 07:22 Anion Gap 10 L Estim Creat Clear Calc 63.9 Estimated GFR > 60 POC Glucose 287 H 135 H Random Glucose 143 H Calcium 8.4 03/29/24 11:04 Anion Gap Estim Creat Clear Calc Estimated GFR POC Glucose 124 H Random Glucose Calcium Microbiology Microbiology Results: Microbiology 03/27/24 08:41 Blood Culture - Preliminary Blood - Venous No growth after 48 hours. 03/27/24 08:36 Blood Culture - Preliminary Blood - Venous No growth after 48 hours. 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 Plan is to admit the pt to the hospital for treatment of pneumonia with sepsis with IV antibiotics. Will reassess patient's status tomorrow to determine further course treatment vs [employer]. 1.Acute hypoxic respiratory failure in the setting of pneumonia with severe sepsis(resolved) -ceftriaxone/doxycycline (3) -increasing O2 requirement; maxed out on high flow. MOLST documents against noninvasive respiration -discuss situation with family; continue current therapies.... We will discuss [employer] -blood cultures/urine culture pending 2.Question of UTI -culture without acute pathogen 3.Insulin-dependent type 2 diabetes -acceptable control at present -limited p.o. intake -lispro correctional scale -hold orals/Lantus -reintroduced when if appropriate DNR/DNI Lovenox Pt will require continued inpatient hospitalization for treatment of?acute respiratory failure and encephalopathy in the setting of acute pneumonia . Continues to decline with increasing O2 requirement. Family to discuss [employer] Quality Stroke Does the patient have a stroke diagnosis?: No VTE Prior VTE?: No VTE Risk Level:: Medical - moderate - high VTE Device Contraindication: Treatment Not Indicated VTE Drug Contraindication: N/A - Med Ordered
[2024-03-29] MEDS: Enoxaparin Sodium 40 MG/0.4 ML SYRINGE SUBCUT (15:18)
--- NOTE | 2024-03-29 15:34 | MHC.CM.PN ---
SW from [facility] has met with Patient, HCP/Daughter/Court, and a few other family members and a RN will also evaluate this evening or tomorrow morning. It appears that GIP(General Inpatient Hospice) may be appropriate. CM/Director, RN & MD are aware.
--- NOTE | 2024-03-29 15:58 | MHC.CM.PN ---
Per [facility], Patient will be formally admitted to [facility] tomorrow; MD,RN, CM/Director notified.
[2024-03-29 16:26] LABS: Glucose, Whole Blood 111 mg/dL (60-115)
[2024-03-29 19:52] LABS: Glucose, Whole Blood 109 mg/dL (60-115)
[2024-03-30] VITALS (10 sets, daily range): BP systolic 117–137; BP diastolic 57–69; PULSE 99–128; RESP 17–24; TEMP 36.2–38.1; O2SAT 94–100
[2024-03-30] MEDS: Haloperidol Lactate 5 MG/ML VIAL 2.5 MG IM (00:09)
[2024-03-30] MEDS: Haloperidol Lactate 5 MG/ML VIAL IM (02:46)
[2024-03-30 07:02] LABS: Glucose, Whole Blood 163 mg/dL (60-115)
[2024-03-30 07:11] LABS: MANUAL DIFF FLAG NO
[2024-03-30 07:15] LABS: Basophils Absolute Auto 0.1 X10*3/uL (0.0-0.2); Basophils Percent Auto 1.7 % (0-2); Hematocrit 29.4 % (42.0-52.0); Hemoglobin 9.1 g/dl (14.0-18.0); Imm Gran Abs Auto 0.02 X10*3/uL (0.00-0.03); Imm Gran Pct Auto 0.5 % (0.0-0.4); Lymphocytes Absolute Auto 0.4 X10*3/uL (1.2-4.9); Lymphocytes Percent Auto 8.5 % (20-40); Mean Corpuscular Hemoglobin 27.5 pg (27.0-33.0); Mean Corpuscular Volume 88.8 fL (80.0-98.0); Mean Platelet Volume 10.7 fL (9.4-12.4); Monocytes Absolute Auto 0.1 X10*3/uL (0.1-1.2); Monocytes Percent Auto 3.4 % (2-11); Neutrophils Absolute Auto 3.5 x10*3/uL (2.0-8.3); Neutrophils Percent Auto 84.9 % (45-73); Platelet Count 184 X10*3/uL (160-400); Red Blood Count 3.31 X10*6/uL (4.60-5.80); Red Cell Distribution Width 16.1 % (11.0-16.0); White Blood Count 4.1 X10*3/uL (4.8-10.8)
[2024-03-30 07:42] LABS: Alanine Aminotransferase 42 U/L (0-40); Albumin Level 2.5 g/dL (3.5-5.0); Alkaline Phosphatase 97 U/L (39-117); Anion Gap 13 (12-20); Aspartate Amino Transferase 25 U/L (5-37); Bilirubin Total 0.4 mg/dL (0.0-1.0); Blood Urea Nitrogen 29 mg/dL (9-16); Calcium 8.2 mg/dL (8.4-10.2); Carbon Dioxide 24 mmol/L (22-29); Chloride 114 mmol/L (96-108); Creatinine Clr Calc Pharmacy 70.5; Estimated Glomerular Filt Rate > 60; Glucose Fasting 180 mg/dL (60-99); Potassium 2.8 mmol/L (3.3-5.1); Sodium 148 mmol/L (135-145); Total Protein 5.6 g/dL (6.5-8.0)
[2024-03-30] MEDS: cefTRIAXone sodium 1 GM VIAL IVPUSH (10:39)
[2024-03-30] MEDS: 0.9 % Sodium Chloride Flush 3 ML SYRINGE IVFLUSH ×2 (10:42→14:59)
[2024-03-30 10:57] LABS: Glucose, Whole Blood 286 mg/dL (60-115)
[2024-03-30] MEDS: Doxycycline Hyclate 100 MG in 0.9 % Sodium Chloride 250 ML 166.67 MG IV (10:59)
[2024-03-30] MEDS: Insulin Lispro 100 UNIT/ML 3 ML VIAL SUBCUT (10:59)
[2024-03-30] MEDS: Enoxaparin Sodium 40 MG/0.4 ML SYRINGE SUBCUT (14:57)
--- NOTE | 2024-03-30 15:12 | HO.PM.IMPN ---
Subjective Subjective Date of Service: 03/30/24 Interval History: No acute changes overnight. Requiring high flow O2 Review of Systems Unable to obtain Physical Exam Vital Signs: Vital Signs: Last Vital Signs Temp 99.1 F 03/30/24 11:04 Pulse 115 H 03/30/24 11:04 Resp 20 03/30/24 11:13 BP 117/57 L 03/30/24 11:04 Pulse Ox 100 03/30/24 11:04 O2 Del Method High Flow Nasal C annula 03/30/24 11:04 O2 Flow Rate 50 03/30/24 11:04 FiO2 94 03/30/24 11:04 BMI result Body Mass Index 20.8 Const: Other: Somnolent but arousable Resp: Other: Diminished all may with coarse rhonchi throughout Cardio: Other: No S4; positive S1-S2; no S3 murmurs rubs or gallops GI: Other: Soft nontender nondistended normoactive bowel sounds Extrem: Other: No edema bilaterally Objective Data Active Medications Acetaminophen (Acetaminophen Supp 650 Mg Supp.Rect) 650 mg UT Q4H PRN PRN Reason: Fever >/= 100, Pain, mild 1-3 Last Admin: 03/29/24 17:12 Dose: 650 mg Documented By: LUZMA Bisacodyl (Bisacodyl 10 Mg Supp.Rect) 10 mg UT DAILY PRN PRN Reason: Constipation Ceftriaxone Sodium (Ceftriaxone Sodium 1 Gm Vial) 1 gm IVPUSH Q24H [facility] Last Admin: 03/30/24 10:39 Dose: 1 gm Documented By: EMELY Divalproex Sodium (Divalproex Sodium Er 250 Mg Tab.Er.24h) 250 mg PO DAILY [facility] Last Admin: 03/30/24 10:09 Dose: Not Given Documented By: EMELY Non-Admin Reason: too lethargic to take PO Docusate Sodium (Docusate Sodium 100 Mg Capsule) 100 mg PO BEDTIME [facility] Last Admin: 03/29/24 20:38 Dose: Not Given Documented By: LAI Non-Admin Reason: cant crush Enoxaparin Sodium (Enoxaparin Sodium 40 Mg/0.4 Ml Syringe) 40 mg SUBCUT Q24H [facility] Last Admin: 03/30/24 14:57 Dose: 40 mg Documented By: EMELY Gabapentin (Gabapentin 100 Mg Capsule) 100 mg PO DAILY [facility] Last Admin: 03/30/24 10:09 Dose: Not Given Documented By: EMELY Non-Admin Reason: too lethargic to take PO Glucose (Glucose Gel 15 Gm Gel..Gram.) 15 gm PO Q15M PRN; Protocol PRN Reason: per Hypoglycemia Standing Ord. Doxycycline Hyclate 100 mg/ (Sodium Chloride) 250 mls @ 166.67 mls/hr IV Q12H [facility] Last Infusion: 03/30/24 12:30 Dose: Infused Documented By: EMELY Dextrose (D10) 250 mls @ 750 mls/hr IV Q15M PRN; Protocol PRN Reason: per Hypoglycemia Standing Ord. Last Infusion: 03/28/24 08:27 Dose: Infused Documented By: KUNAL Insulin Human Lispro (Insulin Lispro 100 Unit/Ml 3 Ml Vial) 0 unit SUBCUT QIDACHS [facility]; Protocol Last Admin: 03/30/24 10:59 Dose: 6 unit Documented By: EMELY Metoprolol Tartrate (Metoprolol Tartrate 25 Mg Tablet) 25 mg PO BID [facility]; Protocol Last Admin: 03/30/24 10:09 Dose: Not Given Documented By: EMELY Non-Admin Reason: too lethargic to take PO Mirtazapine (Mirtazapine 7.5 Mg Tablet) 7.5 mg PO BEDTIME [facility] Last Admin: 03/29/24 20:51 Dose: Not Given Documented By: LAI Non-Admin Reason: lethargic Ondansetron HCl (Ondansetron Odt 4 Mg Tab.Rapdis) 4 mg TRANSLINGU Q8H PRN PRN Reason: Nausea and Vomiting Sodium Biphosphate/Sodium Phosphate (Sodium Phosphate,Cook-Dibasic 133 Ml Enema) 118 ml UT DAILY PRN PRN Reason: Constipation Sodium Chloride (0.9 % Sodium Chloride Flush 3 Ml Syringe) 3 ml IVFLUSH QSHIFT [facility] Last Admin: 03/30/24 14:59 Dose: 3 ml Documented By: EMELY Labs 03/30/24 06:20 03/30/24 06:20 Labs: Laboratory Results - last 24 hr 03/29/24 03/29/24 03/30/24 16:15 19:28 06:20 MCV 88.8 MCH 27.5 MCHC 31.0 RDW 16.1 H Plt Count 184 D MPV 10.7 Immature Gran % (Auto) 0.5 H Neut % (Auto) 84.9 H Lymph % (Auto) 8.5 L Cook % (Auto) 3.4 Eos % (Auto) 1.0 Baso % (Auto) 1.7 Lymph # (Auto) 0.4 L [place] # (Auto) 0.1 Eos # (Auto) 0.0 Baso # (Auto) 0.1 Abs Immat Gran (auto) 0.02 Absolute Neuts (auto) 3.5 Absolute Nucleated RBC 0.000 Nucleated RBC % (auto) 0.0 Anion Gap 13 Estim Creat Clear Calc 70.5 Estimated GFR > 60 POC Glucose 111 109 Fasting Glucose 180 H Calcium 8.2 L Total Bilirubin 0.4 AST 25 ALT 42 H Alkaline Phosphatase 97 Total Protein 5.6 L Albumin 2.5 L 03/30/24 03/30/24 06:53 10:49 MCV MCH MCHC RDW Plt Count MPV Immature Gran % (Auto) Neut % (Auto) Lymph % (Auto) Cook % (Auto) Eos % (Auto) Baso % (Auto) Lymph # (Auto) Cook # (Auto) Eos # (Auto) Baso # (Auto) Abs Immat Gran (auto) Absolute Neuts (auto) Absolute Nucleated RBC Nucleated RBC % (auto) Anion Gap Estim Creat Clear Calc Estimated GFR POC Glucose 163 H 286 H Fasting Glucose Calcium Total Bilirubin AST ALT Alkaline Phosphatase Total Protein Albumin Microbiology Microbiology Results: Microbiology 03/27/24 08:41 Blood Culture - Preliminary Blood - Venous No growth after 48 hours. 03/27/24 08:36 Blood Culture - Preliminary Blood - Venous No growth after 48 hours. 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 Plan is to admit the pt to the hospital for treatment of pneumonia with sepsis with IV antibiotics. 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 1.Acute hypoxic respiratory failure in the setting of pneumonia with severe sepsis(resolved) -ceftriaxone/doxycycline (4) -increasing O2 requirement; maxed out on high flow. MOLST documents against noninvasive respiration -discuss situation with family; continue current therapies.... Hospice to eval today question GI P -blood cultures/urine culture negative 2.Question of UTI -culture without acute pathogen 3.Insulin-dependent type 2 diabetes -acceptable control at present -limited p.o. intake -lispro correctional scale -hold orals/Lantus -reintroduced when if appropriate DNR/DNI Lovenox Pt will require continued inpatient hospitalization for treatment of?acute respiratory failure and encephalopathy in the setting of acute pneumonia . Seen by hospice today for GI P placement. Quality Stroke Does the patient have a stroke diagnosis?: No VTE Prior VTE?: No VTE Risk Level:: Medical - moderate - high VTE Device Contraindication: Treatment Not Indicated VTE Drug Contraindication: N/A - Med Ordered
--- NOTE | 2024-03-30 16:05 | MHC.CM.PN ---
[facility] in to admit pt under [facility] hospice. Dr. Hernandez notified. This CM contacted Carter from bed management to notify him. This CM contacted Lauren Matute, the director of patient registration to notify her.
[2024-03-30 16:07] LABS: Glucose, Whole Blood 272 mg/dL (60-115)
--- NOTE | 2024-03-30 16:23 | P.DS_ITS ---
DS: Providers Provider Date of Service: 03/30/24 Date of admission: 03/27/24 12:30 Date of discharge: 03/30/24 Primary care physician: Alex Dobson MD Consults: 03/28/24 13:27 Consult to Pulmonology Routine Consulting Provider: Donnie Camilo Reason for consultation: sob Has provider been notified: No DS: Diagnosis Discharge Diagnosis (1) Acute hypoxemic respiratory failure: Status: Acute (2) Pneumonia: Status: Acute (3) Non-small cell cancer of left lung: Status: Acute DS: Summary Hospital Course Hospital Course: 78-year-old Algerian-speaking male with a PMH significant for?CVA with residual left hemiparesis, 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?with lethargy and hypoxia according to staff. EMS found patient in respiratory distress, hypoxic in the 60s as well as tachycardic and tachypneic. Patient was somnolent and nonresponsive to questions. In the ED pt was febrile up to 103.5, tachycardic up to 164, tachypneic up to 51, with variable BP as low as 108/49 now normalized at 114/70, initially satting in the 70s on RA placed high-flow. Labs were significant for reandom glucose 461, initial lactic acid 8.3 with repeat 4.4, alk-phos 124, initial troponin 116.5 with repeat 162.5, BNP mildly elevated at 134. No leukocytosis. Stable H&H at 11.7/37.6. No significant electrolyte abnormalities. VB pH 7.31 with bicarb 18. UA concerning for possible UTI. Tested negative for flu, RSV, and COVID. CXR showed right lower lobe pneumonia. Initial EKG demonstrated supraventricular tachycardia 162 with repeat patient with sinus rhythm first-degree AV block. Pt was treated with nitroglycerin, Lasix, acetaminophen, adenosine, IVF, ceftriaxone, and doxycycline. Goals of care discussed with HCP as well as numerous other family who are at bedside. Plan is to admit the pt to the hospital for treatment of pneumonia with sepsis with IV antibiotics. 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 Hospital Course Admitted to telemetry where patient gradually declined over time. High-flow oxygen was instituted at max high-flow patient's sats continued to decline. Discussion with family patient was made DNR DNI and they ultimately requested hospice consult. After consultation with hospice, patient will be admitted [facility] hospice Time Attestation Discharge Coordination Time (in mins): 35 Quality: Safe Use of Opioids Does Pt have an Active Cancer Diagnosis on the Problem List?: Yes Opioid Measure Date for [facility] Report: 02/29/24 Opioid Measure Time for [facility] Report: 16:25 Quality: Stroke Does the patient have a stroke diagnosis?: Yes Reason for No Anti-thrombotic at DC: Not indicated Reason for No Anticoagulant at DC: Not indicated Reason Not Initiating IV-Tpa: Not indicated Reason for No Anti-thrombotic by Day Two: Not indicated Reason for No Statin at DC: Not indicated Physical Exam Vital Signs: Vital Signs: Last Vital Signs Temp 100.6 F H 03/30/24 16:00 Pulse 128 H 03/30/24 16:00 Resp 17 03/30/24 16:00 BP 136/63 03/30/24 16:00 Pulse Ox 98 03/30/24 16:00 O2 Del Method High Flow Nasal C annula 03/30/24 16:00 O2 Flow Rate 50 03/30/24 16:00 FiO2 94.4 03/30/24 16:00 BMI result Body Mass Index 20.8 Const: Other: Somnolent but arousable Resp: Other: Diminished all may with coarse rhonchi throughout Cardio: Other: No S4; positive S1-S2; no S3 murmurs rubs or gallops GI: Other: Soft nontender nondistended normoactive bowel sounds Extrem: Other: No edema bilaterally DS: Data Data Completed and Pending Labs on day of discharge: Laboratory Results - last 24 hr 03/29/24 03/29/24 03/30/24 16:15 19:28 06:20 WBC 4.1 L RBC 3.31 L D Hgb 9.1 L D Hct 29.4 L D MCV 88.8 MCH 27.5 MCHC 31.0 RDW 16.1 H Plt Count 184 D MPV 10.7 Immature Gran % (Auto) 0.5 H Neut % (Auto) 84.9 H Lymph % (Auto) 8.5 L [place] % (Auto) 3.4 Eos % (Auto) 1.0 Baso % (Auto) 1.7 Lymph # (Auto) 0.4 L [place] # (Auto) 0.1 Eos # (Auto) 0.0 Baso # (Auto) 0.1 Abs Immat Gran (auto) 0.02 Absolute Neuts (auto) 3.5 Absolute Nucleated RBC 0.000 Nucleated RBC % (auto) 0.0 Sodium 148 H Potassium 2.8 L* Chloride 114 H Carbon Dioxide 24 Anion Gap 13 BUN 29 H Creatinine 0.58 Estim Creat Clear Calc 70.5 Estimated GFR > 60 POC Glucose 111 109 Fasting Glucose 180 H Calcium 8.2 L Total Bilirubin 0.4 AST 25 ALT 42 H Alkaline Phosphatase 97 Total Protein 5.6 L Albumin 2.5 L 03/30/24 03/30/24 03/30/24 06:53 10:49 16:03 WBC RBC Hgb Hct MCV MCH MCHC RDW Plt Count MPV Immature Gran % (Auto) Neut % (Auto) Lymph % (Auto) [place] % (Auto) Eos % (Auto) Baso % (Auto) Lymph # (Auto) [place] # (Auto) Eos # (Auto) Baso # (Auto) Abs Immat Gran (auto) Absolute Neuts (auto) Absolute Nucleated RBC Nucleated RBC % (auto) Sodium Potassium Chloride Carbon Dioxide Anion Gap BUN Creatinine Estim Creat Clear Calc Estimated GFR POC Glucose 163 H 286 H 272 H Fasting Glucose Calcium Total Bilirubin AST ALT Alkaline Phosphatase Total Protein Albumin Preliminary micro results at discharge 03/27/24 08:41 Blood Culture - Preliminary Blood - Venous No growth after 48 hours. 03/27/24 08:36 Blood Culture - Preliminary Blood - Venous No growth after 48 hours. Discharge Plan Discharge Anticipated Discharge Date/Time: 03/30/24 16:19 Patient Disposition: Hospice - Medical Facility Discharge Diagnosis: Metastatic non-small cell cancer of left lung Referrals: Alex Dobson MD [Primary Care Provider] - 1 Week Discharge Medications: Continued (DME) OneTouch Ultra Blue Test Strip Strip MISCELLANEOUS TID ferrous sulfate [FeroSul] 325 mg (65 mg iron) tablet 1 tab PO DAILY chlorhexidine gluconate 0.12 % mouthwash 15 ml PO BID Rx Instructions: SWISH AND SPIT insulin glargine [Lantus Solostar U-100 Insulin] 100 unit/mL (3 mL) insulin pen 30 unit subcut BEDTIME (DME) pen needle, diabetic [UltiCare Pen Needle] 32 gauge x 5/32 needle MISCELLANEOUS TID (DME) lancets [OneTouch Delica Plus Lancet] 33 gauge misc MISCELLANEOUS TID fluticasone furoate-vilanterol [Breo Ellipta] 100-25 mcg/dose blister with device 1 puff inhalation DAILY pantoprazole 40 mg tablet,delayed release (DR/EC) 1 tab PO DAILY insulin lispro 100 unit/mL solution 1 sliding scale dose subcut TIDAC Protocol: Insulin Correction Scale Less than or equal to 110 ---- Give (units): 0 111 to 150 Give (units): 0 151 to 200 Give (units): 0 201 to 250 Give (units): 2 251 to 300 Give (units): 4 301 to 350 Give (units): 6 Greater than 350 Give (units): 8 Call MD if Blood Glucose > : 400 acetaminophen 325 mg Tablet 650 mg PO Q4H MDD 3g PRN (Reason: Pain or fever) guaifenesin 100 mg/5 mL Liquid 200 mg PO Q4H PRN (Reason: Cough) bisacodyl 10 mg Suppository 10 mg AL DAILY PRN (Reason: Constipation) Fleet Enema 19-7 gram/118 mL Enema 118 ml AL DAILY PRN (Reason: Constipation) magnesium oxide 400 mg magnesium tablet 400 mg PO BID loperamide [Imodium A-D] 2 mg Capsule 2 mg PO Q6H PRN (Reason: Loose Stool) trazodone 50 mg Tablet 50 mg PO BEDTIME guaifenesin 100 mg/5 mL Liquid 200 mg PO BID ascorbic acid (vitamin C) 500 mg Tablet 500 mg PO DAILY mirtazapine 15 mg Tablet 7.5 mg PO BEDTIME gabapentin 100 mg Capsule 100 mg PO DAILY multivitamin with minerals Tablet 1 tab PO DAILY divalproex 250 mg Tablet Extended Release 24 Hr 250 mg PO DAILY potassium chloride 20 mEq tablet extended release 20 meq PO BID magnesium hydroxide [Milk Of Magnesia Concentrated] 2,400 mg/10 mL Suspension 30 ml PO DAILY PRN (Reason: Constipation) metoprolol tartrate 25 mg tablet 25 mg PO BID Protocol: Hold for SBP/HR < HOLD for SBP < : 110 HOLD for HR < : 60 cholecalciferol (vitamin D3) 50 mcg (2,000 unit) capsule 50 mcg PO DAILY atorvastatin 40 mg tablet 40 mg PO BEDTIME clopidogrel [Plavix] 75 mg tablet 75 mg PO DAILY Discharge Orders: Discharge Order (Routine); Ordered 03/30/24 Ordered By: Tyree Hernandez Diet: Advance to usual diet Activity on Discharge: As tolerated Stand Alone Forms: Patient Portal Discharge page Print Language: Algerian Care Plan Goals: Transition to [facility] hospice Health Concerns: Transitioned to [facility] hospice Plan of Treatment: As outlined Assessment: See discharge summary
--- NOTE | 2024-03-30 16:27 | P.HPHOSP_ITS ---
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 EMS found patient in respiratory distress, hypoxic in the 60s as well as tachycardic and tachypneic. Patient was somnolent and nonresponsive to questions. In the ED pt was febrile up to 103.5, tachycardic up to 164, tachypneic up to 51, with variable BP as low as 108/49 now normalized at 114/70, initially satting in the 70s on RA placed high-flow. Labs were significant for reandom glucose 461, initial lactic acid 8.3 with repeat 4.4, alk-phos 124, initial troponin 116.5 with repeat 162.5, BNP mildly elevated at 134. No leukocytosis. Stable H&H at 11.7/37.6. No significant electrolyte abnormalities. VB pH 7.31 with bicarb 18. UA concerning for possible UTI. Tested negative for flu, RSV, and COVID. CXR showed right lower lobe pneumonia. Initial EKG demonstrated supraventricular tachycardia 162 with repeat patient with sinus rhythm first-degree AV block. Pt was treated with nitroglycerin, Lasix, acetaminophen, adenosine, IVF, ceftriaxone, and doxycycline. Goals of care discussed with HCP as well as numerous other family who are at bedside. Plan is to admit the pt to the hospital for treatment of pneumonia with sepsis with IV antibiotics. Will reassess patient's status tomorrow to determine further course treatment vs DEBATE DIRECTOR. Patient declined over last admission; decision was for hospice consult which he IP admission Review of Systems 2 Review of Systems: Unable to obtain [facility] Medical History HLD (hyperlipidemia) Vascular dementia Non-small cell cancer of left lung Dysphagia as late effect of cerebrovascular accident (CVA) Stroke HTN (hypertension) Diabetes CVA (cerebral vascular accident) Family History Father Hx of type 1 diabetes mellitus Mother History of heart attack Surgical History S/P AKA (above knee amputation) bilateral History of colonoscopy Social History Household Members: Other Household Members Other:: [facility] care Housing: Senior Living Do you presently have visiting nurse or other home services: No Alcohol intake: unknown Patient Tobacco Use Status: Former Tobacco user Cigarette Packs Per Day: 1 Cigarettes Per Day: 20.0 Second Hand Smoke Exposure: Yes Advance Directives Date on File: 08/08/20 service: No Current occupational status: unemployed and disabled Meds Allergies Allergy/AdvReac Type Severity Reaction Status Date / Time No Known Allergies Allergy Unknown NONE Verified 03/27/24 08:33 Active Medications: Current Medications Acetaminophen (Acetaminophen Supp 650 Mg Supp.Rect) 650 mg NM Q4H PRN PRN Reason: Fever >/= 100, Pain, mild 1-3 Last Admin: 03/29/24 17:12 Dose: 650 mg Bisacodyl (Bisacodyl 10 Mg Supp.Rect) 10 mg NM DAILY PRN PRN Reason: Constipation Ceftriaxone Sodium (Ceftriaxone Sodium 1 Gm Vial) 1 gm IVPUSH Q24H [facility] Last Admin: 03/30/24 10:39 Dose: 1 gm Divalproex Sodium (Divalproex Sodium Er 250 Mg Tab.Er.24h) 250 mg PO DAILY [facility] Last Admin: 03/30/24 10:09 Dose: Not Given Docusate Sodium (Docusate Sodium 100 Mg Capsule) 100 mg PO BEDTIME [facility] Last Admin: 03/29/24 20:38 Dose: Not Given Enoxaparin Sodium (Enoxaparin Sodium 40 Mg/0.4 Ml Syringe) 40 mg SUBCUT Q24H [facility] Last Admin: 03/30/24 14:57 Dose: 40 mg Gabapentin (Gabapentin 100 Mg Capsule) 100 mg PO DAILY [facility] Last Admin: 03/30/24 10:09 Dose: Not Given Glucose (Glucose Gel 15 Gm Gel..Gram.) 15 gm PO Q15M PRN; Protocol PRN Reason: per Hypoglycemia Standing Ord. Doxycycline Hyclate 100 mg/ (Sodium Chloride) 250 mls @ 166.67 mls/hr IV Q12H [facility] Last Infusion: 03/30/24 12:30 Dose: Infused Dextrose (D10) 250 mls @ 750 mls/hr IV Q15M PRN; Protocol PRN Reason: per Hypoglycemia Standing Ord. Last Infusion: 03/28/24 08:27 Dose: Infused Insulin Human Lispro (Insulin Lispro 100 Unit/Ml 3 Ml Vial) 0 unit SUBCUT QIDACHS [facility]; Protocol Last Admin: 03/30/24 10:59 Dose: 6 unit Metoprolol Tartrate (Metoprolol Tartrate 25 Mg Tablet) 25 mg PO BID [facility]; Protocol Last Admin: 03/30/24 10:09 Dose: Not Given Mirtazapine (Mirtazapine 7.5 Mg Tablet) 7.5 mg PO BEDTIME [facility] Last Admin: 03/29/24 20:51 Dose: Not Given Ondansetron HCl (Ondansetron Odt 4 Mg Tab.Rapdis) 4 mg TRANSLINGU Q8H PRN PRN Reason: Nausea and Vomiting Sodium Biphosphate/Sodium Phosphate (Sodium Phosphate,[place]-Dibasic 133 Ml Enema) 118 ml NM DAILY PRN PRN Reason: Constipation Sodium Chloride (0.9 % Sodium Chloride Flush 3 Ml Syringe) 3 ml IVFLUSH QSHIFT [facility] Last Admin: 03/30/24 14:59 Dose: 3 ml Home Medications ?Medication ?Instructions ?Recorded ?Confirmed ?Last Taken ?Type atorvastatin 40 mg tablet 40 mg PO BEDTIME 03/29/20 03/27/24 12/14/21 History clopidogrel 75 mg tablet (Plavix) 75 mg PO DAILY 03/29/20 03/27/24 12/15/21 History cholecalciferol (vitamin D3) 50 50 mcg PO DAILY 04/12/20 03/27/24 12/15/21 History mcg (2,000 unit) capsule metoprolol tartrate 25 mg tablet 25 mg PO BID 04/12/20 03/27/24 12/15/21 History blood sugar diagnostic (OneTouch 08/03/20 08/03/20 Unknown History Ultra Blue Test Strip) chlorhexidine gluconate 0.12 % 15 ml PO BID 08/03/20 03/27/24 12/15/21 History mouthwash ferrous sulfate 325 mg (65 mg 1 tab PO DAILY 08/03/20 03/27/24 12/15/21 History iron) tablet (FeroSul) fluticasone furoate 100 1 puff inhalation DAILY 08/03/20 03/27/24 12/15/21 History mcg-vilanterol 25 mcg/dose inhalation powder (Breo Ellipta) insulin glargine 100 unit/mL (3 30 unit subcut BEDTIME 08/03/20 03/27/24 12/14/21 History mL) subcutaneous pen (Lantus Solostar U-100 Insulin) lancets 33 gauge (OneTouch Delica 08/03/20 08/03/20 Unknown History Plus Lancet) pen needle, diabetic 32 gauge x 08/03/20 08/03/20 Unknown History (UltiCare Pen Needle) insulin lispro 100 unit/mL 1 sliding scale dose subcut TIDAC 12/15/21 03/27/24 Unknown History subcutaneous solution pantoprazole 40 mg tablet,delayed 1 tab PO DAILY 12/15/21 03/27/24 12/15/21 History release acetaminophen 325 mg tablet 650 mg PO Q4H PRN Pain or fever 05/20/23 03/27/24 Unknown History bisacodyl 10 mg rectal suppository 10 mg NM DAILY PRN Constipation 05/20/23 03/27/24 Unknown History guaifenesin 100 mg/5 mL oral liquid 200 mg PO Q4H PRN Cough 05/20/23 03/27/24 Unknown History magnesium oxide 400 mg PO BID 05/20/23 03/27/24 Unknown History sodium phosphates 19 gram-7 118 ml NM DAILY PRN Constipation 05/20/23 03/27/24 Unknown History gram/118 mL enema (Fleet Enema) ascorbic acid (vitamin C) 500 mg 500 mg PO DAILY 03/27/24 03/27/24 Unknown History tablet divalproex 250 mg tablet,extended 250 mg PO DAILY 03/27/24 03/27/24 Unknown History release 24 hr gabapentin 100 mg capsule 100 mg PO DAILY 03/27/24 03/27/24 Unknown History guaifenesin 100 mg/5 mL oral liquid 200 mg PO BID 03/27/24 03/27/24 Unknown History loperamide 2 mg capsule (Imodium 2 mg PO Q6H PRN Loose Stool 03/27/24 03/27/24 Unknown History A-D) magnesium hydroxide 2,400 mg/10 mL 30 ml PO DAILY PRN Constipation 03/27/24 03/27/24 Unknown History oral suspension (Milk Of Magnesia Concentrated) mirtazapine 15 mg tablet 7.5 mg PO BEDTIME 03/27/24 03/27/24 Unknown History multivitamin with minerals 1 tab PO DAILY 03/27/24 03/27/24 Unknown History potassium chloride 20 mEq 20 meq PO BID 03/27/24 03/27/24 Unknown History tablet,extended release trazodone 50 mg tablet 50 mg PO BEDTIME 03/27/24 03/27/24 Unknown History Physical Exam 2 Vital Signs and Narrative: Vital Signs: Last Vital Signs Temp 100.6 F H 03/30/24 16:00 Pulse 128 H 03/30/24 16:00 Resp 17 03/30/24 16:00 BP 136/63 03/30/24 16:00 Pulse Ox 98 03/30/24 16:00 O2 Del Method High Flow Nasal C annula 03/30/24 16:00 O2 Flow Rate 50 03/30/24 16:00 FiO2 94.4 03/30/24 16:00 BMI result Body Mass Index 20.8 General: Somnolent but arousable, not responding to queries. In moderate respiratory distress. Resp: Right-sided rhonchi, tachypneic, diaphoretic breathing CVS: S1, S2, tachycardic GI: +BS, NT, no distention Skin: Warm, dry Neuro: Motor grossly intact bilaterally Extremities: No edema. Bilateral AKAs Psych: Somnolent Const: Other: Somnolent but arousable Resp: Other: Diminished all may with coarse rhonchi throughout Cardio: Other: No S4; positive S1-S2; no S3 murmurs rubs or gallops GI: Other: Soft nontender nondistended normoactive bowel sounds Extrem: Other: No edema bilaterally Results Labs 03/30/24 06:20 03/30/24 06:20 Labs: Laboratory Results - last 24 hr 03/29/24 03/30/24 03/30/24 19:28 06:20 06:53 MCV 88.8 MCH 27.5 MCHC 31.0 RDW 16.1 H Plt Count 184 D MPV 10.7 Immature Gran % (Auto) 0.5 H Neut % (Auto) 84.9 H Lymph % (Auto) 8.5 L [place] % (Auto) 3.4 Eos % (Auto) 1.0 Baso % (Auto) 1.7 Lymph # (Auto) 0.4 L [place] # (Auto) 0.1 Eos # (Auto) 0.0 Baso # (Auto) 0.1 Abs Immat Gran (auto) 0.02 Absolute Neuts (auto) 3.5 Absolute Nucleated RBC 0.000 Nucleated RBC % (auto) 0.0 Anion Gap 13 Estim Creat Clear Calc 70.5 Estimated GFR > 60 POC Glucose 109 163 H Fasting Glucose 180 H Calcium 8.2 L Total Bilirubin 0.4 AST 25 ALT 42 H Alkaline Phosphatase 97 Total Protein 5.6 L Albumin 2.5 L 03/30/24 03/30/24 10:49 16:03 MCV MCH MCHC RDW Plt Count MPV Immature Gran % (Auto) Neut % (Auto) Lymph % (Auto) [place] % (Auto) Eos % (Auto) Baso % (Auto) Lymph # (Auto) [place] # (Auto) Eos # (Auto) Baso # (Auto) Abs Immat Gran (auto) Absolute Neuts (auto) Absolute Nucleated RBC Nucleated RBC % (auto) Anion Gap Estim Creat Clear Calc Estimated GFR POC Glucose 286 H 272 H Fasting Glucose Calcium Total Bilirubin AST ALT Alkaline Phosphatase Total Protein Albumin Assessment and Plan (1) Non-small cell cancer of left lung: Status: Acute Plan 78-year-old Togolese-speaking male with a PMH significant for?CVA with residual left hemiparesis, 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 Plan is to admit the pt to the hospital for treatment of pneumonia with sepsis with IV antibiotics. Will reassess patient's status tomorrow to determine further course treatment vs DEBATE DIRECTOR. 1. Metastatic [id number] cancer of left lung -further treatment and plans as per hospice DEBATE DIRECTOR Quality Stroke Does the patient have a stroke diagnosis?: Yes Reason for No Anti-thrombotic by Day Two: Not indicated VTE Prior VTE?: No VTE Risk Level:: Medical - moderate - high VTE Device Contraindication: Treatment Not Indicated VTE Drug Contraindication: N/A - Med Ordered
[2024-03-30] MEDS: Acetaminophen Supp 650 MG SUPP.RECT PR (16:53)
--- NOTE | 2024-04-02 08:19 | P.CDIM_ITS ---
PROVIDER RESPONSE TEXT: To clarify, the appropriate diagnosis supported by the clinical indicators: Metabolic QUERY TEXT: PHYSICIAN'S DOCUMENTATION REQUEST Date of Query: 03/30/2024 06:07 AM EST Patient Name: Ridge Lira Admit Date: 03/27/2024 Dear Tyree Hernandez DO, A review of the medical record indicates additional documentation may be needed. Please review below and update the documentation accordingly. Clinical Indicators: Progress notes: Patient will require inpatient hospitalization for treatment of acute respiratory jaimie lure and encephalopathy in the setting of acute pneumonia Continues to decline with increasing O2 requirement. Family to discuss UNDERTAKER HELPER. Based on the above, please further specify, in the Progress Notes, the known or suspected type of the documented encephalopathy: Metabolic Septic Toxic Toxic metabolic Hypertensive Anoxic Other (explain) Clinically unable to determine (explain) Thank you, Nida Villasenor, CCS, CDIS Use of terms such as suspected, likely, concern for, or probable (associated with a specific diagnosi s that is being evaluated, monitored, or treated as if it exists) are acceptable and can be coded in the inpatient se tting, when documented at the time of discharge. Please use your independent medical judgment in providing your response. THIS QUERY IS PART OF THE PERMANENT MEDICAL RECORD
--- NOTE | 2024-04-02 08:22 | P.CDIM_ITS ---
PROVIDER RESPONSE TEXT: To clarify, the appropriate diagnosis supported by the clinical indicators: Other (explain): Multifactorial in backdrop of metastatic lung cancer QUERY TEXT: PHYSICIAN'S DOCUMENTATION REQUEST Date of Query: 03/30/2024 09:02 AM EST Patient Name: Ridge Lira Admit Date: 03/27/2024 Dear Tyree Hernandez DO, A review of the medical record indicates additional documentation may be needed. Please review below and update the documentation accordingly. Clinical Indicators: Progress notes within the written Plan: On admission noted to have fever, tachycardia, tachypnea and lactic acidosis. s/p IV fluids. LA 8.3 Clarify which of the following accurately represents the acuity of the Lactic acidosis: Possible options might include: Acute Acute on chronic Chronic Other (explain) Clinically unable to determine (explain) Thank you, Nida Villasenor, CCS, CDIS Use of terms such as suspected, likely, concern for, or probable (associated with a specific diagnosi s that is being evaluated, monitored, or treated as if it exists) are acceptable and can be coded in the inpatient se tting, when documented at the time of discharge. Please use your independent medical judgment in providing your response. THIS QUERY IS PART OF THE PERMANENT MEDICAL RECORD
== END 2024-03-30 17:00 | disposition hospice, inpatient (51) | DRG 871 ==
LOC: HO.ED 11:59 → HO.EDOVER 12:39 → HO.S3 15:37 → HO.EDOVER 15:52 → HO.IMC 16:19
PROVIDERS: Hospitalist; Admitting Provider Student in an Organized Health Care Education/Training Program; Emergency Provider Emergency Medicine; PCP Family Medicine; Visit Provider Hospitalist
DX: A41.9 Sepsis, unspecified organism (principal); G93.41 Metabolic encephalopathy; J18.9 Pneumonia, unspecified organism; J96.01 Acute respiratory failure with hypoxia; I69.354 Hemiplegia and hemiparesis following cerebral infarction affecting left non-dominant side; J44.0 Chronic obstructive pulmonary disease with (acute) lower respiratory infection; C34.92 Malignant neoplasm of unspecified part of left bronchus or lung; R65.20 Severe sepsis without septic shock; K21.9 Gastro-esophageal reflux disease without esophagitis; Z66 Do not resuscitate; I69.319 Unspecified symptoms and signs involving cognitive functions following cerebral infarction; D63.0 Anemia in neoplastic disease; F01.50 Vascular dementia, unspecified severity, without behavioral disturbance, psychotic disturbance, mood disturbance, and anxiety; Z20.822 Contact with and (suspected) exposure to COVID-19; Z89.612 Acquired absence of left leg above knee; Z89.611 Acquired absence of right leg above knee; Z87.891 Personal history of nicotine dependence; Z79.4 Long term (current) use of insulin; Z79.51 Long term (current) use of inhaled steroids; Z79.899 Other long term (current) drug therapy
CPT/HCPCS: 0241U; 36415; 71045; 71275; 80048; 80053; 80076; 81001; 82803; 82947; 83605; 83690; 83880; 84484; 85025; 87040; 87086; 93005; 94640; 99285; C1758; J0131; J0153; J0696; J1630; J1650; J1940; Q9967

== ENCOUNTER → 2024-03-27 08:27 | Outpatient (BNV) | payer MEDICARE, MEDICAID, SELFPAY | PROVIDERS: Emergency Provider Emergency Medicine; PCP Family Medicine; Visit Provider Radiology Vascular & Interventional Radiology | DX: J18.1 Lobar pneumonia, unspecified organism (principal) | CPT/HCPCS: 71045 ==

== ENCOUNTER → 2024-03-27 08:27 | Outpatient (BNV) | payer MEDICARE, MEDICAID, SELFPAY | PROVIDERS: Admitting Provider Student in an Organized Health Care Education/Training Program; Emergency Provider Emergency Medicine; PCP Family Medicine; Visit Provider Internal Medicine Cardiovascular Disease | DX: R94.31 Abnormal electrocardiogram [ECG] [EKG] (principal) | CPT/HCPCS: 93010 ==

== ENCOUNTER 2024-03-27 12:30 | Outpatient (BNV) | payer MEDICARE, MEDICAID, SELFPAY | END 2024-03-28 21:12 | PROVIDERS: Admitting Provider Student in an Organized Health Care Education/Training Program; Emergency Provider Emergency Medicine; PCP Family Medicine; Visit Provider Radiology Diagnostic Radiology | DX: R00.0 Tachycardia, unspecified (principal) | CPT/HCPCS: 71275 ==

== ENCOUNTER → 2024-03-27 12:30 | Outpatient (BNV) | payer MEDICARE, MEDICAID, SELFPAY | PROVIDERS: Admitting Provider Student in an Organized Health Care Education/Training Program; Emergency Provider Emergency Medicine; PCP Family Medicine; Visit Provider Hospitalist | DX: J96.01 Acute respiratory failure with hypoxia (principal); A41.9 Sepsis, unspecified organism; R65.21 Severe sepsis with septic shock; I69.391 Dysphagia following cerebral infarction; L60.3 Nail dystrophy | CPT/HCPCS: 99223 ==

== ENCOUNTER → 2024-03-27 12:30 | Outpatient (BNV) | payer MEDICARE, MEDICAID, SELFPAY | PROVIDERS: Admitting Provider Student in an Organized Health Care Education/Training Program; Emergency Provider Emergency Medicine; PCP Family Medicine; Visit Provider Student in an Organized Health Care Education/Training Program | DX: A41.9 Sepsis, unspecified organism (principal); J96.01 Acute respiratory failure with hypoxia; J18.9 Pneumonia, unspecified organism | CPT/HCPCS: 99223; 99233 ==

== ENCOUNTER 2024-03-30 16:51 | Inpatient (IN) | payer OTHER, SELFPAY ==
--- NOTE | 2024-03-30 16:57 | P.HPHOSP_ITS ---
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 EMS found patient in respiratory distress, hypoxic in the 60s as well as tachycardic and tachypneic. Patient was somnolent and nonresponsive to questions. In the ED pt was febrile up to 103.5, tachycardic up to 164, tachypneic up to 51, with variable BP as low as 108/49 now normalized at 114/70, initially satting in the 70s on RA placed high-flow. Labs were significant for reandom glucose 461, initial lactic acid 8.3 with repeat 4.4, alk-phos 124, initial troponin 116.5 with repeat 162.5, BNP mildly elevated at 134. No leukocytosis. Stable H&H at 11.7/37.6. No significant electrolyte abnormalities. VB pH 7.31 with bicarb 18. UA concerning for possible UTI. Tested negative for flu, RSV, and COVID. CXR showed right lower lobe pneumonia. Initial EKG demonstrated supraventricular tachycardia 162 with repeat patient with sinus rhythm first-degree AV block. Pt was treated with nitroglycerin, Lasix, acetaminophen, adenosine, IVF, ceftriaxone, and doxycycline. Goals of care discussed with HCP as well as numerous other family who are at bedside. Plan is to admit the pt to the hospital for treatment of pneumonia with sepsis with IV antibiotics. Will reassess patient's status tomorrow to determine further course treatment vs WELT SLASHER. Patient declined over last admission; decision was for hospice consult which GIP admission Review of Systems Review of Systems: Unable to obtain [facility] Medical History HLD (hyperlipidemia) Vascular dementia Non-small cell cancer of left lung Dysphagia as late effect of cerebrovascular accident (CVA) Stroke HTN (hypertension) Diabetes CVA (cerebral vascular accident) Family History Father Hx of type 1 diabetes mellitus Mother History of heart attack Surgical History S/P AKA (above knee amputation) bilateral History of colonoscopy Social History Household Members: Other Household Members Other:: reg[facility] care Housing: Senior Care Do you presently have visiting nurse or other home services: No Alcohol intake: unknown Patient Tobacco Use Status: Former Tobacco user Cigarette Packs Per Day: 1 Cigarettes Per Day: 20.0 Second Hand Smoke Exposure: Yes Advance Directives Date on File: 08/08/20 service: No Current occupational status: unemployed and disabled Meds Allergies Allergy/AdvReac Type Severity Reaction Status Date / Time No Known Allergies Allergy Unknown NONE Verified 03/27/24 08:33 Active Medications: Current Medications Haloperidol Lactate (Haloperidol Lactate 5 Mg/Ml Vial) 2.5 mg IM Q4H PRN PRN Reason: anxiety/restlessness Lorazepam (Lorazepam 2 Mg/Ml Vial) 1 mg IVPUSH Q2H PRN PRN Reason: anxiety/restlessness Morphine Sulfate (Morphine Sulfate 4 Mg/Ml Cartridge) 4 mg IVPUSH Q2H PRN; Protocol PRN Reason: Pain, Moderate(Pain Scale 4-6) Home Medications ?Medication ?Instructions ?Recorded ?Confirmed ?Last Taken ?Type atorvastatin 40 mg tablet 40 mg PO BEDTIME 03/29/20 03/27/24 12/14/21 History clopidogrel 75 mg tablet (Plavix) 75 mg PO DAILY 03/29/20 03/27/24 12/15/21 History cholecalciferol (vitamin D3) 50 50 mcg PO DAILY 04/12/20 03/27/24 12/15/21 History mcg (2,000 unit) capsule metoprolol tartrate 25 mg tablet 25 mg PO BID 04/12/20 03/27/24 12/15/21 History blood sugar diagnostic (OneTouch 08/03/20 08/03/20 Unknown History Ultra Blue Test Strip) chlorhexidine gluconate 0.12 % 15 ml PO BID 08/03/20 03/27/24 12/15/21 History mouthwash ferrous sulfate 325 mg (65 mg 1 tab PO DAILY 08/03/20 03/27/24 12/15/21 History iron) tablet (FeroSul) fluticasone furoate 100 1 puff inhalation DAILY 08/03/20 03/27/24 12/15/21 History mcg-vilanterol 25 mcg/dose inhalation powder (Breo Ellipta) insulin glargine 100 unit/mL (3 30 unit subcut BEDTIME 08/03/20 03/27/24 12/14/21 History mL) subcutaneous pen (Lantus Solostar U-100 Insulin) lancets 33 gauge (OneTouch Delica 08/03/20 08/03/20 Unknown History Plus Lancet) pen needle, diabetic 32 gauge x 08/03/20 08/03/20 Unknown History (UltiCare Pen Needle) insulin lispro 100 unit/mL 1 sliding scale dose subcut TIDAC 12/15/21 03/27/24 Unknown History subcutaneous solution pantoprazole 40 mg tablet,delayed 1 tab PO DAILY 12/15/21 03/27/24 12/15/21 History release acetaminophen 325 mg tablet 650 mg PO Q4H PRN Pain or fever 05/20/23 03/27/24 Unknown History bisacodyl 10 mg rectal suppository 10 mg MD DAILY PRN Constipation 05/20/23 03/27/24 Unknown History guaifenesin 100 mg/5 mL oral liquid 200 mg PO Q4H PRN Cough 05/20/23 03/27/24 Unknown History magnesium oxide 400 mg PO BID 05/20/23 03/27/24 Unknown History sodium phosphates 19 gram-7 118 ml MD DAILY PRN Constipation 05/20/23 03/27/24 Unknown History gram/118 mL enema (Fleet Enema) ascorbic acid (vitamin C) 500 mg 500 mg PO DAILY 03/27/24 03/27/24 Unknown History tablet divalproex 250 mg tablet,extended 250 mg PO DAILY 03/27/24 03/27/24 Unknown History release 24 hr gabapentin 100 mg capsule 100 mg PO DAILY 03/27/24 03/27/24 Unknown History guaifenesin 100 mg/5 mL oral liquid 200 mg PO BID 03/27/24 03/27/24 Unknown History loperamide 2 mg capsule (Imodium 2 mg PO Q6H PRN Loose Stool 03/27/24 03/27/24 Unknown History A-D) magnesium hydroxide 2,400 mg/10 mL 30 ml PO DAILY PRN Constipation 03/27/24 03/27/24 Unknown History oral suspension (Milk Of Magnesia Concentrated) mirtazapine 15 mg tablet 7.5 mg PO BEDTIME 03/27/24 03/27/24 Unknown History multivitamin with minerals 1 tab PO DAILY 03/27/24 03/27/24 Unknown History potassium chloride 20 mEq 20 meq PO BID 03/27/24 03/27/24 Unknown History tablet,extended release trazodone 50 mg tablet 50 mg PO BEDTIME 03/27/24 03/27/24 Unknown History Physical Exam Const: Other: Somnolent but arousable Resp: Other: Diminished throughout with scattered wheezes Cardio: Other: No S4; positive S1-S2; no S3 murmurs rubs or gallops Extrem: Other: No edema bilaterally Assessment and Plan (1) Non-small cell cancer of left lung: Status: Acute Plan Admit to [facility] Quality Stroke Does the patient have a stroke diagnosis?: No VTE Prior VTE?: No VTE Risk Level:: Medical - moderate - high VTE Device Contraindication: Treatment Not Indicated VTE Drug Contraindication: Treatment Not Indicated
--- NOTE | 2024-03-30 17:43 | PC.NURSE ---
Pt admit and assessment info under account [id number] as pt was inpatient admitted 03/27/24 and txr to GIP this evening 03/30/24. Now will continue assessment documentation under this account
--- NOTE | 2024-03-30 18:11 | PHA.MEDREC ---
Addendum entered by Tate Kruse yves 03/30/24 18:52: med rec reviewed Original Note: Pharmacy Consult ? Medication Reconciliation Pharmacy has completed the medication reconciliation. Patient admitted 03/27/24. Utilized Dc summary to confirm med rec.
[2024-03-30 19:27] VITALS: RESP 17
[2024-03-30] MEDS: Morphine Sulfate 4 MG/ML CARTRIDGE IVPUSH (20:00)
[2024-03-30 20:27] VITALS: PULSE 124; RESP 24; O2SAT 96
[2024-03-31] VITALS (13 sets, daily range): PULSE 100–125; RESP 14–22; O2SAT 95–100
[2024-03-31] MEDS: Morphine Sulfate 4 MG/ML CARTRIDGE IVPUSH ×4 (01:08→17:32)
--- NOTE | 2024-03-31 09:14 | MHC.CM.PN ---
Pt admitted to [facility] on 03/30/24 with [facility], CM will continue to follow.
--- NOTE | 2024-03-31 12:24 | HO.PM.IMPN ---
Subjective Subjective Date of Service: 03/31/24 Interval History: Continues on GIB hospice; unclear on direction of care. Wish IV antibiotics restarted and will discuss weaning O2 later today Review of Systems Unable to obtain Physical Exam Vital Signs: Vital Signs: Last Vital Signs Resp 14 03/31/24 12:00 Const: Other: Somnolent but arousable Resp: Other: Diminished throughout with scattered wheezes Cardio: Other: No S4; positive S1-S2; no S3 murmurs rubs or gallops Extrem: Other: No edema bilaterally Objective Data Active Medications Haloperidol Lactate (Haloperidol Lactate 5 Mg/Ml Vial) 2.5 mg IM Q4H PRN PRN Reason: anxiety/restlessness Lorazepam (Lorazepam 2 Mg/Ml Vial) 1 mg IVPUSH Q2H PRN PRN Reason: anxiety/restlessness Morphine Sulfate (Morphine Sulfate 4 Mg/Ml Cartridge) 4 mg IVPUSH Q2H PRN; Protocol PRN Reason: Pain, Moderate(Pain Scale 4-6) Last Admin: 03/31/24 08:24 Dose: 4 mg Documented By: ABELARDO Assessment and Plan (1) Non-small cell cancer of left lung: Status: Acute Plan At family's request, we will restart antibiotics. We will ask speech to eval regarding appropriate diet. Family wishes to hold on oxygen weaning until they can discuss it together. Continue all therapies as ordered Quality Stroke Does the patient have a stroke diagnosis?: No VTE Prior VTE?: No VTE Risk Level:: Medical - moderate - high VTE Device Contraindication: Treatment Not Indicated VTE Drug Contraindication: Treatment Not Indicated
--- NOTE | 2024-03-31 12:31 | HE.PHANOTE ---
RE ANTIBIOTICS WITH [employer]OPPER PATIENT CONFIRMED WITH PROVIDER OK TO TREAT WITH ANTIBIOTICS WHILE FAMILY CONSIDERS PATIENT DISPOSITION
[2024-03-31] MEDS: cefTRIAXone sodium 1 GM VIAL IVPUSH (14:05)
[2024-03-31] MEDS: Doxycycline Hyclate 100 MG in 0.9 % Sodium Chloride 250 ML 166.67 MG IV (14:05)
--- NOTE | 2024-03-31 15:22 | MHC.SLORD ---
Speech Language Pathology Order Status: Pt on high flow O2, hospice GIP. CLOTH DRIER to evaluate swallow for least restrictive consistencies when pt able to participate.
[2024-03-31 20:23] LABS: Glucose, Whole Blood 306 mg/dL (60-115)
[2024-04-01] VITALS (10 sets, daily range): BP systolic 130; BP diastolic 64; PULSE 122–145; RESP 17–20; TEMP 36.8; O2SAT 91–95
[2024-04-01] MEDS: Doxycycline Hyclate 100 MG in 0.9 % Sodium Chloride 250 ML 166.67 MG IV ×2 (01:56→11:59)
--- NOTE | 2024-04-01 11:28 | MHC.SL.SWA ---
Speech Pathologist Impression: Severe to profound pharyngeal dysphagia Risk of Aspiration Due to: Lethargy Medically Fragile Neurological Condition History of Pneumonia Poor PO Intake Reduced Cognition Dysphasia Diet Status: NTL by tsp only for pleasure when pt alert, sitting upright Liquid Consistency and Strategies for Safe Swallow: Liquid Intake Recommendation: [place] Thick Liquid Intake Strategies: Liquids by Teaspoon Only Solid Food Consistency: Dietary Recommendations: NTL only Additional Modifications to Solid Foods: Oral Medication Intake: NPO Please contact the pharmacy regarding appropriate crushable or liquid drug formulations that are available whenever modified delivery is recommended. Compensatory Strategies and Precautions to be Taken for Safe Swallow: Sitting Upright (90 deg) Liquids from Spoon Small Bites and Sips Rate of Ingestion Change Supervision While Eating and Drinking for Safe Swallow: Total Supervision (1:1) Foods to Avoid: Swallowing Recommended Treatments: Compens. Strategy Educat. Recommendation for Speech: Pt resting in bed, son at bedside. Education provided to son with chief environmental commitment officer services to explain physiological function of swallow and airway protection, results from most recent MBSS, pt overall compromised condition, and risk for recurrent aspiration d/t severity and nature of dysphagia. Pt son verbalized understanding and was in agreement with SCHEDULING ADMINISTRATOR cautious diet recc for pleasure PO. Pt unable to wake for formal bedside assessment. Thermal stimulation technique introduced and demonstrated to pt son. Pt opened his mouth upon cold stim, closed lips, attempted to swallow with observable tongue pumping, limited laryngeal elevation. Pt did not voice at any time during technique, though he moved his mouth slightly in approximated response to voice of his son, chief environmental commitment officer and SCHEDULING ADMINISTRATOR. MD, RN, hospice SN and SCHEDULING ADMINISTRATOR consulted. SCHEDULING ADMINISTRATOR continues to follow for education and support. Prognosis for safe resumption of PO poor. Comment: Frequency/Duration: Date Range for Service Req: Timeline to reassess: Analytical Technician Clinican/Clinical Fellow: No Supervisory Statement: I have reviewed and agree with the student/clinical fellow's documentation: N/A Speech Language Pathologist: Roxana Cardona M.S., [facility]-SCHEDULING ADMINISTRATOR
[2024-04-01] MEDS: cefTRIAXone sodium 1 GM VIAL IVPUSH (11:59)
--- NOTE | 2024-04-01 12:47 | P.PNIM_ITS ---
Subjective Subjective Date of Service: 04/01/24 Interval History: No acute issues overnight. Slowly declining. Review of Systems Unable to obtain Physical Exam Vital Signs: Vital Signs: Last Vital Signs Temp 98.3 F 04/01/24 07:13 Pulse 123 H 04/01/24 07:13 Resp 20 04/01/24 11:34 BP 130/64 04/01/24 07:13 Pulse Ox 94 04/01/24 07:13 O2 Del Method High Flow Nasal C annula 04/01/24 07:13 O2 Flow Rate 50 04/01/24 07:13 FiO2 65 04/01/24 07:13 Const: Other: Somnolent but arousable Resp: Other: Diminished throughout with scattered wheezes Cardio: Other: No S4; positive S1-S2; no S3 murmurs rubs or gallops Extrem: Other: No edema bilaterally Objective Data Active Medications Ceftriaxone Sodium (Ceftriaxone Sodium 1 Gm Vial) 1 gm IVPUSH Q24H [facility] Last Admin: 04/01/24 11:59 Dose: 1 gm Documented By: KAIA Haloperidol Lactate (Haloperidol Lactate 5 Mg/Ml Vial) 2.5 mg IM Q4H PRN PRN Reason: anxiety/restlessness Doxycycline Hyclate 100 mg/ (Sodium Chloride) 250 mls @ 166.67 mls/hr IV Q12H [facility] Last Admin: 04/01/24 11:59 Dose: 166.67 mls/hr Documented By: KAIA Lorazepam (Lorazepam 2 Mg/Ml Vial) 1 mg IVPUSH Q2H PRN PRN Reason: anxiety/restlessness Morphine Sulfate (Morphine Sulfate 4 Mg/Ml Cartridge) 4 mg IVPUSH Q2H PRN; Protocol PRN Reason: Pain, Moderate(Pain Scale 4-6) Last Admin: 03/31/24 17:32 Dose: 4 mg Documented By: JOSEFINA Labs Labs: Laboratory Results - last 24 hr 03/31/24 20:17 POC Glucose 306 H Assessment and Plan (1) Non-small cell cancer of left lung: Status: Acute Plan At family's request, we will restart antibiotics. We will ask speech to eval regarding appropriate diet. Family wishes to hold on oxygen weaning until they can discuss it together. Continue all therapies as ordered Quality Stroke Does the patient have a stroke diagnosis?: No VTE Prior VTE?: No VTE Risk Level:: Medical - moderate - high VTE Device Contraindication: Treatment Not Indicated VTE Drug Contraindication: Treatment Not Indicated
[2024-04-01] MEDS: Morphine Sulfate 4 MG/ML CARTRIDGE IVPUSH (16:51)
[2024-04-01] MEDS: Acetaminophen 1,000 MG/100 ML PIGGYBACK 400 MG IV (17:51)
[2024-04-02] VITALS (12 sets, daily range): PULSE 128–146; RESP 16–40; TEMP 36.4; O2SAT 92–100
[2024-04-02] MEDS: Acetaminophen 1,000 MG/100 ML PIGGYBACK 400 MG IV ×3 (00:45→18:07)
[2024-04-02] MEDS: Morphine Sulfate 2 MG/ML CARTRIDGE 1 MG IVPUSH ×4 (00:49→22:38)
[2024-04-02] MEDS: Doxycycline Hyclate 100 MG in 0.9 % Sodium Chloride 250 ML 166.67 MG IV ×2 (00:59→13:36)
--- NOTE | 2024-04-02 07:10 | PC.NURSE ---
Patient did receive 1 Liter of NS instead of just the 250mg originally ordered, this 1 Liter was completed at 10:30m. This RN did not end this order as MD did not change the order to infuse the 1 Liter.
[2024-04-02] MEDS: Scopolamine 1.5 MG PATCH.TD.3 EAR-BEHIND (09:51)
--- NOTE | 2024-04-02 10:34 | MHC.CM.PN ---
Patient is currently on [facility], with [facility]. CM will continue to follow.
--- NOTE | 2024-04-02 11:56 | MHC.SLORD ---
Addendum entered and electronically signed by Mary Mendez MA, CCC-STAFF NURSE 04/02/24 15:54: Patient still lethargic, per family, patient did not have any of his lunch d/t somnolent state. Original Note: Speech Language Pathology Order Status: Patient somnolent, with lunch tray at bedside untouched. STAFF NURSE to return in the p.m. for dysphagia tx.
--- NOTE | 2024-04-02 12:52 | HO.PM.IMPN ---
Subjective Subjective Date of Service: 04/02/24 Interval History: Slowly deteriorating. Respiratory rate up. Medicines unchanged due to family request Review of Systems Unable to obtain Physical Exam Vital Signs: Vital Signs: Last Vital Signs Temp 98.3 F 04/01/24 07:13 Pulse 123 H 04/01/24 07:13 Resp 36 H 04/02/24 11:49 BP 130/64 04/01/24 07:13 Pulse Ox 94 04/01/24 07:13 O2 Del Method High Flow Nasal C annula 04/01/24 07:13 O2 Flow Rate 50 04/01/24 07:13 FiO2 65 04/01/24 07:13 Const: Other: Somnolent but arousable Resp: Other: Diminished throughout with scattered wheezes Cardio: Other: No S4; positive S1-S2; no S3 murmurs rubs or gallops Extrem: Other: No edema bilaterally Objective Data Active Medications Ceftriaxone Sodium (Ceftriaxone Sodium 1 Gm Vial) 1 gm IVPUSH Q24H [facility] Last Admin: 04/01/24 11:59 Dose: 1 gm Documented By: KAIA Haloperidol Lactate (Haloperidol Lactate 5 Mg/Ml Vial) 2.5 mg IM Q4H PRN PRN Reason: anxiety/restlessness Doxycycline Hyclate 100 mg/ (Sodium Chloride) 250 mls @ 166.67 mls/hr IV Q12H [facility] Last Infusion: 04/02/24 03:23 Dose: Infused Documented By: LAI Acetaminophen (Ofirmev) 1,000 mg in 100 mls @ 400 mls/hr IV Q6H [facility] Stop: 04/02/24 18:44 Last Admin: 04/02/24 06:14 Dose: Not Given Documented By: LAI Non-Admin Reason: Patient Asleep Lorazepam (Lorazepam 2 Mg/Ml Vial) 1 mg IVPUSH Q2H PRN PRN Reason: anxiety/restlessness Morphine Sulfate (Morphine Sulfate 2 Mg/Ml Cartridge) 1 mg IVPUSH Q2H PRN; Protocol PRN Reason: Pain, Moderate(Pain Scale 4-6) Last Admin: 04/02/24 00:49 Dose: 1 mg Documented By: LAI Scopolamine (Scopolamine 1.5 Mg Patch.Td.3) 1.5 mg EAR-BEHIND Q72H [facility] Last Admin: 04/02/24 09:51 Dose: 1.5 mg Documented By: WINSTON Assessment and Plan (1) Non-small cell cancer of left lung: Status: Acute Plan At family's request, no changes to current regimen Quality Stroke Does the patient have a stroke diagnosis?: No VTE Prior VTE?: No VTE Risk Level:: Medical - moderate - high VTE Device Contraindication: Treatment Not Indicated VTE Drug Contraindication: Treatment Not Indicated
[2024-04-02] MEDS: cefTRIAXone sodium 1 GM VIAL IVPUSH (13:30)
--- NOTE | 2024-04-03 05:52 | PM.EVENT ---
Event Note Date of Service: 04/03/24 Event Note: note I was contacted to patient's bedside to pronounce that the patient Ridge [place] has .? No spontaneous movements were present.? There was no response to verbal or tactile stimuli.? Pupils were mid-dilated and fixed.? No breath sounds were appreciated over either lung field.? No carotid pulses were palpable.? No heart sounds were auscultated over entire pericardium.? Patient was pronounced April 03, 2024 - 5:29 AM.? Family at bedside.? The family declined autopsy.? Patient was DNR/DNI. Time of was confirmed by RN. Time Spent With Patient Time: Total time managing care of this patient today ____ minutes.
--- NOTE | 2024-04-03 06:02 | PC.NURSE ---
At 0528, family rang call cervantes for pt to be assessed. This RN listened for lung sounds, HR (pulse and apical), nothing was heard. Told family ( and daughter) MD would be up to check. MD came up and pronounced pt. MARY ANNE called, spoke w/Shanelle ref # [id number]. MARY ANNE declined pt at this time. More family has arrived, post mortem care will be done once family leaves.
--- NOTE | 2024-04-03 09:41 | PC.NURSE ---
Post mortem care done by this RN and another Rn and PERIANESTHESIA NURSE. Body ready to be transferred to [facility].
--- NOTE | 2024-04-16 07:34 | PM.DDS ---
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 EMS found patient in respiratory distress, hypoxic in the 60s as well as tachycardic and tachypneic. Patient was somnolent and nonresponsive to questions. In the ED pt was febrile up to 103.5, tachycardic up to 164, tachypneic up to 51, with variable BP as low as 108/49 now normalized at 114/70, initially satting in the 70s on RA placed high-flow. Labs were significant for reandom glucose 461, initial lactic acid 8.3 with repeat 4.4, alk-phos 124, initial troponin 116.5 with repeat 162.5, BNP mildly elevated at 134. No leukocytosis. Stable H&H at 11.7/37.6. No significant electrolyte abnormalities. VB pH 7.31 with bicarb 18. UA concerning for possible UTI. Tested negative for flu, RSV, and COVID. CXR showed right lower lobe pneumonia. Initial EKG demonstrated supraventricular tachycardia 162 with repeat patient with sinus rhythm first-degree AV block. Pt was treated with nitroglycerin, Lasix, acetaminophen, adenosine, IVF, ceftriaxone, and doxycycline. Goals of care discussed with HCP as well as numerous other family who are at bedside. Plan is to admit the pt to the hospital for treatment of pneumonia with sepsis with IV antibiotics. Will reassess patient's status tomorrow to determine further course treatment vs DATA SOFTWARE ENGINEER. Patient declined over last admission; decision was for hospice consult with GIP admission.. Patient was kept on comfort measures and as above at 05:29 on 04/03/2024. Additional Data Attending physician: Roderick Blackwood MD
== END 2024-04-03 05:28 | disposition expired | DRG 951 ==
PROVIDERS: Admitting Provider Hospitalist; PCP Family Medicine; Visit Provider Family Medicine
DX: Z51.5 Encounter for palliative care (principal); C34.92 Malignant neoplasm of unspecified part of left bronchus or lung; I69.354 Hemiplegia and hemiparesis following cerebral infarction affecting left non-dominant side; Z89.612 Acquired absence of left leg above knee; Z89.611 Acquired absence of right leg above knee; Z87.891 Personal history of nicotine dependence; Z79.4 Long term (current) use of insulin; Z79.02 Long term (current) use of antithrombotics/antiplatelets; Z79.51 Long term (current) use of inhaled steroids; Z79.899 Other long term (current) drug therapy
CPT/HCPCS: 82947; 92610; J0131; J0696; J2270

== ENCOUNTER → 2024-03-30 | Outpatient (BNV) | payer OTHER, SELFPAY | PROVIDERS: Admitting Provider Hospitalist; Visit Provider Hospitalist | DX: C34.92 Malignant neoplasm of unspecified part of left bronchus or lung (principal) | CPT/HCPCS: 99233; 99499 ==